=== PATIENT | female | born 1960 | race Caucasian/White ===

== ENCOUNTER → 2016-10-19 | Outpatient (CLI) | payer OTHER ==
[~2016-10-19] MED LIST: AMIT25TA9 PO; ATOR10TA88 PO; AZITTAB PO; CYCL5TAB PO; DEXL30CA5 PO; FLUT0.15 NAE; GLC/500 PO; HYDR5SYP11 PO; LISI-725 PO; MELA1TAB5 PO; MELA3TAB PO; METF-384 PO; METH4PAK PO; NORT10CA4 PO; OMEP20CA9 PO; OXYC-106 PO; OXYC7.5T65 PO; POTA1080 PO; POTA10TA79 PO; POTATAB2 PO; RANI300T2 PO; ROPI1TAB PO; SUCR1TAB PO; ZOLP5TAB PO
--- NOTE | 2016-10-19 16:05 | DIAGNOSTIC IMAGING REPORT ---
RIGHT KNEE 4 OR MORE VIEWS CLINICAL HISTORY: Right knee pain COMPARISON: None. DISCUSSION: There are mild osteoarthritic changes with mild medial joint compartment narrowing. There is a tiny dorsal patellar spur. No acute fractures are visualized. No destructive lesions are evident. IMPRESSION: Osteoarthritic change. No acute fractures. Electronically signed by: Mg Neal M.D. 10/19/2016 4:04 PM Dictated Date/Time: 10/19/2016 4:03 PM
== END | disposition home or self-care (01) ==
LOC: C.RAD 15:36
PROVIDERS: ATTEND Family Medicine
DX: M25.561 Pain in right knee (principal)

== ENCOUNTER 2016-11-20 22:58 | Emergency (ER) | payer OTHER ==
[~2016-11-20] VITALS: Ht 167.6 cm; Wt 97.9 kg
[~2016-11-20 22:58] MED LIST changes: -AZITTAB PO; -HYDR5SYP11 PO; -MELA3TAB PO; -METF-384 PO; -METH4PAK PO; -NORT10CA4 PO; -OMEP20CA9 PO; -OXYC-106 PO; -POTA10TA79 PO; -POTATAB2 PO; -SUCR1TAB PO
[2016-11-20 22:59] VITALS: TEMP 36.7; Ht 167.6 cm; Wt 97.9 kg
--- NOTE | 2016-11-20 23:09 | EMERGENCY ROOM VISIT NOTE ---
History Report prepared by Ta: Rory Diggs Under the Supervision of: Dr. Duane Hayward M.D. First contact with patient: 23:04 Chief Complaint: GI ASSESSMENT Stated Complaint: BLOOD IN VOMIT Nursing Triage Summary: Abd pain, vomiting with blood last night. last emesis 1100. Both bright red and brown per pt. "I think something was scratching my throat". CT scheduled on Sun for Hernia, scope scheduled for History of Present Illness The patient is a 56 year old female who presents to the Emergency Room with complaints of resolved hematemesis that occurred 12 hours ago. The patient states that she was sick last night and vomited. She reports that she vomited 12 hours ago, and she saw blood in it. The patient notes that she currently has a hernia in her abdomen, and she has a CT scan scheduled on Sunday and an endoscopy on Sunday. She states that her doctor is concerned for a worsening hernia and stomach ulcers. The patient reports that she currently feels well and would not be here if her family did not insist on her being here. She notes that she has a history of stomach ulcers, but she no longer takes medication for it. The patient states she also has a history of gastric bypass surgery and has mild abdominal pain. She notes that she takes doxylamine daily. She reports she had a bowel movement earlier today, and it was normal. The patient notes that she does have a history of smoking. She denies hematochezia, melena, fevers , chest pain, shortness of breath, loss of consciousness, diarrhea, urinary symptoms, and consuming chocolate, coffee, tomatoes, and spices. The patient also denies a history of ibuprofen use, alcohol use, liver problem, easy bleeding, and being around people sick. Source of History: patient Onset: 12 hours ago Position: abdomen Quality: other (hematemesis) Timing: resolved Associated Symptoms: + abdominal pain (mild), No LOC, No fevers, No chest pain, No SOB, No melena, No hematochezia, No diarrhea, No urinary symptoms Review of Systems See HPI for pertinent positives & negatives. A total of 10 systems reviewed and were otherwise negative. Past Medical & Surgical Medical Problems: (1) Anxiety (2) Bronchitis (3) Depression (4) Diabetes (5) Fibromyalgia (6) Gastric ulcer (7) Hypertension (8) Pneumonia (9) unintentional overdose (10) UTI (lower urinary tract infection) Surgical Problems: (1) H/O gastric bypass (2) H/O hernia repair (3) H/O knee surgery (4) H/O: hysterectomy (5) S/P tonsillectomy Family History FHx: cancer FHx: diabetes mellitus FHx: gallbladder disease FHx: heart disease FHx: hypertension FHx: lung disease FHx: seizures Social History Smoking Status: Current Every Day Smoker Alcohol Use: occasionally Drug Use: none Marital Status: single Housing Status: lives with family Occupation Status: unemployed Current/Historical Medications Scheduled Amitriptyline Hcl (Elavil), 25 MG PO HS Atorvastatin (Lipitor), 5 MG PO DAILY Dexlansoprazole (Dexilant), 1 CAP PO DAILY Fluticasone Propionate (Nasal) (Flonase Allergy Relief), 2 SPRAYS LEONA DAILY Lisinopril (Zestril), 20 MG PO DAILY Melatonin (Melatonin), 3 MG PO HS Metformin Hcl (Glucophage), 1,000 MG PO BID Oxycodone/Acetaminophen 10MG/325MG (Percocet 10MG/325MG), 1 TAB PO BID Potassium Citrate (Alkalinizer (Urocit-K 10), 10 MEQ PO DAILY Ropinirole (Requip), 1 MG PO BID Zolpidem Tartrate (Ambien), 5 MG PO HS Allergies Coded Allergies: Morphine (Verified Allergy, Mild, 11/20/16) Reaction described as itching around the site of an intrathecal injection. Adhesives (Unverified Allergy, Unknown, ., 11/20/16) Amoxicillin (Unverified Allergy, Unknown, ., 11/20/16) Clavulanic Acid (Unverified Allergy, Unknown, ., 11/20/16) Physical Exam Vital Signs Date Time Temp Pulse Resp B/P (MAP) Pulse Ox O2 Delivery O2 Flow Rate FiO2 11/20/16 23:43 108 19 135/101 96 Room Air 11/20/16 22:59 36.7 94 18 156/104 97 Room Air Physical Exam GENERAL: Patient is well appearing and in no acute distress. HEENT: No acute trauma, normocephalic atraumatic, mucous membranes moist, no nasal congestion, no scleral icterus. NECK: No stridor, no adenopathy, no meningismus, trachea is midline. LUNGS: No dyspnea. Clear to auscultation and equal bilaterally. No wheeze, no rhonchi. HEART: Regular rate and rhythm. No murmurs, rubs, gallops appreciated. ABDOMEN: Extensive abdominal scaring and large left midline hernia. Bowel sounds positive. No peritonitis. BACK: No midline tenderness, no CVA tenderness EXTREMITIES: Normal motion all extremities, no cyanosis, no edema. NEUROLOGIC: Alert and oriented, no acute motor or sensory deficits, no focal weakness, cranial nerves grossly intact. SKIN: No rash, no jaundice, no diaphoresis. Medical Decision & Procedures Laboratory Results 11/20/16 23:20 Red Blood Count 4.62, Mean Corpuscular Volume 86.8, Mean Corpuscular Hemoglobin 31.0, Mean Corpuscular Hemoglobin Concent 35.7, Mean Platelet Volume 9.4, Neutrophils (%) (Auto) 50.0, Lymphocytes (%) (Auto) 40.8, Monocytes (%) (Auto) 8.2, Eosinophils (%) (Auto) 0.7, Basophils (%) (Auto) 0.1, Neutrophils # (Auto) 4.06, Lymphocytes # (Auto) 3.32, Monocytes # (Auto) 0.67, Eosinophils # (Auto) 0.06, Basophils # (Auto) 0.01 11/20/16 23:20 Test 11/20/16 23:20 White Blood Count 8.14 K/uL (4.8-10.8) Red Blood Count 4.62 M/uL (4.2-5.4) Hemoglobin 14.3 g/dL (12.0-16.0) Hematocrit 40.1 % (37-47) Mean Corpuscular Volume 86.8 fL (80-100) Mean Corpuscular Hemoglobin 31.0 pg (25-34) Mean Corpuscular Hemoglobin Concent 35.7 g/dl (32-36) Platelet Count 214 K/uL (130-400) Mean Platelet Volume 9.4 fL (7.4-10.4) Neutrophils (%) (Auto) 50.0 % Lymphocytes (%) (Auto) 40.8 % Monocytes (%) (Auto) 8.2 % Eosinophils (%) (Auto) 0.7 % Basophils (%) (Auto) 0.1 % Neutrophils # (Auto) 4.06 K/uL (1.4-6.5) Lymphocytes # (Auto) 3.32 K/uL (1.2-3.4) Monocytes # (Auto) 0.67 K/uL (0.11-0.59) Eosinophils # (Auto) 0.06 K/uL (0-0.5) Basophils # (Auto) 0.01 K/uL (0-0.2) RDW Standard Deviation 40.9 fL (36.4-46.3) RDW Coefficient of Variation 12.9 % (11.5-14.5) Immature Granulocyte % (Auto) 0.2 % Immature Granulocyte # (Auto) 0.02 K/uL (0.00-0.02) Prothrombin Time 11.1 SECONDS (9.0-12.0) Prothromb Time International Ratio 1.0 (0.9-1.1) Activated Partial Thromboplast Time 28.6 SECONDS (21.0-31.0) Partial Thromboplastin Ratio 1.1 Anion Gap 6.0 mmol/L (3-11) Est Creatinine Clear Calc Drug Dose 137.2 ml/min Estimated GFR () 122.3 Estimated GFR (Non- 105.5 BUN/Creatinine Ratio 13.3 (10-20) Calcium Level 8.9 mg/dl (8.5-10.1) Total Bilirubin 0.4 mg/dl (0.2-1) Aspartate Amino Transf (AST/SGOT) 16 U/L (15-37) Alanine Aminotransferase (ALT/SGPT) 22 U/L (12-78) Alkaline Phosphatase 77 U/L (45-117) Total Protein 7.1 gm/dl (6.4-8.2) Albumin 3.1 gm/dl (3.4-5.0) Globulin 4.0 gm/dl (2.5-4.0) Albumin/Globulin Ratio 0.8 (0.9-2) Lipase 138 U/L (73-393) Laboratory results as reviewed by me. ED Course 2309: The patient was evaluated in room B12B. A complete history and physical exam was performed. 5652: I reevaluated the patient and discussed exam findings. She is feeling fine , walking around the room, and asking to be discharge. I offered to write a prescription of Prilosec, but the patient states that she will get it OTC. I discussed discharge instructions and the treatment plan. She verbalized complete agreement. The patient was discharged. Medical Decision Differential: Gastroenteritis, Food Borne, Esophageal Perforation, , Electrolyte Abnormality, Dehydration, Intraabdominal Infection, UTI/ Pyelonephritis, Bowel Obstruction, Biliary Pathology, amongst other pathology entertained. Pleasant 56 yr old female with history of Gastric Bypass and previous gastric ulcer issues arrives after vomiting 12+ hours ago with blood in it. Notes vomiting was due to stress but otherwise feels fine now. Denies black/bloody stools. Exam benign. Patient states she doesn't need to be here. Labs unremarkable with stable HgB, normal WBC, and otherwise unremarkable labs. With benign exam, resolution of symptoms for 12 + hours now I do not feel that emergent imaging necessary. She has outpatient CT already planned for a few days from now. She has outpatient endoscopy in a few days as well. Will started BID Prilosec for 1 week. Presume this was georgie tomas tear, though ulcer/gastritis possible. Of note, mild tachy on vitals after she was up walking around room, but on exam she has normal HR and she is not severely dehydrated appearing nor does she exhibit evidence of heavy active bleeding. Medication Reconcilliation Current Medication List: was personally reviewed by me Blood Pressure Screening Patient's blood pressure: Normal blood pressure Blood pressure disposition: Did not require urgent referral Impression Primary Impression: Bloody emesis Scribe Attestation The scribe's documentation has been prepared under my direction and personally reviewed by me in its entirety. I confirm that the note above accurately reflects all work, treatment, procedures, and medical decision making performed by me. Departure Information Dispostion Home / Self-Care Referrals Chrissy Little D.O. (PCP) Forms HOME CARE DOCUMENTATION FORM, IMPORTANT VISIT INFORMATION Patient Instructions Georgie Scott, My [facility] Additional Instructions You should begin taking Omeprazole (Prilosec) 20mg Twice daily for the next week. Keep current appointments as planned.
[2016-11-20 23:34] LABS: BASO % 0.1 %; BASO ABS # 0.01 K/uL (0-0.2); COMPLETE YES; EOS % 0.7 %; HEMATOCRIT 40.1 % (37-47); IG% 0.2 %; LYMPH % 40.8 %; LYMPH ABS # 3.32 K/uL (1.2-3.4); MEAN CELL VOLUME 86.8 fL (80-100); MEAN CORPUSCULAR HGB CONC 35.7 g/dl (32-36); MEAN PLATELET VOLUME 9.4 fL (7.4-10.4); MONO % 8.2 %; PLATELET COUNT 214 K/uL (130-400); RED BLOOD COUNT 4.62 M/uL (4.2-5.4); WHITE BLOOD COUNT 8.14 K/uL (4.8-10.8)
[2016-11-20 23:43] VITALS: BP 135/101; PULSE 108; O2SAT 96
[2016-11-20 23:44] LABS: PARTIAL THROMBOPLASTIN RATIO 1.1; PROTHROMBIN TIME (PATIENT) 11.1 SECONDS (9.0-12.0)
[2016-11-20] MEDS ORDERED: POTATAB2 PO (23:48)
[2016-11-20] MEDS ORDERED: MELA3TAB PO (23:50)
[2016-11-20] MEDS ORDERED: METF-384 PO (23:50)
[2016-11-20 23:52] LABS: BUN/CREATININE RATIO 13.3 (10-20); CALCIUM 8.9 mg/dl (8.5-10.1); CREATININE 0.54 mg/dl (0.60-1.20); POTASSIUM 3.6 mmol/L (3.5-5.1)
[2016-11-20] MEDS ORDERED: OXYC-106 PO (23:52)
[2016-11-20 23:54] LABS: ALB/GLOB RATIO 0.8 (0.9-2)
== END 2016-11-21 00:14 | disposition home or self-care (01) ==
LOC: C.EDB 22:59
DX: K92.0 Hematemesis (principal); K46.9 Unspecified abdominal hernia without obstruction or gangrene; K25.9 Gastric ulcer, unspecified as acute or chronic, without hemorrhage or perforation; F41.9 Anxiety disorder, unspecified; F32.9 Major depressive disorder, single episode, unspecified; E11.9 Type 2 diabetes mellitus without complications; M79.7 Fibromyalgia; I10 Essential (primary) hypertension; F17.200 Nicotine dependence, unspecified, uncomplicated; Z98.84 Bariatric surgery status; Z90.710 Acquired absence of both cervix and uterus; Z79.84 Long term (current) use of oral hypoglycemic drugs; Z83.3 Family history of diabetes mellitus; Z82.49 Family history of ischemic heart disease and other diseases of the circulatory system; Z82.0 Family history of epilepsy and other diseases of the nervous system

== ENCOUNTER 2016-12-22 11:53 | Emergency (ER) | payer OTHER ==
[~2016-12-22] VITALS: Ht 167.6 cm; Wt 103.0 kg
[~2016-12-22 11:53] MED LIST changes: -CYCL5TAB PO; -GLC/500 PO; -MELA1TAB5 PO; +MELA3TAB PO; +METF-384 PO; +OXYC-106 PO; -OXYC7.5T65 PO; -POTA1080 PO; +POTATAB2 PO; -RANI300T2 PO
[2016-12-22 11:56] VITALS: TEMP 36.4; Ht 167.6 cm; Wt 103.0 kg
[2016-12-22] MEDS ORDERED: HYDROCODONE/HOMATROPINE SYRUP 5MG/1.5MG 5ML UDP PO STA (12:13)
[2016-12-22] MEDS ORDERED: DEXAMETHASONE SOD INJ 10 MG/ML VIAL IV ONE (12:15)
[2016-12-22] MEDS ORDERED: ALBUT/IPRATROP 3MG/0.5MG NEB 3 ML VIAL INH ONE (12:15)
--- NOTE | 2016-12-22 12:18 | EMERGENCY ROOM VISIT NOTE ---
History Report prepared by Ta: Avril Blunt Under the Supervision of: Dr. Duane Hayward M.D. First contact with patient: 12:08 Chief Complaint: RESPIRATORY PROBLEMS Stated Complaint: CAN'T BREATHE,COUGH History of Present Illness The patient is a 56 year old female who presents to the Emergency Room with complaints of persistent respiratory problems that began two weeks ago. She currently rates her discomfort as a 4/10 in severity. The patient states that she has a history of bronchitis. She states that she has seen her PCP for her symptoms, noting that she was placed on Flonase and a cough suppressant. The patient denies any recent antibiotic or steroid use. She states that she is still smoking, but states that she is not smoking as much. The patient reports chest pain when she coughs. She denies any swelling in her lower extremities. The patient denies any history of a DVT or PE. She denies any recent long trips. Source of History: patient Onset: two weeks ago Position: other (global) Symptom Intensity: 4/10 Quality: other (respiratory problems) Timing: other (persistent) Associated Symptoms: + cough, + chest pain Review of Systems See HPI for pertinent positives & negatives. A total of 10 systems reviewed and were otherwise negative. Past Medical & Surgical Medical Problems: (1) Anxiety (2) Bronchitis (3) Depression (4) Diabetes (5) Fibromyalgia (6) Gastric ulcer (7) Hypertension (8) Pneumonia (9) unintentional overdose (10) UTI (lower urinary tract infection) Surgical Problems: (1) H/O gastric bypass (2) H/O hernia repair (3) H/O knee surgery (4) H/O: hysterectomy (5) S/P tonsillectomy Family History FHx: cancer FHx: diabetes mellitus FHx: gallbladder disease FHx: heart disease FHx: hypertension FHx: lung disease FHx: seizures Social History Smoking Status: Current Every Day Smoker Alcohol Use: occasionally Drug Use: none Marital Status: single Housing Status: lives with family Occupation Status: unemployed Current/Historical Medications Scheduled Amitriptyline Hcl (Elavil), 25 MG PO HS Atorvastatin (Lipitor), 5 MG PO DAILY Azithromycin (Zithromax Z-Mello), 1 PKT PO UD Fluticasone Propionate (Nasal) (Flonase Allergy Relief), 2 SPRAYS LEONA DAILY Lisinopril (Zestril), 20 MG PO DAILY Melatonin (Melatonin), 3 MG PO HS Metformin Hcl (Glucophage), 1,000 MG PO BID Methylprednisolone (Medrol Dosepak), 1 PKT PO UD Nortriptyline HCl (Nortriptyline HCl), 10 MG PO BID Omeprazole (Prilosec), 20 MG PO TID Oxycodone/Acetaminophen 10MG/325MG (Percocet 10MG/325MG), 1 TAB PO TID Potassium Chloride Microencaps (Potassium Chloride Cr), 10 MEQ PO DAILY Ropinirole (Requip), 1 MG PO BID Sucralfate (Sucralfate), 1 GM PO QID Zolpidem Tartrate (Ambien), 5 MG PO HS Scheduled PRN Hydrocodone W/ Homatropine (Hycodan 5/1.5MG 5 Ml), 5 ML PO Q4H PRN for Cough Allergies Coded Allergies: Morphine (Verified Allergy, Mild, 12/22/16) Reaction described as itching around the site of an intrathecal injection. Adhesives (Unverified Allergy, Unknown, ., 12/22/16) Amoxicillin (Unverified Allergy, Unknown, ., 12/22/16) Clavulanic Acid (Unverified Allergy, Unknown, ., 12/22/16) Clonazepam (Unverified Allergy, Unknown, blacks out, 12/22/16) Difficulty remembering what they have done, Physical Exam Vital Signs Date Time Temp Pulse Resp B/P (MAP) Pulse Ox O2 Delivery O2 Flow Rate FiO2 12/22/16 13:55 88 21 134/79 93 12/22/16 13:28 70 20 143/70 94 12/22/16 12:33 72 18 95 Room Air 12/22/16 12:31 70 25 150/92 93 Room Air 12/22/16 12:29 67 12/22/16 12:14 Room Air 12/22/16 11:56 36.4 68 20 144/89 92 Room Air Physical Exam GENERAL: Patient is well appearing and in minimal distress. HEENT: No acute trauma, normocephalic atraumatic, mucous membranes moist, no nasal congestion, no scleral icterus. NECK: No stridor, no adenopathy, no meningismus, trachea is midline. LUNGS: Diffuse wheezing and a junky cough No dyspnea. HEART: Regular rate and rhythm. No murmurs, rubs, gallops appreciated. ABDOMEN: Soft, nontender, bowel sounds positive, no masses appreciated, no peritonitis. BACK: No midline tenderness, no CVA tenderness EXTREMITIES: Normal motion all extremities, no cyanosis, no edema. NEUROLOGIC: Alert and oriented, no acute motor or sensory deficits, no focal weakness, cranial nerves grossly intact. SKIN: No rash, no jaundice, no diaphoresis. Medical Decision & Procedures ER Provider Diagnostic Interpretation: X ray results are stated below per my interpretation and the radiologist's interpretation. CHEST ONE VIEW PORTABLE HISTORY: Difficulty breathing. Cough. Atypical Chest Pain COMPARISON: Chest 05/16/2014. FINDINGS: No pleural fusions. No pneumothorax. The heart remains mildly enlarged. Mild bibasilar interstitial thickening, unchanged. No new focal lung consolidations to suggest pneumonia. No evidence for pulmonary edema. IMPRESSION: No significant change compared to the prior study. No acute process. Stable cardiomegaly and mild bibasilar interstitial thickening. Electronically signed by: Conner Porras M.D. 12/22/2016 12:36 PM Dictated Date/Time: 12/22/2016 12:34 PM Laboratory Results 12/22/16 12:18 Red Blood Count 4.87, Mean Corpuscular Volume 85.0, Mean Corpuscular Hemoglobin 30.0, Mean Corpuscular Hemoglobin Concent 35.3, Mean Platelet Volume 9.3, Neutrophils (%) (Auto) 40.2, Lymphocytes (%) (Auto) 47.8, Monocytes (%) (Auto) 9.7, Eosinophils (%) (Auto) 1.9, Basophils (%) (Auto) 0.2, Neutrophils # (Auto) 3.62, Lymphocytes # (Auto) 4.32, Monocytes # (Auto) 0.88, Eosinophils # (Auto) 0.17, Basophils # (Auto) 0.02 12/22/16 12:18 Test 12/22/16 12:18 White Blood Count 9.03 K/uL (4.8-10.8) Red Blood Count 4.87 M/uL (4.2-5.4) Hemoglobin 14.6 g/dL (12.0-16.0) Hematocrit 41.4 % (37-47) Mean Corpuscular Volume 85.0 fL (80-100) Mean Corpuscular Hemoglobin 30.0 pg (25-34) Mean Corpuscular Hemoglobin Concent 35.3 g/dl (32-36) Platelet Count 248 K/uL (130-400) Mean Platelet Volume 9.3 fL (7.4-10.4) Neutrophils (%) (Auto) 40.2 % Lymphocytes (%) (Auto) 47.8 % Monocytes (%) (Auto) 9.7 % Eosinophils (%) (Auto) 1.9 % Basophils (%) (Auto) 0.2 % Neutrophils # (Auto) 3.62 K/uL (1.4-6.5) Lymphocytes # (Auto) 4.32 K/uL (1.2-3.4) Monocytes # (Auto) 0.88 K/uL (0.11-0.59) Eosinophils # (Auto) 0.17 K/uL (0-0.5) Basophils # (Auto) 0.02 K/uL (0-0.2) RDW Standard Deviation 38.1 fL (36.4-46.3) RDW Coefficient of Variation 12.4 % (11.5-14.5) Immature Granulocyte % (Auto) 0.2 % Immature Granulocyte # (Auto) 0.02 K/uL (0.00-0.02) Anion Gap 7.0 mmol/L (3-11) Est Creatinine Clear Calc Drug Dose 169.2 ml/min Estimated GFR () 129.8 Estimated GFR (Non- 112.0 BUN/Creatinine Ratio 6.7 (10-20) Calcium Level 9.0 mg/dl (8.5-10.1) Troponin I < 0.015 ng/ml (0-0.045) Laboratory results as reviewed by me. Medications Administered Medications (Trade) Dose Ordered Sig/Izzy Route Start Time Stop Time Status Last Admin Dose Admin Albuterol/ Ipratropium (Duoneb) 12 ml ONE ONCE INH 12/22/16 12:15 12/22/16 12:16 DC 12/22/16 12:30 12 ML Dexamethasone Sodium Phosphate (Decadron Inj) 10 mg NOW ONCE IV 12/22/16 12:15 12/22/16 12:16 DC 12/22/16 12:28 10 MG Hydrocodone Bit/ Homatropine Methylb (Hycodan Syrup) 5 ml NOW STAT PO 12/22/16 12:13 12/22/16 12:15 DC 12/22/16 12:27 5 ML Azithromycin (Zithromax Tab) 500 mg NOW STAT PO 12/22/16 13:25 12/22/16 13:27 DC 12/22/16 13:34 500 MG Albuterol (Ventolin Hfa Inhaler) 2 puffs NOW ONCE INH 12/22/16 13:30 12/22/16 13:31 DC 12/22/16 13:33 2 PUFFS ECG Indication: chest pain, SOB/dyspnea Rate (beats per minute): 66 Rhythm: normal sinus Findings: no acute ischemic change, no ectopy ED Course 1210: The patient was evaluated in room C11B. A complete history and physical exam was performed. 1213: Ordered Hycodan Syrup 5 ml PO. 1215: Ordered Decadron Inj 10 mg IV, DuoNeb 12 ml INH. 1325: Ordered Azithromycin 500 mg PO. 1330: Ordered Albuterol 2 puffs INH. 1333: I reevaluated the patient and she is resting comfortably. I discussed the exam findings with her and I discussed the treatment plan. She verbalized complete understanding and agreement. She is ready to go home. Medical Decision Differential: Infectious, Reactive Airway Disease, Pneumonia, Pneumothorax, COPD , CHF, ACS, Pulmonary Embolism, MSK, GI, Dissection, amongst other etiologies entertained. 56 yr old old female arrives with cough. Diffuse wheezing on exam without hypoxia/tachycardia. 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 No infiltrate on CXR. Labs look OK. Symptoms and stroy not consistent with PE, ACS, Dissection. She is vastly improved with neb. With her history consistent with bronchitis in smoker. Will start zpack, pred, inhaler. Stressed PCP follow up. RTED if worsening or other concerns. I reviewed risks/restrictions of narcotic cough medications. Medication Reconcilliation Current Medication List: was personally reviewed by me Blood Pressure Screening Patient's blood pressure: Elevated blood pressure Blood pressure disposition: Referred to PCP Impression Primary Impression: Acute bronchitis Scribe Attestation The scribe's documentation has been prepared under my direction and personally reviewed by me in its entirety. I confirm that the note above accurately reflects all work, treatment, procedures, and medical decision making performed by me. Departure Information Dispostion Home / Self-Care Prescriptions Hydrocodone W/ Homatropine (HYCODAN 5/1.5MG 5 ML) 1 Syp Syp 5 ML PO Q4H Y for Cough, #60 ML Prov: Duane Hayward M.D. 12/22/16 Azithromycin (ZITHROMAX Z-MELLO) 250 Mg Tab 1 PKT PO UD, #1 PKT Prov: Duane Hayward M.D. 12/22/16 Methylprednisolone (MEDROL DOSEPAK) 4 Mg Mello 1 PKT PO UD for 6 Days, #1 PKT Prov: Duane Hayward M.D. 12/22/16 Referrals Chrissy Little D.O. (PCP) Forms HOME CARE DOCUMENTATION FORM, IMPORTANT VISIT INFORMATION Patient Instructions Bronchitis Acute, My [facility] Additional Instructions You were given your dose of steroid and antibiotic today. You should start prescriptions for these tomorrow. The steroid may increase your blood sugars, thus you should watch them closely and avoid carbs. Use inhaler (2 Puffs) every 4 to 6 hours as needed. Please follow up with your primary provider in the next few days for recheck.
[2016-12-22 12:29] LABS: BASO % 0.2 %; BASO ABS # 0.02 K/uL (0-0.2); COMPLETE YES; EOS % 1.9 %; HEMATOCRIT 41.4 % (37-47); IG% 0.2 %; LYMPH % 47.8 %; LYMPH ABS # 4.32 K/uL (1.2-3.4); MEAN CORPUSCULAR HGB CONC 35.3 g/dl (32-36); MEAN PLATELET VOLUME 9.3 fL (7.4-10.4); MONO % 9.7 %; NEUT % 40.2 %; PLATELET COUNT 248 K/uL (130-400); RED BLOOD COUNT 4.87 M/uL (4.2-5.4); WHITE BLOOD COUNT 9.03 K/uL (4.8-10.8)
[2016-12-22] MEDS ORDERED: OMEP20CA9 PO (12:32)
[2016-12-22] MEDS ORDERED: SUCR1TAB PO (12:32)
[2016-12-22] MEDS ORDERED: NORT10CA4 PO (12:32)
[2016-12-22] MEDS ORDERED: POTA10TA79 PO (12:32)
[2016-12-22 12:33] VITALS: PULSE 72; O2SAT 95
--- NOTE | 2016-12-22 12:37 | DIAGNOSTIC IMAGING REPORT ---
CHEST ONE VIEW PORTABLE HISTORY: Difficulty breathing. Cough. Atypical Chest Pain COMPARISON: Chest 05/16/2014. FINDINGS: No pleural fusions. No pneumothorax. The heart remains mildly enlarged. Mild bibasilar interstitial thickening, unchanged. No new focal lung consolidations to suggest pneumonia. No evidence for pulmonary edema. IMPRESSION: No significant change compared to the prior study. No acute process. Stable cardiomegaly and mild bibasilar interstitial thickening. Electronically signed by: Conner Porras M.D. 12/22/2016 12:36 PM Dictated Date/Time: 12/22/2016 12:34 PM
[2016-12-22 12:46] LABS: BLOOD UREA NITROGEN 3 mg/dl (7-18); BUN/CREATININE RATIO 6.7 (10-20); CARBON DIOXIDE 24 mmol/L (21-32); CHLORIDE 107 mmol/L (98-107); CREATININE 0.45 mg/dl (0.60-1.20); GLUCOSE 160 mg/dl (70-99); POTASSIUM 3.7 mmol/L (3.5-5.1); SODIUM 138 mmol/L (136-145)
[2016-12-22] MEDS ORDERED: HYDR5SYP11 PO (13:23)
[2016-12-22] MEDS ORDERED: AZITTAB PO (13:23)
[2016-12-22] MEDS ORDERED: METH4PAK PO (13:23)
[2016-12-22] MEDS ORDERED: AZITHROMYCIN 250 MG TAB PO STA (13:25)
[2016-12-22] MEDS ORDERED: ALBUTEROL HFA 8 GM INHALER INH ONE (13:30)
[2016-12-22 13:55] VITALS: BP 134/79; PULSE 88; O2SAT 93
== END 2016-12-22 13:55 | disposition home or self-care (01) ==
LOC: C.EDB 11:54 → C.EDC 13:55
DX: J20.9 Acute bronchitis, unspecified (principal); F41.9 Anxiety disorder, unspecified; F32.9 Major depressive disorder, single episode, unspecified; M79.7 Fibromyalgia; I10 Essential (primary) hypertension; K25.9 Gastric ulcer, unspecified as acute or chronic, without hemorrhage or perforation; F17.200 Nicotine dependence, unspecified, uncomplicated; Z98.84 Bariatric surgery status; Z90.710 Acquired absence of both cervix and uterus; Z79.84 Long term (current) use of oral hypoglycemic drugs; Z83.3 Family history of diabetes mellitus; Z82.49 Family history of ischemic heart disease and other diseases of the circulatory system; Z82.0 Family history of epilepsy and other diseases of the nervous system

== ENCOUNTER 2016-12-26 15:15 | Emergency (ER) | payer OTHER ==
[~2016-12-26] VITALS: Ht 167.6 cm; Wt 104.0 kg
[~2016-12-26 15:15] MED LIST changes: +AZITTAB PO; -DEXL30CA5 PO; +HYDR5SYP11 PO; +METH4PAK PO; +NORT10CA4 PO; +OMEP20CA9 PO; +POTA10TA79 PO; -POTATAB2 PO; +SUCR1TAB PO
[2016-12-26 15:17] VITALS: TEMP 36.5; Ht 167.6 cm; Wt 104.0 kg
[2016-12-26] MEDS ORDERED: SODIUM CHLORIDE 0.9% 1000ML 1,000 ML IV ONE (15:32)
[2016-12-26] MEDS ORDERED: SODIUM CHLORIDE 0.9% 1000ML 1,000 ML IV STA (15:32)
--- NOTE | 2016-12-26 15:37 | EMERGENCY ROOM VISIT NOTE ---
History Report prepared by Ta: Rory Diggs Under the Supervision of: Dr. Kit Ellington M.D. First contact with patient: 15:21 Chief Complaint: FLU LIKE SX Stated Complaint: FLU OR BRONCHITIS History of Present Illness The patient is a 56 year old female who presents to the Emergency Room with complaints of worsening influenza symptoms beginning a week ago. The patient states she was here four days ago for similar symptoms. She reports she received an hour long breathing treatment, and it really helped her symptoms. The patient notes she was diagnosed with bronchitis and discharged with cough syrup, antibiotics, and steroids. She states she still has two doses left of her antibiotic. The patient reports she was feeling better, but now her symptoms are back to where they were the first time. She notes she is experiencing shortness of breath, a productive cough with yellow phlegm, achiness, a low grade fever, and a post nasal drip. The patient states she has chest pressure and a headache after profuse coughing. She reports he has not received her flu shot yet this year. The patient notes she has a history of bronchitis, but she denies a history of asthma. She states she is a smoker, but she has not been smoking because it makes her cough. The patient denies swelling in her legs, vomiting, and diarrhea. Source of History: patient Onset: week ago Position: other (global) Quality: other (flu like symptoms) Timing: worsening Associated Symptoms: + fevers, + headache (after profuse coughing), + cough (productive), + chest pain (after profuse coughing), + SOB, No vomiting, No diarrhea Note: Associated symptoms: achiness and a post nasal drip Denies: swelling in her legs Review of Systems See HPI for pertinent positives & negatives. A total of 10 systems reviewed and were otherwise negative. Past Medical & Surgical Medical Problems: (1) Anxiety (2) Bronchitis (3) Depression (4) Diabetes (5) Fibromyalgia (6) Gastric ulcer (7) Hypertension (8) Pneumonia (9) unintentional overdose (10) UTI (lower urinary tract infection) Surgical Problems: (1) H/O gastric bypass (2) H/O hernia repair (3) H/O knee surgery (4) H/O: hysterectomy (5) S/P tonsillectomy Old medical records were reviewed. Nurse's notes were reviewed and I agree with. Family History FHx: cancer FHx: diabetes mellitus FHx: gallbladder disease FHx: heart disease FHx: hypertension FHx: lung disease FHx: seizures Social History Smoking Status: Current Every Day Smoker Alcohol Use: occasionally Drug Use: none Marital Status: single Housing Status: lives with family Occupation Status: unemployed Current/Historical Medications Scheduled Amitriptyline Hcl (Elavil), 25 MG PO HS Atorvastatin (Lipitor), 5 MG PO DAILY Azithromycin (Zithromax Z-Mello), 1 PKT PO UD Fluticasone Propionate (Nasal) (Flonase Allergy Relief), 2 SPRAYS LEONA DAILY Lisinopril (Zestril), 20 MG PO DAILY Melatonin (Melatonin), 3 MG PO HS Metformin Hcl (Glucophage), 1,000 MG PO BID Nortriptyline HCl (Nortriptyline HCl), 10 MG PO BID Omeprazole (Prilosec), 20 MG PO TID Oxycodone/Acetaminophen 10MG/325MG (Percocet 10MG/325MG), 1 TAB PO TID Potassium Chloride Microencaps (Potassium Chloride Cr), 10 MEQ PO DAILY Ropinirole (Requip), 1 MG PO BID Sucralfate (Sucralfate), 1 GM PO QID Zolpidem Tartrate (Ambien), 5 MG PO HS Allergies Coded Allergies: Morphine (Verified Allergy, Mild, 12/26/16) Reaction described as itching around the site of an intrathecal injection. Adhesives (Unverified Allergy, Unknown, ., 12/26/16) Amoxicillin (Unverified Allergy, Unknown, ., 12/26/16) Clavulanic Acid (Unverified Allergy, Unknown, ., 12/26/16) Clonazepam (Unverified Allergy, Unknown, blacks out, 12/26/16) Difficulty remembering what they have done, Physical Exam Vital Signs Date Time Temp Pulse Resp B/P (MAP) Pulse Ox O2 Delivery O2 Flow Rate FiO2 12/26/16 18:25 82 22 114/73 94 Room Air 12/26/16 17:30 103 30 150/93 98 Room Air 12/26/16 17:00 79 19 172/122 100 Room Air 12/26/16 16:11 70 12/26/16 16:10 100 18 97 Room Air 12/26/16 15:54 76 28 137/100 99 Room Air 12/26/16 15:17 36.5 81 20 158/86 98 Room Air Physical Exam General: Non-ill appearing middle aged female in no acute distress. HEENT: Normal cephalic atraumatic. Pupils are equal round and reactive to light. Extraocular movements are intact. Oropharynx is pink with moist mucous membranes. No swelling of the mouth lips or tongue. Neck: Supple with a midline trachea. No meningeal signs or stiffness, no JVD or bruits. No Stridor. Chest: Intermittent depacking cough. Some coarse breath sounds. No wheezing No increased work of breathing. Heart: regular rate and rhythm. Abdomen: Soft nontender, nondistended without rebound guarding or rigidity. Extremities: No cyanosis clubbing or edema. No calf tenderness or assymetry Spine/Back. Non tender to palpation. No CVA tenderness Skin: Good turgor without rashes. Neurologic exam: Cranial nerves two through 12 are intact. Motor and sensation are intact and symmetrical throughout. Medical Decision & Procedures ER Provider Diagnostic Interpretation: X-ray results as stated below per interpretation by me and the radiologist: CHEST ONE VIEW PORTABLE HISTORY: Atypical CHEST PAIN COMPARISON: Chest 12/22/2016. FINDINGS: The heart remains mildly enlarged. No focal lung consolidations to suggest pneumonia. No pleural effusions. No pneumothorax. No evidence for pulmonary edema. IMPRESSION: Stable cardiomegaly. Electronically signed by: Conner Porras M.D. 12/26/2016 4:02 PM Dictated Date/Time: 12/26/2016 4:01 PM Laboratory Results 12/26/16 15:50 Red Blood Count 4.47, Mean Corpuscular Volume 88.1, Mean Corpuscular Hemoglobin 29.8, Mean Corpuscular Hemoglobin Concent 33.8, Mean Platelet Volume 9.3, Neutrophils (%) (Auto) 58.1, Lymphocytes (%) (Auto) 31.5, Monocytes (%) (Auto) 8.9, Eosinophils (%) (Auto) 0.8, Basophils (%) (Auto) 0.2, Neutrophils # (Auto) 7.24, Lymphocytes # (Auto) 3.93, Monocytes # (Auto) 1.11, Eosinophils # (Auto) 0.10, Basophils # (Auto) 0.02 12/26/16 15:50 Test 12/26/16 15:50 12/26/16 15:54 White Blood Count 12.46 K/uL (4.8-10.8) Red Blood Count 4.47 M/uL (4.2-5.4) Hemoglobin 13.3 g/dL (12.0-16.0) Hematocrit 39.4 % (37-47) Mean Corpuscular Volume 88.1 fL (80-100) Mean Corpuscular Hemoglobin 29.8 pg (25-34) Mean Corpuscular Hemoglobin Concent 33.8 g/dl (32-36) Platelet Count 280 K/uL (130-400) Mean Platelet Volume 9.3 fL (7.4-10.4) Neutrophils (%) (Auto) 58.1 % Lymphocytes (%) (Auto) 31.5 % Monocytes (%) (Auto) 8.9 % Eosinophils (%) (Auto) 0.8 % Basophils (%) (Auto) 0.2 % Neutrophils # (Auto) 7.24 K/uL (1.4-6.5) Lymphocytes # (Auto) 3.93 K/uL (1.2-3.4) Monocytes # (Auto) 1.11 K/uL (0.11-0.59) Eosinophils # (Auto) 0.10 K/uL (0-0.5) Basophils # (Auto) 0.02 K/uL (0-0.2) RDW Standard Deviation 40.7 fL (36.4-46.3) RDW Coefficient of Variation 12.7 % (11.5-14.5) Immature Granulocyte % (Auto) 0.5 % Immature Granulocyte # (Auto) 0.06 K/uL (0.00-0.02) Prothrombin Time 10.3 SECONDS (9.0-12.0) Prothromb Time International Ratio 1.0 (0.9-1.1) Activated Partial Thromboplast Time 25.4 SECONDS (21.0-31.0) Partial Thromboplastin Ratio 1.0 Anion Gap 6.0 mmol/L (3-11) Est Creatinine Clear Calc Drug Dose 182.2 ml/min Estimated GFR () 132.8 Estimated GFR (Non- 114.6 BUN/Creatinine Ratio 21.0 (10-20) Calcium Level 8.4 mg/dl (8.5-10.1) Total Bilirubin 0.3 mg/dl (0.2-1) Direct Bilirubin < 0.1 mg/dl (0-0.2) Aspartate Amino Transf (AST/SGOT) 23 U/L (15-37) Alanine Aminotransferase (ALT/SGPT) 33 U/L (12-78) Alkaline Phosphatase 74 U/L (45-117) Total Creatine Kinase 22 U/L (26-192) Creatine Kinase MB 0.8 ng/ml (0.5-3.6) Creatine Kinase MB Ratio 3.6 (0-3.0) Total Protein 6.5 gm/dl (6.4-8.2) Albumin 2.9 gm/dl (3.4-5.0) Lipase 123 U/L (73-393) Bedside D-Dimer 383 ng/mlFEU (0-450) Bedside Troponin I < 0.030 ng/ml (0-0.045) Laboratory studies as stated above per my review. Medications Administered Medications (Trade) Dose Ordered Sig/Izzy Route Start Time Stop Time Status Last Admin Dose Admin Sodium Chloride 1,000 ml @ 999 mls/hr Q1H1M STAT IV 12/26/16 15:32 12/26/16 16:32 DC 12/26/16 15:32 999 MLS/HR Sodium Chloride 1,000 ml @ 150 mls/hr Q6H40M ONCE IV 12/26/16 15:32 12/26/16 19:06 DC 12/26/16 16:25 150 MLS/HR Albuterol/ Ipratropium (Duoneb) 12 ml ONE ONCE INH 12/26/16 15:45 12/26/16 15:46 DC 12/26/16 16:01 12 ML Hydrocodone Bit/ Homatropine Methylb (Hycodan Elix Homepack 5/1.5MG/ 5ML) 1 homepack UD ONCE PO 12/26/16 18:15 12/26/16 18:16 DC 12/26/16 18:24 1 HOMEPACK ECG Indication: SOB/dyspnea Rate (beats per minute): 74 Rhythm: normal sinus Findings: no acute ischemic change, no ectopy Comparison ECG Date: 12/22/16 Change: no significant change ED Course 1524: Past medical records reviewed. The patient was evaluated in room B05, and a complete history and physical examination were performed. 1532: Ordered Sodium Chloride 1000 ml @ 150 mls/hr IV Sodium Chloride 1000 ml @ 999 mls/hr IV 1545: Ordered Duoneb 12ml INH 180: I reevaluated the patient. She feels much better after the Duoneb. 181: Ordered Hydrocodone Bit/Homatropine Methylb 1 homepack PO 1827: Upon reevaluation, the patient is feeling better. I discussed the results and treatment plan with her. She verbalized agreement of the treatment plan. The patient was discharged home. Medical Decision Differentials include, but are not limited to; bronchitis, pneumonia, PE, electrolyte or metabolic abnormality. This patient comes in as described above. She was placed in room B5. She is here for treatment and evaluation of continuing cough. She has bronchitis type symptoms. She was seen here the other day and was put on steroids as well as azithromycin Z-Mello.. She says a couple days left on azithromycin. She stopped the steroids because her blood sugar too high and she did not like it. While she was here she said that 1 hour neb helped her feel better The other day. She is also out of her Hycodan. She said that helped as well. I did give her an albuterol/Atrovent neb over 1 hour. Chest x-ray is unremarkable and shows no pneumonia or pneumothorax. D-dimer was within normal limits and in a low pretest probability said this makes PE highly unlikely. Her symptoms are atypical for cardiac disease and also her EKG was unremarkable as is her troponin . she'shad no significant electrolyte or metabolic abnormalities. She has nothing to suggest sepsis. She feels good and will be discharged to home. She has appointment with her doctor on . She should finish her antibiotics and was given a Hycodan home pack. She should return if : worsening of symptoms, fever or chills, any new problems or concerns. She is happy the plan and discharged to home. Medication Reconcilliation Current Medication List: was personally reviewed by me Blood Pressure Screening Patient's blood pressure: Normal blood pressure Blood pressure disposition: Did not require urgent referral At discharge Impression Primary Impression: Bronchitis Additional Impression: SOB (shortness of breath) Scribe Attestation The scribe's documentation has been prepared under my direction and personally reviewed by me in its entirety. I confirm that the note above accurately reflects all work, treatment, procedures, and medical decision making performed by me. Departure Information Dispostion Home / Self-Care Referrals Chrissy Little D.O. (PCP) Forms HOME CARE DOCUMENTATION FORM, IMPORTANT VISIT INFORMATION Patient Instructions My [facility] Additional Instructions Rest. Drink plenty of fluids. Return if: Worsening of symptoms, shortness of breath, chest pain, any new problems or concerns Continue to use Hycodan syrup 5-10 mLs every 6 hours if needed for cough Finish your antibiotics Keep your appointment on with your doctor Problem Qualifiers
[2016-12-26] MEDS ORDERED: ALBUT/IPRATROP 3MG/0.5MG NEB 3 ML VIAL INH ONE (15:45)
--- NOTE | 2016-12-26 16:03 | DIAGNOSTIC IMAGING REPORT ---
CHEST ONE VIEW PORTABLE HISTORY: Atypical CHEST PAIN COMPARISON: Chest 12/22/2016. FINDINGS: The heart remains mildly enlarged. No focal lung consolidations to suggest pneumonia. No pleural effusions. No pneumothorax. No evidence for pulmonary edema. IMPRESSION: Stable cardiomegaly. Electronically signed by: Conner Porras M.D. 12/26/2016 4:02 PM Dictated Date/Time: 12/26/2016 4:01 PM
[2016-12-26 16:08] LABS: BASO % 0.2 %; BASO ABS # 0.02 K/uL (0-0.2); COMPLETE YES; EOS % 0.8 %; HEMATOCRIT 39.4 % (37-47); IG% 0.5 %; LYMPH % 31.5 %; LYMPH ABS # 3.93 K/uL (1.2-3.4); MEAN CELL VOLUME 88.1 fL (80-100); MEAN CORPUSCULAR HEMOGLOBIN 29.8 pg (25-34); MEAN CORPUSCULAR HGB CONC 33.8 g/dl (32-36); MEAN PLATELET VOLUME 9.3 fL (7.4-10.4); MONO % 8.9 %; NEUT % 58.1 %; PLATELET COUNT 280 K/uL (130-400); RED BLOOD COUNT 4.47 M/uL (4.2-5.4); WHITE BLOOD COUNT 12.46 K/uL (4.8-10.8)
[2016-12-26 16:10] VITALS: PULSE 100; O2SAT 97
[2016-12-26 16:13] LABS: POINT OF CARE TROPONIN I < 0.030 ng/ml (0-0.045)
[2016-12-26 16:16] LABS: PROTHROMBIN TIME (PATIENT) 10.3 SECONDS (9.0-12.0)
[2016-12-26 16:32] LABS: ALT/SGPT 33 U/L (12-78); AST/SGOT 23 U/L (15-37); BLOOD UREA NITROGEN 9 mg/dl (7-18); CALCIUM 8.4 mg/dl (8.5-10.1); CARBON DIOXIDE 27 mmol/L (21-32); CHLORIDE 105 mmol/L (98-107); CREATININE 0.42 mg/dl (0.60-1.20); GLUCOSE 174 mg/dl (70-99); POTASSIUM 5.1 mmol/L (3.5-5.1); SODIUM 138 mmol/L (136-145)
[2016-12-26 16:38] LABS: ALKALINE PHOSPHATASE 74 U/L (45-117); CKMB/CK RATIO 3.6 (0-3.0)
[2016-12-26] MEDS ORDERED: HYCODAN 60ML BOTTLE HOMEPACK PO ONE (18:15)
[2016-12-26 18:25] VITALS: BP 114/73; PULSE 82; O2SAT 94
== END 2016-12-26 18:27 | disposition home or self-care (01) ==
LOC: C.EDB 15:16
DX: J40 Bronchitis, not specified as acute or chronic (principal); F17.210 Nicotine dependence, cigarettes, uncomplicated; F41.9 Anxiety disorder, unspecified; E11.9 Type 2 diabetes mellitus without complications; M79.7 Fibromyalgia; I10 Essential (primary) hypertension; Z87.01 Personal history of pneumonia (recurrent); Z87.440 Personal history of urinary (tract) infections; Z90.710 Acquired absence of both cervix and uterus; Z80.9 Family history of malignant neoplasm, unspecified; Z83.3 Family history of diabetes mellitus; Z82.49 Family history of ischemic heart disease and other diseases of the circulatory system; Z82.0 Family history of epilepsy and other diseases of the nervous system; Z79.899 Other long term (current) drug therapy

== ENCOUNTER 2017-02-09 23:50 | Emergency (ER) | payer OTHER ==
[~2017-02-09] VITALS: Ht 167.6 cm; Wt 104.5 kg
[~2017-02-09 23:50] MED LIST changes: +ATOR10TA82 PO; -ATOR10TA88 PO; -AZITTAB PO; -HYDR5SYP11 PO; -METH4PAK PO
[2017-02-09 23:58] VITALS: BP 161/105; TEMP 36.9; Ht 167.6 cm; Wt 104.5 kg
[2017-02-10] MEDS ORDERED: FLUC150T PO (00:28)
[2017-02-10] MEDS ORDERED: SULF800T23 PO (00:28)
[2017-02-10] MEDS ORDERED: SEPTRA DS HOME PACK 1 EA VIAL PO ONE (00:30)
[2017-02-10 00:32] LABS: PREG INTERNAL NEGATIVE QC NEG CLEAR BACKGROUND; PREG INTERNAL POSITIVE QC POS CONTROL LINE
[2017-02-10 00:33] LABS: URINE APPEARANCE CLOUDY (CLEAR); URINE BILIRUBIN NEG (NEG); URINE COLOR YELLOW; URINE EPITHELIAL CELL AUTO >30 /lpf (0-5); URINE NITRITE POS (NEG); URINE SPECIFIC GRAVITY 1.021 (1.000-1.030); UROBILINOGEN NEG (NEG); ZZUR CULT IF INDIC CLEAN CATCH YES
[2017-02-10 00:35] LABS: MANUAL MICROSCOPIC REQUIRED? NO; REVIEW REQ? NO
[2017-02-10 00:57] VITALS: PULSE 81; O2SAT 99
--- NOTE | 2017-02-10 04:34 | EMERGENCY ROOM VISIT NOTE ---
ED Visit Note First contact with patient: 00:02 CHIEF COMPLAINT: Frequent and painful urination HISTORY OF PRESENT ILLNESS: This 56 year old female presents to the emergency department complaining of increased frequency of urination, burning pain with urination, and a feeling of incomplete voiding off and on for the past 4-5 days. She states her symptoms are worse tonight as she is having discomfort in the very low pelvis. The patient passes very small volumes of urine with each episode of voiding. The patient does not have distinct abdominal pain. They deny back pain, fever, or vaginal discharge. The patient has had frequent urinary tract infections in the past, and this feels similar. Patient feels they are at risk for STIs. REVIEW OF SYSTEMS: A 6 system review of systems was completed with positives and pertinent negatives listed in the HPI. ALLERGIES: See EMR MEDICATIONS: See EMR PMH: See EMR SOCIAL HISTORY: Lives locally PHYSICAL EXAM: Vital Signs: Reviewed Nurse's notes, vital signs stable. GENERAL : White female, in no acute distress, they do not appear toxic, well-developed, well-nourished. HEART: Regular rate and rhythm without murmur gallop or rub LUNG : Clear to auscultation bilateral ABDOMEN: Positive bowel sounds x 4. The abdomen is soft, mildly tender in the suprapubic area, but no masses or organs are felt. There is no CVA tenderness. The skin is clear. NEURO: Alert and oriented to person place and time. EMERGENCY DEPARTMENT COURSE: Physical exam and history were performed. Nursing notes and EMR were reviewed. The patient has symptoms that sound like a urinary tract infection. She does not appear toxic on exam. Urine was collected, and is consistent with a UTI with culture pending. The patient will be started on a course of Bactrim. I will also give her a dose of Diflucan. The patient is to follow with her primary care physician for further care and management. She is otherwise invited back to the ER with any new, worsening, or concerning symptoms. Problem List Medical Problems: (1) Anxiety Status: Chronic (2) Bronchitis Status: Chronic (3) Depression Status: Chronic (4) Diabetes Status: Chronic (5) Fibromyalgia Status: Chronic (6) Gastric ulcer Status: Chronic (7) Hypertension Status: Chronic (8) Pneumonia Status: Chronic (9) UTI (lower urinary tract infection) Status: Chronic Surgical Problems: (1) H/O gastric bypass Status: Chronic (2) H/O hernia repair Status: Chronic (3) H/O knee surgery Status: Chronic (4) H/O: hysterectomy Status: Chronic (5) S/P tonsillectomy Status: Chronic Current/Historical Medications Scheduled Amitriptyline Hcl (Elavil), 25 MG PO HS Atorvastatin (Lipitor), 5 MG PO DAILY Fluconazole (Diflucan), 150 MG PO DIRECTED Fluticasone Propionate (Nasal) (Flonase Allergy Relief), 2 SPRAYS LEONA DAILY Lisinopril (Zestril), 20 MG PO DAILY Melatonin (Melatonin), 3 MG PO HS Metformin Hcl (Glucophage), 1,000 MG PO BID Nortriptyline HCl (Nortriptyline HCl), 10 MG PO BID Omeprazole (Prilosec), 20 MG PO TID Oxycodone/Acetaminophen 10MG/325MG (Percocet 10MG/325MG), 1 TAB PO TID Potassium Chloride Microencaps (Potassium Chloride Cr), 10 MEQ PO DAILY Ropinirole (Requip), 1 MG PO BID Sucralfate (Sucralfate), 1 GM PO QID Sulfa/Trimethoprim (Bactrim Ds 800MG/160MG), 1 TAB PO BID Zolpidem Tartrate (Ambien), 5 MG PO HS Allergies Coded Allergies: Morphine (Verified Allergy, Mild, 12/26/16) Reaction described as itching around the site of an intrathecal injection. Adhesives (Unverified Allergy, Unknown, ., 12/26/16) Amoxicillin (Unverified Allergy, Unknown, ., 12/26/16) Clavulanic Acid (Unverified Allergy, Unknown, ., 12/26/16) Clonazepam (Unverified Allergy, Unknown, blacks out, 12/26/16) Difficulty remembering what they have done, Vital Signs Date Time Temp Pulse Resp B/P (MAP) Pulse Ox O2 Delivery O2 Flow Rate FiO2 02/10/17 00:57 81 19 99 02/09/17 23:58 36.9 95 18 161/105 96 Room Air Laboratory Results Test 02/10/17 00:14 Urine Color YELLOW Urine Appearance CLOUDY (CLEAR) Urine pH 5.0 (4.5-7.5) Urine Specific [place] 1.021 (1.000-1.030) Urine Protein NEG (NEG) Urine Glucose (UA) NEG (NEG) Urine Ketones NEG (NEG) Urine Occult Blood 1+ (NEG) Urine Nitrite POS (NEG) Urine Bilirubin NEG (NEG) Urine Urobilinogen NEG (NEG) Urine Leukocyte Esterase MODERATE (NEG) Urine WBC (Auto) >30 /hpf (0-5) Urine RBC (Auto) >30 /hpf (0-4) Urine Hyaline Casts (Auto) 10-30 /lpf (0-5) Urine Epithelial Cells (Auto) >30 /lpf (0-5) Urine Bacteria (Auto) 4+ (NEG) Urine Test NEG (NEG) Medications Administered Medications (Trade) Dose Ordered Sig/Izzy Route Start Time Stop Time Status Last Admin Dose Admin Trimethoprim/ Sulfamethoxazole (Sulfameth/ Trimeth Ds 800/ 160MG Home Pack) 1 homepack UD ONCE PO 02/10/17 00:30 02/10/17 00:31 DC 02/10/17 00:56 1 HOMEPACK Departure Information Impression Primary Impression: Urinary tract infection Dispostion Home / Self-Care Condition GOOD Prescriptions Fluconazole (DIFLUCAN) 150 Mg Tab 150 MG PO DIRECTED, #1 TAB Take one dose at the end of antibiotic use Prov: Conner Gama PA-C 02/10/17 Sulfa/Trimethoprim (Bactrim Ds 800MG/160MG) Tab 1 TAB PO BID for 9 Days, #18 TAB Prov: Conner Gama PA-C 02/10/17 Forms HOME CARE DOCUMENTATION FORM, IMPORTANT VISIT INFORMATION Patient Instructions My [facility] Additional Instructions You were seen and evaluated today on an emergency basis only. This is not a substitute for, or an effort to provide, complete comprehensive medical care. It is not possible to recognize and treat all injuries or illnesses in a single emergency department visit. For this reason it is recommended that you followup with your primary care physician for ongoing care and evaluation. Trimethoprim-Sulfamethoxazole(Bactrim DS): Take one pill twice daily for 10 days for your urine infection. All antibiotics can cause diarrhea. If this occurs and you feel worse or it does not resolve in 1-2 days follow up with your doctor or return to the Emergency Department as this could be signs of serious underlying problems. Any medication can cause an allergic reaction, stop the pills immediately and return to the ER for rash, hives, breathing difficulties, or swelling. Take Diflucan 1 dose at the end of antibiotics. You are welcome to return to the emergency department anytime with new, worsening, or concerning symptoms.
--- NOTE | 2017-02-12 15:58 | Pharmacy Progress Note ---
ED Pharmacist Culture FollowUp Date of Service: Feb 12, 2017. Called patient regarding urine culture with E. coli resistant to Bactrim. Left message for patient to call back ED. Provided ED phone number.
== END 2017-02-10 00:58 | disposition home or self-care (01) ==
LOC: C.EDB 23:51
DX: N39.0 Urinary tract infection, site not specified (principal); E11.9 Type 2 diabetes mellitus without complications; I10 Essential (primary) hypertension; F32.9 Major depressive disorder, single episode, unspecified; F41.9 Anxiety disorder, unspecified; Z87.11 Personal history of peptic ulcer disease; Z98.84 Bariatric surgery status; Z90.710 Acquired absence of both cervix and uterus; Z87.440 Personal history of urinary (tract) infections; Z98.890 Other specified postprocedural states

== ENCOUNTER 2017-03-14 17:49 | Emergency (ER) | payer OTHER ==
[~2017-03-14] VITALS: Ht 167.6 cm; Wt 92.1 kg
[~2017-03-14 17:49] MED LIST changes: -AMIT25TA9 PO; -ATOR10TA82 PO; -FLUT0.15 NAE; -OMEP20CA9 PO; -OXYC-106 PO; +OXYC-594 PO; -SUCR1TAB PO
[2017-03-14 17:55] VITALS: TEMP 36.7; Ht 167.6 cm; Wt 92.1 kg
[2017-03-14] MEDS ORDERED: ONDANSETRON INJ 2 MG/ML 2 ML VIAL IV STA (20:14)
[2017-03-14] MEDS ORDERED: FENTANYL CITRATE INJ 50 MCG/1 ML 2 ML VIAL IV ONE (20:15)
[2017-03-14 21:08] LABS: BASO % 0.2 %; BASO ABS # 0.02 K/uL (0-0.2); EOS % 1.3 %; EOS ABS # 0.13 K/uL (0-0.5); HEMATOCRIT 40.7 % (37-47); HEMOGLOBIN 13.8 g/dL (12.0-16.0); IG# 0.02 K/uL (0.00-0.02); LYMPH ABS # 2.41 K/uL (1.2-3.4); MEAN CELL VOLUME 88.1 fL (80-100); MEAN CORPUSCULAR HEMOGLOBIN 29.9 pg (25-34); MEAN CORPUSCULAR HGB CONC 33.9 g/dl (32-36); MEAN PLATELET VOLUME 9.2 fL (7.4-10.4); MONO % 6.6 %; MONO ABS # 0.64 K/uL (0.11-0.59); NEUT % 66.7 %; NEUT ABS # 6.41 K/uL (1.4-6.5); PLATELET COUNT 252 K/uL (130-400); RED CELL DISTRIBUTION WIDTH CV 13.3 % (11.5-14.5); RED CELL DISTRIBUTION WIDTH SD 42.5 fL (36.4-46.3); WHITE BLOOD COUNT 9.63 K/uL (4.8-10.8)
--- NOTE | 2017-03-14 21:39 | DIAGNOSTIC IMAGING REPORT ---
ABDOMEN 2VIEW W/PA CHEST RTN CLINICAL HISTORY: 56 years-old Female presenting with EVAL ABD PAIN, HX OF GASTRIC BYPASS/ESTEFANY/HYSTER. TECHNIQUE: PA view of the chest and supine and upright views of the abdomen were obtained. COMPARISON: 12/26/2016. FINDINGS: Atherosclerosis of aortic arch. Cardiac silhouette enlarged. Lungs and pleural spaces clear. Cholecystectomy clips noted. Nonobstructive bowel gas pattern. No gross pneumoperitoneum. Anastomotic suture lines noted in the epigastrium. Allowing for bowel gas and stool, no calcifications to suggest nephrolithiasis. Degenerative changes of the left hip joint. IMPRESSION: 1. No acute cardiopulmonary disease. 2. Postsurgical changes in the abdomen of gastric bypass. No bowel obstruction. Electronically signed by: Toni Alcaraz M.D. 03/14/2017 9:38 PM Dictated Date/Time: 03/14/2017 9:35 PM
[2017-03-14] MEDS ORDERED: OPTIRAY 320 IV PRN (22:00)
[2017-03-14 22:33] LABS: ALBUMIN 3.2 gm/dl (3.4-5.0); CALCIUM 9.1 mg/dl (8.5-10.1); CREATININE 0.5 mg/dl (0.60-1.20); POTASSIUM 4.1 mmol/L (3.5-5.1); TOTAL PROTEIN 6.9 gm/dl (6.4-8.2)
[2017-03-14 23:01] VITALS: BP 148/72; PULSE 80; O2SAT 95
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
[2017-05-30] MEDS ORDERED: FLUT0.15 NAE (06:21)
[2017-05-30] MEDS ORDERED: OMEP20CA9 PO (12:32)
[2017-05-30] MEDS ORDERED: SUCR1TAB PO (12:32)
[2017-05-30] MEDS ORDERED: ATOR10TA82 PO (13:29)
[2017-05-30] MEDS ORDERED: OXYC-594 PO (15:32)
[2017-10-02] MEDS ORDERED: OXYC-737 PO (00:09)
== END 2017-03-14 23:02 | disposition left against medical advice (07) ==
LOC: C.EDB 17:50
DX: R10.11 Right upper quadrant pain (principal); Z53.21 Procedure and treatment not carried out due to patient leaving prior to being seen by health care provider; E11.9 Type 2 diabetes mellitus without complications; Z98.84 Bariatric surgery status; F41.9 Anxiety disorder, unspecified; M79.7 Fibromyalgia

== ENCOUNTER 2017-05-30 14:38 | Emergency (ER) | payer OTHER ==
[~2017-05-30] VITALS: Ht 167.6 cm; Wt 96.7 kg
[~2017-05-30 14:38] MED LIST changes: +ATOR10TA82 PO; +FLUT0.15 NAE; -MELA3TAB PO; -METF-384 PO; -NORT10CA4 PO; +OMEP20CA9 PO; -OXYC-594 PO; +SUCR1TAB PO
[2017-05-30 14:40] VITALS: TEMP 36.4; Ht 167.6 cm; Wt 96.7 kg
[2017-05-30] MEDS ORDERED: PROPARACAINE HCL 0.5% OP SOLN 15 ML BTL ONE (15:00)
--- NOTE | 2017-05-30 15:11 | EMERGENCY ROOM VISIT NOTE ---
ED Visit Note First contact with patient: 14:52 The patient was seen and examined with Jose Manuel Pratt PA-C. I agree with the history, physical and findings. Please see the note for disposition and details.
[2017-05-30] MEDS ORDERED: RTL10 PO (15:32)
[2017-05-30] MEDS ORDERED: OXYC-88 PO (15:32)
[2017-05-30] MEDS ORDERED: ZOLP5TAB6 PO (15:32)
[2017-05-30] MEDS ORDERED: ROPI1TAB29 PO (15:32)
[2017-05-30] MEDS ORDERED: LISI-725 PO (15:33)
[2017-05-30] MEDS ORDERED: ADVIN25/60 INH (15:33)
[2017-05-30] MEDS ORDERED: CIPR0.3S OP (15:52)
[2017-05-30] MEDS ORDERED: HYDR-5688 PO (15:52)
[2017-05-30 16:01] VITALS: BP 150/88; PULSE 90; O2SAT 95
[2017-05-30] MEDS ORDERED: AMIT25TA9 PO (21:27)
[2017-05-30] MEDS ORDERED: GLC/500 PO (21:45)
[2017-05-30] MEDS ORDERED: NORT10CA2 PO (21:45)
--- NOTE | 2017-05-31 11:06 | EMERGENCY ROOM VISIT NOTE ---
ED Visit Note First contact with patient: 14:52 Chief Complaint: Right eye pain. History of Present Illness: Ms. Evans is a 56-year-old white female who ambulates into the ED accompanied by family members complaining of right eye pain. Historically patient denies any previous eye diseases or surgeries. She does report she wears magnifiers for we are eating. Patient reports she was helping a friend clean 2-3 days ago and during that process she reports something flew into her right eye. She immediately had a foreign body sensation in the eye. She reports she was not able to find anything but reports over the last 3 days she has been rubbing her eye. She goes on to report yesterday she started developing severe pain in the right eye and today she started having redness of the sclera, light sensitivity and tearing. Currently she is describing of a burning sensation of the right eye. She rates her discomfort 10/10. The pain is nonradiating. The pain is worsens with exposure to light. She has not identified any alleviating factors related to the pain. She reports she has not taken medication for pain prior to arrival at the hospital. Associated with her symptoms she reports that her vision is slightly blurry in the right eye. She denies headache, dizziness, lightheadedness, fevers, chills, sweats, decrease in overall vision, flashing lights, drawing curtains and halos in her visual nix, other facial pain, abnormal neurological symptoms, headaches. Review of Systems: As noted above in history of present illness. 5 body systems were reviewed and found to be negative as noted above. Past Medical History: Diabetes, hypertension, unspecified skin disorder, bronchitis, gastric ulcers. Current Medications: Medications Dose Route/Sig Max Daily Dose Days Date Category Dose Instructions Advair Diskus 250/50 60 Dose (Fluticasone Prop/Salmeterol) 1 Ea Aerp 1 Puff INH BID PRN 05/30/17 Reported Zestril (Lisinopril) 20 Mg Tab 20 Mg PO DAILY 05/30/17 Reported Zolpidem Tartrate 5 Mg Tab 5 Mg PO HS 05/30/17 Reported Ropinirole HCl 1 Mg Tab 1 Mg PO BID 05/30/17 Reported Oxycodone/Acetaminophen 10MG/325MG 1 Tab Tab 1 Tab PO QID 05/30/17 Reported Methylphenidate HCl 10 Mg Tab 10 Mg PO BID 05/30/17 Reported Pamelor (Nortriptyline HCl) 10 Mg Cap 10 Mg PO DAILY 03/14/17 Reported Glucophage (Metformin Hcl) 500 Mg Tab 500 Mg PO BID 03/14/17 Reported Sucralfate 1 Gm Tab 1 Gm PO ACHS 12/22/16 Reported Prilosec (Omeprazole) 20 Mg Cap 20 Mg PO QID 12/22/16 Reported Lipitor (Atorvastatin Calcium) 10 Mg Tab 10 Mg PO DAILY 07/12/15 Reported Flonase Allergy Relief (Fluticasone Propionate (Nasal)) 50 Mcg/Act Spr 2 Sprays LEONA DAILY PRN 01/24/15 Reported Elavil (Amitriptyline Hcl) 25 Mg Tab 25 Mg PO HS 12/03/13 Reported Allergies to Medications: Augmentin, morphine, clonazepam. Social History: Patient not employed; she feels safe in her home environment; she admits to tobacco use but denies alcohol use. Physical Examination: Vital Signs: Date Time Temp Pulse Resp B/P (MAP) Pulse Ox O2 Delivery O2 Flow Rate FiO2 05/30/17 16:01 90 20 150/88 95 05/30/17 14:40 36.4 93 24 146/99 97 Room Air GENERAL: 56-year-old female in mild to moderate distress due to pain, nontoxic- appearing, afebrile and hemodynamically stable. NEUROLOGICAL: Awake, alert and oriented to person, place and time. Answering questions appropriately and following commands. Normal gait. Good hand eye coordination. No focal motor sensory deficits. SKIN: Warm, dry and pink. No soft tissue eruptions or trauma noted. HEENT: Atraumatic and normocephalic. PERRLA. EOMI without nystagmus. Sclera is injected on the right and not injected on the left. Conjunctiva pink with drainage of tear on the right. No foreign bodies noted under the eyelids are embedded in the cornea. The anterior chamber is clear. On slit-lamp examination with staining patient has a large abrasion over most of the R cornea. Over the inferior portion of the eye a portion of the skull area is slightly elevated and pushed superiorly. Visual Acuity: Right: 20/200 without correction, Left 20/40 without correction. ED Course: Patient is assessed as noted above. Patient's medication list was reviewed. Alcaine was used to anesthetize the eyes for examination. Patient's case was reviewed with Dr. Gutierrez; he independently assessed the patient we agreed on diagnostic approach, treatment, disposition and plan. Patient was educated about today's finding and instructed on her treatment plan ; she verbalized understanding and agreement with this plan. Clinical Impression: Right corneal abrasion. Disposition: Patient discharged to home in stable condition accompanied by multiple family members; prior to departure she was reassessed and subjectively reported she was feeling better and rated her discomfort 3/10. Plan: Patient was placed on a sliding pain medication scale of ibuprofen, acetaminophen and [place]; she R name was checked on state database and no red flags are noted and she was given appropriate narcotic precautions. Patient was prescribed Ciloxan ophthalmic drops and encouraged to use 2 drops in the right eye every 4 hours while awake for 5 days. Patient was encouraged to follow-up with Dr. Zavala, authorization manager, for specialty care and treatment. Patient was encouraged return the ED for worsening/uncontrolled pain, or worsening vision changes, fevers, headaches, vomiting or any new/concerning symptoms.
== END 2017-05-30 16:02 | disposition home or self-care (01) ==
LOC: C.EDB 14:39 → C.EDD 16:02
DX: S05.01XA Injury of conjunctiva and corneal abrasion without foreign body, right eye, initial encounter (principal); W22.8XXA Striking against or struck by other objects, initial encounter

== ENCOUNTER 2017-06-02 20:58 | Emergency (ER) | payer OTHER ==
[~2017-06-02] VITALS: Ht 167.6 cm; Wt 97.3 kg
[~2017-06-02 20:58] MED LIST changes: +ADVIN25/60 INH; +AMIT25TA9 PO; +CIPR0.3S OP; +GLC/500 PO; +HYDR-5688 PO; +NORT10CA2 PO; +OXYC-88 PO; -POTA10TA79 PO; -ROPI1TAB PO; +ROPI1TAB29 PO; +RTL10 PO; -ZOLP5TAB PO; +ZOLP5TAB6 PO
[2017-06-02 21:01] VITALS: TEMP 36.8; Ht 167.6 cm; Wt 97.3 kg
[2017-06-02] MEDS ORDERED: SULFAMETHOXAZOLE/TRIMETHOPRIM DS 800/160MG TAB PO STA (21:23)
[2017-06-02] MEDS ORDERED: MUPIROCIN 2% OINT 22 GM TUBE EXT STA (21:23)
[2017-06-02] MEDS ORDERED: KETOROLAC TROMETHAMINE 60 MG/2 ML VIAL IM STA (21:23)
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
[2017-06-02] MEDS ORDERED: SULF800T23 PO (21:30)
[2017-06-02 21:53] VITALS: BP 158/98; PULSE 82; O2SAT 98
== END 2017-06-02 21:55 | disposition home or self-care (01) ==
LOC: C.EDB 20:59 → C.EDC 21:55
DX: J34.0 Abscess, furuncle and carbuncle of nose (principal); F41.9 Anxiety disorder, unspecified; F32.9 Major depressive disorder, single episode, unspecified; E11.9 Type 2 diabetes mellitus without complications; E78.5 Hyperlipidemia, unspecified; I10 Essential (primary) hypertension; Z83.3 Family history of diabetes mellitus; Z82.49 Family history of ischemic heart disease and other diseases of the circulatory system; Z82.0 Family history of epilepsy and other diseases of the nervous system; F17.200 Nicotine dependence, unspecified, uncomplicated; Z88.5 Allergy status to narcotic agent

== ENCOUNTER 2017-11-01 17:24 | Emergency (ER) | payer OTHER ==
[~2017-11-01] VITALS: Ht 167.6 cm; Wt 101.3 kg
[~2017-11-01 17:24] MED LIST changes: -CIPR0.3S OP; -HYDR-5688 PO; -NORT10CA2 PO; +OXYC-737 PO; -OXYC-88 PO
[2017-11-01 17:28] VITALS: TEMP 37.2; Ht 167.6 cm; Wt 101.3 kg
[2017-11-01] MEDS ORDERED: PROMETHAZINE HCL INJ 25 MG/ML 1 ML VIAL IM STA (17:47)
[2017-11-01] MEDS ORDERED: KETOROLAC TROMETHAMINE 60 MG/2 ML VIAL IM STA (17:47)
[2017-11-01 18:54] VITALS: BP 160/87; PULSE 89; O2SAT 98
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
== END 2017-11-01 19:26 | disposition home or self-care (01) ==
LOC: C.EDB 17:26 → C.EDA 19:26
DX: G43.909 Migraine, unspecified, not intractable, without status migrainosus (principal); K81.9 Cholecystitis, unspecified; F41.9 Anxiety disorder, unspecified; F32.9 Major depressive disorder, single episode, unspecified; E11.9 Type 2 diabetes mellitus without complications; E78.5 Hyperlipidemia, unspecified; I10 Essential (primary) hypertension; F17.200 Nicotine dependence, unspecified, uncomplicated

== ENCOUNTER 2018-12-17 17:29 | Inpatient (IN) ==
[2018-12-17] MEDS ORDERED: SODIUM CHLORIDE 0.9% 1000ML 1,000 ML IV ONE (17:43)
[2018-12-17] MEDS ORDERED: ONDANSETRON INJ 2 MG/ML 2 ML VIAL IV STA (17:43)
[2018-12-17] MEDS ORDERED: fentaNYL citrate 100 MCG/2 ML VIAL IV STA (17:45)
[2018-12-17 18:04] LABS: Basophils # (auto) 0.03 K/uL (0-0.2); Basophils % (auto) 0.3 %; Eosinophils # (auto) 0.03 K/uL (0-0.5); Eosinophils % (auto) 0.3 %; Hematocrit (blood only) 42.9 % (37-47); Hemoglobin 14.8 g/dL (12.0-16.0); Immature Granulocytes # (auto) 0.04 K/uL (0.00-0.02); Immature Granulocytes % (auto) 0.4 %; Lymphocytes # (auto) 2.02 K/uL (1.2-3.4); Lymphocytes % (auto) 22.5 %; Mean Corpuscular Hgb Conc 34.5 g/dL (32-36); Mean Platelet Volume 9.2 fL (7.4-10.4); Monocytes # (auto) 0.57 K/uL (0.11-0.59); Monocytes % (auto) 6.3 %; Neutrophils # (auto) 6.29 K/uL (1.4-6.5); Neutrophils % (auto) 70.2 %; Platelet Count 382 K/uL (130-400); RDW Standard Deviation 44.3 fL (36.4-46.3); Red Blood Count 4.93 M/uL (4.2-5.4); White Blood Count 8.98 K/uL (4.8-10.8)
[2018-12-17 18:26] LABS: Appearance Urine Clear (Clear); Bacteria Urine Automated Negative (Negative); Bilirubin Urine Negative (Negative); Blood Urine Negative (Negative); Color Urine Yellow; Glucose Urine UA Trace (Negative); Ketones Urine 1+ (Negative); Leukocyte Esterase Urine Negative (Negative); Nitrite Urine Negative (Negative); Protein Urine 1+ (Negative); Specific Gravity Urine 1.016 (1.000-1.030); Urobilinogen Urine Negative (Negative)
[2018-12-17 18:30] LABS: Albumin Level 3.5 gm/dl (3.4-5.0); BUN Creatinine Ratio 12.1 (10-20); Creatinine Clr Calc Pharmacy 99.8 ml/min; Est GFR (African American) 105.2; Est GFR (Non-African American) 90.8; Potassium 3.3 mmol/L (3.5-5.1)
[2018-12-17] MEDS ORDERED: Heparin IV Standard *NO* Bolus IV ONE (18:31)
[2018-12-17 18:32] LABS: Albumin Globulin Ratio 0.7 (0.9-2); Bilirubin,Total 0.5 mg/dl (0.2-1); Globulin 4.9 gm/dl (2.5-4.0); Total Protein 8.4 gm/dl (6.4-8.2)
[2018-12-17] MEDS ORDERED: HEPARIN SODIUM/DEXTROSE 25,000 UNITS/500 ML BAG IV SCH (18:45)
[2018-12-17] MEDS ORDERED: IOVERSOL 100ml IV PRN (18:58)
--- NOTE | 2018-12-17 19:21 | CT Scan Report ---
CT abd pelvis IV con only CLINICAL HISTORY: 58 years-old Female presenting with mild periumbilical pain, ?non reducible hernia. . TECHNIQUE: Multidetector CT of the abdomen and pelvis was performed after the administration of intra venous contrast. IV contrast: 92 mL of Optiray 320. One or more dose lowering techniques were used co nsistent with the principles of ALARA (as low as reasonably achievable), including automatic exposure control, mA or kV adjustment to individual patient size, and/or use of iterative reconstruction. COMPARISON: 05/16/2014. CT DOSE (mGy.cm): The estimated cumulative dose is 1066.42 mGy.cm. FINDINGS: Executive Marketing Assistant topogram: Cholecystectomy clips. Lung bases: Multichamber enlargement of the heart. Coronary artery calcification. No pericardial or p leural effusion. Minimal dependent changes likely atelectasis. Pulmonary vascular prominence. Liver: Macronodular contour of the liver as on prior exam allowing for this single phase of contrast, no focal lesion. Patent hepatic vasculature. Biliary: Mild biliary ductal prominence likely a reservoir effect in the post cholecystectomy state. Gallbladder surgically absent. Pancreas: Mild parenchymal atrophy. Spleen: Normal. Adrenal glands: Normal. Kidneys and ureters: Normal. No hydronephrosis. Bladder: Normal. Pelvic organs: Uterus surgically absent. Bowel: Dilated small bowel within a ventral hernia. This has a abrupt transition point at the entry i nto the hernia sac at both the upstream and downstream compatible with a closed loop obstruction (ser ies 3 image 331). The dilated segment of small bowel within the hernia sac measures over 6 cm in diam eter. No evidence of bowel wall thickening or convincing evidence of pneumatosis. Perienteric fluid n oted in the hernia sac. There is a separate herniated loop of small bowel, which also appears to be a closed loop obstruction along the left inferolateral aspect though this dilated loop of bowel is not as severely distended measuring only 2.8 cm in diameter. Postsurgical changes of antecolic Junior-en-Y gastric bypass. The pancreaticobiliary limb is nondilated. The distal anastomosis is not clearly benjamín ntified. Peritoneal cavity: Trace ascites is evident in the anterior abdomen associated with the hernia sac. T here is also fluid in the hernia sac. No free intraperitoneal gas. Lymph nodes: No enlarged lymph nodes in the abdomen or pelvis. Vasculature: Atherosclerosis of the normal caliber abdominal aorta. IVC patent. Abdominal wall: Ventral abdominal wall hernia with a neck measuring approximately 5.5 cm in diameter in comparison to the hernia sac with a maximal diameter of 11.7 cm. There is significant surrounding fluid within the abdominal wall, which may be associated with prosthetic mesh. The prosthetic mesh wa s present on the prior exam though the hernia was significantly smaller in size. There is an associat ed hernia along the left inferolateral aspect subjacent to the prosthetic mesh. The dominant hernia s ac is superficial to the mesh either from a defect in the mesh or herniating along the inferior mariah n of the mesh. Musculoskeletal: Degenerative changes of the spine. IMPRESSION: 1. Closed loop obstructions associated with a ventral abdominal wall hernia repair. The dominant her niated loop of small bowel is severely dilated over 6 cm with a smaller adjacent herniated loop of abraham wel in the left inferolateral margin. Urgent surgical consultation is recommended. Associated fluid i n the hernia sac. No additional evidence to suggest bowel ischemia of the herniated loops at this quinton e. 2. Fluid collection within the abdominal wall associated with the hernia sac and prosthetic mesh. Th is is new from prior exam. This may be reactive among other possibilities. The report will be called/faxed according to standard departmental protocol. Electronically signed by: Toni Alcaraz M.D. 12/17/2018 7:19 PM
[2018-12-17] MEDS ORDERED: HYDROmorphone INJ 1 MG/ML SYRINGE IV STA (19:29)
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
[2018-12-17] MEDS ORDERED: CEFAZOLIN 250 MG/ML 1 GM VIAL ONE (20:11)
[2018-12-17] MEDS ORDERED: BUPIVACAINE 0.5 % 5 MG/1 ML MPF 30ML VIAL ONE (20:11)
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
[2018-12-17] MEDS ORDERED: ROCURONIUM BROMIDE 10 MG/ML 5 ML VIAL ONE (20:19)
[2018-12-17] MEDS ORDERED: ONDANSETRON INJ 2 MG/ML 2 ML VIAL ONE (20:19)
[2018-12-17] MEDS ORDERED: MIDAZOLAM HCL 1 MG/ML 2ML VIAL ONE (20:19)
[2018-12-17] MEDS ORDERED: fentaNYL citrate 100 MCG/2 ML VIAL ONE (20:19)
[2018-12-17] MEDS ORDERED: PROPOFOL IV EMULSION 10 MG/ML 20 ML VIAL IV ONE (20:19)
[2018-12-17] MEDS ORDERED: DEXAMETHASONE SOD INJ 4 MG/ML VIAL ONE (20:19)
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
[2018-12-17] MEDS ORDERED: SUGAMMADEX SODIUM 200 MG/2 ML VIAL IV ONE ×2 (21:22→21:33)
--- NOTE | 2018-12-17 21:54 | Post Operative Brief Note ---
Immediate Post Op Note v1 Date of Surgery December 17, 2018 Pre & Post Diagnosis Operation Date: 12/17/18 20:45 Pre-Op Diagnosis: Incarcerated ventral Hernia Post-Op Diagnosis: Incarcerated ventral Hernia Procedure Operation Date: 12/17/18 20:45 Actual Procedures p Incarceratd Ventral Hernia Repair(Not Applicable) - Nitish Buchanan MD Surgeon Nitish Buchanan MD Outside Sales Representative Insurance None Estimated Blood Loss 5 Findings Consistent with Post-Op Diagnosis Anesthesia Type General Complications none
[2018-12-17] MEDS ORDERED: ONDANSETRON INJ 2 MG/ML 2 ML VIAL IV PRN ×2 (21:56→22:42)
[2018-12-17] MEDS ORDERED: ATROPINE SULFATE 0.1 MG/ML 10ML SYR IV PRN (21:56)
[2018-12-17] MEDS ORDERED: ePHEDrine sulfate 50 MG/ML AMP IV PRN (21:56)
[2018-12-17] MEDS ORDERED: fentaNYL citrate 100 MCG/2 ML VIAL IV PRN (21:56)
[2018-12-17] MEDS ORDERED: HYDROmorphone INJ 1 MG/ML SYRINGE IV PRN (21:56)
--- NOTE | 2018-12-17 22:24 | Anesthesiology Progress Note ---
Date of Service December 17, 2018 Anesthesia Post Procedure Vital Signs Vital Signs: Temp Pulse Pulse Pulse Resp BP BP 12/17/18 22:20 36.7 C 83 17 143/87 H 12/17/18 22:10 74 13 145/94 H 12/17/18 22:00 71 12 145/95 H 12/17/18 21:51 36.1 C L 72 20 140/91 12/17/18 19:05 89 18 189/94 H 12/17/18 17:20 36.4 C L 86 28 H 173/162 H Pulse Ox 12/17/18 22:20 100 12/17/18 22:10 100 12/17/18 22:00 100 12/17/18 21:51 100 12/17/18 19:05 98 12/17/18 17:20 100 Transfer of Care Handoff Completed per policy Notes Mental Status: alert / awake / arousable and participated in evaluation Patient Amnestic to Procedure: Yes Nausea / Vomiting: adequately controlled Pain: adequately controlled Airway Patency, RR, SpO2: stable & adequate BP & HR: stable & adequate Hydration State: stable & adequate Anesthetic Complications: no major complications apparent and Pt Satisfied with anesthetic care
[2018-12-17] MEDS ORDERED: HYDROmorphone INJ 0.5 MG/0.5 ML SYR IV PRN (22:42)
[2018-12-17] MEDS: SODIUM CHLORIDE 0.9% 1000ML 1,000 ML IV SCH (22:50)
[2018-12-18] MEDS ORDERED: ALBUT/IPRATROP 3MG/0.5MG NEB 3 ML VIAL NEB PRN (01:04)
[2018-12-18] MEDS ORDERED: INSULIN ASPART 100 UNITS/ML 3 ML PEN SC STA (01:24)
--- NOTE | 2018-12-18 03:36 | Consultation Report ---
DATE OF ADMISSION: 12/18/2018 CHIEF COMPLAINT: Incarcerated ventral hernia status post surgery. HISTORY OF PRESENT ILLNESS: This is a 58-year-old female with past medical history significant for hypertension, chronic bronchitis, hyperlipidemia, diabetes, chronic rhinitis, irritable bowel syndrome, post-gastric surgery syndrome, history of bilateral inguinal hernia, major depression, tobacco abuse disorder, history of ventral hernia, who comes because of abdominal pain. Patient says in the last 2 months she is having on and off abdominal pain and since yesterday the pain got severe, she could not even get up. Had nausea and vomiting, no blood in the vomitus. Had been constipated. Moved only a small amount of bowels and came to the ER. Imaging studies showed closed loop obstruction associated with ventral abdominal wall hernia Urgent surgical consultation is recommended. The patient is taken urgently to the OR status post surgery and tolerated the procedure okay. Resting comfortably. Has some mild soreness at surgical site, hemodynamically stable. The patient admits to taking methamphetamines once in a while. The patient says she does not take them regularly. She says she is honest and the last time she took was 2 months ago and she took yesterday after the weekend.. She denies any withdrawal symptoms from it. As per EPIC, she also has a history of IV drug abuse with cocaine and marijuana in the past. Currently resting comfortably. Denies any headache, no blurred visions, no earache, no runny nose, no sore throat. Has some dry cough, some itchiness in the throat. No fever, no chills, no shortness of breath, no chest pain, no nausea, no swelling in the legs, no rash. ALLERGIES: TAPE, AUGMENTIN, KLONOPIN, LORAZEPAM, MORPHINE. PAST MEDICAL HISTORY: As mentioned above. PAST SURGICAL HISTORY: Colonoscopies, EGDs, excision of excessive skin panniculectomy, gastric revision surgery for obesity,IR drainage of the abscess, knee arthroscopy, removal of the pelvic structures for endometriosis, cholecystectomy, tonsillectomy and adenoidectomy, repair of incisional hernia, total abdominal hysterectomy with removal of tubes, treatment of anal fissure, wedge biopsy of the liver. MEDICATIONS: The patient is on omeprazole 20 mg p.o. b.i.d., Nexium 40 mg p.o. b.i.d., metformin 1000 mg p.o. b.i.d., vitamin D 500 units p.o. daily, DuoNebs p.r.n., methylphenidate 10 mg p.o. t.i.d., atorvastatin 10 mg p.o. daily, lisinopril 20 mg p.o. daily, Advair Diskus 250/50 one puff b.i.d., Ambien 5 mg p.o. at bedtime p.r.n., Colace 100 mg p.o. b.i.d. p.r.n. FAMILY HISTORY: Significant for father had arthritis, diabetes, hypertension, leukemia. Mother has lupus, TB,arthritis. Brother has arthritis. SOCIAL HISTORY: Currently lives with a friend, smokes 1.5 packs a day for 40 years. Alcohol, once in a while. History of IV drugs with cocaine and marijuana in the past and states she is currently takes methamphetamines once in a while. REVIEW OF SYSTEMS: As per HPI. Rest of the review of systems negative. PHYSICAL EXAMINATION: GENERAL: The patient is of moderate build, not in acute distress. VITAL SIGNS: Temperature 36.3, pulse 83, respiratory rate 18, blood pressure 135/87, oxygen 92% on room air. HEENT: No pallor, no icterus. NECK: No JVD, no neck masses, no carotid bruits. CARDIOVASCULAR: S1, S2 heard, regular rate and rhythm, no murmur, no gallop. RESPIRATORY SYSTEM: Normal AP diameter. No accessory muscle use. No wheezing, no crackles. ABDOMEN: Soft, bowel sounds sluggish, status post ventral hernia repair. Surgical dressing clean. No distention seen. CENTRAL NERVOUS SYSTEM: Nonfocal. EXTREMITIES: No edema, no erythema. LABORATORY DATA: WBC 8.9, hemoglobin 14.8, hematocrit 42.9, platelets 382. Sodium 137, potassium 3.3, chloride 101, bicarbonate 27, BUN 9, creatinine 0.7, serum glucose 212. Lactate 1.3, calcium 9, total bilirubin 0.5, AST 16, ALT 18, alkaline phosphatase 110. Lipase 94. Urinalysis negative. IMAGING DATA: CT of abdomen and pelvis shows closed loop obstruction associated with a ventral abdominal wall hernia. Urgent surgical consultation is recommended. ASSESSMENT AND PLAN: 1. Obstructive ventral hernia, status post emergency repair. Tolerated the procedure okay. Further management as per surgery. Diet as per surgery. Getting fluids as per surgery. 2. History of drug abuse, history of taking methamphetamines currently. States she took yesterday and before that she took 2 months ago. She says she is not taking them on a regular basis but is taking them once in a while. She does not think she will go through withdrawal, but we will monitor. If she is goes to withdrawal, we will transfer to ICU. 3. History of diabetes. Hold metformin, placed on insulin sliding scale. Follow hemoglobin A1c levels. 4. History of chronic obstructive pulmonary disease, tobacco abuse, needs counseling. Continue home inhalers ,nebs p.r.n. 5. Hypertension. Continue with lisinopril. 6. Hyperlipidemia. Continue with statin. 7. Deep vein thrombosis prophylaxis, sequential compression devices for now. 8. Disposition, as per surgery. MTDD
--- NOTE | 2018-12-18 05:21 | Operative Report ---
DATE OF OPERATION: 12/17/2018 PREOPERATIVE DIAGNOSIS: Incarcerated recurrent ventral hernia. POSTOPERATIVE DIAGNOSIS: Incarcerated recurrent ventral hernia. PROCEDURE: Reduction and closure of recurrent ventral hernia. SURGEON: Nitish Buchanan MD FINDINGS: The patient had previous repair of a ventral hernia of the mid and upper abdomen. She also had what appeared to be a repair of a lower midline ventral hernia and this defect occurred between those 2 hernia repairs. There was a large piece of mesh encountered. It appeared to be an onlay mesh. The hernia sac was large and extended out just below the inferior portion of the large upper mesh and then it extended anterior to the mesh and up along the anterior surface of the mesh. There was a dilated segment of small bowel. 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 There was some hemorrhagic fluid around the bowel; however, after opening the mesh and extending the dissection of the fascial opening inferiorly, the bowel itself appeared to be well vascularized. There was no evidence of ischemic bowel. This was all able to be freed up and placed back into its anatomic position without performing a resection. TECHNIQUE: The patient was given a general anesthetic and the area was prepped and draped in the usual sterile fashion. Vertical midline incision was made and carried down through subcutaneous tissue. The hernia sac was easily identified lying just below the skin level. I opened the length of the incision along the skin layer as well as the minimal subcutaneous tissue. This had to be extended inferiorly on 2 occasions. I then opened the hernia sac with evacuation of some reactive fluid. There was no evidence of perforation of the bowel, however. There was some hemorrhagic fluid present as well. I then was able to free the bowel that was within the hernia sac which was overlying the mesh extending superiorly from the fascial defect. I then divided the inferior portion of the mesh and the peritoneum in order to better identify the bowel. At that point, I could see the staple line from what was most likely the jejunojejunostomy created during the gastric bypass surgery. There were some adhesions of the small bowel that were quite flimsy to the mesentery into the bowel, this was divided, which allowed me to be eviscerate the proximal limb. The distal bowel was also able to be eviscerated easily. That allowed me to inspect the entire bowel that had been in the hernia sac and was able to confirm that it was well vascularized. I did open the fascial defect inferiorly to again better mobilize the bowel for easier inspection. There was no adhesion to the anterior abdominal wall, other than right at the fascial level, and these adhesions were all divided. They were flimsy. I did not feel that resection was necessary at that time and I placed all of the bowel back into the abdomen. There was no evidence of domain issue. I then reapproximated the portion of the mesh that I had opened using #1 Prolene [id number] sutures. For the defect, the fascial edges were able to be approximated in the midline using interrupted #1 PDS. I did not choose to place additional mesh in that area. The area was irrigated and irrigation removed. The deep tissues were approximated with running 2-0 Vicryl. The subcutaneous tissue was closed with running 2-0 Vicryl. The skin was closed with andressa. Estimated blood loss was 5 mL. Sponge, needle and instrument counts were correct prior to closure. The skin was cleansed, dried, and a dressing placed. The patient tolerated the procedure and was transferred to recovery. I attest to the content of the Intraoperative Record and any orders documented therein. Any exception s are noted below.
[2018-12-18 06:00] LABS: Albumin Globulin Ratio 0.6 (0.9-2); Albumin Level 2.5 gm/dl (3.4-5.0); BUN Creatinine Ratio 19.5 (10-20); Bilirubin,Total 0.5 mg/dl (0.2-1); Calcium 8.2 mg/dl (8.5-10.1); Creatinine Clr Calc Pharmacy 130.6 ml/min; Est GFR (African American) 119.8; Est GFR (Non-African American) 103.4; Globulin 4.1 gm/dl (2.5-4.0); Potassium 3.8 mmol/L (3.5-5.1); Total Protein 6.6 gm/dl (6.4-8.2)
[2018-12-18] MEDS ORDERED: INFLUENZA VIRUS QUAD VACCINE 0.5 ML SYR IM ONE (06:00)
[2018-12-18] MEDS ORDERED: INFLUENZA ADMINISTRATION CHARGE ONE (06:00)
[2018-12-18] MEDS ORDERED: INSULIN ASPART 100 UNITS/ML 3 ML PEN SC SCH (06:00)
[2018-12-18] MEDS: SODIUM CHLORIDE 0.9% 1000ML 1,000 ML IV SCH (06:54)
[2018-12-18 07:19] LABS: Hematocrit (blood only) 39.7 % (37-47); Hemoglobin 13.4 g/dL (12.0-16.0); Mean Corpuscular Hemoglobin 29.7 pg (25-34); Mean Corpuscular Hgb Conc 33.8 g/dL (32-36); Platelet Count 304 K/uL (130-400); RDW Coefficient of Variation 13.9 % (11.5-14.5); RDW Standard Deviation 44.6 fL (36.4-46.3); Red Blood Count 4.51 M/uL (4.2-5.4); White Blood Count 14.64 K/uL (4.8-10.8)
[2018-12-18 07:40] LABS: Basophils # (auto) 0.01 K/uL (0-0.2); Basophils % (auto) 0.1 %; Immature Granulocytes # (auto) 0.03 K/uL (0.00-0.02); Immature Granulocytes % (auto) 0.2 %; Lymphocytes # (auto) 1.19 K/uL (1.2-3.4); Lymphocytes % (auto) 8.1 %; Monocytes # (auto) 0.66 K/uL (0.11-0.59); Monocytes % (auto) 4.5 %; Neutrophils # (auto) 12.75 K/uL (1.4-6.5); Neutrophils % (auto) 87.1 %
[2018-12-18] MEDS: FLUTICASONE/SALMETEROL 250/50 (ADVAIR) 14 PUFF/1 INHALER INH SCH ×2 (08:18→20:50)
--- NOTE | 2018-12-18 09:15 | Hospitalist Progress Note ---
Date of Service December 18, 2018 Assessment & Plan (1) Incarcerated hernia: S/P Reduction and closure of recurrent ventral hernia by Dr. Buchanan, POD #1 EBL 5ml pt tolerated procedure well pain/wound management per surgery activity and diet as directed by surgery bowel regimen per surgery encourage incentive spirometry post op H/H stable at 13.4/39.7 (2) Leukocytosis: WBC 14.64k pre op dexamethasone administration likely reactive/post operative no s/sx of infection monitor (3) Diabetes: A1C pending last A1C 10.8 02/11/18 on metformin as outpt - If A1C still significantly elevated will need additional oral agent/close follow up with PCP for stricter DM control Goal A1C < 7.0 given age Adjust novolog sliding scale Add Lantus Q12 hr (4) HTN (hypertension): blood pressure stable 128/83 continue lisinopril monitor (5) Methamphetamine use: intermittent meth use reported Last done day prior to admission no s/sx of withdrawl at this time monitor (6) HLD (hyperlipidemia): continue statin (7) Fibromyalgia: no c/o pain monitor (8) DVT prophylaxis: SCD/TEDS encourage ambulation Disposition: per primary Follow up: PCP Dr. Little upon discharge Patient was seen and examined in collaboration with Dr. Hall, please see addendum Thank you for this consultation. We will follow the patient with you during their hospital stay. You can reach a [facility] via pager @ [phone]. Supervising Physician Co-Signing Physician Notes I have seen and examined the patient and have discussed the case with the provider above. I agree with the assessment and plan as stated with the following exceptions. 58-year-old postoperative patient who has controlled pain in decision site today. Denies chest pain shortness of breath or other issues. We will continue with plan above, however, blood sugar is slightly uncontrolled so we will increase insulin and perform a check overnight with coverage as needed. DO Rafael Subjective Patient was seen and examined in room 354-2. F/U incarcerated ventral hernia s/p repair POD #1. "I just want to go home, but they say I can't go home until I pass gas." Pt offers no complaints or concerns. Denies incisional pain, f/c/s, chest pain, sob, n/v. Has not passed flatus yet. Has not been up and moving or walking. Tolerating water this morning. She has not yet had breakfast. Review of Systems Review of Systems: All systems reviewed & are unremarkable except as noted in HPI & below Physical Exam Physical Exam: Gen: WD/WN, female, NAD, A&O x3, flat/reserved affect HEENT: Normocephalic, atraumatic, conjunctivae moist, sclerae anicteric, mucous membranes moist. Lung: Clear to Auscultation bilaterally, no wheezes/rales/rhonchi Heart: Regular rate, regular rhythm, no murmurs, rubs, or gallops Abdomen: Soft, NT, ND +BS x 4, dressing intact, serosanguineous drainage noted Extremities: No edema, scd/teds in place Skin: Warm, no rash, negative turgor. Results & Data Vital Signs (Past 12 Hours) Vital Signs Temp Pulse Pulse Resp BP Pulse Ox 12/18/18 07:02 36.9 C 83 16 128/83 92 12/18/18 02:40 36.6 C 76 18 126/92 95 12/18/18 01:40 36.6 C 82 16 129/87 93 12/18/18 00:40 36.3 C L 83 18 135/87 92 12/17/18 23:40 36.4 C L 73 18 135/88 99 12/17/18 23:10 36.5 C 74 18 145/87 H 100 12/17/18 22:30 67 13 138/95 100 12/17/18 22:20 36.7 C 83 17 143/87 H 100 12/17/18 22:10 74 13 145/94 H 100 12/17/18 22:00 71 12 145/95 H 100 12/17/18 21:51 36.1 C L 72 20 140/91 100 Laboratory Results Short CBC 12/17/18 12/18/18 Range/Units 17:08 07:07 WBC 8.98 14.64 H (4.8-10.8) K/uL Hgb 14.8 13.4 (12.0-16.0) g/dL Hct 42.9 39.7 (37-47) % Plt Count 382 304 (130-400) K/uL BMP 12/17/18 12/18/18 17:08 05:14 Sodium 137 136 Potassium 3.3 L 3.8 D Chloride 101 104 Carbon Dioxide 27 25 BUN 9 11 Creatinine 0.73 0.55 L Glucose 212 H 240 H Calcium 9.0 8.2 L Liver Function 12/17/18 12/18/18 Range/Units 17:08 05:14 Total Bilirubin 0.5 0.5 (0.2-1) mg/dl AST 16 11 L (15-37) U/L ALT 18 15 (12-78) U/L Alkaline Phosphatase 110 90 (45-117) U/L Albumin 3.5 2.5 L (3.4-5.0) gm/dl Urine 12/17/18 Range/Units 17:57 Urine Color Yellow Urine Appearance Clear (Clear) Urine pH 7.0 (4.5-7.5) Ur Specific [place] 1.016 (1.000-1.030) Urine Protein 1+ H (Negative) Urine Glucose (UA) Trace H (Negative) Medications Administered Sodium Chloride (Nss 1000ml) 1,000 mls @ 125 mls/hr IV .Q8H [facility] Stop: 01/16/19 22:41 Last Admin: 12/18/18 06:54 Dose: 125 mls/hr Documented by: [id number] Infusion: 12/18/18 06:50 Dose: 125 mls/hr Documented by: [id number] Admin: 12/17/18 22:50 Dose: 125 mls/hr Documented by: [id number] Insulin Aspart (Novolog Flexpen) 0 units SC Q6 LUC Stop: 01/17/19 05:59 Last Admin: 12/18/18 06:57 Dose: 3 units Documented by: [id number] Cosigned by: [id number] Fluticasone/Salmeterol (Advair Diskus 250/50) 1 puffs INH BID [facility] Stop: 01/17/19 08:59 Last Admin: 12/18/18 08:18 Dose: 1 puffs Documented by: [id number] Discontinued Medications Bupivacaine HCl (Marcaine 0.5% Mpf) Confirm Administered Dose 30 ml .ROUTE .STK- MED ONE Stop: 12/17/18 20:12 Last Admin: 12/17/18 21:52 Dose: Not Given Documented by: [id number] Cefazolin Sodium (Ancef) Confirm Administered Dose 1,000 mg .ROUTE .STK-MED ONE Stop: 12/17/18 20:12 Last Admin: 12/17/18 21:29 Dose: Not Given Documented by: [id number] Fentanyl Citrate (Fentanyl Citrate) 100 mcg IV NOW STA Stop: 12/17/18 17:46 Last Admin: 12/17/18 17:53 Dose: 100 mcg Documented by: [id number] Heparin Sodium/Dextrose () 1 ea IV ONE ONE; Protocol Stop: 12/17/18 18:32 Last Admin: 12/17/18 19:40 Dose: Not Given Documented by: [id number] Hydromorphone HCl (Dilaudid) 1 mg IV NOW STA Stop: 12/17/18 19:30 Last Admin: 12/17/18 23:20 Dose: Not Given Documented by: [id number] Sodium Chloride (Nss 1000ml) 1,000 mls @ 999 mls/hr IV .Q1H1M ONE Stop: 12/17/18 18:43 Last Infusion: 12/17/18 19:39 Dose: 0 mls/hr Documented by: [id number] Admin: 12/17/18 17:53 Dose: 999 mls/hr Documented by: [id number] Heparin Sodium/Dextrose (Heparin Sodium/Dextrose) 25,000 units in 500 mls @ 0.02 mls/hr IV .Q24H LUC; Protocol Stop: 01/16/19 18:44 Last Admin: 12/17/18 19:46 Dose: Not Given Documented by: [id number] Insulin Aspart (Novolog Flexpen) 5 units SC NOW STA Stop: 12/18/18 01:25 Last Admin: 12/18/18 01:34 Dose: 5 units Documented by: [id number] Cosigned by: [id number] Ioversol (Optiray 320 100ml) 92 ml IV ONCE PRN PRN Reason: Interaction Checking Stop: 12/21/18 18:57 Last Admin: 12/17/18 18:59 Dose: 92 ml Documented by: [id number] Ondansetron HCl (Zofran) 4 mg IV NOW STA Stop: 12/17/18 17:44 Last Admin: 12/17/18 17:53 Dose: 4 mg Documented by: [id number]
[2018-12-18] MEDS ORDERED: GLUCAGON FOR INJ 1 MG VIAL SQ PRN (09:17)
[2018-12-18] MEDS ORDERED: DEXTROSE 50% 50 ML SYRINGE IV PRN (09:17)
[2018-12-18] MEDS ORDERED: GLUCOSE 40% GEL 15 GM TUBE PO PRN (09:17)
[2018-12-18] MEDS ORDERED: GLUCOSE 10 TABS/TUBE PO PRN (09:17)
[2018-12-18] MEDS ORDERED: INSULIN GLARGINE SOLOSTAR 100 UNITS/ML 3 ML PEN SC SCH (09:30)
[2018-12-18 09:53] LABS: Estimated Average Glucose 223 mg/dl; Hemoglobin A1C 9.4 % (4.5-5.6)
[2018-12-18] MEDS ORDERED: ACETAMINOPHEN 325 MG TAB PO PRN (10:06)
[2018-12-18] MEDS ORDERED: Nursing to Pharmacy Communication ONE (10:11)
--- NOTE | 2018-12-18 10:25 | Surgery Progress Note ---
Date of Service December 18, 2018 Assessment & Plan (1) Incarcerated hernia: POD # 1 s/p repair of incarcerated ventral hernia without mesh -Vitals stable, afebrile - leukocytosis 14K (like postop) - no n/v - no return of bowel function yet - minimal pain Plan: PO Tylenol and Percocet prn pain, avoid IV narcotics continue iv fluids start clear liquids continue scds for dvt prophylaxis encourage ambulation incentive spirometry abdominal binder continue medical management, appreciate recs Dr. Buchanan has seen and examined pt, agrees with above Subjective feeling much better this morning preop pain resolved minimal post op pain, left of incision no n/v no flatus or bowel movement Physical Exam Constitutional: WD/WN, vitals as above no acute distress Gastrointestinal (Abdomen): Inspection/Auscultation: abdomen normal to inspection; abdomen not distended Percussion/Palpation: + abdomen tender (left of midline incision and at incision) and abdomen soft; no guarding and abdomen not rigid Skin: no rashes, warm and dry + incision (covered with dry dressing incision not inspected) Psychiatric: A+Ox3, euthymic affect Results & Data Vital Signs (Past 12 Hours) Vital Signs Temp Pulse Pulse Resp BP Pulse Ox 12/18/18 07:02 36.9 C 83 16 128/83 92 12/18/18 02:40 36.6 C 76 18 126/92 95 12/18/18 01:40 36.6 C 82 16 129/87 93 12/18/18 00:40 36.3 C L 83 18 135/87 92 12/17/18 23:40 36.4 C L 73 18 135/88 99 12/17/18 23:10 36.5 C 74 18 145/87 H 100 12/17/18 22:30 67 13 138/95 100 Laboratory Results 12/18/18 12/18/18 12/18/18 Range/Units 07:07 07:07 06:20 WBC 14.64 H (4.8-10.8) K/uL RBC 4.51 (4.2-5.4) M/uL Hgb 13.4 (12.0-16.0) g/dL Hct 39.7 (37-47) % MCV 88.0 (80-100) fL MCH 29.7 (25-34) pg MCHC 33.8 (32-36) g/dL RDW Std Deviation 44.6 (36.4-46.3) fL RDW Coeff of Rubi 13.9 (11.5-14.5) % Plt Count 304 (130-400) K/uL MPV 9.0 (7.4-10.4) fL Immature Gran % (Auto) 0.2 % Neut % (Auto) 87.1 % Lymph % (Auto) 8.1 % [place] % (Auto) 4.5 % Eos % (Auto) 0.0 % Baso % (Auto) 0.1 % Immature Gran # (Auto) 0.03 H (0.00-0.02) K/uL Neut # (Auto) 12.75 H (1.4-6.5) K/uL Lymph # (Auto) 1.19 L (1.2-3.4) K/uL [facility] # (Auto) 0.66 H (0.11-0.59) K/uL Eos # (Auto) 0.00 (0-0.5) K/uL Baso # (Auto) 0.01 (0-0.2) K/uL Sodium (136-145) mmol/L Potassium (3.5-5.1) mmol/L Chloride (98-107) mmol/L Carbon Dioxide (21-32) mmol/L Anion Gap (3-11) BUN (7-18) mg/dl Creatinine (0.6-1.2) mg/dl Est Cr Clr Drug Dosing ml/min Est GFR ( Amer) Est GFR (Non-Af Amer) BUN/Creatinine Ratio (10-20) Glucose (70-99) mg/dl POC Glucose 221 H (70-99) Estimat Average Glucose 223 mg/dl Hemoglobin A1c 9.4 H (4.5-5.6) % Lactate (0.4-2.0) mmol/L Calcium (8.5-10.1) mg/dl Total Bilirubin (0.2-1) mg/dl AST (15-37) U/L ALT (12-78) U/L Alkaline Phosphatase (45-117) U/L Total Protein (6.4-8.2) gm/dl Albumin (3.4-5.0) gm/dl Globulin (2.5-4.0) gm/dl Albumin/Globulin Ratio (0.9-2) Lipase (73-393) U/L Urine Color Urine Appearance (Clear) Urine pH (4.5-7.5) Ur Specific [place] (1.000-1.030) Urine Protein (Negative) Urine Glucose (UA) (Negative) Urine Ketones (Negative) Urine Blood (Negative) Urine Nitrite (Negative) Urine Bilirubin (Negative) Urine Urobilinogen (Negative) Ur Leukocyte Esterase (Negative) Urine WBC (Auto) (0-5) /hpf Urine RBC (Auto) (0-4) /hpf U Hyaline Cast (Auto) (0-5) /lpf U Epithel Cells (Auto) (0-5) /lpf Urine Bacteria (Auto) (Negative) Hepatitis C Ab Screen (Neg) 12/18/18 12/18/18 12/18/18 Range/Units 05:14 05:14 01:14 WBC (4.8-10.8) K/uL RBC (4.2-5.4) M/uL Hgb (12.0-16.0) g/dL Hct (37-47) % MCV (80-100) fL MCH (25-34) pg MCHC (32-36) g/dL RDW Std Deviation (36.4-46.3) fL RDW Coeff of Rubi (11.5-14.5) % Plt Count (130-400) K/uL MPV (7.4-10.4) fL Immature Gran % (Auto) % Neut % (Auto) % Lymph % (Auto) % [place] % (Auto) % Eos % (Auto) % Baso % (Auto) % Immature Gran # (Auto) (0.00-0.02) K/uL Neut # (Auto) (1.4-6.5) K/uL Lymph # (Auto) (1.2-3.4) K/uL [facility] # (Auto) (0.11-0.59) K/uL Eos # (Auto) (0-0.5) K/uL Baso # (Auto) (0-0.2) K/uL Sodium 136 (136-145) mmol/L Potassium 3.8 D (3.5-5.1) mmol/L Chloride 104 (98-107) mmol/L Carbon Dioxide 25 (21-32) mmol/L Anion Gap 7.0 (3-11) BUN 11 (7-18) mg/dl Creatinine 0.55 L (0.6-1.2) mg/dl Est Cr Clr Drug Dosing 130.6 ml/min Est GFR ( Amer) 119.8 Est GFR (Non-Af Amer) 103.4 BUN/Creatinine Ratio 19.5 (10-20) Glucose 240 H (70-99) mg/dl POC Glucose 249 H (70-99) Estimat Average Glucose mg/dl Hemoglobin A1c (4.5-5.6) % Lactate (0.4-2.0) mmol/L Calcium 8.2 L (8.5-10.1) mg/dl Total Bilirubin 0.5 (0.2-1) mg/dl AST 11 L (15-37) U/L ALT 15 (12-78) U/L Alkaline Phosphatase 90 (45-117) U/L Total Protein 6.6 D (6.4-8.2) gm/dl Albumin 2.5 L (3.4-5.0) gm/dl Globulin 4.1 H (2.5-4.0) gm/dl Albumin/Globulin Ratio 0.6 L (0.9-2) Lipase (73-393) U/L Urine Color Urine Appearance (Clear) Urine pH (4.5-7.5) Ur Specific [place] (1.000-1.030) Urine Protein (Negative) Urine Glucose (UA) (Negative) Urine Ketones (Negative) Urine Blood (Negative) Urine Nitrite (Negative) Urine Bilirubin (Negative) Urine Urobilinogen (Negative) Ur Leukocyte Esterase (Negative) Urine WBC (Auto) (0-5) /hpf Urine RBC (Auto) (0-4) /hpf U Hyaline Cast (Auto) (0-5) /lpf U Epithel Cells (Auto) (0-5) /lpf Urine Bacteria (Auto) (Negative) Hepatitis C Ab Screen Neg (Neg) 12/17/18 12/17/18 12/17/18 Range/Units 22:02 17:57 17:57 WBC (4.8-10.8) K/uL RBC (4.2-5.4) M/uL Hgb (12.0-16.0) g/dL Hct (37-47) % MCV (80-100) fL MCH (25-34) pg MCHC (32-36) g/dL RDW Std Deviation (36.4-46.3) fL RDW Coeff of Rubi (11.5-14.5) % Plt Count (130-400) K/uL MPV (7.4-10.4) fL Immature Gran % (Auto) % Neut % (Auto) % Lymph % (Auto) % [place] % (Auto) % Eos % (Auto) % Baso % (Auto) % Immature Gran # (Auto) (0.00-0.02) K/uL Neut # (Auto) (1.4-6.5) K/uL Lymph # (Auto) (1.2-3.4) K/uL [facility] # (Auto) (0.11-0.59) K/uL Eos # (Auto) (0-0.5) K/uL Baso # (Auto) (0-0.2) K/uL Sodium (136-145) mmol/L Potassium (3.5-5.1) mmol/L Chloride (98-107) mmol/L Carbon Dioxide (21-32) mmol/L Anion Gap (3-11) BUN (7-18) mg/dl Creatinine (0.6-1.2) mg/dl Est Cr Clr Drug Dosing ml/min Est GFR ( Amer) Est GFR (Non-Af Amer) BUN/Creatinine Ratio (10-20) Glucose (70-99) mg/dl POC Glucose 244 H (70-99) Estimat Average Glucose mg/dl Hemoglobin A1c (4.5-5.6) % Lactate 1.3 (0.4-2.0) mmol/L Calcium (8.5-10.1) mg/dl Total Bilirubin (0.2-1) mg/dl AST (15-37) U/L ALT (12-78) U/L Alkaline Phosphatase (45-117) U/L Total Protein (6.4-8.2) gm/dl Albumin (3.4-5.0) gm/dl Globulin (2.5-4.0) gm/dl Albumin/Globulin Ratio (0.9-2) Lipase (73-393) U/L Urine Color Yellow Urine Appearance Clear (Clear) Urine pH 7.0 (4.5-7.5) Ur Specific [place] 1.016 (1.000-1.030) Urine Protein 1+ H (Negative) Urine Glucose (UA) Trace H (Negative) Urine Ketones 1+ H (Negative) Urine Blood Negative (Negative) Urine Nitrite Negative (Negative) Urine Bilirubin Negative (Negative) Urine Urobilinogen Negative (Negative) Ur Leukocyte Esterase Negative (Negative) Urine WBC (Auto) 1-5 (0-5) /hpf Urine RBC (Auto) 5-10 H (0-4) /hpf U Hyaline Cast (Auto) 1-5 (0-5) /lpf U Epithel Cells (Auto) 10-20 H (0-5) /lpf Urine Bacteria (Auto) Negative (Negative) Hepatitis C Ab Screen (Neg) 12/17/18 12/17/18 Range/Units 17:08 17:08 WBC 8.98 (4.8-10.8) K/uL RBC 4.93 (4.2-5.4) M/uL Hgb 14.8 (12.0-16.0) g/dL Hct 42.9 (37-47) % MCV 87.0 (80-100) fL MCH 30.0 (25-34) pg MCHC 34.5 (32-36) g/dL RDW Std Deviation 44.3 (36.4-46.3) fL RDW Coeff of Rubi 14.0 (11.5-14.5) % Plt Count 382 (130-400) K/uL MPV 9.2 (7.4-10.4) fL Immature Gran % (Auto) 0.4 % Neut % (Auto) 70.2 % Lymph % (Auto) 22.5 % [facility] % (Auto) 6.3 % Eos % (Auto) 0.3 % Baso % (Auto) 0.3 % Immature Gran # (Auto) 0.04 H (0.00-0.02) K/uL Neut # (Auto) 6.29 (1.4-6.5) K/uL Lymph # (Auto) 2.02 (1.2-3.4) K/uL [facility] # (Auto) 0.57 (0.11-0.59) K/uL Eos # (Auto) 0.03 (0-0.5) K/uL Baso # (Auto) 0.03 (0-0.2) K/uL Sodium 137 (136-145) mmol/L Potassium 3.3 L (3.5-5.1) mmol/L Chloride 101 (98-107) mmol/L Carbon Dioxide 27 (21-32) mmol/L Anion Gap 9.0 (3-11) BUN 9 (7-18) mg/dl Creatinine 0.73 (0.6-1.2) mg/dl Est Cr Clr Drug Dosing 99.8 ml/min Est GFR ( Amer) 105.2 Est GFR (Non-Af Amer) 90.8 BUN/Creatinine Ratio 12.1 (10-20) Glucose 212 H (70-99) mg/dl POC Glucose (70-99) Estimat Average Glucose mg/dl Hemoglobin A1c (4.5-5.6) % Lactate (0.4-2.0) mmol/L Calcium 9.0 (8.5-10.1) mg/dl Total Bilirubin 0.5 (0.2-1) mg/dl AST 16 (15-37) U/L ALT 18 (12-78) U/L Alkaline Phosphatase 110 (45-117) U/L Total Protein 8.4 H (6.4-8.2) gm/dl Albumin 3.5 (3.4-5.0) gm/dl Globulin 4.9 H (2.5-4.0) gm/dl Albumin/Globulin Ratio 0.7 L (0.9-2) Lipase 94 (73-393) U/L Urine Color Urine Appearance (Clear) Urine pH (4.5-7.5) Ur Specific [place] (1.000-1.030) Urine Protein (Negative) Urine Glucose (UA) (Negative) Urine Ketones (Negative) Urine Blood (Negative) Urine Nitrite (Negative) Urine Bilirubin (Negative) Urine Urobilinogen (Negative) Ur Leukocyte Esterase (Negative) Urine WBC (Auto) (0-5) /hpf Urine RBC (Auto) (0-4) /hpf U Hyaline Cast (Auto) (0-5) /lpf U Epithel Cells (Auto) (0-5) /lpf Urine Bacteria (Auto) (Negative) Hepatitis C Ab Screen (Neg)
[2018-12-18] MEDS: lisinopriL 20 MG TAB PO SCH (10:29)
[2018-12-18] MEDS: ATORVASTATIN 10 MG TAB PO SCH (10:29)
[2018-12-18] MEDS ORDERED: OXYCODONE/ACETAMINOPHEN 5mg/325mg TAB PO STA (11:31)
[2018-12-18] MEDS: INSULIN ASPART 100 UNITS/ML 3 ML PEN SC SCH ×3 (12:50→20:50)
[2018-12-18] MEDS: OXYCODONE/ACETAMINOPHEN 5mg/325mg TAB PO PRN ×2 (15:52→20:50)
[2018-12-18] MEDS: ROPINIROLE HCL 1 MG TABLET PO SCH (20:51)
[2018-12-18] MEDS: INSULIN GLARGINE SOLOSTAR 100 UNITS/ML 3 ML PEN SC SCH (20:51)
[2018-12-19] MEDS ORDERED: INSULIN ASPART 100 UNITS/ML 3 ML PEN SC ONE (01:00)
[2018-12-19] MEDS: OXYCODONE/ACETAMINOPHEN 5mg/325mg TAB PO PRN ×2 (01:10→12:43)
[2018-12-19 05:40] LABS: Basophils # (auto) 0.01 K/uL (0-0.2); Basophils % (auto) 0.1 %; Eosinophils # (auto) 0.06 K/uL (0-0.5); Eosinophils % (auto) 0.5 %; Hematocrit (blood only) 37.5 % (37-47); Hemoglobin 12.3 g/dL (12.0-16.0); Immature Granulocytes # (auto) 0.04 K/uL (0.00-0.02); Immature Granulocytes % (auto) 0.3 %; Lymphocytes # (auto) 2.79 K/uL (1.2-3.4); Lymphocytes % (auto) 23.9 %; Mean Corpuscular Hemoglobin 29.7 pg (25-34); Mean Corpuscular Hgb Conc 32.8 g/dL (32-36); Mean Corpuscular Volume 90.6 fL (80-100); Monocytes # (auto) 1.26 K/uL (0.11-0.59); Monocytes % (auto) 10.8 %; Neutrophils # (auto) 7.53 K/uL (1.4-6.5); Neutrophils % (auto) 64.4 %; Platelet Count 299 K/uL (130-400); RDW Coefficient of Variation 14.5 % (11.5-14.5); RDW Standard Deviation 47.4 fL (36.4-46.3); Red Blood Count 4.14 M/uL (4.2-5.4); White Blood Count 11.69 K/uL (4.8-10.8)
[2018-12-19] MEDS: FLUTICASONE/SALMETEROL 250/50 (ADVAIR) 14 PUFF/1 INHALER INH SCH (08:45)
[2018-12-19] MEDS: ROPINIROLE HCL 1 MG TABLET PO SCH (08:46)
[2018-12-19] MEDS: ATORVASTATIN 10 MG TAB PO SCH (08:46)
[2018-12-19] MEDS: lisinopriL 20 MG TAB PO SCH (08:47)
[2018-12-19] MEDS: INSULIN ASPART 100 UNITS/ML 3 ML PEN SC SCH ×2 (08:49→12:45)
[2018-12-19] MEDS: INSULIN GLARGINE SOLOSTAR 100 UNITS/ML 3 ML PEN SC SCH (08:49)
--- NOTE | 2018-12-19 09:18 | Hospitalist Progress Note ---
Date of Service December 19, 2018 Assessment & Plan (1) Incarcerated hernia: S/P Reduction and closure of recurrent ventral hernia by Dr. Buchanan, POD #2 EBL 5ml Pt reports doing well post op Pain/wound management per surgery Activity and diet as directed by surgery, currently on liquid diet Bowel regimen per surgery Continue incentive spirometry Hgb: 12.3. Was 14.8 pre-op (2) Leukocytosis: WBC 11.6 from 14.6 yesterday Had pre op dexamethasone, Probable reactive/post operative. No fevers/chills, no other signs or symptoms of infection at this time Monitor CBC (3) Diabetes: A1C: 9.4. Last A1C: 10.8 on 02/11/18 Metformin held while in patient Basal bolus insulin per protocol Pt will need close PCP follow up for DM control (4) HTN (hypertension): BP's been stable. This am 99/65. Pt asymptomatic Continue lisinopril with holding parameters Monitor BP (5) Methamphetamine use: Intermittent meth use reported. Last done day prior to admission No s/sx of withdrawal at this time (6) HLD (hyperlipidemia): Continue statin (7) Fibromyalgia: No c/o pain currently (8) DVT prophylaxis: SCD/TEDS, encourage ambulation Disposition: per primary service Follow up: PCP Dr. Little upon discharge Patient was seen and examined in collaboration with Dr. Hall, please see addendum Supervising Physician Co-Signing Physician Notes I did not see the patient today prior to discharge. No bill was charged for this visit as a result. Rafael, DO Subjective Medical management follow up. POD #2 s/p repair of incarcerated ventral hernia without mesh. Pt seen and examined, sitting up in bed. Reports feeling good. Denies nausea or vomiting. Reports some abdominal pain but feels it has been controlled. Reports flatus this morning. Tolerating clear fluids. Denies fever/chills, VILLARREAL, dizziness, CP, SOB, cough, sore throat, choking, extremity e liya, rashes, urinary symptoms. Review of Systems Review of Systems: All systems reviewed & are unremarkable except as noted in HPI & below Physical Exam Physical Exam: General: no acute distress, appears older than stated age, WDWN Head: normocephalic, atraumatic Eyes: conjunctiva non-injected, anicteric ENT: normal inspection external ears, nose, mucous membranes moist Neck: supple, trachea midline Lungs: clear, no respiratory distress, no wheezing/rhonchi/rales CV: RRR, no murmur, no JVD, no pretibial edema Abd: +incision with andressa in place without surrounding erythema. +ecchymosis lateral to incision site. normal BS, soft, mild tenderness to light palpation Ext: no cyanosis, no calf tenderness Neuro: A&O x 3, no focal deficits noted, normal affect Skin: warm, dry Results & Data Vital Signs (Past 12 Hours) Vital Signs Temp Pulse Pulse Resp BP Pulse Ox 12/19/18 07:27 36.6 C 68 16 99/65 L 97 12/18/18 23:44 36.7 C 72 18 100/66 98 Laboratory Results Short CBC 12/19/18 Range/Units 05:10 WBC 11.69 H (4.8-10.8) K/uL Hgb 12.3 (12.0-16.0) g/dL Hct 37.5 (37-47) % Plt Count 299 (130-400) K/uL
--- NOTE | 2018-12-19 11:08 | Surgery Progress Note ---
Date of Service December 19, 2018 Assessment & Plan (1) Incarcerated hernia: POD # 2 s/p repair of incarcerated ventral hernia without mesh -Vitals stable, afebrile - leukocytosis improved to 11K - no n/v - + bowel function - pain controlled Plan: PO Tylenol and Percocet prn pain, avoid IV narcotics advance to regular dm diet for lunch can decrease IV fluids start clear liquids continue scds for dvt prophylaxis encourage ambulation incentive spirometry abdominal binder if tolerates diet, can discharge home later today Dr. Buchanan has seen and examined pt, agrees with above Subjective pain at incision site, burning pain lower abdomen, better than yesterday bowel movement yesterday and passing gas tolerating clear liquids walking hallway urinating without difficulty ready to go home Physical Exam 2 Constitutional: WD/WN, vitals as above no acute distress and not ill appearing Gastrointestinal (Abdomen): Inspection/Auscultation: abdomen normal to inspection and + abdominal surgical incision (midline incision with staple present, ecchymosis); abdomen not distended Percussion/Palpation: + abdomen tender (at incision site) and abdomen soft; no guarding and abdomen not rigid Skin: no rashes, warm and dry Psychiatric: Orientation: alert and oriented x 3 Results & Data Vital Signs (Past 12 Hours) Vital Signs Temp Pulse Pulse Resp BP Pulse Ox 12/19/18 07:27 36.6 C 68 16 99/65 L 97 12/18/18 23:44 36.7 C 72 18 100/66 98 Laboratory Results 12/19/18 12/19/18 12/19/18 Range/Units 08:07 05:10 01:05 WBC 11.69 H (4.8-10.8) K/uL RBC 4.14 L (4.2-5.4) M/uL Hgb 12.3 (12.0-16.0) g/dL Hct 37.5 (37-47) % MCV 90.6 (80-100) fL MCH 29.7 (25-34) pg MCHC 32.8 (32-36) g/dL RDW Std Deviation 47.4 H (36.4-46.3) fL RDW Coeff of Rubi 14.5 (11.5-14.5) % Plt Count 299 (130-400) K/uL MPV 9.0 (7.4-10.4) fL Immature Gran % (Auto) 0.3 % Neut % (Auto) 64.4 % Lymph % (Auto) 23.9 % Lee % (Auto) 10.8 % Eos % (Auto) 0.5 % Baso % (Auto) 0.1 % Immature Gran # (Auto) 0.04 H (0.00-0.02) K/uL Neut # (Auto) 7.53 H (1.4-6.5) K/uL Lymph # (Auto) 2.79 (1.2-3.4) K/uL Lee # (Auto) 1.26 H (0.11-0.59) K/uL Eos # (Auto) 0.06 (0-0.5) K/uL Baso # (Auto) 0.01 (0-0.2) K/uL POC Glucose 134 H 187 H (70-99) 12/18/18 12/18/18 12/18/18 Range/Units 20:37 17:30 12:01 WBC (4.8-10.8) K/uL RBC (4.2-5.4) M/uL Hgb (12.0-16.0) g/dL Hct (37-47) % MCV (80-100) fL MCH (25-34) pg MCHC (32-36) g/dL RDW Std Deviation (36.4-46.3) fL RDW Coeff of Rubi (11.5-14.5) % Plt Count (130-400) K/uL MPV (7.4-10.4) fL Immature Gran % (Auto) % Neut % (Auto) % Lymph % (Auto) % Lee % (Auto) % Eos % (Auto) % Baso % (Auto) % Immature Gran # (Auto) (0.00-0.02) K/uL Neut # (Auto) (1.4-6.5) K/uL Lymph # (Auto) (1.2-3.4) K/uL Lee # (Auto) (0.11-0.59) K/uL Eos # (Auto) (0-0.5) K/uL Baso # (Auto) (0-0.2) K/uL POC Glucose 135 H 195 H 231 H (70-99)
--- NOTE | 2018-12-30 09:12 | Discharge Summary ---
Date of Service December 30, 2018 Admission HPI Per Admitting Provider This is a 58-year-old female who presented to the emergency room with a complaint of pain in essentially the center of her abdomen. She has a recurrent ventral hernia. She has been having intermittent pain for the last few months that has been escalating in both severity and frequency. This episode began earlier today. The pain she describes is quite severe. She has difficulty finding a comfortable position to lay in. She had nausea and has had episodes of vomiting with this. There is been no hematemesis. She has been able to move her bowels. She has no dysuria or hematuria. CT scan shows a closed loop obstruction associated with a small bowel loop contained within her ventral hernia. 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 Principal Diagnosis Incarcerated ventral hernia containing small bowel Discharge Data Allergies Allergy/AdvReac Type Severity Reaction Status Date / Time amoxicillin Allergy Intermediate DIARRHEA Verified 12/17/18 19:25 clavulanic acid Allergy Intermediate DIARRHEA Verified 12/17/18 19:25 morphine Allergy Mild Unknown Verified 12/17/18 19:25 adhesive Allergy Unknown . Verified 12/17/18 19:25 clonazepam Allergy Unknown blacks out Verified 12/17/18 19:25 Consultations 12/17/18 20:15 ED Decision to Admit Stat 12/17/18 22:42 Consult Hospitalist Routine Procedures Performed Operation Date: 12/17/18 20:45 Actual Procedures p Incarceratd Ventral Hernia Repair(Not Applicable) - Nitish Buchanan MD Ordered Studies 12/17/18 17:43 CT abd pelvis IV con only Stat Hospital Course (1) Incarcerated hernia: Patient was taken to operating room from emergency department for repair of incarcerated ventral hernia by Dr. Buchanan. Patient found to have midline ventral hernia in between her prior superior and inferior venral hernia repairs. There was loops of small bowel incarcreated however no evidence of ischemia and bowel resection was not required. Patient tolerated procedure well and was transferred to recovery room and then to medical/surgical floor for post operative care. POD # 1, vitals stable afebrile, post op pain moderate, no return of bowel function yet. Diet was advance to clear liquids, abdominal binder ordered, encouraged to ambulate hallway and use incentive spirometer. POD # 2 Vitals stable, afebrile, positive return of bowel function and good appetite. Diet was advanced to regular DM diet. Patient tolerated advanced diet and pain controlled. Patient was discharged home on POD # 2 in stable condition. Total Time Total Time Spent Total Time Spent (In Minutes): 20 Total Time Includes: Examination of the Patient, Discharge Planning and Medication Reconciliation Discharge Plan Discharge Items Patient Disposition: Home - Self-Care Reason For Visit: INCARCERATED VENTRAL HERNIA Discharge Diagnosis: same Activity: Per Instructions section Non-emergency contact: Primary Care Provider and Surgeon Call non-emergency contact if: your pain is not controlled, your pain is worsening, your pain is concerning for you, you have a fever, your temperature is above 101, your wound has increased redness, your wound has increased drainage and your wound pain has increased Follow-up/Referrals: Chrissy Little DO [Primary Care Provider] - 12/24/18 10:45 am (Elevated A1C) Diet: Regular Addtl Attending Provider Instructions: ACTIVITY RECOMMENDATIONS: * Walk as much as possible. * No heavy lifting (>10 lbs.) for 6 weeks. SPECIAL CARE INSTRUCTIONS: * May shower. Let water run over area and pat dry. * Wear abdominal binder daily for support * Surgical andressa will be removed in office in 10-14 days * Call the surgeon's office with any questions or concerns - (ex. temperature higher than 101 degrees F, excessive bleeding or pain). MEDICATIONS: Resume previous medications unless instructed otherwise by your surgeon. * Percocet 1 every 4 hours, as needed for pain * May take extra strength Tylenol for mild pain. Try to avoid taking Tylenol with Percocet as Percocet has Tylenol in it. FOLLOW UP VISIT: Please call the office to schedule a one-two week follow-up appointment with the nurses to remove your andressa. You will then need another follow-up with Dr. Buchanan/Sydney Manuel PA-C one week later. Office number Pending Studies at Discharge: No Stand-Alone Forms: Call Back Authorization, [facility], Opioid Pain Management Medications and DC Order Prescriptions: New oxycodone-acetaminophen [Percocet] 5-325 mg Tablet 1 tab PO Q4H PRN (Reason: pain) Qty: 18 RF: 0 Continued ropinirole 1 mg Tablet 1 mg PO BID RF: 0 methylphenidate HCl [Ritalin] 10 mg Tablet 10 mg PO TID RF: 0 omeprazole 20 mg capsule,delayed release(DR/EC) 40 mg PO BID RF: 0 zolpidem [Ambien] 5 mg Tablet 5 mg PO HS PRN (Reason: Sleep) RF: 0 lisinopril 20 mg Tablet 20 mg PO DAILY RF: 0 fluticasone propion-salmeterol [Advair Diskus] 250-50 mcg/dose Blister With Device 1 inh INHALATION BID RF: 0 atorvastatin 10 mg Tablet 10 mg PO DAILY RF: 0 metformin 1,000 mg Tablet 1,000 mg PO BID RF: 0 Discharge Orders: Discharge Order (Routine); Ordered 12/19/18 Ordered By: Cher Cazares/Other Patient Handouts: Diabetes Food Service Coordinator Complications, Diabetes Type 2 Coping, Diabetes Healthy Meals, Diabetes Carbs, Diabetes Exercise Benefits, Diabetes Exercise Get Started, Diabetes Activity Tips, Diabetes Living Life, Diabetes Manage A1C Test Admission Data Admit Date/Time: 12/17/18 22:13 Attending Provider: Nitish Buchanan Admit Provider: Nitish Buchanan Primary Care Provider: Chrissy Little Other Providers: Nitish Buchanan ; Julia Hall Other Interventions: Discharge Summary Assessment (RN) Last Done: 12/19/18 15:55 DC Date/Time DO NOT enter until pt leaves facility: 12/19/18 16:33
== END 2018-12-19 16:33 | disposition home or self-care (01) | DRG 354 ==
LOC: ED 17:29 → OR 20:18 → 3W 22:13
DX: K43.6 Other and unspecified ventral hernia with obstruction, without gangrene; E78.5 Hyperlipidemia, unspecified; I10 Essential (primary) hypertension; Z88.1 Allergy status to other antibiotic agents; M79.7 Fibromyalgia; F15.20 Other stimulant dependence, uncomplicated; Z88.5 Allergy status to narcotic agent; D72.829 Elevated white blood cell count, unspecified; E11.9 Type 2 diabetes mellitus without complications

== ENCOUNTER 2020-01-21 18:44 | Observation (INO) ==
[2020-01-21 19:35] LABS: Basophils # (auto) 0.04 K/uL (0-0.2); Basophils % (auto) 0.2 %; Eosinophils # (auto) 0.11 K/uL (0-0.5); Eosinophils % (auto) 0.7 %; Hematocrit (blood only) 44.3 % (37-47); Hemoglobin 15.1 g/dL (12.0-16.0); Immature Granulocytes # (auto) 0.07 K/uL (0.00-0.02); Immature Granulocytes % (auto) 0.4 %; Lymphocytes # (auto) 2.44 K/uL (1.2-3.4); Lymphocytes % (auto) 14.9 %; Mean Corpuscular Hemoglobin 29.3 pg (25-34); Mean Corpuscular Hgb Conc 34.1 g/dL (32-36); Mean Corpuscular Volume 85.9 fL (80-100); Monocytes # (auto) 1.36 K/uL (0.11-0.59); Monocytes % (auto) 8.3 %; Neutrophils # (auto) 12.41 K/uL (1.4-6.5); Neutrophils % (auto) 75.5 %; Platelet Count 395 K/uL (130-400); RDW Coefficient of Variation 12.8 % (11.5-14.5); RDW Standard Deviation 40.3 fL (36.4-46.3); Red Blood Count 5.16 M/uL (4.2-5.4); White Blood Count 16.43 K/uL (4.8-10.8)
[2020-01-21 19:45] LABS: Appearance Urine Clear (Clear); Bacteria Urine Automated Negative (Negative); Bilirubin Urine Negative (Negative); Blood Urine Negative (Negative); Color Urine Yellow; Epithelial Cell Urine Auto >30 /lpf (0-5); Glucose Urine UA Negative (Negative); Ketones Urine Negative (Negative); Leukocyte Esterase Urine Negative (Negative); Nitrite Urine Negative (Negative); Protein Urine 1+ (Negative); Specific Gravity Urine 1.015 (1.000-1.030); Urobilinogen Urine Negative (Negative); pH Urine 5.5 (4.5-7.5)
[2020-01-21 19:53] LABS: Albumin Level 2.9 gm/dl (3.4-5.0); BUN Creatinine Ratio 14.2 (10-20); Calcium 8.9 mg/dl (8.5-10.1); Creatinine Clr Calc Pharmacy 119.7 ml/min; Est GFR (African American) 117.6; Est GFR (Non-African American) 101.5; Potassium 3.3 mmol/L (3.5-5.1)
[2020-01-21 19:56] LABS: Albumin Globulin Ratio 0.6 (0.9-2); Bilirubin,Total 0.5 mg/dl (0.2-1); Globulin 5.1 gm/dl (2.5-4.0)
[2020-01-21 20:14] LABS: RBC Urine Automated 0-4 /hpf (0-4)
[2020-01-21 20:15] LABS: Mucus Urine Present (None Prsent)
[2020-01-21] MEDS ORDERED: ONDANSETRON INJ 2 MG/ML 2 ML VIAL IV STA (21:11)
[2020-01-21] MEDS ORDERED: SODIUM CHLORIDE 0.9% 1000ML 1,000 ML IV ONE (21:11)
--- NOTE | 2020-01-21 21:18 | Emergency Department Note ---
Impression & Plan Hernia, ventral, SBO (small bowel obstruction) ED Provider Note NAME: DOUGLAS DURAN AGE: 59 SEX: F : 1960 ARRIVES VIA: Walk-In INFORMANT: Patient, ED PROVIDER(S): Severino Monzon DO CHIEF COMPLAINT: Abdominal pain HPI: The patient is a 59-year-old female who presented to the emergency department for an evaluation of epigastric and left lower quadrant abdominal pain. The patient states her pain began approximately 2 weeks ago. The pain is been intermittent initially but now seems to be more constant. She describes the pain as a burning sensation and sharp sensation. She states the pain is worsened with ambulation as well as palpation over the abdomen. She also notices increasing pain with deep breathing. She denies having any vomiting but does complain of fever as well as nausea. She has had no dysuria or frequency. She denies having any chest pain. The patient states that she has not seen her family doctor for the symptoms. She tried her usual outpatient medications for this pain without relief. ROS: See above HPI for pertinent positives & negatives. A total of 10 systems reviewed and were otherwise negative. PAST MEDICAL HISTORY: See Below PAST SURGICAL HISTORY: See Below FAMILY HISTORY: See Below SOCIAL HISTORY: See Below HOME MEDICATIONS: See Below ALLERGIES: See Below VITALS: See Below PHYSICAL EXAMINATION: GENERAL: The patient is awake and alert. She is very anxious appearing appears to be uncomfortable. EYES: The conjunctivae are clear. The pupils are round and reactive. EARS, NOSE, MOUTH AND THROAT: The nose is without any evidence of any deformity. Mucous membranes are moist. Tongue is midline. NECK: The neck is nontender and supple. RESPIRATORY: Normal respiratory effort is noted there is no evidence of wheezing rhonchi or rales CARDIOVASCULAR: Regular rate and rhythm noted there no murmurs rubs or gallops normal S1 normal S2. GASTROINTESTINAL: Abdomen is soft and mildly distended. There is left lower quadrant tenderness to palpation which is moderate. BACK: No midline tenderness or or step-off noted range of motion in flexion extension as well as rotation no signs of muscle spasm noted MUSCULOSKELETAL/EXTREMITIES: There is no evidence of gross deformity full range of motion is noted in the hips and shoulders. SKIN: There is no obvious evidence of any rash. There are no petechiae, pallor or cyanosis noted. NEUROLOGIC: Patient is awake alert and oriented x3 strength is symmetric patellar reflexes are 2+ bilaterally MEDICAL DECISION MAKING: The patient is a 59-year-old female who presented to the emergency department for an evaluation of abdominal pain. The patient had one episode of emesis previous but she has no vomiting at this time. Her abdominal exam was consist ent with significant pain her white blood cell count was elevated. For this reason CT the abdomen and pelvis was obtained. This appears to be consistent with a recurrence of her ventral wall hernia with a resultant partial small bowel obstruction. I discussed her findings with surgery as well as the on-call [facility] hospitalist group. The patient was treated with IV fluids and IV pain medication. She was also treated with IV antiemetics. On subsequent reevaluation she was feeling much better. She was agreeable to evaluation in the emergency department by the hospitalist group. Triage Nursing notes reviewed. Prior medical records reviewed Vital Signs: reviewed and remarkable for no significant abnormalities Differential diagnosis: Etiologies such as appendicitis, diverticulitis, obstruction, inflammatory bowel disease, renal colic, PUD, biliary pathology, pancreatitis, mesenteric ischemia, aortic pathology, infections, genitourinary, UTI, perforated viscus, as well as others were entertained. ER treatment provided: See below Diagnostics interpreted by me: ECG: none Cardiac Monitoring: An order was placed for continuous cardiac monitoring. The monitor shows a rate of 88 beats per minute with sinus rhythm. Laboratory studies: As stated above and show below. Imaging studies: See below Consultation(s): 2240: I discussed this case with Kamran Escoto who was covering with Dr. Jasso for general surgery. They recommend an NG tube if the patient continues to vomit. 2325: I discussed this case with Dr. Miner who is on-call for the [facility] hospitalist group. ED COURSE: Procedures: none PDMP:reviewed and no issues Critical Care: None Past Med/Surg History Medical History Acute cholecystitis Anxiety and depression Bloody emesis Bronchitis Corneal abrasion Diabetes Fibromyalgia Gastric ulcer HLD (hyperlipidemia) HTN (hypertension) Insomnia L1 vertebral fracture Left corneal abrasion Migraine Pneumonia Restless leg syndrome UTI (lower urinary tract infection) Surgical History H/O gastric bypass H/O knee surgery H/O: hysterectomy History of ankle surgery S/P anal fissurectomy S/P cholecystectomy S/P recurrent ventral herniorrhaphy S/P tonsillectomy S/P ventral herniorrhaphy Family History Father Myocardial infarction Leukemia Sister Ovarian cancer Myocardial infarction Other Family history of diabetes mellitus Hypertension Social History Smoking Status: Current every day smoker Tobacco Type: Cigarettes Cigarettes Per Day: 30; Hx Alcohol Use: No Hx Substance Use: Yes Last Used Substance: Days (ago) Last Used Substance Other:: 1 day ago used meth. reports recreational use Preferred Language: Romanian Communication Ability: Effective Makeup Sales Advisor Required: No Beliefs That Will Affect Care: None marital status: Current Living Situation: Alone current occupational status: unemployed and disabled Feels Safe at Home: Yes Assistive Devices: None Allergies Allergies Allergy/AdvReac Type Severity Reaction Status Date / Time amoxicillin Allergy Intermediate DIARRHEA Verified 01/21/20 23:07 clavulanic acid Allergy Intermediate DIARRHEA Verified 01/21/20 23:07 morphine Allergy Mild Unknown Verified 01/21/20 23:07 adhesive Allergy Unknown Unknown Verified 01/21/20 23:07 clonazepam Allergy Unknown blacks out Verified 01/21/20 23:07 Home Meds Home Medications Medication Instructions Recorded Confirmed methylphenidate HCl [Ritalin] 10 mg PO TID 12/16/17 01/21/20 ropinirole 1 mg PO BID 12/16/17 01/21/20 omeprazole 40 mg PO BID 12/17/18 01/21/20 zolpidem [Ambien] 5 mg PO HS PRN 12/17/18 01/21/20 atorvastatin 10 mg PO DAILY 12/18/18 01/21/20 lisinopril 20 mg PO DAILY 12/18/18 01/21/20 metformin 1,000 mg PO DAILY 12/18/18 01/21/20 Results & Data (ED) Vital Signs Vital Signs - 24 hr 01/21/20 19:11 01/21/20 22:25 01/21/20 22:27 Temperature 37.4 C Temperature Source Oral Pulse Rate 92 H 77 79 Pulse Rate from SpO2 Sensor 74 78 Respiratory Rate 20 17 15 Respiratory Effort / Characteristics Non-Labored Spontaneous Respiratory Depth Normal Respiratory Pattern Regular Blood Pressure 147/94 H 177/104 H Blood Pressure Mean 111 120 Blood Pressure Position Sitting Pulse Oximetry 96 99 99 Oxygen Delivery Method Room Air Sepsis Recent Fever Within 48 Hours Yes Sepsis New/Unexplained Change in Mental Status No Sepsis Action Taken by Nursing No Action Required 01/21/20 22:30 01/21/20 23:30 01/22/20 00:00 Temperature Temperature Source Pulse Rate 80 81 78 Pulse Rate from SpO2 Sensor 78 84 77 Respiratory Rate 23 22 18 Respiratory Effort / Characteristics Respiratory Depth Respiratory Pattern Blood Pressure 171/106 H 134/91 129/74 Blood Pressure Mean 115 110 90 Blood Pressure Position Pulse Oximetry 98 97 96 Oxygen Delivery Method Room Air Room Air Sepsis Recent Fever Within 48 Hours Sepsis New/Unexplained Change in Mental Status Sepsis Action Taken by Nursing 01/22/20 00:17 01/22/20 00:30 Temperature Temperature Source Pulse Rate 90 78 Pulse Rate from SpO2 Sensor 78 Respiratory Rate 21 21 Respiratory Effort / Characteristics Respiratory Depth Respiratory Pattern Blood Pressure 133/79 Blood Pressure Mean 102 Blood Pressure Position Pulse Oximetry 98 98 Oxygen Delivery Method Room Air Room Air Sepsis Recent Fever Within 48 Hours Sepsis New/Unexplained Change in Mental Status Sepsis Action Taken by [facility] Medications Current Medication List: was personally reviewed by me Laboratory Data Attestation: I reviewed the patient's lab results. Result diagrams: 01/21/20 19:25 01/21/20 19:25 Lab Results 01/21/20 01/21/20 01/21/20 Range/Units 19:15 19:25 19:25 WBC 16.43 H (4.8-10.8) K/uL RBC 5.16 (4.2-5.4) M/uL Hgb 15.1 (12.0-16.0) g/dL Hct 44.3 (37-47) % MCV 85.9 (80-100) fL MCH 29.3 (25-34) pg MCHC 34.1 (32-36) g/dL RDW Std Deviation 40.3 (36.4-46.3) fL RDW Coeff of Rubi 12.8 (11.5-14.5) % Plt Count 395 (130-400) K/uL MPV 9.0 (7.4-10.4) fL Immature Gran % (Auto) 0.4 % Neut % (Auto) 75.5 % Lymph % (Auto) 14.9 % [place] % (Auto) 8.3 % Eos % (Auto) 0.7 % Baso % (Auto) 0.2 % Neut # (Auto) 12.41 H (1.4-6.5) K/uL Lymph # (Auto) 2.44 (1.2-3.4) K/uL [place] # (Auto) 1.36 H (0.11-0.59) K/uL Eos # (Auto) 0.11 (0-0.5) K/uL Baso # (Auto) 0.04 (0-0.2) K/uL Immature Gran # (Auto) 0.07 H (0.00-0.02) K/uL Sodium 136 (136-145) mmol/L Potassium 3.3 L (3.5-5.1) mmol/L Chloride 102 (98-107) mmol/L Carbon Dioxide 27 (21-32) mmol/L Anion Gap 7.0 (3-11) BUN 8 (7-18) mg/dl Creatinine 0.57 L (0.6-1.2) mg/dl Est Cr Clr Drug Dosing 119.7 ml/min Est GFR ( Amer) 117.6 Est GFR (Non-Af Amer) 101.5 BUN/Creatinine Ratio 14.2 (10-20) Glucose 236 H (70-99) mg/dl Calcium 8.9 (8.5-10.1) mg/dl Total Bilirubin 0.5 (0.2-1) mg/dl AST 9 L (15-37) U/L ALT 12 (12-78) U/L Alkaline Phosphatase 117 (45-117) U/L Total Protein 8.0 (6.4-8.2) gm/dl Albumin 2.9 L (3.4-5.0) gm/dl Globulin 5.1 H (2.5-4.0) gm/dl Albumin/Globulin Ratio 0.6 L (0.9-2) Lipase 130 (73-393) U/L Urine Color Yellow Urine Appearance Clear (Clear) Urine pH 5.5 (4.5-7.5) Ur Specific [place] 1.015 (1.000-1.030) Urine Protein 1+ H (Negative) Urine Glucose (UA) Negative (Negative) Urine Ketones Negative (Negative) Urine Blood Negative (Negative) Urine Nitrite Negative (Negative) Urine Bilirubin Negative (Negative) Urine Urobilinogen Negative (Negative) Ur Leukocyte Esterase Negative (Negative) Urine WBC (Auto) 1-5 (0-5) /hpf Urine RBC (Auto) 0-4 (0-4) /hpf U Hyaline Cast (Auto) 1-5 (0-5) /lpf U Epithel Cells (Auto) >30 H (0-5) /lpf Urine Bacteria (Auto) Negative (Negative) Urine Mucus Present A (None Prsent) Administered Medications Fentanyl Citrate (Fentanyl Citrate 100 Mcg/2 Ml Vial) 50 mcg IV Q15M PRN PRN Reason: Pain Stop: 02/04/20 21:10 Last Admin: 01/22/20 00:42 Dose: 50 mcg Documented by: [id number] Admin: 01/21/20 21:31 Dose: 50 mcg Documented by: [id number] Discontinued Medications Sodium Chloride (Nss 1000ml) 1,000 mls @ 999 mls/hr IV .Q1H1M ONE Stop: 01/21/20 22:11 Last Infusion: 01/21/20 22:41 Dose: 0 mls/hr Documented by: [id number] Admin: 01/21/20 21:32 Dose: 999 mls/hr Documented by: [id number] Ioversol (Ioversol 100ml) 92 ml IV ONCE ONE Stop: 01/21/20 21:53 Last Admin: 01/21/20 21:52 Dose: 92 ml Documented by: [id number] Ondansetron HCl (Ondansetron Inj 2 Mg/Ml 2 Ml Vial) 4 mg IV NOW STA Stop: 01/21/20 21:12 Last Admin: 01/21/20 21:32 Dose: 4 mg Documented by: [id number] Imaging Data Radiologist's Impression: Patient: DOUGLAS DURAN (Female) : 60 Status: ER Date: 01/21/20 21:51 Room #: History: LLQ PAIN Slices: [id number] Priors: Tech: Pan Viveros @ [id number] Exams: CT ABDOMEN & PELVIS With Contrast Contrast: IV Amt: 92 Accession Numbers: [id number] Preliminary Findings Only See Final Report For Complete Findings CT ABDOMEN & PELVIS With Contrast: Comparison 12/17/2018. As before, there is evidence of ventral abdominal wall hernia repair with residual ventral hernia in the pelvis measuring 10 cm with loops of small bowel containing air-fluid levels. Mildly dilated and fluid-filled small bowel loops in the left pelvis proximal to the hernia which may indicate partial ob struction. Residual 12 x 1.5 cm fluid collection within the ventral abdominal wall superior to the hernia, associated with the prosthetic mesh. The appendix is not identified. No CT evidence for acute appendicitis. Postsurgical changes of the stomach, as before. Cholecystectomy. Hysterectomy. Radiologist: Conrad Bryant M.D. Study ready at 22:07 and initial results transmitted at 22:21 Blood Pressure Blood Pressure Findings: Normal blood pressure Discharge Plan Visit Data Chief Complaint: Abdominal Pain Stated Complaint: abd pain, vomiting ED Provider: Severino Monzon Discharge Problem: Hernia, ventral, SBO (small bowel obstruction) Forms Stand Alone Forms: [facility] Prescriptions Prescriptions: No Action ropinirole 1 mg Tablet 1 mg PO BID RF: 0 methylphenidate HCl [Ritalin] 10 mg Tablet 10 mg PO TID RF: 0 omeprazole 20 mg capsule,delayed release(DR/EC) 40 mg PO BID RF: 0 zolpidem [Ambien] 5 mg Tablet 5 mg PO HS PRN (Reason: Sleep) RF: 0 lisinopril 20 mg Tablet 20 mg PO DAILY RF: 0 atorvastatin 10 mg Tablet 10 mg PO DAILY RF: 0 metformin 1,000 mg Tablet 1,000 mg PO DAILY RF: 0 Referrals Referrals: Chrissy Little DO [Primary Care Provider] -
[2020-01-21] MEDS: fentaNYL citrate 100 MCG/2 ML VIAL IV PRN (21:31)
[2020-01-21] MEDS ORDERED: IOVERSOL 100ml IV ONE (21:52)
--- NOTE | 2020-01-21 23:34 | Surgery Consultation ---
Date of Consultation January 21, 2020 Assessment & Plan (1) Abdominal pain: Patient with abdominal pain but no peritoneal signs Evidence of mildly dilated small bowel possible partial small bowel obstruction related to An incisional hernia in the lower abdomen which is reducible Most of her pain is in the epigastrium She does not appear to require surgical intervention at this time We will continue with bowel rest, IV fluids, and supportive care We will notify Dr. Buchanan tomorrow of her admission History of Present Illness History of Present Illness presenting to the emergency room with epigastric [id number] female which is been going on for 1 to 2 weeks He has a history of gastric bypass and also ventral hernia with repair with mesh December 2018 she underwent laparotomy for small bowel obstruction and primary hernia repair below the mesh By Dr. Buchanan-her hernia subsequently recurred She has evidence on a CT scan of possible partial small bowel obstruction from what appears to be the hernia. Her small bowel is only mildly dilated Allergies Allergy/AdvReac Type Severity Reaction Status Date / Time amoxicillin Allergy Intermediate DIARRHEA Verified 01/21/20 23:07 clavulanic acid Allergy Intermediate DIARRHEA Verified 01/21/20 23:07 morphine Allergy Mild Unknown Verified 01/21/20 23:07 adhesive Allergy Unknown Unknown Verified 01/21/20 23:07 clonazepam Allergy Unknown blacks out Verified 01/21/20 23:07 Home Medications Home Medications Medication Instructions Recorded Confirmed Type methylphenidate HCl [Ritalin] 10 mg PO TID 12/16/17 01/21/20 History ropinirole 1 mg PO BID 12/16/17 01/21/20 History omeprazole 40 mg PO BID 12/17/18 01/21/20 History zolpidem [Ambien] 5 mg PO HS PRN 12/17/18 01/21/20 History atorvastatin 10 mg PO DAILY 12/18/18 01/21/20 History lisinopril 20 mg PO DAILY 12/18/18 01/21/20 History metformin 1,000 mg PO DAILY 12/18/18 01/21/20 History Patient History Medical History Acute cholecystitis Anxiety and depression Bloody emesis Bronchitis Corneal abrasion Diabetes Fibromyalgia Gastric ulcer HLD (hyperlipidemia) HTN (hypertension) Insomnia L1 vertebral fracture Left corneal abrasion Migraine Pneumonia Restless leg syndrome UTI (lower urinary tract infection) Surgical History H/O gastric bypass H/O knee surgery H/O: hysterectomy History of ankle surgery S/P anal fissurectomy S/P cholecystectomy S/P recurrent ventral herniorrhaphy S/P tonsillectomy S/P ventral herniorrhaphy Family History Father Myocardial infarction Leukemia Sister Ovarian cancer Myocardial infarction Other Family history of diabetes mellitus Hypertension Social History Smoking Status: Current every day smoker Tobacco Type: Cigarettes Cigarettes Per Day: 30; Hx Alcohol Use: No Hx Substance Use: Yes Last Used Substance: Days (ago) Last Used Substance Other:: 1 day ago used meth. reports recreational use Preferred Language: Mozambican Communication Ability: Effective Winding Operator Required: No Beliefs That Will Affect Care: None marital status: Current Living Situation: Alone current occupational status: unemployed and disabled Feels Safe at Home: Yes Assistive Devices: None Review of Systems Review of Systems: All systems reviewed & are unremarkable except as noted in HPI & below Physical Exam Physical Exam: Her abdomen is relatively soft and she has no tenderness over her hernia she has relatively easily reducible By palpation Most of her pain is apparently in the upper abdomen but no peritoneal signs Constitutional: well developed; no acute distress Eyes: + anicteric sclerae Respiratory: normal respiratory effort; no respiratory distress Cardiovascular: Rate/Rhythm: regular rate Skin: no rashes, warm and dry Neurologic: awake Psychiatric: Orientation: alert Results & Data ([facility]) Vital Signs (Past 12 Hours) Vital Signs Temp Pulse Resp BP Pulse Ox 01/21/20 22:30 80 23 171/106 H 98 01/21/20 22:27 79 15 99 01/21/20 22:25 77 17 177/104 H 99 01/21/20 19:11 37.4 C 92 H 20 147/94 H 96 I did review her CAT scan PG Care Time/CCT Total # of Minutes Spent Total Time Spent with Patient: Total time spent is greater than 50% in coordination of care (as documented) at patient's floor/unit and/or counseling patient: Coding Level of Care Code 63548 Office/OBS Consult Lvl 4 Diagnoses Abdominal pain R10.9 Abdominal location: unspecified location (1) Abdominal pain Abdominal location: unspecified location Qualified Code(s): R10.9 - Unspecified abdominal pain
[2020-01-22] MEDS: fentaNYL citrate 100 MCG/2 ML VIAL IV PRN (00:42)
--- NOTE | 2020-01-22 02:12 | History and Physical Report ---
DATE OF ADMISSION: 01/22/2020 CHIEF COMPLAINT: Abdominal pain. HISTORY OF PRESENT ILLNESS: This is a 59-year-old female with past medical history significant for type 2 diabetes, hyperlipidemia, chronic rhinitis, history of chronic mucopurulent bronchitis, hypertension, irritable bowel syndrome, status post gastric surgery, history of bilateral inguinal hernia, depression, WHITLOCK, tobacco use disorder, history of recurrent ventral hernia, history of incarcerated ventral hernia, status post repair in December 2018, who presently comes with abdominal pain going on for 1-2 weeks associated with nausea, somewhat constipated. She took stool softener and last bowel movement was yesterday. Initial bowel movement was black, then it was brown. When she came, abdominal pain was about 7/10 in severity. Currently resting comfortably and hemodynamically stable, feeling hungry and wants to eat. Denies any chest pain, no shortness of breath, no cough. Currently no headache, no blurred vision, no earache, no runny nose, no sore throat. No exposure to COVID patients. She lives alone, ambulatory status is fine. ALLERGIES: TAPE, AUGMENTIN, KLONOPIN, LORAZEPAM, MORPHINE. PAST MEDICAL HISTORY: As mentioned above. PAST SURGICAL HISTORY: Colonoscopy, EGDs, excision of the excess skin in abdomen, panniculectomy, gastric revision for obesity, bilateral ankle surgery, IR drainage of the abscess, knee arthroscopy, removal of the pelvic structures for endometriosis, cholecystectomy, tonsillectomy, adenoidectomy, repair of ventral hernia in 2007, repair of ventral hernia in 2008, repair of ventral hernia in 2011, total abdominal hysterectomy with removal of tubes, treatment of anal fissure, wedge biopsy of liver. MEDICATIONS: The patient is on atorvastatin 10 mg p.o. daily, lisinopril 20 mg p.o. daily, metformin 1000 mg p.o. daily, methylphenidate 10 mg p.o. t.i.d., omeprazole 40 mg p.o. b.i.d., ropinirole 1 mg p.o. b.i.d., Ambien 5 mg p.o. at bedtime p.r.n. FAMILY HISTORY: Significant for father has arthritis, diabetes, hypertension, leukemia; mother has lupus, TB, arthritis; sister has arthritis; brother has arthritis. SOCIAL HISTORY: , smokes 1.5 packs a day for 40 years. Alcohol, a glass of champagne at . History of IV drug abuse of cocaine and marijuana. REVIEW OF SYSTEMS: As per HPI. Rest of the review of systems negative. PHYSICAL EXAMINATION: GENERAL: The patient is obese, not in acute distress. VITAL SIGNS: Temperature 37.4, pulse 90, respiratory rate 21, blood pressure 129/74, oxygen 98% on room air. HEENT: Pupils equal, round, and reactive to light. Oral mucosa moist. NECK: No JVD, no neck masses. CARDIOVASCULAR: S1, S2 heard. Regular rate and rhythm, no murmur, no gallop. RESPIRATORY SYSTEM: Normal AP diameter. No accessory muscle use. No wheezing, no crackles. ABDOMEN: Soft, bowel sounds absent. Mild diffuse tenderness. No guarding, no rigidity, no distention. CENTRAL NERVOUS SYSTEM: Cranial nerves II-XII grossly intact, nonfocal. EXTREMITIES: No edema, no erythema. LABORATORY DATA: WBC 16.4, hemoglobin 15.1, hematocrit 44.3, platelets 395. Sodium 136, potassium 3.3, chloride 102, bicarbonate 27, BUN 8, creatinine 0.5, serum glucose 236, calcium 8.9, total bilirubin 0.5, AST 99, ALT 112, alkaline phosphatase 117. Lipase 130. Urinalysis negative. IMAGING DATA: CT of abdomen and pelvis preliminary report shows evidence of ventral abdominal wall hernia repair with residual ventral hernia in the pelvis measuring 10 cm with loops of small bowel containing air fluid levels, mildly dilated and fluid filled small bowel loops in the left pelvis proximal to the hernia, which may indicate partial obstruction. Residual 12 x 1.5 cm fluid collection within the ventral abdominal wall superior to the hernia associated with prosthetic mesh. The appendix was not identified. No CT evidence of acute appendicitis. Postsurgical changes of the stomach, cholecystectomy, hysterectomy. ASSESSMENT AND PLAN: This a 59-year-old female who presents with abdominal pain and found to have partial small-bowel obstruction. 1. Partial small bowel obstruction and history of recurrent ventral hernia and incarcerated ventral hernia, status post repair in 2019. Currently comes with recurrent ventral hernia and small-bowel obstruction, seen by surgery in the ER. Conservative management recommended. Will keep her n.p.o., IV fluids, IV antiemetics, IV pain meds p.r.n. and monitor in the medical floor. Further recommendation as per surgery. 2. History of hypertension: Continue her home lisinopril. Monitor the blood pressure. 3. Hyperlipidemia: Continue statin. 4. History of diabetes: Hold metformin, placed on insulin sliding scale. Follow the blood sugars. 5. History of depression: Continue her Ritalin. 6. Deep venous thrombosis prophylaxis: Sequential compression devices for now. DISPOSITION: Closely monitor in the medical floor. Expect to discharge home and follow with family doctor. Level 1 full code. MTDD
[2020-01-22] MEDS ORDERED: ACETAMINOPHEN 325 MG TAB PO PRN (03:31)
[2020-01-22] MEDS ORDERED: ONDANSETRON INJ 2 MG/ML 2 ML VIAL IV PRN (03:31)
[2020-01-22] MEDS ORDERED: ZOLPIDEM TARTRATE 5 MG TAB PO PRN (03:31)
[2020-01-22] MEDS ORDERED: POTASSIUM CHLORIDE 20 MEQ/15 ML UDC PO STA (03:31)
[2020-01-22] MEDS: SODIUM CHLORIDE 0.9% 1000ML 1,000 ML IV SCH ×3 (04:06→19:24)
[2020-01-22] MEDS ORDERED: POTASSIUM CHLORIDE CRTAB 20 MEQ TABCR PO STA (04:37)
[2020-01-22 05:36] LABS: Basophils # (auto) 0.02 K/uL (0-0.2); Basophils % (auto) 0.2 %; Eosinophils # (auto) 0.19 K/uL (0-0.5); Eosinophils % (auto) 1.7 %; Hematocrit (blood only) 39.5 % (37-47); Hemoglobin 13.1 g/dL (12.0-16.0); Immature Granulocytes # (auto) 0.06 K/uL (0.00-0.02); Immature Granulocytes % (auto) 0.5 %; Lymphocytes % (auto) 25.1 %; Mean Corpuscular Hemoglobin 28.9 pg (25-34); Mean Corpuscular Hgb Conc 33.2 g/dL (32-36); Mean Platelet Volume 8.9 fL (7.4-10.4); Monocytes % (auto) 8.1 %; Neutrophils # (auto) 7.18 K/uL (1.4-6.5); Neutrophils % (auto) 64.4 %; Platelet Count 332 K/uL (130-400); RDW Coefficient of Variation 12.9 % (11.5-14.5); RDW Standard Deviation 41.2 fL (36.4-46.3); Red Blood Count 4.54 M/uL (4.2-5.4); White Blood Count 11.15 K/uL (4.8-10.8)
[2020-01-22] MEDS ORDERED: GLUCOSE 40% GEL 15 GM TUBE PO PRN (05:45)
[2020-01-22] MEDS ORDERED: GLUCAGON FOR INJ 1 MG VIAL SQ PRN (05:45)
[2020-01-22] MEDS ORDERED: Nursing to Pharmacy Communication SCH (05:45)
[2020-01-22] MEDS ORDERED: DEXTROSE 50% 50 ML SYRINGE IV PRN (05:45)
[2020-01-22] MEDS ORDERED: GLUCOSE 10 TABS/TUBE PO PRN (05:45)
[2020-01-22] MEDS ORDERED: CARBOHYDRATES FOR HYPOGLYCEMIA PO PRN (05:45)
[2020-01-22 06:06] LABS: BUN Creatinine Ratio 10.3 (10-20); Calcium 8.2 mg/dl (8.5-10.1); Creatinine Clr Calc Pharmacy 108.2 ml/min; Est GFR (African American) 113.8; Est GFR (Non-African American) 98.2; Magnesium 1.7 mg/dl (1.8-2.4); Potassium 3.8 mmol/L (3.5-5.1)
[2020-01-22] MEDS: INSULIN ASPART 100 UNITS/ML 3 ML PEN SC SCH ×4 (06:07→21:17)
[2020-01-22 06:19] LABS: Estimated Average Glucose 200 mg/dl; Hemoglobin A1C 8.6 % (4.5-5.6)
[2020-01-22] MEDS ORDERED: INSULIN ASPART 100 UNITS/ML 3 ML PEN SC SCH (07:30)
--- NOTE | 2020-01-22 07:59 | Surgery Progress Note ---
Date of Service January 22, 2020 Assessment & Plan (1) Hernia, ventral: Hernia is reducible. The patient has no nausea and has been passing her bowels so I very much doubt a small bowel obstruction. Her pain has decreased. She did have a fall about 2 weeks ago it may be related to that. Consider beginning clear liquids today. Admission and Anticipated Discharge Date Admission Date: January 22, 2020 Subjective Still has pain to the left side of midline but it has decreased. There is no nausea or vomiting. She had a bowel movement yesterday. Physical Exam Gastrointestinal (Abdomen): Inspection/Auscultation: normal bowel sounds; abdomen not distended Percussion/Palpation: + abdomen tender (Tender to left of midline. ) and + hernia (Ventral hernia that is nontender and easily reduced) Results & Data ([facility]) Vital Signs (Past 12 Hours) Vital Signs Temp Pulse Pulse Resp BP BP Pulse Ox 01/22/20 07:32 37.1 C 86 18 145/94 H 94 01/22/20 03:33 36.9 C 83 16 153/65 H 98 01/22/20 02:30 79 17 151/82 H 97 01/22/20 02:00 81 18 126/84 97 01/22/20 01:30 80 18 135/84 95 01/22/20 01:00 89 17 124/94 96 01/22/20 00:30 78 21 133/79 98 01/22/20 00:17 90 21 98 01/22/20 00:00 78 18 129/74 96 01/21/20 23:30 81 22 134/91 97 01/21/20 22:30 80 23 171/106 H 98 01/21/20 22:27 79 15 99 01/21/20 22:25 77 17 177/104 H 99 Laboratory Results 01/22/20 01/22/20 01/22/20 Range/Units 06:01 05:16 05:16 WBC (4.8-10.8) K/uL RBC (4.2-5.4) M/uL Hgb (12.0-16.0) g/dL Hct (37-47) % MCV (80-100) fL MCH (25-34) pg MCHC (32-36) g/dL RDW Std Deviation (36.4-46.3) fL RDW Coeff of Rubi (11.5-14.5) % Plt Count (130-400) K/uL MPV (7.4-10.4) fL Immature Gran % (Auto) % Neut % (Auto) % Lymph % (Auto) % Kaufman % (Auto) % Eos % (Auto) % Baso % (Auto) % Neut # (Auto) (1.4-6.5) K/uL Lymph # (Auto) (1.2-3.4) K/uL Kaufman # (Auto) (0.11-0.59) K/uL Eos # (Auto) (0-0.5) K/uL Baso # (Auto) (0-0.2) K/uL Immature Gran # (Auto) (0.00-0.02) K/uL Sodium 136 (136-145) mmol/L Potassium 3.8 D (3.5-5.1) mmol/L Chloride 102 (98-107) mmol/L Carbon Dioxide 30 (21-32) mmol/L Anion Gap 4.0 (3-11) BUN 6 L (7-18) mg/dl Creatinine 0.63 (0.6-1.2) mg/dl Est Cr Clr Drug Dosing 108.2 ml/min Est GFR ( Amer) 113.8 Est GFR (Non-Af Amer) 98.2 BUN/Creatinine Ratio 10.3 (10-20) Glucose 244 H (70-99) mg/dl POC Glucose 203 H (70-99) mg/dl Estimat Average Glucose 200 mg/dl Hemoglobin A1c 8.6 H (4.5-5.6) % Calcium 8.2 L (8.5-10.1) mg/dl Magnesium 1.7 L (1.8-2.4) mg/dl Total Bilirubin (0.2-1) mg/dl AST (15-37) U/L ALT (12-78) U/L Alkaline Phosphatase (45-117) U/L Total Protein (6.4-8.2) gm/dl Albumin (3.4-5.0) gm/dl Globulin (2.5-4.0) gm/dl Albumin/Globulin Ratio (0.9-2) Lipase (73-393) U/L Urine Color Urine Appearance (Clear) Urine pH (4.5-7.5) Ur Specific [place] (1.000-1.030) Urine Protein (Negative) Urine Glucose (UA) (Negative) Urine Ketones (Negative) Urine Blood (Negative) Urine Nitrite (Negative) Urine Bilirubin (Negative) Urine Urobilinogen (Negative) Ur Leukocyte Esterase (Negative) Urine WBC (Auto) (0-5) /hpf Urine RBC (Auto) (0-4) /hpf U Hyaline Cast (Auto) (0-5) /lpf U Epithel Cells (Auto) (0-5) /lpf Urine Bacteria (Auto) (Negative) Urine Mucus (None Prsent) 01/22/20 01/21/20 01/21/20 Range/Units 05:16 19:25 19:25 WBC 11.15 H 16.43 H (4.8-10.8) K/uL RBC 4.54 5.16 (4.2-5.4) M/uL Hgb 13.1 15.1 (12.0-16.0) g/dL Hct 39.5 44.3 (37-47) % MCV 87.0 85.9 (80-100) fL MCH 28.9 29.3 (25-34) pg MCHC 33.2 34.1 (32-36) g/dL RDW Std Deviation 41.2 40.3 (36.4-46.3) fL RDW Coeff of Rubi 12.9 12.8 (11.5-14.5) % Plt Count 332 395 (130-400) K/uL MPV 8.9 9.0 (7.4-10.4) fL Immature Gran % (Auto) 0.5 0.4 % Neut % (Auto) 64.4 75.5 % Lymph % (Auto) 25.1 14.9 % Kaufman % (Auto) 8.1 8.3 % Eos % (Auto) 1.7 0.7 % Baso % (Auto) 0.2 0.2 % Neut # (Auto) 7.18 H 12.41 H (1.4-6.5) K/uL Lymph # (Auto) 2.80 2.44 (1.2-3.4) K/uL Kaufman # (Auto) 0.90 H 1.36 H (0.11-0.59) K/uL Eos # (Auto) 0.19 0.11 (0-0.5) K/uL Baso # (Auto) 0.02 0.04 (0-0.2) K/uL Immature Gran # (Auto) 0.06 H 0.07 H (0.00-0.02) K/uL Sodium 136 (136-145) mmol/L Potassium 3.3 L (3.5-5.1) mmol/L Chloride 102 (98-107) mmol/L Carbon Dioxide 27 (21-32) mmol/L Anion Gap 7.0 (3-11) BUN 8 (7-18) mg/dl Creatinine 0.57 L (0.6-1.2) mg/dl Est Cr Clr Drug Dosing 119.7 ml/min Est GFR ( Amer) 117.6 Est GFR (Non-Af Amer) 101.5 BUN/Creatinine Ratio 14.2 (10-20) Glucose 236 H (70-99) mg/dl POC Glucose (70-99) mg/dl Estimat Average Glucose mg/dl Hemoglobin A1c (4.5-5.6) % Calcium 8.9 (8.5-10.1) mg/dl Magnesium (1.8-2.4) mg/dl Total Bilirubin 0.5 (0.2-1) mg/dl AST 9 L (15-37) U/L ALT 12 (12-78) U/L Alkaline Phosphatase 117 (45-117) U/L Total Protein 8.0 (6.4-8.2) gm/dl Albumin 2.9 L (3.4-5.0) gm/dl Globulin 5.1 H (2.5-4.0) gm/dl Albumin/Globulin Ratio 0.6 L (0.9-2) Lipase 130 (73-393) U/L Urine Color Urine Appearance (Clear) Urine pH (4.5-7.5) Ur Specific [place] (1.000-1.030) Urine Protein (Negative) Urine Glucose (UA) (Negative) Urine Ketones (Negative) Urine Blood (Negative) Urine Nitrite (Negative) Urine Bilirubin (Negative) Urine Urobilinogen (Negative) Ur Leukocyte Esterase (Negative) Urine WBC (Auto) (0-5) /hpf Urine RBC (Auto) (0-4) /hpf U Hyaline Cast (Auto) (0-5) /lpf U Epithel Cells (Auto) (0-5) /lpf Urine Bacteria (Auto) (Negative) Urine Mucus (None Prsent) 01/21/20 Range/Units 19:15 WBC (4.8-10.8) K/uL RBC (4.2-5.4) M/uL Hgb (12.0-16.0) g/dL Hct (37-47) % MCV (80-100) fL MCH (25-34) pg MCHC (32-36) g/dL RDW Std Deviation (36.4-46.3) fL RDW Coeff of Rubi (11.5-14.5) % Plt Count (130-400) K/uL MPV (7.4-10.4) fL Immature Gran % (Auto) % Neut % (Auto) % Lymph % (Auto) % Kaufman % (Auto) % Eos % (Auto) % Baso % (Auto) % Neut # (Auto) (1.4-6.5) K/uL Lymph # (Auto) (1.2-3.4) K/uL [place]man # (Auto) (0.11-0.59) K/uL Eos # (Auto) (0-0.5) K/uL Baso # (Auto) (0-0.2) K/uL Immature Gran # (Auto) (0.00-0.02) K/uL Sodium (136-145) mmol/L Potassium (3.5-5.1) mmol/L Chloride (98-107) mmol/L Carbon Dioxide (21-32) mmol/L Anion Gap (3-11) BUN (7-18) mg/dl Creatinine (0.6-1.2) mg/dl Est Cr Clr Drug Dosing ml/min Est GFR ( Amer) Est GFR (Non-Af Amer) BUN/Creatinine Ratio (10-20) Glucose (70-99) mg/dl POC Glucose (70-99) mg/dl Estimat Average Glucose mg/dl Hemoglobin A1c (4.5-5.6) % Calcium (8.5-10.1) mg/dl Magnesium (1.8-2.4) mg/dl Total Bilirubin (0.2-1) mg/dl AST (15-37) U/L ALT (12-78) U/L Alkaline Phosphatase (45-117) U/L Total Protein (6.4-8.2) gm/dl Albumin (3.4-5.0) gm/dl Globulin (2.5-4.0) gm/dl Albumin/Globulin Ratio (0.9-2) Lipase (73-393) U/L Urine Color Yellow Urine Appearance Clear (Clear) Urine pH 5.5 (4.5-7.5) Ur Specific [place] 1.015 (1.000-1.030) Urine Protein 1+ H (Negative) Urine Glucose (UA) Negative (Negative) Urine Ketones Negative (Negative) Urine Blood Negative (Negative) Urine Nitrite Negative (Negative) Urine Bilirubin Negative (Negative) Urine Urobilinogen Negative (Negative) Ur Leukocyte Esterase Negative (Negative) Urine WBC (Auto) 1-5 (0-5) /hpf Urine RBC (Auto) 0-4 (0-4) /hpf U Hyaline Cast (Auto) 1-5 (0-5) /lpf U Epithel Cells (Auto) >30 H (0-5) /lpf Urine Bacteria (Auto) Negative (Negative) Urine Mucus Present A (None Prsent) (1) Hernia, ventral Obstruction and gangrene presence: with obstruction but without gangrene Qualified Code(s): K43.6 - Other and unspecified ventral hernia with obstruction, without gangrene
[2020-01-22] MEDS: ATORVASTATIN 10 MG TAB PO SCH (08:28)
[2020-01-22] MEDS: HYDROmorphone INJ 0.5 MG/0.5 ML SYR IV PRN ×2 (08:28→12:03)
[2020-01-22] MEDS: rOPINIRole HCL 1 MG TABLET PO SCH ×2 (08:28→21:19)
[2020-01-22] MEDS: lisinopril 20 MG TAB PO SCH (08:28)
[2020-01-22] MEDS: METHYLPHENIDATE HCL 10 MG TABLET PO SCH ×3 (08:28→21:19)
--- NOTE | 2020-01-22 08:48 | CT Scan Report ---
CT SCAN OF THE ABDOMEN AND PELVIS WITH IV CONTRAST CLINICAL HISTORY: Left lower quadrant abdominal pain. COMPARISON STUDY: Abdominal CT dated 12/17/2018. TECHNIQUE: Following the IV administration of 92 cc of Optiray 320, CT scan of the abdomen and pelvi s is performed from the lung bases to the proximal femora. Images are reviewed in the axial, sagittal , and coronal planes. IV contrast was administered without complication. A dose lowering technique wa s utilized adhering to the principles of ALARA. CT DOSE: 690.62 mGy.cm FINDINGS: Lung bases: The heart is normal in size and without pericardial effusion. The coronary arteries are d ensely calcified. The lung bases are clear. A tiny hiatal hernia is noted. Liver: The contrast-enhanced liver is normal in size, contour, and attenuation. There is no intrahepa tic biliary ductal dilatation. The hepatic veins and portal veins are patent. Gallbladder: Surgically absent noting clips in the gallbladder fossa. Spleen: Normal in size and attenuation. Pancreas: Moderately atrophic and grossly unremarkable. Adrenal glands: Unremarkable. Kidneys: The contrast enhanced kidneys are normal in size and without hydronephrosis. The kidneys enh ance symmetrically. Abdominal vasculature: The abdominal aorta is normal in course and caliber noting moderate atheroscle rotic calcification. Stomach and bowel: Postoperative changes consistent with a history of Junior-en-Y gastric bypass surger y. Wall thickening and inflammatory change is seen involving the proximal jejunum at the gastrojejuno stomy on image #99. A ventral hernia in the pelvis contains small bowel loops. The small bowel loops upstream to the hernia are mildly distended and fluid-filled measuring up to 3.3 cm in diameter. The distal small bowel loops are decompressed. Mild obstruction is not excluded. The appendix is not benjamín ntified. Peritoneum: There is no intraperitoneal free air or abdominal ascites. There is evidence of previous ventral hernia repair. A fluid collection within the ventral abdominal wall at the hernia repair site has decreased from previous. This measures approximately 12 x 2 cm today's study. Lymphadenopathy: Mildly enlarged mesenteric lymph nodes measure up to 1.5 cm in length. A node on karlos ge #[id number] measures 2.4 x 1.5 cm. Pelvic viscera: The bladder is decompressed and cannot be evaluated. The uterus is surgically absent. No adnexal lesion is seen. Skeletal structures: The skeletal structures are osteopenic. There is moderate lumbosacral spondylosi s. Arthritic change is seen in the sacroiliac joints and hips. No lytic or blastic lesions are seen. IMPRESSION: 1. Postoperative change is consistent with a history of Junior-en-Y gastric bypass surgery. 2. Wall thickening and edema is seen involving the proximal jejunum at/below the gastrojejunostomy. T here is focal outpouching in this region with significant surrounding inflammation. This represents a significant change from previous and could represent an ulceration or possibly anastomotic breakdown . Follow-up of the patient's bariatric surgeon is recommended. 3. Small bowel loops are contained within a ventral hernia in the pelvis. The upstream small bowel lo ops are mildly dilated and the suggests partial/low grade obstruction. 4. There are enlarged mesenteric lymph nodes in the left upper abdomen. These may be on a reactive ba sis, but are new from 12/17/2018. Follow-up is advised. 5. A chronic fluid collection within the ventral abdominal wall at the site of hernia repair has decr eased from previous. 6. Additional findings as above. ACT 112: Negative or not required by law. Electronically signed by: Kirby Jackson M.D. 01/22/2020 8:47 AM
[2020-01-22] MEDS ORDERED: PANTOprazole 40 MG TAB PO SCH (09:00)
[2020-01-22] MEDS: oxyCODONE/ACETAMINOPHEN 5mg/325mg TAB PO PRN ×3 (13:33→23:29)
[2020-01-22] MEDS: PANTOprazole 40 MG in SYRINGE 0 ML IV SCH ×2 (13:37→21:19)
--- NOTE | 2020-01-22 19:06 | Hospitalist Progress Note ---
Date of Service January 22, 2020 Assessment & Plan (1) SBO (small bowel obstruction): Presented with acute abdominal pain and distention History of gastric bypass surgery and also repair of ventral surgery CT scan did show possible partial small bowel obstruction Has been passing gas and denies any significant abdominal distention Appreciate surgery input and recommendation He has been started (2) Hernia, ventral: (3) Anastomotic ulcer S/P gastric bypass: History of gastric bypass surgery about [address] scan of the abdomen and pelvis did show anastomotic ulcer as was reviewed by her surgeon in [place] and general surgery in [facility] Started with intravenous Protonix in the hospital Discharged home on oral omeprazole 40 mg twice daily Will have outpatient appointment with her surgeon in [place] on discharge (4) Abdominal pain: (5) Diabetes: (6) HTN (hypertension): Is lower side of normal DVT prophylaxis SCDs CODE STATUS Full Admission and Anticipated Discharge Date Admission Date: January 22, 2020 Subjective Patient was seen and examined in telemetry unit She has a history of gastric bypass and ventral hernia repair and was admitted with abdominal pain and distention Has been complaining of abdominal discomfort but no significant distention Denies any nausea and or vomiting Review of Systems Review of Systems: All systems reviewed and are unremarkable except as noted below Gastrointestinal: + abdominal pain and + bloating; no nausea and no vomiting Physical Exam Physical Exam: Lying in bed comfortably with anxiety and depression Constitutional: well developed, well nourished, + acute distress (Due to abdominal discomfort) and + obese Eyes: PERRL, conjunctivae normal, anicteric sclerae ENMT: external ear and nose normal, oropharynx normal Neck: trachea midline, no thyromegaly Respiratory: no respiratory distress Auscultation: lungs clear to auscultation bilaterally Cardiovascular: Rate/Rhythm: regular rate and regular rhythm Heart Sounds: no murmur Extremities: + edema Gastrointestinal (Abdomen): Inspection/Auscultation: abdomen not distended Percussion/Palpation: + abdomen tender (Left upper quadrant with rebound tenderness) and abdomen soft Musculoskeletal: No acute arthritis in any joint Neurologic: Alert, awake and oriented x3. No focal sensory and/or motor deficit appreciated Psychiatric: A+Ox3, euthymic affect Results & Data Results & Data ([facility]) Vital Signs (Past 12 Hours) Vital Signs Temp Pulse Resp BP Pulse Ox 01/22/20 15:20 36.8 C 76 18 92/60 L 95 01/22/20 11:45 37.0 C 69 18 110/67 97 01/22/20 07:32 37.1 C 86 18 145/94 H 94 Laboratory Results Short CBC 01/21/20 01/22/20 Range/Units 19:25 05:16 WBC 16.43 H 11.15 H (4.8-10.8) K/uL Hgb 15.1 13.1 (12.0-16.0) g/dL Hct 44.3 39.5 (37-47) % Plt Count 395 332 (130-400) K/uL BMP 01/21/20 01/22/20 19:25 05:16 Sodium 136 136 Potassium 3.3 L 3.8 D Chloride 102 102 Carbon Dioxide 27 30 BUN 8 6 L Creatinine 0.57 L 0.63 Glucose 236 H 244 H Calcium 8.9 8.2 L Liver Function 01/21/20 Range/Units 19:25 Total Bilirubin 0.5 (0.2-1) mg/dl AST 9 L (15-37) U/L ALT 12 (12-78) U/L Alkaline Phosphatase 117 (45-117) U/L Albumin 2.9 L (3.4-5.0) gm/dl Urine 01/21/20 Range/Units 19:15 Urine Color Yellow Urine Appearance Clear (Clear) Urine pH 5.5 (4.5-7.5) Ur Specific [place] 1.015 (1.000-1.030) Urine Protein 1+ H (Negative) Urine Glucose (UA) Negative (Negative) Medications Administered Current Inpatient Medications Acetaminophen (Acetaminophen 325 Mg Tab) 650 mg PO Q4H PRN PRN Reason: pain/fever Stop: 02/21/20 03:30 Atorvastatin Calcium (Atorvastatin 10 Mg Tab) 10 mg PO DAILY LUC Stop: 02/21/20 08:59 Last Admin: 01/22/20 08:28 Dose: 10 mg Documented by: Dextrose (Dextrose 50% 50 Ml Syringe) 25 - 50 ml IV UD PRN; Protocol PRN Reason: Hypoglycemia Protocol Stop: 02/21/20 05:44 Glucagon (Glucagon For Inj 1 Mg Vial) 1 mg SQ UD PRN; Protocol PRN Reason: Hypoglycemia Protocol Stop: 02/21/20 05:44 Glucose (Glucose 40% Gel 15 Gm Tube) 15 - 30 gm PO UD PRN; Protocol PRN Reason: Hypoglycemia Protocol Stop: 02/21/20 05:44 Glucose (Glucose 10 Tabs/Tube) 4 - 8 tabs PO UD PRN; Protocol PRN Reason: Hypoglycemia Protocol Stop: 02/21/20 05:44 Sodium Chloride (Nss 1000ml) 1,000 mls @ 125 mls/hr IV .Q8H LUC Stop: 02/21/20 03:30 Last Admin: 01/22/20 12:03 Dose: 125 mls/hr Documented by: Pantoprazole Sodium 40 mg/ (Syringe) 10 mls @ 5 mls/min IV BID LUC Stop: 02/21/20 13:29 Last Admin: 01/22/20 13:37 Dose: 5 mls/min Documented by: Insulin Aspart (Insulin Aspart 100 Units/Ml 3 Ml Pen) 0 units SC ACHS LUC Stop: 02/21/20 17:29 Last Admin: 01/22/20 17:35 Dose: 6 units Documented by: Lisinopril (Lisinopril 20 Mg Tab) 20 mg PO DAILY LUC Stop: 02/21/20 08:59 Last Admin: 01/22/20 08:28 Dose: 20 mg Documented by: Methylphenidate HCl (Methylphenidate Hcl 10 Mg Tablet) 10 mg PO TID LUC Stop: 02/05/20 08:59 Last Admin: 01/22/20 15:27 Dose: 10 mg Documented by: Miscellaneous (Carbohydrates For Hypoglycemia ) 15 - 30 gm PO UD PRN PRN Reason: Hypoglycemia Treatment Stop: 02/21/20 05:44 Ondansetron HCl (Ondansetron Inj 2 Mg/Ml 2 Ml Vial) 4 mg IV Q6H PRN PRN Reason: Nausea Stop: 02/21/20 03:30 Oxycodone/Acetaminophen (Oxycodone/Acetaminophen 5mg/325mg Tab) 1 tab PO Q4H PRN PRN Reason: Pain Stop: 02/05/20 13:16 Last Admin: 01/22/20 13:33 Dose: 1 tab Documented by: Ropinirole HCl (Ropinirole Hcl 1 Mg Tablet) 1 mg PO BID LUC Stop: 02/21/20 08:59 Last Admin: 01/22/20 08:28 Dose: 1 mg Documented by: Zolpidem Tartrate (Zolpidem Tartrate 5 Mg Tab) 5 mg PO HS PRN PRN Reason: Sleep Stop: 02/21/20 03:30 (1) Hernia, ventral Obstruction and gangrene presence: with obstruction but without gangrene Qualified Code(s): K43.6 - Other and unspecified ventral hernia with obstruction, without gangrene (2) Abdominal pain Abdominal location: unspecified location Qualified Code(s): R10.9 - Unspecified abdominal pain
[2020-01-22] MEDS ORDERED: SODIUM CHLORIDE 0.9% 500 ML IV SCH (21:15)
[2020-01-23] MEDS: oxyCODONE/ACETAMINOPHEN 5mg/325mg TAB PO PRN (03:25)
[2020-01-23] MEDS: SODIUM CHLORIDE 0.9% 1000ML 1,000 ML IV SCH (03:33)
[2020-01-23 06:31] LABS: Basophils # (auto) 0.02 K/uL (0-0.2); Basophils % (auto) 0.3 %; Eosinophils # (auto) 0.28 K/uL (0-0.5); Eosinophils % (auto) 3.5 %; Hematocrit (blood only) 38.3 % (37-47); Immature Granulocytes # (auto) 0.05 K/uL (0.00-0.02); Immature Granulocytes % (auto) 0.6 %; Lymphocytes # (auto) 2.54 K/uL (1.2-3.4); Lymphocytes % (auto) 32.2 %; Mean Corpuscular Hemoglobin 27.8 pg (25-34); Mean Corpuscular Hgb Conc 31.3 g/dL (32-36); Mean Corpuscular Volume 88.9 fL (80-100); Monocytes # (auto) 0.81 K/uL (0.11-0.59); Monocytes % (auto) 10.3 %; Neutrophils % (auto) 53.1 %; Platelet Count 352 K/uL (130-400); RDW Standard Deviation 42.2 fL (36.4-46.3); Red Blood Count 4.31 M/uL (4.2-5.4)
[2020-01-23 07:08] LABS: BUN Creatinine Ratio 13.4 (10-20); Creatinine Clr Calc Pharmacy 166.3 ml/min; Est GFR (African American) 131.1; Est GFR (Non-African American) 113.1; Potassium 3.9 mmol/L (3.5-5.1)
[2020-01-23] MEDS: INSULIN ASPART 100 UNITS/ML 3 ML PEN SC SCH (08:26)
[2020-01-23] MEDS: ATORVASTATIN 10 MG TAB PO SCH (08:28)
[2020-01-23] MEDS: lisinopril 20 MG TAB PO SCH (08:29)
[2020-01-23] MEDS: rOPINIRole HCL 1 MG TABLET PO SCH (08:29)
[2020-01-23] MEDS: PANTOprazole 40 MG in SYRINGE 0 ML IV SCH (08:30)
[2020-01-23] MEDS: METHYLPHENIDATE HCL 10 MG TABLET PO SCH (08:30)
--- NOTE | 2020-01-23 10:24 | Hospitalist Progress Note ---
Date of Service January 23, 2020 Assessment & Plan (1) SBO (small bowel obstruction): Presented with acute abdominal pain and distention History of gastric bypass surgery and also repair of ventral surgery CT scan did show possible partial small bowel obstruction Has been passing gas and denies any significant abdominal distention Appreciate surgery input and recommendation No more intestinal obstruction-has been tolerating diet and was advised to take it easy for the next day or 2 Will be discharged home this afternoon (2) Hernia, ventral: (3) Anastomotic ulcer S/P gastric bypass: History of gastric bypass surgery about [address] scan of the abdomen and pelvis did show anastomotic ulcer as was reviewed by her surgeon in [place] and general surgery in [facility] Started with intravenous Protonix in the hospital Discharged home on oral omeprazole 40 mg twice daily Will have outpatient appointment with her surgeon in [place] on discharge Has been feeling much better and definitely wants to leave the hospital even AMA Advised to follow the recommendations regarding diet and medications to take accordingly (4) Abdominal pain: (5) Diabetes: (6) HTN (hypertension): Is lower side of normal DVT prophylaxis SCDs CODE STATUS Full Admission and Anticipated Discharge Date Admission Date: January 22, 2020 Subjective Patient was seen and examined in telemetry unit She has a history of gastric bypass and ventral hernia repair and was admitted with abdominal pain and distention Has been complaining of abdominal discomfort but no significant distention Denies any nausea and or vomiting 01/23/2020 The patient was seen and examined in medical floor She has been feeling a lot better today and has been tolerating diet She is ready to go home no matter whether she is discharged on not Wanted to sign out AMA but she will be discharged and to continue current recommendation Review of Systems Review of Systems: All systems reviewed and are unremarkable except as noted below Gastrointestinal: + abdominal pain and + bloating; no nausea and no vomiting Physical Exam Physical Exam: Lying in bed comfortably with anxiety and depression Constitutional: well developed, well nourished, + acute distress (Due to abdominal discomfort) and + obese Eyes: PERRL, conjunctivae normal, anicteric sclerae ENMT: external ear and nose normal, oropharynx normal Neck: trachea midline, no thyromegaly Respiratory: no respiratory distress Auscultation: lungs clear to auscultation bilaterally Cardiovascular: Rate/Rhythm: regular rate and regular rhythm Heart Sounds: no murmur Extremities: + edema Gastrointestinal (Abdomen): Inspection/Auscultation: normal bowel sounds; abdomen not distended Percussion/Palpation: + abdomen tender (Left upper quadrant with rebound tenderness-almost gone) and abdomen soft Musculoskeletal: No acute arthritis in any joint Neurologic: Alert, awake and oriented x3. No focal sensory and motor deficit appreciated Psychiatric: A+Ox3, euthymic affect Results & Data Results & Data ([facility]) Vital Signs (Past 12 Hours) Vital Signs Temp Pulse Pulse Resp BP Pulse Ox 01/23/20 07:25 36.6 C 49 L 16 108/69 99 01/23/20 03:25 36.5 C 65 17 114/57 L 100 01/22/20 23:10 36.8 C 61 17 89/54 L 99 Laboratory Results Short CBC 01/23/20 Range/Units 06:17 WBC 7.90 (4.8-10.8) K/uL Hgb 12.0 (12.0-16.0) g/dL Hct 38.3 (37-47) % Plt Count 352 (130-400) K/uL [facility] 01/23/20 06:17 Sodium 139 Potassium 3.9 Chloride 110 H Carbon Dioxide 27 BUN 5 L Creatinine 0.41 L Glucose 136 H Calcium 8.0 L Medications Administered Current Inpatient Medications Acetaminophen (Acetaminophen 325 Mg Tab) 650 mg PO Q4H PRN PRN Reason: pain/fever Stop: 02/21/20 03:30 Last Admin: 01/23/20 07:42 Dose: 650 mg Documented by: Atorvastatin Calcium (Atorvastatin 10 Mg Tab) 10 mg PO DAILY [facility] Stop: 02/21/20 08:59 Last Admin: 01/23/20 08:28 Dose: 10 mg Documented by: Dextrose (Dextrose 50% 50 Ml Syringe) 25 - 50 ml IV UD PRN; Protocol PRN Reason: Hypoglycemia Protocol Stop: 02/21/20 05:44 Glucagon (Glucagon For Inj 1 Mg Vial) 1 mg SQ UD PRN; Protocol PRN Reason: Hypoglycemia Protocol Stop: 02/21/20 05:44 Glucose (Glucose 40% Gel 15 Gm Tube) 15 - 30 gm PO UD PRN; Protocol PRN Reason: Hypoglycemia Protocol Stop: 02/21/20 05:44 Glucose (Glucose 10 Tabs/Tube) 4 - 8 tabs PO UD PRN; Protocol PRN Reason: Hypoglycemia Protocol Stop: 02/21/20 05:44 Sodium Chloride (Nss 1000ml) 1,000 mls @ 125 mls/hr IV .Q8H LUC Stop: 02/21/20 03:30 Last Infusion: 01/23/20 08:59 Dose: Infused Documented by: Pantoprazole Sodium 40 mg/ (Syringe) 10 mls @ 5 mls/min IV BID LUC Stop: 02/21/20 13:29 Last Admin: 01/23/20 08:30 Dose: 5 mls/min Documented by: Insulin Aspart (Insulin Aspart 100 Units/Ml 3 Ml Pen) 0 units SC ACHS LUC Stop: 02/21/20 17:29 Last Admin: 01/23/20 08:26 Dose: 7 units Documented by: Lisinopril (Lisinopril 20 Mg Tab) 20 mg PO DAILY ULC Stop: 02/21/20 08:59 Last Admin: 01/23/20 08:29 Dose: 20 mg Documented by: Methylphenidate HCl (Methylphenidate Hcl 10 Mg Tablet) 10 mg PO TID LUC Stop: 02/05/20 08:59 Last Admin: 01/23/20 08:30 Dose: 10 mg Documented by: Miscellaneous (Carbohydrates For Hypoglycemia ) 15 - 30 gm PO UD PRN PRN Reason: Hypoglycemia Treatment Stop: 02/21/20 05:44 Ondansetron HCl (Ondansetron Inj 2 Mg/Ml 2 Ml Vial) 4 mg IV Q6H PRN PRN Reason: Nausea Stop: 02/21/20 03:30 Oxycodone/Acetaminophen (Oxycodone/Acetaminophen 5mg/325mg Tab) 1 tab PO Q4H PRN PRN Reason: Pain Stop: 02/05/20 13:16 Last Admin: 01/23/20 03:25 Dose: 1 tab Documented by: Ropinirole HCl (Ropinirole Hcl 1 Mg Tablet) 1 mg PO BID LUC Stop: 02/21/20 08:59 Last Admin: 01/23/20 08:29 Dose: 1 mg Documented by: Zolpidem Tartrate (Zolpidem Tartrate 5 Mg Tab) 5 mg PO HS PRN PRN Reason: Sleep Stop: 02/21/20 03:30 (1) Hernia, ventral Obstruction and gangrene presence: with obstruction but without gangrene Qualified Code(s): K43.6 - Other and unspecified ventral hernia with obstruction, without gangrene (2) Abdominal pain Abdominal location: unspecified location Qualified Code(s): R10.9 - Unspecified abdominal pain
--- NOTE | 2020-01-30 10:13 | Discharge Summary ---
Date of Service January 30, 2020 Admission HPI Per Admitting Provider DICTATED BY: Herb Miner MD DATE OF ADMISSION: 01/22/2020 CHIEF COMPLAINT: Abdominal pain. HISTORY OF PRESENT ILLNESS: This is a 59-year-old female with past medical history significant for type 2 diabetes, hyperlipidemia, chronic rhinitis, history of chronic mucopurulent bronchitis, hypertension, irritable bowel syndrome, status post gastric surgery, history of bilateral inguinal hernia, depression, WHITLOCK, tobacco use disorder, history of recurrent ventral hernia, history of incarcerated ventral hernia, status post repair in December 2018, who presently comes with abdominal pain going on for 1-2 weeks associated with nausea, somewhat constipated. She took stool softener and last bowel movement was yesterday. Initial bowel movement was black, then it was brown. When she came, abdominal pain was about 7/10 in severity. Currently resting comfortably and hemodynamically stable, feeling hungry and wants to eat. Denies any chest pain, no shortness of breath, no cough. Currently no headache, no blurred vision, no earache, no runny nose, no sore throat. No exposure to COVID patients. She lives alone, ambulatory status is fine. Admission Exam Per Admitting Provider GENERAL: The patient is obese, not in acute distress. VITAL SIGNS: Temperature 37.4, pulse 90, respiratory rate 21, blood pressure 129/74, oxygen 98% on room air. HEENT: Pupils equal, round, and reactive to light. Oral mucosa moist. NECK: No JVD, no neck masses. CARDIOVASCULAR: S1, S2 heard. Regular rate and rhythm, no murmur, no gallop. RESPIRATORY SYSTEM: Normal AP diameter. No accessory muscle use. No wheezing, no crackles. ABDOMEN: Soft, bowel sounds absent. Mild diffuse tenderness. No guarding, no rigidity, no distention. CENTRAL NERVOUS SYSTEM: Cranial nerves II-XII grossly intact, nonfocal. EXTREMITIES: No edema, no erythema. Principal Diagnosis Anastomotic ulcers status post gastric bypass surgery years ago Discharge Exam Constitutional well developed, well nourished, + acute distress (Due to abdominal discomfort) and + obese Eyes PERRL, conjunctivae normal, anicteric sclerae ENMT external ear and nose normal, oropharynx normal Neck trachea midline, no thyromegaly Respiratory no respiratory distress Auscultation: lungs clear to auscultation bilaterally Cardiovascular Rate/Rhythm: regular rate and regular rhythm Heart Sounds: no murmur Extremities: + edema Gastrointestinal (Abdomen) Inspection/Auscultation: normal bowel sounds; abdomen not distended Percussion/Palpation: + abdomen tender (Left upper quadrant with rebound tenderness-almost gone) and abdomen soft Psychiatric A+Ox3, euthymic affect Discharge Data Allergies Allergy/AdvReac Type Severity Reaction Status Date / Time amoxicillin Allergy Intermediate DIARRHEA Verified 01/21/20 23:07 clavulanic acid Allergy Intermediate DIARRHEA Verified 01/21/20 23:07 morphine Allergy Mild Unknown Verified 01/21/20 23:07 adhesive Allergy Unknown Unknown Verified 01/21/20 23:07 clonazepam Allergy Unknown blacks out Verified 01/21/20 23:07 Consultations 01/21/20 22:38 Consult General Surgery Stat 01/21/20 23:15 ED Decision to Admit Stat 01/22/20 03:31 Consult Case Management - Discharge Planning Routine Ordered Studies 01/21/20 21:11 CT abd pelvis IV con only Urgent Hospital Course (1) SBO (small bowel obstruction): Presented with acute abdominal pain and distention History of gastric bypass surgery and also repair of ventral surgery CT scan did show possible partial small bowel obstruction Has been passing gas and denies any significant abdominal distention Appreciate surgery input and recommendation No more intestinal obstruction-has been tolerating diet and was advised to take it easy for the next day or 2 Will be discharged home this afternoon (2) Hernia, ventral: (3) Anastomotic ulcer S/P gastric bypass: History of gastric bypass surgery about [address] scan of the abdomen and pelvis did show anastomotic ulcer as was reviewed by her surgeon in [place] and general surgery in [facility] Started with intravenous Protonix in the hospital Discharged home on oral omeprazole 40 mg twice daily Will have outpatient appointment with her surgeon in [place] on discharge Has been feeling much better and definitely wants to leave the hospital even AMA Advised to follow the recommendations regarding diet and medications to take accordingly (4) Abdominal pain: (5) Diabetes: (6) HTN (hypertension): Is lower side of normal DVT prophylaxis SCDs CODE STATUS Full Total Time Total Time Spent Total Time Spent (In Minutes): 35 minutes Total Time Includes: Examination of the Patient, Discharge Planning, Medication Reconciliation and Communication With Other Providers Discharge Plan Discharge Items Patient Disposition: Home - Self-Care Reason For Visit: ABDOMINAL PAIN Discharge Diagnosis: Anastomotic ulcers status post gastric bypass surgery years ago Condition on Discharge: Fair Activity: Resume your previous activity Non-emergency contact: Primary Care Provider Call non-emergency contact if: you have any medication questions and your symptoms worsen Follow-up/Referrals: Chrissy Little DO [Primary Care Provider] - (Date & Time 01/27/2020 11:00 AM Provider Chrissy Little DO Department [facility] ) Diet: Carb Consistent or DM2 Addtl Attending Provider Instructions: Please take it easy for the next few days Keep your follow-up appointment with your primary care doc [facility] surgery department did call you with an appointment Take the medications as advised Pending Studies at Discharge: No Stand-Alone Forms: My [employer], Smoking Cessation Medications and DC Order Prescriptions: New omeprazole 40 mg capsule,delayed release(DR/EC) 40 mg PO BID Qty: 60 RF: 0 Continued ropinirole 1 mg Tablet 1 mg PO BID RF: 0 methylphenidate HCl [Ritalin] 10 mg Tablet 10 mg PO TID RF: 0 omeprazole 20 mg capsule,delayed release(DR/EC) 40 mg PO BID RF: 0 zolpidem [Ambien] 5 mg Tablet 5 mg PO HS PRN (Reason: Sleep) RF: 0 lisinopril 20 mg Tablet 20 mg PO DAILY RF: 0 atorvastatin 10 mg Tablet 10 mg PO DAILY RF: 0 metformin 1,000 mg Tablet 1,000 mg PO DAILY RF: 0 Discharge Orders: Discharge Order (Routine); Ordered 01/23/20 Ordered By: Susi Cazares/Other Patient Handouts: Managing Type 2 Diabetes Admission Data Admit Date/Time: 01/22/20 00:20 Attending Provider: Susi Barba Admit Provider: Herb Miner Primary Care Provider: Chrissy Little Other Providers: Daniel Jasso ; Herb Miner Other Interventions: Discharge Summary Assessment (RN) Last Done: 01/23/20 10:39
== END 2020-01-23 10:45 | disposition home or self-care (01) ==
LOC: ED 18:44 → INTOOBSV 01-22 00:20 → 2S 01-22 00:20 → 4N 01-22 10:45

== ENCOUNTER 2021-12-15 13:34 | Inpatient (IN) ==
[2021-12-15 14:53] LABS: Basophils # (auto) 0.07 K/uL (0-0.2); Basophils % (auto) 0.5 %; Eosinophils # (auto) 0.17 K/uL (0-0.50); Eosinophils % (auto) 1.3 %; Hemoglobin 11.6 g/dl (12.0-16.0); Immature Granulocytes # (auto) 0.13 K/uL (0.00-0.02); Lymphocytes # (auto) 2.94 K/uL (1.2-3.4); Lymphocytes % (auto) 22.1 %; Mean Corpuscular Hemoglobin 28.4 pg (25.0-34.0); Mean Corpuscular Hgb Conc 33.1 g/dL (32.0-36.0); Mean Corpuscular Volume 85.6 fL (80.0-100.0); Mean Platelet Volume 9.5 fL (9.4-12.3); Monocytes # (auto) 1.39 K/uL (0.24-0.82); Monocytes % (auto) 10.5 %; Neutrophils # (auto) 8.58 K/uL (1.4-6.5); Neutrophils % (auto) 64.6 %; Platelet Count 435 K/uL (130-400); RDW Coefficient of Variation 13.3 % (11.5-14.5); RDW Standard Deviation 41.5 fL (36.4-46.3); Red Blood Count 4.09 M/uL (3.93-5.22); White Blood Count 13.28 K/ul (4.8-10.8)
[2021-12-15 16:00] LABS: Potassium 3.7 mmol/L (3.5-5.1)
[2021-12-15 16:03] LABS: Albumin Globulin Ratio 0.9 (0.9-2); BUN Creatinine Ratio 24.5 (10-20); Bilirubin,Total 0.6 mg/dl (0.2-1.0); Calcium 8.4 mg/dl (8.5-10.1); Est GFR (African American) 121.9 ml/min; Est GFR (Non-African American) 105.2 ml/min; Globulin 3.3 gm/dl (2.5-4.0); Total Protein 6.3 gm/dl (6.0-8.3)
[2021-12-15] MEDS ORDERED: HYDROmorphone INJ 0.5 MG/0.5 ML SYR IV PRN (16:15)
[2021-12-15] MEDS ORDERED: ONDANSETRON INJ 2 MG/ML 2 ML VIAL IV STA (16:15)
[2021-12-15] MEDS ORDERED: SODIUM CHLORIDE 0.9% 1000ML 500 ML IV ONE (16:15)
[2021-12-15] MEDS ORDERED: HYDROmorphone INJ 0.5 MG/0.5 ML SYR IV STA (16:15)
--- NOTE | 2021-12-15 16:27 | Emergency Department Note ---
Impression & Plan Abdominal wall abscess, Hypomagnesemia, Leukocytosis, History of hernia surgery ED Provider Note NAME: DOUGLAS DURAN AGE: 61 SEX: F : 1960 ARRIVES VIA: Walk-In INFORMANT: [Patient] ED PROVIDER(S): [Kirby Ricardo MD] CHIEF COMPLAINT: Infection HISTORY OF PRESENT ILLNESS: The patient is a 61-year-old female who presents to the ER with what is thought to be an infection to her surgical wound. The patient states that she had hernia surgery at [facility] in [place] on November 23. In the last week, her drainage has turned from serosanguineous to white/yellow. She has noticed some increasing pain across the abdomen, she has had some fever and chills and some darker urine. The patient went to her doctor's office today at [facility], she was referred here for evaluation for potential infection. There has been no cough or cold, no congestion. She is not short of breath. She rates her abdominal pain as a 9/10. The pain is constant but worse with palpation. REVIEW OF SYSTEMS: See HPI for pertinent positives and negatives. A total of ten systems were reviewed and were otherwise negative. PMHx/PSHx: See Below SOCIAL HISTORY: See Below. PHYSICAL EXAM: GENERAL: Patient is in no acute distress. HEENT: No acute trauma, normocephalic atraumatic, mucous membranes moist, no nasal congestion, no scleral icterus. NECK: No stridor, no adenopathy, no meningismus, trachea is midline. LUNGS: Clear to auscultation bilaterally, no wheeze, no rhonchi, breath sounds equal. HEART: Without murmurs gallops or rubs, regular rate and rhythm. ABDOMEN: Soft. Patient does have a KILLIAN drain in the left side of the abdomen, th ere is a white/yellow discharge in the bulb. She is diffusely tender about the abdomen. No peritonitis. The midline surgical wound appears to be healing well without erythema. EXTREMITIES: No cyanosis, moderate bilateral pedal edema, full range of motion of all the joints without pain or difficulty, no signs for acute trauma. NEUROLOGIC: Oriented x 3, no acute motor or sensory deficits, no focal weakness. SKIN: No rash, no jaundice, no diaphoresis. DIFFERENTIAL DIAGNOSIS: Surgical wound infection, abscess, electrolyte imbalance, anemia, UTI, renal or liver failure, generalized viral illness, COVID-19, among others. EMERGENCY DEPARTMENT COURSE/PROCEDURES: MEDICAL DECISION MAKING: There is a mild leukocytosis, this would be consistent with infection. A mild anemia was seen. Platelet count slightly elevated. Sodium slightly low, no renal failure. Lactic acid level was not not elevated making severe sepsis less likely. Magnesium was low at 1.4. No concerning liver enzyme elevation. Urinalysis did not show infection. COVID test returned negative. Abdominal and pelvis CT shows evidence for a large fluid collection along the abdominal wall, likely an abscess. On exam, the patient did have abdominal pain with palpation, she was not febrile or toxic. Patient was given IV saline, IV Zosyn, IV Zofran and IV magnesium. She received IV Dilaudid for pain control. I did speak with a Dr. Martines from general surgery at [facility] in [place]. He did accept the patient to his facility however, there was no bed going to be available until sometime tomorrow. I did speak with case management, I did speak with our general surgeon, Dr. Jasso. I spoke with the on-call hospitalist. Patient be brought into our facility on IV antibiotic therapy until a bed becomes available at [facility]. She will then be transferred to their facility for further care. Past Med/Surg History Medical History Acute cholecystitis Acute ST elevation myocardial infarction (STEMI) of inferior wall Anxiety and depression Bloody emesis Bronchitis Chronic pain syndrome Corneal abrasion Diabetes Fibromyalgia Gastric ulcer HTN (hypertension) Insomnia L1 vertebral fracture Left corneal abrasion Migraine Pneumonia Restless leg syndrome UTI (lower urinary tract infection) Surgical History H/O gastric bypass H/O knee surgery H/O: hysterectomy History of ankle surgery S/P anal fissurectomy S/P cholecystectomy S/P recurrent ventral herniorrhaphy S/P tonsillectomy S/P ventral herniorrhaphy Family History Father Myocardial infarction Leukemia Sister Ovarian cancer Myocardial infarction Other Family history of diabetes mellitus Hypertension Denies family history of Prostate cancer Breast cancer Colorectal cancer Social History Smoking Status: Current every day smoker Tobacco Type: Cigarettes packs per day: 1.5; Cigarettes Per Day: 20; Second Hand Exposure: No; Hx Alcohol Use: Yes Alcohol type: beer Hx Substance Use: Yes Prescribed Medications: Marijuana and Other Non- Prescribed Medications: Crack / Cocaine and Methamphetamines Last Used Substance: Just Prior to Arrival Last Used Substance Other:: [id number] Preferred Language: Irish Communication Ability: Effective Dials Supervisor Required: No Beliefs That Will Affect Care: None marital status: Current Living Situation: Alone current occupational status: unemployed and disabled Feels Safe at Home: Yes Childhood Exposure to Second-Hand Smoke: Yes Dental Care, Regularly: No Physical Activity Frequency: Does not Exercise Seatbelt Use: always Sunscreen Use: Yes Assistive Devices: None Allergies Allergies Allergy/AdvReac Type Severity Reaction Status Date / Time amoxicillin Allergy Intermediate DIARRHEA Verified 12/15/21 19:35 clavulanic acid Allergy Intermediate DIARRHEA Verified 12/15/21 19:35 morphine Allergy Mild Unknown Verified 12/15/21 19:35 adhesive Allergy Unknown Unknown Verified 12/15/21 19:35 clonazepam Allergy Unknown blacks out Verified 12/15/21 19:35 Home Meds Home Medications Medication Instructions Recorded Confirmed ropinirole 1 mg tablet 1 mg PO TID 03/30/20 12/15/21 acetaminophen 325 mg capsule 325 mg PO QID PRN Pain 12/01/21 12/15/21 famotidine 20 mg tablet 20 mg PO DAILY 12/01/21 12/15/21 linagliptin 5 mg tablet (Tradjenta) 5 mg PO DAILY 12/01/21 12/15/21 ondansetron 4 mg oral soluble film 4 mg PO Q6H PRN nausea and vomiting 12/01/21 12/15/21 sennosides 8.6 mg capsule (senna) 8.6 mg PO BID 12/01/21 12/15/21 clopidogrel 75 mg tablet 75 mg PO QAM 12/06/21 12/15/21 oxycodone 5 mg tablet 5 mg PO Q8H PRN Pain 12/15/21 12/15/21 Previous Rx's Medication Instructions Recorded albuterol sulfate 90 mcg/actuation 1 inh inhalation Q6H PRN shortness 09/13/21 aerosol inhaler of breath or wheezing #8.5 grams blood sugar diagnostic (OneTouch #100 ea 09/13/21 Verio test strips) docusate sodium 100 mg capsule 100 mg PO BID #60 caps 09/13/21 loratadine 10 mg tablet (Claritin) 10 mg PO DAILY #30 tabs 09/13/21 nitroglycerin 0.4 mg sublingual 0.4 mg sublingual PRN PRN chest 09/13/21 tablet (Nitrostat) pain #25 tabs aspirin 81 mg tablet,delayed 81 mg PO QAM #100 tabs 10/07/21 release atorvastatin 80 mg tablet 80 mg PO QAM #90 tabs 10/07/21 fluticasone propionate 50 2 spray intranasal DAILY #16 grams 10/07/21 mcg/actuation nasal spray,suspension lisinopril 20 mg tablet 20 mg PO DAILY #90 tabs 10/07/21 metformin 1,000 mg tablet 1,000 mg PO BID #180 tabs 10/07/21 pantoprazole 40 mg tablet,delayed 40 mg PO BID #60 tabs 10/07/21 release furosemide 20 mg tablet 20 mg PO DAILY #30 tabs 12/06/21 Results & Data (ED) Vital Signs Vital Signs - 24 hr 12/15/21 13:46 12/15/21 17:29 Temperature 36.9 C Temperature Source Oral Pulse Rate 95 H Pulse Rate [Finger] 88 Respiratory Rate 18 20 Blood Pressure 132/82 Blood Pressure [Right Arm] 118/71 Blood Pressure Mean 98 Blood Pressure Mean [Right Arm] 86 Pulse Oximetry 94 96 Oxygen Delivery Method Room Air Room Air Sepsis Recent Fever Within 48 Hours No Sepsis New/Unexplained Change in Mental Status No Sepsis Action Taken by Nursing No Action Required Home Medications Current Medication List: was personally reviewed by me Laboratory Data Attestation: I reviewed the patient's lab results. Result diagrams: 12/15/21 14:15 12/15/21 14:15 Lab Results 12/15/21 12/15/21 12/15/21 Range/Units 14:15 14:15 14:15 WBC 13.28 H (4.8-10.8) K/ul RBC 4.09 (3.93-5.22) M/uL Hgb 11.6 L (12.0-16.0) g/dl Hct 35.0 (34.1-44.9) % MCV 85.6 (80.0-100.0) fL MCH 28.4 (25.0-34.0) pg MCHC 33.1 (32.0-36.0) g/dL RDW Std Deviation 41.5 (36.4-46.3) fL RDW Coeff of Rubi 13.3 (11.5-14.5) % Plt Count 435 H (130-400) K/uL MPV 9.5 (9.4-12.3) fL Immature Gran % (Auto) 1.0 % Neut % (Auto) 64.6 % Lymph % (Auto) 22.1 % Baxter % (Auto) 10.5 % Eos % (Auto) 1.3 % Baso % (Auto) 0.5 % Neut # (Auto) 8.58 H (1.4-6.5) K/uL Lymph # (Auto) 2.94 (1.2-3.4) K/uL Baxter # (Auto) 1.39 H (0.24-0.82) K/uL Eos # (Auto) 0.17 (0-0.50) K/uL Baso # (Auto) 0.07 (0-0.2) K/uL Immature Gran # (Auto) 0.13 H (0.00-0.02) K/uL Sodium 133 L (136-145) mmol/L Potassium 3.7 (3.5-5.1) mmol/L Chloride 97 L (98-107) mmol/L Carbon Dioxide 26 (21-32) mmol/L Anion Gap 10 (3-11) BUN 12 (6-23) mg/dl Creatinine 0.49 L (0.6-1.2) mg/dl Est Cr Clr Drug Dosing 142.0 ml/min Est GFR ( Amer) 121.9 ml/min Est GFR (Non-Af Amer) 105.2 ml/min BUN/Creatinine Ratio 24.5 H (10-20) Glucose 206 H (70-99(Fasting)) mg/dl Calcium 8.4 L (8.5-10.1) mg/dl Magnesium 1.4 L (1.7-2.4) mg/dl Total Bilirubin 0.6 (0.2-1.0) mg/dl AST 15 (13-39) U/L ALT 9 (7-52) U/L Alkaline Phosphatase 104 (34-104) U/L Total Protein 6.3 (6.0-8.3) gm/dl Albumin 3.0 L (3.4-5.0) gm/dl Globulin 3.3 (2.5-4.0) gm/dl Albumin/Globulin Ratio 0.9 (0.9-2) Urine Color Urine Appearance (Clear) Urine pH (4.5-7.5) Ur Specific [place] (1.000-1.030) Urine Protein (Negative) Urine Glucose (UA) (Negative) Urine Ketones (Negative) Urine Blood (Negative) Urine Nitrite (Negative) Urine Bilirubin (Negative) Urine Urobilinogen (Negative) Ur Leukocyte Esterase (Negative) SARS-CoV-2, RNA, NAAT (NEGATIVE) 12/15/21 12/15/21 Range/Units 17:28 18:27 WBC (4.8-10.8) K/ul RBC (3.93-5.22) M/uL Hgb (12.0-16.0) g/dl Hct (34.1-44.9) % MCV (80.0-100.0) fL MCH (25.0-34.0) pg MCHC (32.0-36.0) g/dL RDW Std Deviation (36.4-46.3) fL RDW Coeff of Rubi (11.5-14.5) % Plt Count (130-400) K/uL MPV (9.4-12.3) fL Immature Gran % (Auto) % Neut % (Auto) % Lymph % (Auto) % Baxter % (Auto) % Eos % (Auto) % Baso % (Auto) % Neut # (Auto) (1.4-6.5) K/uL Lymph # (Auto) (1.2-3.4) K/uL Baxter # (Auto) (0.24-0.82) K/uL Eos # (Auto) (0-0.50) K/uL Baso # (Auto) (0-0.2) K/uL Immature Gran # (Auto) (0.00-0.02) K/uL Sodium (136-145) mmol/L Potassium (3.5-5.1) mmol/L Chloride (98-107) mmol/L Carbon Dioxide (21-32) mmol/L Anion Gap (3-11) BUN (6-23) mg/dl Creatinine (0.6-1.2) mg/dl Est Cr Clr Drug Dosing ml/min Est GFR ( Amer) ml/min Est GFR (Non-Af Amer) ml/min BUN/Creatinine Ratio (10-20) Glucose (70-99(Fasting)) mg/dl Calcium (8.5-10.1) mg/dl Magnesium (1.7-2.4) mg/dl Total Bilirubin (0.2-1.0) mg/dl AST (13-39) U/L ALT (7-52) U/L Alkaline Phosphatase (34-104) U/L Total Protein (6.0-8.3) gm/dl Albumin (3.4-5.0) gm/dl Globulin (2.5-4.0) gm/dl Albumin/Globulin Ratio (0.9-2) Urine Color Yellow Urine Appearance Clear (Clear) Urine pH 6.0 (4.5-7.5) Ur Specific [place] 1.039 H (1.000-1.030) Urine Protein Negative (Negative) Urine Glucose (UA) Negative (Negative) Urine Ketones Negative (Negative) Urine Blood Negative (Negative) Urine Nitrite Negative (Negative) Urine Bilirubin Negative (Negative) Urine Urobilinogen Negative (Negative) Ur Leukocyte Esterase Negative (Negative) SARS-CoV-2, RNA, NAAT NEGATIVE (NEGATIVE) Administered Medications Aspirin (Aspirin 81 Mg Ectab) 81 mg PO [facility] Stop: 01/14/22 21:44 Last Admin: 12/16/21 00:08 Dose: 81 mg Documented By: ALESSANDRO Clopidogrel Bisulfate (Clopidogrel Bisulfate 75 Mg Tab) [facility] Stop: 01/14/22 21:44 Last Admin: 12/16/21 00:10 Dose: 75 mg Documented By: ALESSANDRO Famotidine (Famotidine 20 Mg Tab) 20 mg PO DAILY [facility] Stop: 01/14/22 21:44 Last Admin: 12/16/21 00:11 Dose: 20 mg Documented By: ALESSANDRO Piperacillin Sod/Tazobactam (Sod 4.5 gm/ Dextrose) 120 mls @ 30 mls/hr IV Q8H [facility]; Protocol Stop: 12/23/21 00:00 Last Admin: 12/16/21 00:11 Dose: 30 mls/hr Documented By: ALESSANDRO Insulin Aspart (Insulin Aspart Per Unit) 0 units SC ACHS [facility] Stop: 01/14/22 21:44 Last Admin: 12/16/21 00:09 Dose: 1 units Documented By: ALESSANDRO Co-signed By: [id number] Insulin Glargine (Lantus Per Unit Charge) 5 units SQ BID [facility] Stop: 01/14/22 21:44 Last Admin: 12/16/21 00:10 Dose: 5 units Documented By: ALESSANDRO Co-signed By: [id number] Pantoprazole Sodium (Pantoprazole 40 Mg Tab) 40 mg PO BID [facility] Stop: 01/14/22 21:44 Last Admin: 12/16/21 00:08 Dose: 40 mg Documented By: ALESSANDRO Ropinirole HCl (Ropinirole Hcl 1 Mg Tablet) 1 mg PO TID [facility] Stop: 01/14/22 21:44 Last Admin: 12/16/21 00:09 Dose: 1 mg Documented By: ALESSANDRO Discontinued Medications Hydromorphone HCl (Hydromorphone Inj 0.5 Mg/0.5 Ml Syr) 0.5 mg IV NOW STA Stop: 12/15/21 16:16 Last Admin: 12/15/21 16:37 Dose: 0.5 mg Documented By: QGV Hydromorphone HCl (Hydromorphone Inj 0.5 Mg/0.5 Ml Syr) 0.5 mg IV Q15M PRN PRN Reason: Pain Stop: 12/29/21 16:14 Last Admin: 12/15/21 20:38 Dose: 0.5 mg Documented By: ONIEL Sodium Chloride (Nss 1000ml) 500 mls @ 999 mls/hr IV .Q31M ONE Stop: 12/15/21 16:45 Last Infusion: 12/15/21 17:27 Dose: 0 mls/hr Documented By: Admin: 12/15/21 16:38 Dose: 999 mls/hr Documented By: QGV Magnesium Sulfate/Dextrose (Magnesium Sulfate / D5w) 1 gm in 100 mls @ 100 mls/hr IV Q1H [facility] Stop: 12/15/21 19:02 Last Admin: 12/15/21 18:37 Dose: 100 mls/hr Documented By: Infusion: 12/15/21 18:25 Dose: 100 mls/hr Documented By: Admin: 12/15/21 17:25 Dose: 100 mls/hr Documented By: QGV Piperacillin Sod/Tazobactam Sod (Zosyn) 4.5 gm in 120 mls @ 240 mls/hr IV NOW ONE Stop: 12/15/21 18:29 Last Admin: 12/15/21 20:01 Dose: 240 mls/hr Documented By: ONIEL Ioversol (Ioversol 350 Mg 100ml Prefilled Syringe) 94 ml IV ONCE ONE Stop: 12/15/21 16:47 Last Admin: 12/15/21 16:47 Dose: 94 ml Documented By: HORTENCIA Ondansetron HCl (Ondansetron Inj 2 Mg/Ml 2 Ml Vial) 4 mg IV NOW STA Stop: 12/15/21 16:16 Last Admin: 12/15/21 16:37 Dose: 4 mg Documented By: QGV Imaging Data Radiologist's Impression: Abdomen/Pelvis CT 12/15/21 16:[address] WITH IV CONTRAST CT DOSE: 1122.73 mGy.cm HISTORY: Hernia surgery. Possible abscess. TECHNIQUE: Multiaxial CT images of the abdomen and pelvis were performed following the use of intravenous contrast. A dose lowering technique was utilized adhering to the principles of ALARA. COMPARISON STUDY: Abdomen and pelvis CT 01/21/2020. FINDINGS: The lung bases are clear. No pneumoperitoneum. No pneumatosis. Moderate right and severe left hip osteoarthritis. The heart is mildly enlarged. Mildly enlarged bilateral external iliac and inguinal lymph nodes. This may be reactive. The bladder is not well-distended but appears unremarkable. The uterus is surgically absent. No pelvic free fluid. Moderate well-formed stool seen within the colon. Postoperative changes consistent with prior Junior-en-Y gastric bypass. No bowel wall thickening or obstruction. Prior cholecystectomy. No hepatic or splenic masses. The adrenal glands, pancreas, and kidneys are within normal limits. No hydronephrosis. The main portal vein is patent. A few promi nent periportal lymph nodes remain stable. Otherwise, no retroperitoneal lymphadenopathy. Moderate calcified plaque within the normal caliber abdominal aorta. Mild to moderate body wall edema most pronounced within the pelvis. Patient is status post recent ventral hernia repair. Within the midline of the subcutaneous abdominal wall there is an elongated peripheral enhancing fluid collection which contains scattered foci of gas. This measures 25 x 12 x 4 cm. The majority of this fluid collection is located within the subcutaneous compartment. There is a small component of this fluid collection which extends into the right rectus abdominis muscle on image 263. This measures 4.6 cm. The percutaneous surgical drain is located within this large subcutaneous fluid collection. Given the recent postoperative changes, this favors a postoperative seroma. Secondary infection would be a impossible to exclude by imaging. IMPRESSION: 1. A 24 x 12 x 4 cm peripheral enhancing gas and fluid collection within the midline of the anterior abdominal wall . The majority of the fluid collection is located within the subcutaneous compartment with a smaller component seen within the right rectus abdominis muscle. The percutaneous drainage catheter is located within this fluid collection. Given the recent postoperative change, this favors a postoperative seroma. However, secondary infection would be impossible to exclude by imaging. 2. Mild/moderate body wall edema. 3. Additional findings as described above. ACT 112: Negative or not required by law. Electronically signed by: Conner Porras M.D. 12/15/2021 5:11 PM Discharge Plan Visit Data Chief Complaint: Infection Stated Complaint: INFECTION, PAIN IN ABDOMEN ED Provider: Kirby Ricardo Discharge Problem: Abdominal wall abscess, Hypomagnesemia, Leukocytosis, History of hernia surgery Patient Disposition: Admitted As Inpatient Condition: Fair Discharge Instructions Interventions: ED Discharge Assessment Last Done: 12/15/21 20:46
[2021-12-15] MEDS ORDERED: IOVERSOL 350 MG 100mL Prefilled Syringe IV ONE (16:46)
--- NOTE | 2021-12-15 17:13 | CT Scan Report ---
ABDOMEN AND PELVIS CT WITH IV CONTRAST CT DOSE: 1122.73 mGy.cm HISTORY: Hernia surgery. Possible abscess. TECHNIQUE: Multiaxial CT images of the abdomen and pelvis were performed following the use of intrave nous contrast. A dose lowering technique was utilized adhering to the principles of ALARA. COMPARISON STUDY: Abdomen and pelvis CT 01/21/2020. FINDINGS: The lung bases are clear. No pneumoperitoneum. No pneumatosis. Moderate right and severe le ft hip osteoarthritis. The heart is mildly enlarged. Mildly enlarged bilateral external iliac and ing uinal lymph nodes. This may be reactive. The bladder is not well-distended but appears unremarkable. The uterus is surgically absent. No pelvic free fluid. Moderate well-formed stool seen within the col on. Postoperative changes consistent with prior Junior-en-Y gastric bypass. No bowel wall thickening or obstruction. Prior cholecystectomy. No hepatic or splenic masses. The adrenal glands, pancreas, and kidneys are within normal limits. No hydronephrosis. The main portal vein is patent. A few prominent periportal lymph nodes remain stable. Otherwise, no retroperitoneal lymphadenopathy. Moderate calcifi ed plaque within the normal caliber abdominal aorta. Mild to moderate body wall edema most pronounced within the pelvis. Patient is status post recent ventral hernia repair. Within the midline of the elizabeth bcutaneous abdominal wall there is an elongated peripheral enhancing fluid collection which contains scattered foci of gas. This measures 25 x 12 x 4 cm. The majority of this fluid collection is located within the subcutaneous compartment. There is a small component of this fluid collection which exten ds into the right rectus abdominis muscle on image 263. This measures 4.6 cm. The percutaneous surgic al drain is located within this large subcutaneous fluid collection. Given the recent postoperative c hanges, this favors a postoperative seroma. Secondary infection would be a impossible to exclude by gio greer. IMPRESSION: 1. A 24 x 12 x 4 cm peripheral enhancing gas and fluid collection within the midline of the anterior abdominal wall . The majority of the fluid collection is located within the subcutaneous compartment with a smaller component seen within the right rectus abdominis muscle. The percutaneous drainage cat heter is located within this fluid collection. Given the recent postoperative change, this favors a p ostoperative seroma. However, secondary infection would be impossible to exclude by imaging. 2. Mild/moderate body wall edema. 3. Additional findings as described above. ACT 112: Negative or not required by law. Electronically signed by: Conner Porras M.D. 12/15/2021 5:11 PM
[2021-12-15] MEDS: MAGNESIUM SULFATE / D5W 1 GM/100 ML BAG IV SCH ×2 (17:25→18:37)
[2021-12-15] MEDS ORDERED: PIPERACILLIN/TAZOBACTAM 4.5 GM/120 ML BAG IV ONE (18:00)
--- NOTE | 2021-12-15 18:22 | History & Physical Report ---
Date of Service December 15, 2021 Assessment & Plan (1) Wound infection after surgery: Plan: -Admit to med/surge -Patient is currently afebrile, hemodynamically stable, and stable on room air -CT findings concerning for infected seroma/abscess, [facility] surgery has accepted the patient but no open beds yet, will need to be admitted here for IV antibiotics until she receives a bed -Seen by our general surgery team who will follow, they agree with continuing Zosyn for now -Patient does not appear acutely toxic, monitor blood cultures and tailor abx accordingly -Pain control with tylenol for mild pain and oxy 5mg q4h prn for severe pain -AM CBC and BMP (2) Hypomagnesemia: Plan: -Noted to be 1.4 today -Likely from poor nutrition -Given 2gm Mag sulfate in the ED, monitor am level (3) Hypocalcemia: Plan: Noted to be 8.4 today -Given 1gb calcium gluconate in the ED -Monitor for now (4) HTN (hypertension): Plan: -Hemodynamically stable -Hold lisinopril for now to avoid hypotension with her current infection (5) CAD (coronary artery disease): Plan: -Continue aspirin and plavix (6) Diabetes: Plan: -Hold oral antihyperglycemics -Will start with 5 units lantus BID tonight -Correction factor of 45 and carb ratio 15 (7) Chronic pain syndrome: Plan: -Pain control may be an issue with her history -Try and avoid increasing pain regimen as able (8) RLS (restless legs syndrome): Plan: -Continue requip (9) Hyperlipidemia: Plan: -Continue atorvastatin Plan The patient was discussed with Dr. Rojas at the time of the admission History of Present Illness Chief Complaint: Concern for surgical site infection Primary Care Provider: Lo Esposito MD Jia is a 61 year old female with a PMH significant for recurrent abdominal wall incisional hernia S/P open repair and mesh placement at [facility] on 12/07/21, DM II, HTN, hyperlipidemia, chronic pain syndrome, CAD, methamphetamine abuse, fibromyalgia, and restless leg syndrome who presented to the [facility] ED on 12/15/21 due to concerns for surgical site infection. The patient currently has a drain in place, In the last week, her drainage has turned from serosanguineous to white/yellow, she has also developed increased abdominal pain at the surgical site. In the ED the patient was found to be afebrile, hemodynamically stable, and stable on RA. Labs were remarkable for a leukocytosis of 13.28, glucose of 206, calcium of 8.4, magnesium of 1.4. CT of the abdomen and pelvis with IV contrast revealed a 24 x 12 x 4 cm peripheral enhancing gas and fluid collection within the midline of the anterior abdominal wall concerning for abscess. She was evaluated by General Surgery who recommended IV antibiotics and transfer to [facility] to receive further care as the abscess will likely need to be drained by IR. [facility] was contacted and accepted the patient, however, they may not have an available bed for 24+ hours, for this reason we were asked to admit the patient until she receives a bed at [facility]. In the ED the patient was given a dose of Zosyn, dilaudid, zofran, and 2g of magnesium sulfate. At the time of the exam the patient was lying in bed crying because she does not want to be thought of as a pain medication seeker. I explained to her that she has a legitimate reason to have pain at this time. She states that she started developing increased abdominal pain and discolored drainage from her abdominal drain approximately 1 week ago. She saw a [facility] provider gem garcia who was concerned for mesh infection and sent her to the ED. Her pain is currently a 5/10 after receiving dilaudid prior to my exam. She has been having fevers and chills but has been able to eat and drink well. She denies chest pain/SOB, dysuria, hematuria, bloody bowel movements and increased leg swelling. She understands that we will until she gets a bed a [facility]. Allergies Allergy/AdvReac Type Severity Reaction Status Date / Time amoxicillin Allergy Intermediate DIARRHEA Verified 12/15/21 19:35 clavulanic acid Allergy Intermediate DIARRHEA Verified 12/15/21 19:35 morphine Allergy Mild Unknown Verified 12/15/21 19:35 adhesive Allergy Unknown Unknown Verified 12/15/21 19:35 clonazepam Allergy Unknown blacks out Verified 12/15/21 19:35 Home Medications Medication Instructions Recorded Confirmed Type ropinirole 1 mg tablet 1 mg PO TID 03/30/20 12/15/21 History albuterol sulfate 90 mcg/actuation 1 inh inhalation Q6H PRN shortness 09/13/21 12/15/21 Rx aerosol inhaler of breath or wheezing #8.5 grams blood sugar diagnostic (OneTouch #100 ea 09/13/21 12/06/21 Rx Verio test strips) docusate sodium 100 mg capsule 100 mg PO BID #60 caps 09/13/21 12/15/21 Rx loratadine 10 mg tablet (Claritin) 10 mg PO DAILY #30 tabs 09/13/21 12/15/21 Rx nitroglycerin 0.4 mg sublingual 0.4 mg sublingual PRN PRN chest 09/13/21 12/15/21 Rx tablet (Nitrostat) pain #25 tabs aspirin 81 mg tablet,delayed 81 mg PO QAM #100 tabs 10/07/21 12/15/21 Rx release atorvastatin 80 mg tablet 80 mg PO QAM #90 tabs 10/07/21 12/15/21 Rx fluticasone propionate 50 2 spray intranasal DAILY #16 grams 10/07/21 12/15/21 Rx mcg/actuation nasal spray,suspension lisinopril 20 mg tablet 20 mg PO DAILY #90 tabs 10/07/21 12/15/21 Rx metformin 1,000 mg tablet 1,000 mg PO BID #180 tabs 10/07/21 12/15/21 Rx pantoprazole 40 mg tablet,delayed 40 mg PO BID #60 tabs 10/07/21 12/15/21 Rx release acetaminophen 325 mg capsule 325 mg PO QID PRN Pain 12/01/21 12/15/21 History famotidine 20 mg tablet 20 mg PO DAILY 12/01/21 12/15/21 History linagliptin 5 mg tablet (Tradjenta) 5 mg PO DAILY 12/01/21 12/15/21 History ondansetron 4 mg oral soluble film 4 mg PO Q6H PRN nausea and vomiting 12/01/21 12/15/21 History sennosides 8.6 mg capsule (senna) 8.6 mg PO BID 12/01/21 12/15/21 History clopidogrel 75 mg tablet 75 mg PO QAM 12/06/21 12/15/21 History furosemide 20 mg tablet 20 mg PO DAILY #30 tabs 12/06/21 12/15/21 Rx oxycodone 5 mg tablet 5 mg PO Q8H PRN Pain 12/15/21 12/15/21 History Past Med/Surg History Medical History Acute cholecystitis Acute ST elevation myocardial infarction (STEMI) of inferior wall Anxiety and depression Bloody emesis Bronchitis Chronic pain syndrome Corneal abrasion Diabetes Fibromyalgia Gastric ulcer HTN (hypertension) Insomnia L1 vertebral fracture Left corneal abrasion Migraine Pneumonia Restless leg syndrome UTI (lower urinary tract infection) Surgical History H/O gastric bypass H/O knee surgery H/O: hysterectomy History of ankle surgery S/P anal fissurectomy S/P cholecystectomy S/P recurrent ventral herniorrhaphy S/P tonsillectomy S/P ventral herniorrhaphy Family History Father Myocardial infarction Leukemia Sister Ovarian cancer Myocardial infarction Other Family history of diabetes mellitus Hypertension Denies family history of Prostate cancer Breast cancer Colorectal cancer Social History Smoking Status: Current every day smoker Tobacco Type: Cigarettes packs per day: 1.5; Cigarettes Per Day: 20; Second Hand Exposure: No; Do You Dip or Chew Tobacco: No; Tobacco Cessation Education Requested by Patient: No Hx Alcohol Use: Yes Alcohol type: beer Hx Substance Use: Yes Prescribed Medications: Marijuana and Other Non- Prescribed Medications: Crack / Cocaine and Methamphetamines Last Used Substance: Just Prior to Arrival Preferred Language: Kyrgyz Communication Ability: Effective [place] Hand Required: No Beliefs That Will Affect Care: None marital status: Current Living Situation: Alone current occupational status: unemployed and disabled Other Information That Helps Us Care for You: No Feels Safe at Home: Yes Childhood Exposure to Second-Hand Smoke: Yes Dental Care, Regularly: No Physical Activity Frequency: Does not Exercise Seatbelt Use: always Sunscreen Use: Yes Assistive Devices: None Review of Systems Review of Systems: Denies current headache, changes in vision, hearing, taste, and smell, chest pain, SOB, cough, hematemesis, melena, dysuria, hematuria, and recent falls. All systems have been reviewed and are otherwise negative. Physical Exam Physical Exam: Physical Exam: General: In no acute distress, stated age, chronically ill-appearing HEENT: Normocephalic, atraumatic, no scleral icterus, pupils around round, symmetrical, and reactive to light, moist mucus membranes, trachea midline, no thyromegaly Chest/Pulm: No respiratory distress, symmetrical chest expansion, clear breath sounds throughout Cardiac: RRR, no murmurs noted Abdomen: patient with surgical drain in place in the left lower quadrant, currently draining infected appearing fluid, large central abdominal scar appears well-healing and intact, soft, tender to palpation in the bilateral lower abdominal nix Musculoskeletal: Symmetrical and without signs of acute trauma, upper and lower extremities with full ROM, no atrophy, spasticity, or flaccidity Extremities: Radial, dorsalis pedis, and posterior tibial pulses are intact and symmetrical, no edema noted in the BL LE's Skin: Warm, dry, no rashes , lesions, or scars noted Neuro: Alert and oriented to person, place, month, year, and president, no focal defects, CN II-XII tested and intact, finger to nose test negative, no tremors noted Psych: Anxious/tearful, but cooperative during the exam Results & Data Results & Data ([facility]) Vital Signs (Past 12 Hours) Vital Signs Temp Pulse Resp BP Pulse Ox O2 Del Method 12/15/21 13:46 36.9 C 95 H 18 132/82 94 Room Air Laboratory Results Abnormal lab results 12/15/21 12/15/21 12/15/21 Range/Units 14:15 14:15 14:15 WBC 13.28 H (4.8-10.8) K/ul Hgb 11.6 L (12.0-16.0) g/dl Plt Count 435 H (130-400) K/uL Neut # (Auto) 8.58 H (1.4-6.5) K/uL [place] # (Auto) 1.39 H (0.24-0.82) K/uL Immature Gran # (Auto) 0.13 H (0.00-0.02) K/uL Sodium 133 L (136-145) mmol/L Chloride 97 L (98-107) mmol/L Creatinine 0.49 L (0.6-1.2) mg/dl BUN/Creatinine Ratio 24.5 H (10-20) Glucose 206 H (70-99(Fasting)) mg/dl Calcium 8.4 L (8.5-10.1) mg/dl Magnesium 1.4 L (1.7-2.4) mg/dl Albumin 3.0 L (3.4-5.0) gm/dl Ur Specific [place] (1.000-1.030) 12/15/21 Range/Units 18:27 WBC (4.8-10.8) K/ul Hgb (12.0-16.0) g/dl Plt Count (130-400) K/uL Neut # (Auto) (1.4-6.5) K/uL [place] # (Auto) (0.24-0.82) K/uL Immature Gran # (Auto) (0.00-0.02) K/uL Sodium (136-145) mmol/L Chloride (98-107) mmol/L Creatinine (0.6-1.2) mg/dl BUN/Creatinine Ratio (10-20) Glucose (70-99(Fasting)) mg/dl Calcium (8.5-10.1) mg/dl Magnesium (1.7-2.4) mg/dl Albumin (3.4-5.0) gm/dl Ur Specific [place] 1.039 H (1.000-1.030) Diagnostic Findings Abdomen/Pelvis CT 12/15/21 16:[address] WITH IV CONTRAST CT DOSE: 1122.73 mGy.cm HISTORY: Hernia surgery. Possible abscess. TECHNIQUE: Multiaxial CT images of the abdomen and pelvis were performed following the use of intravenous contrast. A dose lowering technique was utilized adhering to the principles of ALARA. COMPARISON STUDY: Abdomen and pelvis CT 01/21/2020. FINDINGS: The lung bases are clear. No pneumoperitoneum. No pneumatosis. Moderate right and severe left hip osteoarthritis. The heart is mildly enlarged. Mildly enlarged bilateral external iliac and inguinal lymph nodes. This may be reactive. The bladder is not well-distended but appears unremarkable. The uterus is surgically absent. No pelvic free fluid. Moderate well-formed stool seen within the colon. Postoperative changes consistent with prior Junior-en-Y gastric bypass. No bowel wall thickening or obstruction. Prior cholecystectomy. No hepatic or splenic masses. The adrenal glands, pancreas, and kidneys are within normal limits. No hydronephrosis. The main portal vein is patent. A few prominent periportal lymph nodes remain stable. Otherwise, no retroperitoneal lymphadenopathy. Moderate calcified plaque within the normal caliber abdominal aorta. Mild to moderate body wall edema most pronounced within the pelvis. Patient is status post recent ventral hernia repair. Within the midline of the subcutaneous abdominal wall there is an elongated peripheral enhancing fluid collection which contains scattered foci of gas. This measures 25 x 12 x 4 cm. The majority of this fluid collection is located within the subcutaneous comp artment. There is a small component of this fluid collection which extends into the right rectus abdominis muscle on image 263. This measures 4.6 cm. The percutaneous surgical drain is located within this large subcutaneous fluid collection. Given the recent postoperative changes, this favors a postoperative seroma. Secondary infection would be a impossible to exclude by imaging. IMPRESSION: 1. A 24 x 12 x 4 cm peripheral enhancing gas and fluid collection within the midline of the anterior abdominal wall . The majority of the fluid collection is located within the subcutaneous compartment with a smaller component seen within the right rectus abdominis muscle. The percutaneous drainage catheter is located within this fluid collection. Given the recent postoperative change, this favors a postoperative seroma. However, secondary infection would be impossible to exclude by imaging. 2. Mild/moderate body wall edema. 3. Additional findings as described above. ACT 112: Negative or not required by law. Electronically signed by: Conner Porras M.D. 12/15/2021 5:11 PM ECG Additional Comments: No ECG at the time of admission Code Status & VTE Plan Code Status DNR/DNI VTE Prophylaxis Plan VTE Prophylaxis will be ordered: Yes Supervising Physician Co-Signing Physician Notes Patient seen and examined at bedside. During face to face encounter obtained a history and physical examination. I reviewed above note and agree with it. Plan of care discussed with patient and APC Peno. Patient admitted for infected seroma/abscess. Patient will be placed on IV antibiotics. Plan to transfer to [facility] for surgical intervention once bed is available. PG Care Time/CCT Total # of Minutes Spent Total Time Spent with Patient: Total time spent is greater than 50% in coordination of care (as documented) at patient's floor/unit and/or counseling patient: Coding [place] [address] Initial Inpt Care Lvl 3 Patient Type Established Medical Decision Making High Complexity Diagnoses Wound infection after surgery T81.49XA Hypomagnesemia E83.42 Hypocalcemia E83.51 HTN (hypertension) I10 CAD (coronary artery disease) I25.10 Diabetes E11.9 Chronic pain syndrome G89.4 RLS (restless legs syndrome) G25.81 Hyperlipidemia E78.5
--- NOTE | 2021-12-15 18:30 | Surgery Consultation ---
Date of Consultation December 15, 2021 Assessment & Plan (1) Wound infection after surgery: Patient with infected seroma She was operated on in [place] and apparently they cannot take her tonight They discussed interventional radiology drainage with the ER physician This would need to be appropriately done at tertiary care center most likely She will be admitted for IV antibiotics and supportive care with the plan to transfer her to [place] As soon as they can take her Adequate drainage here would require opening her wound and most likely a wound VAC History of Present Illness History of Present Illness 61-year-old female presented emergency room with abdominal pain and change in her drainage from her abdominal incision On 11/23/2021 she underwent open incisional hernia repair with mesh placement at [facility] I believe she was discharged on 11/28/2021 Her CAT scan shows a seroma with some gas bubbles which is likely an infected seroma Significant surgical history including gastric bypass with VAC placement, hysterectomy, cholecystectomy, prior hernia repair with mesh Allergies Allergy/AdvReac Type Severity Reaction Status Date / Time amoxicillin Allergy Intermediate DIARRHEA Verified 12/06/21 13:11 clavulanic acid Allergy Intermediate DIARRHEA Verified 12/06/21 13:11 morphine Allergy Mild Unknown Verified 12/06/21 13:11 adhesive Allergy Unknown Unknown Verified 12/06/21 13:11 clonazepam Allergy Unknown blacks out Verified 12/06/21 13:11 Home Medications Medication Instructions Recorded Confirmed Type ropinirole 1 mg tablet 1 mg PO TID 03/30/20 12/06/21 History albuterol sulfate 90 mcg/actuation 1 inh inhalation Q6H PRN shortness 09/13/21 12/06/21 Rx aerosol inhaler of breath or wheezing #8.5 grams blood sugar diagnostic (OneTouch #100 ea 09/13/21 12/06/21 Rx Verio test strips) docusate sodium 100 mg capsule 100 mg PO BID #60 caps 09/13/21 12/06/21 Rx loratadine 10 mg tablet (Claritin) 10 mg PO DAILY #30 tabs 09/13/21 12/06/21 Rx nitroglycerin 0.4 mg sublingual 0.4 mg sublingual PRN PRN chest 09/13/21 2 Rx tablet (Nitrostat) pain #25 tabs aspirin 81 mg tablet,delayed 81 mg PO QAM #100 tabs 10/07/21 12/06/21 Rx release atorvastatin 80 mg tablet 80 mg PO QAM #90 tabs 10/07/21 12/06/21 Rx fluticasone propionate 50 2 spray intranasal DAILY #16 grams 10/07/21 12/06/21 Rx mcg/actuation nasal spray,suspension lisinopril 20 mg tablet 20 mg PO DAILY #90 tabs 10/07/21 12/06/21 Rx metformin 1,000 mg tablet 1,000 mg PO BID #180 tabs 10/07/21 12/06/21 Rx pantoprazole 40 mg tablet,delayed 40 mg PO BID #60 tabs 10/07/21 12/06/21 Rx release acetaminophen 325 mg capsule 325 mg PO QID PRN 12/01/21 12/06/21 History famotidine 20 mg tablet 20 mg PO DAILY 12/01/21 12/06/21 History linagliptin 5 mg tablet (Tradjenta) 5 mg PO DAILY 12/01/21 12/06/21 History ondansetron 4 mg oral soluble film 4 mg PO Q6H PRN nausea and vomiting 12/01/21 12/06/21 History sennosides 8.6 mg capsule (senna) 8.6 mg PO BID 12/01/21 12/06/21 History clopidogrel 75 mg tablet 75 mg PO QAM 12/06/21 History furosemide 20 mg tablet 20 mg PO DAILY #30 tabs 12/06/21 12/06/21 Rx oxycodone 10 mg tablet 10 mg PO Q8H PRN 12/06/21 12/06/21 History Patient History Medical History Acute cholecystitis Acute ST elevation myocardial infarction (STEMI) of inferior wall Anxiety and depression Bloody emesis Bronchitis Chronic pain syndrome Corneal abrasion Diabetes Fibromyalgia Gastric ulcer HTN (hypertension) Insomnia L1 vertebral fracture Left corneal abrasion Migraine Pneumonia Restless leg syndrome UTI (lower urinary tract infection) Surgical History H/O gastric bypass H/O knee surgery H/O: hysterectomy History of ankle surgery S/P anal fissurectomy S/P cholecystectomy S/P recurrent ventral herniorrhaphy S/P tonsillectomy S/P ventral herniorrhaphy Family History Father Myocardial infarction Leukemia Sister Ovarian cancer Myocardial infarction Other Family history of diabetes mellitus Hypertension Denies family history of Prostate cancer Breast cancer Colorectal cancer Social History Smoking Status: Current every day smoker Tobacco Type: Cigarettes packs per day: 1.5; Cigarettes Per Day: 20; Second Hand Exposure: No; Hx Alcohol Use: Yes Alcohol type: beer Hx Substance Use: Yes Prescribed Medications: Marijuana and Other Non-Prescribe d Medications: Crack / Cocaine and Methamphetamines Last Used Substance: Just Prior to Arrival Last Used Substance Other:: 03-13-2099 Preferred Language: Icelandic Communication Ability: Effective Supervisor [employer] Required: No Beliefs That Will Affect Care: None marital status: Current Living Situation: Alone current occupational status: unemployed and disabled Feels Safe at Home: Yes Childhood Exposure to Second-Hand Smoke: Yes Dental Care, Regularly: No Physical Activity Frequency: Does not Exercise Seatbelt Use: always Sunscreen Use: Yes Assistive Devices: None Review of Systems Review of Systems: All systems reviewed & are unremarkable except as noted in HPI & below Physical Exam Physical Exam: Patient is awake and alert in no distress Constitutional: well developed and well nourished; no acute distress Eyes: + anicteric sclerae Respiratory: normal respiratory effort; no respiratory distress Cardiovascular: Rate/Rhythm: regular rate Gastrointestinal (Abdomen): Inspection/Auscultation: + abdomen distended She has a midline incision with a drain on the left side She has some mild erythema and it is somewhat tender to palpation Musculoskeletal: Head/Neck/Chest: head atraumatic Skin: Mild erythema over the abdominal incision Neurologic: awake Psychiatric: Orientation: alert Results & Data ([facility]) Vital Signs (Past 12 Hours) Vital Signs Temp Pulse Resp BP Pulse Ox O2 Del Method 12/15/21 13:46 36.9 C 95 H 18 132/82 94 Room Air Laboratory Results I did review her laboratories Diagnostic Findings I reviewed her CAT scan films PG Care Time/CCT Total # of Minutes Spent Total Time Spent with Patient: Total time spent is greater than 50% in coordination of care (as documented) at patient's floor/unit and/or counseling patient: Coding Level of Care Code 96271 Office/OBS Consult Lvl 3 Diagnoses Wound infection after surgery T81.49XA
[2021-12-15 18:49] LABS: Appearance Urine Clear (Clear); Bilirubin Urine Negative (Negative); Blood Urine Negative (Negative); Color Urine Yellow; Glucose Urine UA Negative (Negative); Ketones Urine Negative (Negative); Leukocyte Esterase Urine Negative (Negative); Nitrite Urine Negative (Negative); Protein Urine Negative (Negative); Specific Gravity Urine 1.039 (1.000-1.030); Urobilinogen Urine Negative (Negative)
[2021-12-15] MEDS ORDERED: CARBOHYDRATES FOR HYPOGLYCEMIA PO PRN (21:45)
[2021-12-15] MEDS ORDERED: GLUCAGON FOR INJ 1 MG VIAL SQ PRN (21:45)
[2021-12-15] MEDS ORDERED: GLUCOSE 10 TAB/TUBE PO PRN (21:45)
[2021-12-15] MEDS ORDERED: ONDANSETRON 4 MG OD TAB PO PRN (21:45)
[2021-12-15] MEDS ORDERED: ALBUTEROL HFA 8 GM INHALER INH PRN (21:45)
[2021-12-15] MEDS ORDERED: DEXTROSE 50% 50 ML SYRINGE IV PRN (21:45)
[2021-12-15] MEDS ORDERED: GLUCOSE 40% GEL 15 GM TUBE PO PRN (21:45)
[2021-12-16] MEDS: ASPIRIN 81 MG ECTAB PO SCH ×2 (00:08→08:15)
[2021-12-16] MEDS: PANTOprazole 40 MG TAB PO SCH ×3 (00:08→21:36)
[2021-12-16] MEDS: rOPINIRole HCL 1 MG TABLET PO SCH ×4 (00:09→21:36)
[2021-12-16] MEDS: INSULIN ASPART PER UNIT SC SCH ×5 (00:09→21:42)
[2021-12-16] MEDS: CLOPIDOGREL BISULFATE 75 MG TAB PO SCH ×2 (00:10→08:16)
[2021-12-16] MEDS: LANTUS PER UNIT CHARGE SQ SCH ×3 (00:10→21:42)
[2021-12-16] MEDS: FAMOTIDINE 20 MG TAB PO SCH ×2 (00:11→08:16)
[2021-12-16] MEDS: PIPERACILLIN/TAZOBACTAM 4.5 GM in DEXTROSE 5% 100 ML IV SCH ×3 (00:11→17:49)
--- NOTE | 2021-12-16 06:57 | Surgery Progress Note ---
Date of Service December 16, 2021 Assessment & Plan (1) Abdominal wall abscess: Plan: 12/16/2021atient appears to be stable-has wound infection with infected seroma Will need to check with Vera Mora this morning for treatment plan They mention possible IR drainage-I suppose there is a possibility of her having that done in [place] and then coming back to our hospital At this point there is no plan for surgery in our hospital-she had recent surgery in [place] Admission and Anticipated Discharge Date Admission Date: December 15, 2021 Subjective Patient appears to be more comfortable She is afebrile and her vital signs are stable She is receiving IV antibiotics Has taken no significant pain medication Review of Systems Review of Systems: All systems reviewed & are unremarkable except as noted in HPI & below Physical Exam Physical Exam: Patient is awake and alert in no distress Constitutional: well developed and well nourished; no acute distress Eyes: + anicteric sclerae Respiratory: normal respiratory effort; no respiratory distress Cardiovascular: Rate/Rhythm: regular rate Gastrointestinal (Abdomen): Inspection/Auscultation: + abdomen distended She has a midline incision with a drain on the left side She has less erythema over her abdomen then on admission Some mild tenderness Musculoskeletal: Head/Neck/Chest: head atraumatic Skin: Mild erythema over the abdominal incision Neurologic: awake Psychiatric: Orientation: alert Results & Data ([facility]) Vital Signs (Past 12 Hours) Vital Signs Temp Pulse Pulse Resp BP BP Pulse Ox 12/16/21 04:50 75 12/16/21 04:13 12/16/21 04:00 37.1 C 71 18 104/66 95 12/15/21 23:19 36.6 C 72 18 124/68 96 12/15/21 21:36 36.5 C 73 18 121/68 92 12/15/21 20:45 36.8 C 98 H 18 112/71 94 O2 Del Method 12/16/21 04:50 12/16/21 04:13 Room Air 12/16/21 04:00 Room Air 12/15/21 23:19 Room Air 12/15/21 21:36 Room Air 12/15/21 20:45 PG Care Time/CCT Total # of Minutes Spent Total Time Spent with Patient: Total time spent is greater than 50% in coordination of care (as documented) at patient's floor/unit and/or counseling patient: Coding Level of Care Code 25489 Inpt Consult Level 3 Diagnoses Abdominal wall abscess L02.211
[2021-12-16 07:31] LABS: Basophils # (auto) 0.04 K/uL (0-0.2); Basophils % (auto) 0.5 %; Eosinophils # (auto) 0.29 K/uL (0-0.50); Eosinophils % (auto) 3.8 %; Hematocrit (blood only) 31.3 % (34.1-44.9); Hemoglobin 10.4 g/dl (12.0-16.0); Immature Granulocytes # (auto) 0.07 K/uL (0.00-0.02); Immature Granulocytes % (auto) 0.9 %; Lymphocytes # (auto) 1.66 K/uL (1.2-3.4); Lymphocytes % (auto) 21.5 %; Mean Corpuscular Hemoglobin 28.4 pg (25.0-34.0); Mean Corpuscular Hgb Conc 33.2 g/dL (32.0-36.0); Mean Corpuscular Volume 85.5 fL (80.0-100.0); Mean Platelet Volume 9.3 fL (9.4-12.3); Monocytes # (auto) 0.78 K/uL (0.24-0.82); Monocytes % (auto) 10.1 %; Neutrophils # (auto) 4.87 K/uL (1.4-6.5); Neutrophils % (auto) 63.2 %; Platelet Count 368 K/uL (130-400); RDW Coefficient of Variation 13.3 % (11.5-14.5); RDW Standard Deviation 41.9 fL (36.4-46.3); Red Blood Count 3.66 M/uL (3.93-5.22); White Blood Count 7.71 K/ul (4.8-10.8)
[2021-12-16 07:53] LABS: BUN Creatinine Ratio 22.9 (10-20); Calcium 7.8 mg/dl (8.5-10.1); Est GFR (African American) 136.1 ml/min; Est GFR (Non-African American) 117.5 ml/min; Magnesium 1.6 mg/dl (1.7-2.4); Potassium 2.8 mmol/L (3.5-5.1)
--- NOTE | 2021-12-16 08:01 | Hospitalist Progress Note ---
Date of Service December 16, 2021 Assessment & Plan (1) Wound infection after surgery: Plan: -Recurrent abdominal wall incisional hernia S/P open repair and mesh placement at [facility] on 12/07/21 in the week since her surgery, her drainage has turned from serosanguineous to white/yellow, she has also developed increased abdominal pain at the surgical site. -Patient is currently afebrile, hemodynamically stable, and stable on room air -CT findings concerning for infected seroma/abscess, [facility] surgery has accepted the patient but no open beds yet, admitted here for IV antibiotics -Seen by our general surgery team who will follow, they agree with continuing Zosyn for now -Patient does not appear acutely toxic, monitor blood cultures and tailor abx accordingly -Pain control with tylenol for mild pain and oxy 5mg q4h prn for severe pain -AM CBC and BMP (2) Hypomagnesemia: Plan: -replete (3) Hypocalcemia: Plan: Noted to be 8.4 today -Given 1gb calcium gluconate in the ED -Monitor for now (4) HTN (hypertension): Plan: -Hemodynamically stable -Hold lisinopril for now to avoid hypotension with her current infection (5) CAD (coronary artery disease): Plan: -Continue aspirin and plavix (6) Diabetes: Plan: -Hold oral antihyperglycemics -Will start with 5 units lantus BID tonight -Correction factor of 45 and carb ratio 15 (7) Chronic pain syndrome: Plan: -Pain control may be an issue with her history -Try and avoid increasing pain regimen as able (8) RLS (restless legs syndrome): Plan: -Continue requip (9) Hyperlipidemia: Plan: -Continue atorvastatin Admission and Anticipated Discharge Date Admission Date: December 15, 2021 Subjective Patient is intermittently tearful she has some abdominal pain she does have a groin wound which is having some drainage. She understands that she is trying to go for intervention radiology drainage of this fluid collection. Review of Systems Review of Systems: Mild distress and fatigue no headache, no visual changes no speech or swallowing issues no chest pain, pressure or palpitations no shortness of breath, cough or wheezes Abdominal pain distention drain in the left mid quadrant no dysuria, hematuria or frequency no focal joint pain or swelling no back pain, CVA tenderness or radicular pain Open area in the left groin no focal signs of weakness or numbness or altered sensation no complaints of anxiety or depression.. Physical Exam Physical Exam: The patient appeared stable Vital signs as documented. Lungs are clear to auscultation and appear unlabored Cardiac exam, Rhythm is regular.. No murmurs, rubs or gallops. Abdominal exam reveals normal bowel sounds, distended tender healed midline incision drain in the left mid upper quadrant Extremities are nonedematous and both pedal pulses are normal. Neurologic exam is alert and oriented, no focal loss of strength or sensation Skin is with open area to groin appears to be intertrigo we will keep close eye on this case is tracking from her fluid collection Psychologically is without concerns for anxiety or depression. Results & Data Results & Data ([facility]) Vital Signs (Past 12 Hours) Vital Signs Temp Pulse Pulse Resp BP BP Pulse Ox 12/16/21 07:29 81 12/16/21 04:50 75 12/16/21 04:13 12/16/21 04:00 98.8 F 71 18 104/66 95 12/15/21 23:19 97.9 F 72 18 124/68 96 12/15/21 21:36 97.7 F 73 18 121/68 92 12/15/21 20:45 98.2 F 98 H 18 112/71 94 O2 Del Method 12/16/21 07:29 12/16/21 04:50 12/16/21 04:13 Room Air 12/16/21 04:00 Room Air 12/15/21 23:19 Room Air 12/15/21 21:36 Room Air 12/15/21 20:45 PG Care Time/CCT Total # of Minutes Spent Total Time Spent with Patient: Total time spent is greater than 50% in coordination of care (as documented) at patient's floor/unit and/or counseling patient: Coding Level of Care Code 93853 Subseq Hosp Care Lvl 2 Diagnoses Wound infection after surgery T81.49XA Hypomagnesemia E83.42 Hypocalcemia E83.51 HTN (hypertension) I10 CAD (coronary artery disease) I25.10 Diabetes E11.9 Chronic pain syndrome G89.4 RLS (restless legs syndrome) G25.81 Hyperlipidemia E78.5
[2021-12-16] MEDS: oxyCODONE HCL IR 5 MG TAB (IMMEDIATE RELEASE) PO PRN ×4 (08:04→21:41)
[2021-12-16] MEDS: ATORVASTATIN 40 MG TAB PO SCH (08:16)
[2021-12-16] MEDS ORDERED: POTASSIUM CHLORIDE 10 MEQ / 100ML WTR IV STA (11:22)
[2021-12-16] MEDS: ACETAMINOPHEN 325 MG TAB PO PRN (11:25)
[2021-12-16] MEDS: MAGNESIUM SULFATE / D5W 1 GM/100 ML BAG IV SCH ×2 (12:24→14:37)
[2021-12-16] MEDS: POTASSIUM CHLORIDE / WTR 10 MEQ/100 ML PLCT IV SCH ×3 (12:29→15:44)
[2021-12-16] MEDS: FUROSEMIDE 20 MG TAB PO SCH (14:37)
[2021-12-16] MEDS: POTASSIUM CHLORIDE CRTAB 20 MEQ TABCR PO SCH (21:41)
[2021-12-17] MEDS: PIPERACILLIN/TAZOBACTAM 4.5 GM in DEXTROSE 5% 100 ML IV SCH ×4 (00:44→23:50)
[2021-12-17] MEDS: ACETAMINOPHEN 325 MG TAB PO PRN ×2 (00:47→15:08)
[2021-12-17] MEDS ORDERED: POLYETHYLENE (MIRALAX) 17 GM PACK PO PRN (04:02)
[2021-12-17] MEDS: oxyCODONE HCL IR 5 MG TAB (IMMEDIATE RELEASE) PO PRN ×3 (04:28→21:51)
[2021-12-17 06:02] LABS: Basophils # (auto) 0.04 K/uL (0-0.2); Basophils % (auto) 0.5 %; Eosinophils # (auto) 0.38 K/uL (0-0.50); Eosinophils % (auto) 4.6 %; Hematocrit (blood only) 30.5 % (34.1-44.9); Immature Granulocytes # (auto) 0.07 K/uL (0.00-0.02); Immature Granulocytes % (auto) 0.8 %; Lymphocytes # (auto) 1.62 K/uL (1.2-3.4); Lymphocytes % (auto) 19.5 %; Mean Corpuscular Hemoglobin 28.5 pg (25.0-34.0); Mean Corpuscular Hgb Conc 32.8 g/dL (32.0-36.0); Mean Corpuscular Volume 86.9 fL (80.0-100.0); Mean Platelet Volume 9.5 fL (9.4-12.3); Monocytes % (auto) 8.4 %; Neutrophils % (auto) 66.2 %; Platelet Count 368 K/uL (130-400); RDW Coefficient of Variation 13.6 % (11.5-14.5); RDW Standard Deviation 43.2 fL (36.4-46.3); Red Blood Count 3.51 M/uL (3.93-5.22); White Blood Count 8.31 K/ul (4.8-10.8)
[2021-12-17 06:31] LABS: BUN Creatinine Ratio 21.2 (10-20); Calcium 7.9 mg/dl (8.5-10.1); Creatinine Clr Calc Pharmacy 139.3 ml/min; Est GFR (African American) 119.5 ml/min; Est GFR (Non-African American) 103.1 ml/min; Magnesium 1.5 mg/dl (1.7-2.4); Potassium 3.7 mmol/L (3.5-5.1)
--- NOTE | 2021-12-17 07:11 | Hospitalist Progress Note ---
Date of Service December 17, 2021 Assessment & Plan (1) Wound infection after surgery: Plan: -Recurrent abdominal wall incisional hernia S/P open repair and mesh placement at [facility] on 12/07/21 in the week since her surgery, her drainage has turned from serosanguineous to white/yellow, she has also developed increased abdominal pain at the surgical site. -Patient is currently afebrile, hemodynamically stable, and stable on room air -CT findings concerning for infected seroma/abscess, [facility] surgery has accepted the patient but no open beds yet, admitted here for IV antibiotics -Seen by our general surgery team who will follow, they agree with continuing Zosyn for now -Patient does not appear acutely toxic, monitor blood cultures and tailor abx accordingly -Pain control with tylenol for mild pain and oxy 5mg q4h prn for severe pain -AM CBC and BMP (2) Hypomagnesemia: Plan: -replete (3) Hypocalcemia: Plan: Noted to be 8.4 today -Given 1gb calcium gluconate in the ED -Monitor for now (4) HTN (hypertension): Plan: -Hemodynamically stable -Hold lisinopril for now to avoid hypotension with her current infection (5) CAD (coronary artery disease): Plan: -Continue aspirin and plavix (6) Diabetes: Plan: -Hold oral antihyperglycemics -Will start with 5 units lantus BID tonight -Correction factor of 45 and carb ratio 15 (7) Chronic pain syndrome: Plan: -Pain control may be an issue with her history -Try and avoid increasing pain regimen as able (8) RLS (restless legs syndrome): Plan: -Continue requip (9) Hyperlipidemia: Plan: -Continue atorvastatin Admission and Anticipated Discharge Date Admission Date: December 15, 2021 Review of Systems Review of Systems: Mild distress and fatigue no headache, no visual changes no speech or swallowing issues no chest pain, pressure or palpitations no shortness of breath, cough or wheezes Abdominal pain distention drain in the left mid quadrant no dysuria, hematuria or frequency no focal joint pain or swelling no back pain, CVA tenderness or radicular pain Open area in the left groin no focal signs of weakness or numbness or altered sensation no complaints of anxiety or depression.. Physical Exam Physical Exam: The patient appeared stable Vital signs as documented. Lungs are clear to auscultation and appear unlabored Cardiac exam, Rhythm is regular.. No murmurs, rubs or gallops. Abdominal exam reveals normal bowel sounds, distended tender healed midline in cision drain in the left mid upper quadrant Extremities are nonedematous and both pedal pulses are normal. Neurologic exam is alert and oriented, no focal loss of strength or sensation Skin is with open area to groin appears to be intertrigo we will keep close eye on this case is tracking from her fluid collection Psychologically is without concerns for anxiety or depression. Results & Data Results & Data ([facility]) Vital Signs (Past 12 Hours) Vital Signs Temp Pulse Pulse Resp BP BP Pulse Ox 12/17/21 06:53 73 12/16/21 22:17 70 12/17/21 03:34 97.7 F 64 18 117/75 96 12/16/21 22:13 75 12/17/21 00:46 67 16 99/68 L 95 12/16/21 22:58 97.9 F 66 18 103/81 96 12/16/21 20:14 98.2 F 64 18 104/68 98 12/16/21 19:38 O2 Del Method 12/17/21 06:53 12/16/21 22:17 12/17/21 03:34 Room Air 12/16/21 22:13 12/17/21 00:46 Room Air 12/16/21 22:58 Room Air 12/16/21 20:14 Room Air 12/16/21 19:38 Room Air PG Care Time/CCT Total # of Minutes Spent Total Time Spent with Patient: Total time spent is greater than 50% in coordination of care (as documented) at patient's floor/unit and/or counseling patient: Coding Diagnoses Wound infection after surgery T81.49XA Hypomagnesemia E83.42 Hypocalcemia E83.51 HTN (hypertension) I10 CAD (coronary artery disease) I25.10 Diabetes E11.9 Chronic pain syndrome G89.4 RLS (restless legs syndrome) G25.81 Hyperlipidemia E78.5
[2021-12-17] MEDS: INSULIN ASPART PER UNIT SC SCH ×4 (08:49→21:53)
[2021-12-17] MEDS: MAGNESIUM SULFATE / D5W 1 GM/100 ML BAG IV SCH ×2 (08:50→11:15)
[2021-12-17] MEDS: LANTUS PER UNIT CHARGE SQ SCH ×2 (08:50→21:53)
[2021-12-17] MEDS: CLOPIDOGREL BISULFATE 75 MG TAB PO SCH (09:00)
[2021-12-17] MEDS: FUROSEMIDE 20 MG TAB PO SCH (09:00)
[2021-12-17] MEDS: ASPIRIN 81 MG ECTAB PO SCH (09:00)
[2021-12-17] MEDS: FAMOTIDINE 20 MG TAB PO SCH (09:00)
[2021-12-17] MEDS: ATORVASTATIN 40 MG TAB PO SCH (09:00)
[2021-12-17] MEDS: POTASSIUM CHLORIDE CRTAB 20 MEQ TABCR PO SCH ×2 (09:00→21:52)
[2021-12-17] MEDS: rOPINIRole HCL 1 MG TABLET PO SCH ×3 (09:00→21:52)
[2021-12-17] MEDS: PANTOprazole 40 MG TAB PO SCH ×2 (09:00→21:51)
--- NOTE | 2021-12-17 18:18 | Discharge Summary ---
Date of Service December 17, 2021 Admission HPI Per Admitting Provider Jia is a 61 year old female with a PMH significant for recurrent abdominal wall incisional hernia S/P open repair and mesh placement at [facility] on 12/07/21, DM II, HTN, hyperlipidemia, chronic pain syndrome, CAD, methamphetamine abuse, fibromyalgia, and restless leg syndrome who presented to the [facility] ED on 12/15/21 due to concerns for surgical site infection. The patient currently has a drain in place, In the last week, her drainage has turned from serosanguineous to white/yellow, she has also developed increased abdominal pain at the surgical site. In the ED the patient was found to be afebrile, hemodynamically stable, and stable on RA. Labs were remarkable for a leukocytosis of 13.28, glucose of 206, calcium of 8.4, magnesium of 1.4. CT of the abdomen and pelvis with IV contrast revealed a 24 x 12 x 4 cm peripheral enhancing gas and fluid collection within the midline of the anterior abdominal wall concerning for abscess. She was evaluated by General Surgery who recommended IV antibiotics and transfer to [facility] to receive further care as the abscess will likely need to be drained by IR. [facility] was contacted and accepted the patient, however, they may not have an available bed for 24+ hours, for this reason we were asked to admit the patient until she receives a bed at [facility]. In the ED the patient was given a dose of Zosyn, dilaudid, zofran, and 2g of magnesium sulfate. At the time of the exam the patient was lying in bed crying because she does not want to be thought of as a pain medication seeker. I explained to her that she has a legitimate reason to have pain at this time. She states that she started developing increased abdominal pain and discolored drainage from her abdominal drain approximately 1 week ago. She saw a [facility] provider gem Lawson today who was concerned for mesh infection and sent her to the ED. Her pain is currently a 5/10 after receiving dilaudid prior to my exam. She has been having fevers and chills but has been able to eat and drink well. She denies chest pain/SOB, dysuria, hematuria, bloody bowel movements and increased leg swelling. She understands that we will until she gets a bed a [facility]. Principal Diagnosis abdominal wall abscess, post op transfer for [facility] for IR drainage Discharge Exam The patient appeared stable Vital signs as documented. Lungs are clear to auscultation and appear unlabored Cardiac exam, Rhythm is regular.. No murmurs, rubs or gallops. Abdominal exam reveals normal bowel sounds, soft drain in the left mid quadrant open area in the inguinal area does not appear infected Extremities are nonedematous and both pedal pulses are normal. Neurologic exam is alert and oriented, no focal loss of strength or sensation Skin is without bruises or rashes Psychologically is without concerns for anxiety or depression. Discharge Data Allergies Allergy/AdvReac Type Severity Reaction Status Date / Time amoxicillin Allergy Intermediate DIARRHEA Verified 12/15/21 19:35 clavulanic acid Allergy Intermediate DIARRHEA Verified 12/15/21 19:35 morphine Allergy Mild Unknown Verified 12/15/21 19:35 adhesive Allergy Unknown Unknown Verified 12/15/21 19:35 clonazepam Allergy Unknown blacks out Verified 12/15/21 19:35 Consultations 12/15/21 18:10 ED Decision to Admit Stat 12/17/21 18:01 Burn CD for patient Stat Ordered Studies 12/15/21 16:15 CT abd pelvis IV con only Stat Hospital Course (1) Wound infection after surgery: -Recurrent abdominal wall incisional hernia S/P open repair and mesh placement at [facility] on 12/07/21 in the week since her surgery, her drainage has turned from serosanguineous to white/yellow, she has also developed increased abdominal pain at the surgical site. -Patient is currently afebrile, hemodynamically stable, and stable on room air -CT findings concerning for infected seroma/abscess, [facility] surgery has accepted the patient but no open beds yet, admitted here for IV antibiotics -Seen by our general surgery team agree with continuing Zosyn for now -Patient does not appear acutely toxic, monitor blood cultures and tailor abx accordingly -Pain control with tylenol for mild pain and oxy 5mg q4h prn for severe pain (2) Hypomagnesemia: -replete (3) Hypocalcemia: Noted to be 8.4 today -Given 1gb calcium gluconate in the ED -Monitor for now (4) HTN (hypertension): -Hemodynamically stable -Hold lisinopril for now to avoid hypotension with her current infection (5) CAD (coronary artery disease): -Continue aspirin and plavix (6) Diabetes: -Hold oral antihyperglycemics -Will start with 5 units lantus BID tonight -Correction factor of 45 and carb ratio 15 (7) Chronic pain syndrome: -Pain control may be an issue with her history -Try and avoid increasing pain regimen as able (8) RLS (restless legs syndrome): -Continue requip (9) Hyperlipidemia: -Continue atorvastatin Total Time Total Time Spent Total Time Spent (In Minutes): It required greater than 30 minutes to prepare this patient for discharge Discharge Plan Discharge Items Patient Disposition: Transfer Acute Care Hospital Reason For Visit: CONCERN FOR INFECTION Discharge Diagnosis: [id number] peripheral enhancing gas containing fluid collectionin the subcutaneous space after recent hernia repair with mesh, concern for infection may benefit from IR drainage Condition on Discharge: Fair Activity: Per Instructions section Activity Comment: as per sohaer discharge instructions Non-emergency contact: Surgeon Call non-emergency contact if: your symptoms worsen Follow-up/Referrals: Lo Esposito MD [Primary Care Provider] - Diet: Carb Consistent or DM2 Addtl Attending Provider Instructions: . Blood cultures x2 from 12/15 are negative to date Pending Studies at Discharge: Yes Stand-Alone Forms: My [facility] Skilled Items Patient informed of condition?: Yes DNR: Yes Discharge Level of Care: Other Communicable Disease: No Discharge Prognosis: Stable Lines: Peripheral IV Urinary Catheter: Yes Medications and DC Order Prescriptions: New Zosyn in dextrose (iso-osm) 3.375 gram/50 mL piggyback 4.5 g IV Q8H 10 Days Qty: 2250 0RF insulin aspart U-100 [Novolog U-100 Insulin aspart] 100 unit/mL Solution 1 unit SC ACHS Qty: 1 0RF Rx Instructions: Goal 1 10-1 60, correction factor 45, carb ratio 15 insulin glargine [Lantus U-100 Insulin] 100 unit/mL Solution 5 unit subcut BID Qty: 1 0RF Continued ondansetron 4 mg film 4 mg PO Q6H PRN (Reason: nausea and vomiting) famotidine 20 mg tablet 20 mg PO DAILY senna 8.6 mg capsule 8.6 mg PO BID aspirin 81 mg tablet,delayed release (DR/EC) 81 mg PO QAM Qty: 100 2RF fluticasone propionate 50 mcg/actuation spray,suspension 2 spray intranasal DAILY Qty: 16 2RF Rx Instructions: administer into each nostril pantoprazole 40 mg tablet,delayed release (DR/EC) 40 mg PO BID Qty: 60 1RF atorvastatin 80 mg tablet 80 mg PO QAM Qty: 90 3RF (DME) OneTouch Verio test strips Strip See Rx Instructions .Route Qty: 100 1RF Rx Instructions: test TID with insulin use albuterol sulfate 90 mcg/actuation HFA aerosol inhaler 1 inh inhalation Q6H PRN (Reason: shortness of breath or wheezing) Qty: 8.5 0RF docusate sodium 100 mg capsule 100 mg PO BID Qty: 60 5RF clopidogrel 75 mg tablet 75 mg PO QAM furosemide 20 mg tablet 20 mg PO DAILY Qty: 30 1RF ropinirole 1 mg tablet 1 mg PO TID oxycodone 5 mg tablet 5 mg PO Q8H PRN (Reason: Pain) Discontinued acetaminophen 325 mg capsule 325 mg PO QID PRN (Reason: Pain) Rx Instructions: take 3 tabs every 6 hours for incisional pain Tradjenta 5 mg tablet 5 mg PO DAILY metformin 1,000 mg tablet 1,000 mg PO BID Qty: 180 3RF lisinopril 20 mg tablet 20 mg PO DAILY Qty: 90 3RF Hold Instructions: normal BP loratadine [Claritin] 10 mg tablet 10 mg PO DAILY Qty: 30 5RF nitroglycerin [Nitrostat] 0.4 mg tablet, sublingual 0.4 mg sublingual PRN PRN (Reason: chest pain) Qty: 25 1RF Rx Instructions: NEEDED FOR CHEST PAIN : ONE TAB UNDER THE TONGUE EVERY 5 MINUTES, UP TO THREE DOSES. Discharge Orders: Discharge Order (Routine); Ordered 12/17/21 Ordered By: Chon Ingram Admission Data Admit Date/Time: 12/15/21 18:43 Attending Provider: Chon Ingram Admit Provider: Sandeep Rojas Primary Care Provider: Lo Esposito V. Other Providers: Sandeep Rojas Coding Level of Care Code D/C DAY MANAGEMENT >30 MINS Diagnoses Wound infection after surgery T81.49XA Hypomagnesemia E83.42 Hypocalcemia E83.51 HTN (hypertension) I10 CAD (coronary artery disease) I25.10 Diabetes E11.9 Chronic pain syndrome G89.4 RLS (restless legs syndrome) G25.81 Hyperlipidemia E78.5
[2021-12-17] MEDS ORDERED: SENNA 8.6 MG TAB PO ONE (23:53)
[2021-12-18] MEDS: ACETAMINOPHEN 325 MG TAB PO PRN (01:25)
[2021-12-18] MEDS: oxyCODONE HCL IR 5 MG TAB (IMMEDIATE RELEASE) PO PRN ×2 (03:04→07:13)
[2021-12-18 07:23] LABS: Basophils # (auto) 0.04 K/uL (0-0.2); Basophils % (auto) 0.5 %; Eosinophils # (auto) 0.33 K/uL (0-0.50); Eosinophils % (auto) 4.5 %; Hematocrit (blood only) 30.7 % (34.1-44.9); Hemoglobin 9.9 g/dl (12.0-16.0); Immature Granulocytes # (auto) 0.05 K/uL (0.00-0.02); Immature Granulocytes % (auto) 0.7 %; Lymphocytes # (auto) 2.04 K/uL (1.2-3.4); Lymphocytes % (auto) 27.8 %; Mean Corpuscular Hemoglobin 28.1 pg (25.0-34.0); Mean Corpuscular Hgb Conc 32.2 g/dL (32.0-36.0); Mean Corpuscular Volume 87.2 fL (80.0-100.0); Mean Platelet Volume 9.5 fL (9.4-12.3); Monocytes # (auto) 0.74 K/uL (0.24-0.82); Monocytes % (auto) 10.1 %; Neutrophils # (auto) 4.14 K/uL (1.4-6.5); Neutrophils % (auto) 56.4 %; Platelet Count 387 K/uL (130-400); RDW Coefficient of Variation 13.8 % (11.5-14.5); RDW Standard Deviation 43.2 fL (36.4-46.3); Red Blood Count 3.52 M/uL (3.93-5.22); White Blood Count 7.34 K/ul (4.8-10.8)
[2021-12-18] MEDS: CLOPIDOGREL BISULFATE 75 MG TAB PO SCH (07:29)
[2021-12-18] MEDS: ATORVASTATIN 40 MG TAB PO SCH (07:29)
[2021-12-18] MEDS: FAMOTIDINE 20 MG TAB PO SCH (07:29)
[2021-12-18] MEDS: PANTOprazole 40 MG TAB PO SCH (07:29)
[2021-12-18] MEDS: ASPIRIN 81 MG ECTAB PO SCH (07:29)
[2021-12-18] MEDS: rOPINIRole HCL 1 MG TABLET PO SCH (07:29)
--- NOTE | 2021-12-18 07:50 | Discharge Summary ---
Discharge Summary Date of Service December 18, 2021 Admission HPI Per Admitting Provider Jia is a 61 year old female with a PMH significant for recurrent abdominal wall incisional hernia S/P open repair and mesh placement at [facility] on 12/07/21, DM II, HTN, hyperlipidemia, chronic pain syndrome, CAD, methamphetamine abuse, fibromyalgia, and restless leg syndrome who presented to the [facility] ED on 12/15/21 due to concerns for surgical site infection. The patient currently has a drain in place, In the last week, her drainage has turned from serosanguineous to white/yellow, she has also developed increased abdominal pain at the surgical site. In the ED the patient was found to be afebrile, hemodynamically stable, and stable on RA. Labs were remarkable for a leukocytosis of 13.28, glucose of 206, calcium of 8.4, magnesium of 1.4. CT of the abdomen and pelvis with IV contrast revealed a 24 x 12 x 4 cm peripheral enhancing gas and fluid collection within the midline of the anterior abdominal wall concerning for abscess. She was evaluated by General Surgery who recommended IV antibiotics and transfer to [facility] to receive further care as the abscess will likely need to be drained by IR. [facility] was contacted and accepted the patient, however, they may not have an available bed for 24+ hours, for this reason we were asked to admit the patient until she receives a bed at [facility]. In the ED the patient was given a dose of Zosyn, dilaudid, zofran, and 2g of magnesium sulfate. At the time of the exam the patient was lying in bed crying because she does not want to be thought of as a pain medication seeker. I explained to her that she has a legitimate reason to have pain at this time. She states that she started developing increased abdominal pain and discolored drainage from her abdominal drain approximately 1 week ago. She saw a [facility] provider gem Lawson today who was concerned for mesh infection and sent her to the ED. Her pain is currently a 5/10 after receiving dilaudid prior to my exam. She has been having fevers and chills but has been able to eat and drink well. She denies chest pain/SOB, dysuria, hematuria, bloody bowel movements and increased leg swelling. She understands that we will until she gets a bed a [facility]. Admission Exam Per Admitting Provider General: In no acute distress, stated age, chronically ill-appearing HEENT: Normocephalic, atraumatic, no scleral icterus, pupils around round, symmetrical, and reactive to light, moist mucus membranes, trachea midline, no thyromegaly Chest/Pulm: No respiratory distress, symmetrical chest expansion, clear breath sounds throughout Cardiac: RRR, no murmurs noted Abdomen: patient with surgical drain in place in the left lower quadrant, currently draining infected appearing fluid, large central abdominal scar appears well-healing and intact, soft, tender to palpation in the bilateral lower abdominal nix Musculoskeletal: Symmetrical and without signs of acute trauma, upper and lower extremities with full ROM, no atrophy, spasticity, or flaccidity Extremities: Radial, dorsalis pedis, and posterior tibial pulses are intact and symmetrical, no edema noted in the BL LE's Skin: Warm, dry, no rashes , lesions, or scars noted Neuro: Alert and oriented to person, place, month, year, and president, no focal defects, CN II-XII tested and intact, finger to nose test negative, no tremors noted Psych: Anxious/tearful, but cooperative during the exam Principal Dx & Hospital Course #1 = Principal Diagnosis (1) Wound infection after surgery: 61-year-old female past medical history significant for CAD, type 2 diabetes, hypertension, recurrent abdominal wall incisional hernia status post open repair and mesh in November of this year admitted for infected seroma/abscess. Wound infection after surgery: Underwent recurrent abdominal wall hernia open repair and mesh placement at [facility] on 12/07/2021. Presented to the ER for concerns for surgical site infection. Noted to have leukocytosis on admission. CT abdomen and pelvis showed 24 x 12 x 4 cm fluid collection concerning for abscess. Blood cultures negative x48 hours. Has been receiving Zosyn since admission. For transfer today to [facility] for IR drainage. Hypomagnesemia: Repleted. Hypocalcemia: Noted to be 8.1 today. Transfer as above to [facility]. HTN (hypertension): Hemodynamically stable Lisinopril held; BP 110 systolic without medications. CAD (coronary artery disease): Continue aspirin and plavix. Diabetes: Oral antihyperglycemic's held in favor of basal bolus insulin while admitted. Chronic pain syndrome: Has a history of substance use disorder, however patient has a notable reason for having abdominal pain at this time given abscess/infected seroma. Patient was on oxycodone 5 mg p.o. every 4 hours, requiring this medication every 6 hours or so. RLS (restless legs syndrome): Continue Requip. Hyperlipidemia: Continue atorvastatin. Dispo: Transfer to [facility] (2) Hypomagnesemia: (3) Hypocalcemia: (4) HTN (hypertension): (5) CAD (coronary artery disease): (6) Diabetes: (7) Chronic pain syndrome: (8) RLS (restless legs syndrome): (9) Hyperlipidemia: Discharge Exam Constitutional WD/WN, vitals as above Respiratory normal respiratory effort; no respiratory distress, no labored breathing, no cough and not tachypneic Psychiatric Orientation: alert and oriented x 3 Affect: + tearful affect Updated Medication List Medication Instructions Recorded Confirmed Type ropinirole 1 mg tablet 1 mg PO TID 03/30/20 12/15/21 History albuterol sulfate 90 mcg/actuation 1 inh inhalation Q6H PRN shortness 09/13/21 12/15/21 Rx aerosol inhaler of breath or wheezing #8.5 grams blood sugar diagnostic (OneTouch #100 ea 09/13/21 12/06/21 Rx Verio test strips) docusate sodium 100 mg capsule 100 mg PO BID #60 caps 09/13/21 12/15/21 Rx aspirin 81 mg tablet,delayed 81 mg PO QAM #100 tabs 10/07/21 12/15/21 Rx release atorvastatin 80 mg tablet 80 mg PO QAM #90 tabs 10/07/21 12/15/21 Rx fluticasone propionate 50 2 spray intranasal DAILY #16 grams 10/07/21 12/15/21 Rx mcg/actuation nasal spray,suspension pantoprazole 40 mg tablet,delayed 40 mg PO BID #60 tabs 10/07/21 12/15/21 Rx release famotidine 20 mg tablet 20 mg PO DAILY 12/01/21 12/15/21 History ondansetron 4 mg oral soluble film 4 mg PO Q6H PRN nausea and vomiting 12/01/21 12/15/21 History sennosides 8.6 mg capsule (senna) 8.6 mg PO BID 12/01/21 12/15/21 History clopidogrel 75 mg tablet 75 mg PO QAM 12/06/21 12/15/21 History furosemide 20 mg tablet 20 mg PO DAILY #30 tabs 12/06/21 12/15/21 Rx oxycodone 5 mg tablet 5 mg PO Q8H PRN Pain 12/15/21 12/15/21 History insulin aspart U-100 100 unit/mL 1 unit (0.01 mL) SC ACHS #1 mL 12/17/21 Rx subcutaneous solution (Novolog U-100 Insulin aspart) insulin glargine 100 unit/mL 5 unit (0.05 mL) subcut BID #1 mL 12/17/21 Rx subcutaneous solution (Lantus U-100 Insulin) piperacillin-tazobactam 3.375 4.5 g (75 mL) IV Q8H 10 days 12/17/21 Rx gram/50 mL dextrose(iso-os) IV #2,250 mL piggyback (Zosyn) Hospital Stay Data Consultations 12/15/21 18:10 ED Decision to Admit Stat 12/17/21 18:01 Burn CD for patient Stat Diagnostic Imagining Performed 12/15/21 16:15 CT abd pelvis IV con only Stat Pending Results Patient Have Any Pending Studies at Discharge: Yes Discharge Instructions Given to Patient (Per Discharging Provider) . Blood cultures x2 from 12/15 are negative to date Total Time Total Time Spent Total Time Spent (In Minutes): 35 Coding Level of Care Code D/C DAY MANAGEMENT >30 MINS Diagnoses Wound infection after surgery T81.49XA Hypomagnesemia E83.42 Hypocalcemia E83.51 HTN (hypertension) I10 CAD (coronary artery disease) I25.10 Diabetes E11.9 Chronic pain syndrome G89.4 RLS (restless legs syndrome) G25.81 Hyperlipidemia E78.5
[2021-12-18 07:58] LABS: BUN Creatinine Ratio 19.6 (10-20); Calcium 8.1 mg/dl (8.5-10.1); Creatinine Clr Calc Pharmacy 157.7 ml/min; Est GFR (African American) 124.4 ml/min; Est GFR (Non-African American) 107.4 ml/min; Potassium 3.9 mmol/L (3.5-5.1)
[2021-12-18] MEDS: INSULIN ASPART PER UNIT SC SCH (08:08)
[2021-12-18 17:16] LABS: Anion Gap 5.9 (3-11)
== END 2021-12-18 08:56 | disposition short-term general hospital (02) | DRG 920 ==
LOC: ED 13:34 → 2N 18:43 → SUATTDRO 18:43 → 2N 20:46

== ENCOUNTER 2022-06-01 14:18 | Observation (INO) ==
[~2022-06-01 14:18] MED LIST changes: -ADVIN25/60 INH; -AMIT25TA9 PO; -ATOR10TA82 PO; -FLUT0.15 NAE; -GLC/500 PO; +LANTUS PER UNIT CHARGE SQ ONE; -LISI-725 PO; -OMEP20CA9 PO; -OXYC-737 PO; -ROPI1TAB29 PO; -RTL10 PO; -SUCR1TAB PO; -ZOLP5TAB6 PO
[2022-06-01] MEDS ORDERED: ALBUT/IPRATROP 3MG/0.5MG NEB 3 ML VIAL NEB ONE (15:06)
[2022-06-01] MEDS ORDERED: BENZONATATE 100 MG CAPSULE PO ONE (15:06)
[2022-06-01] MEDS ORDERED: methylPREDNISolone 125 MG/2 ML VIAL IV STA (15:06)
[2022-06-01] MEDS ORDERED: SODIUM CHLORIDE 0.9% 1000ML 500 ML IV ONE (15:06)
[2022-06-01] MEDS ORDERED: IBUPROFEN 200 MG TAB PO STA (15:07)
[2022-06-01 15:13] LABS: Basophils # (auto) 0.02 K/uL (0-0.2); Basophils % (auto) 0.4 %; Eosinophils # (auto) 0.01 K/uL (0-0.50); Eosinophils % (auto) 0.2 %; Hematocrit (blood only) 39.4 % (37.0-47.0); Immature Granulocytes # (auto) 0.02 K/uL (0.01-0.20); Immature Granulocytes % (auto) 0.4 %; Lymphocytes # (auto) 1.05 K/uL (1.2-3.4); Lymphocytes % (auto) 20.5 %; Mean Corpuscular Hemoglobin 27.2 pg (25.0-34.0); Mean Corpuscular Volume 82.4 fL (80.0-100.0); Mean Platelet Volume 9.9 fL (9.4-12.4); Monocytes # (auto) 0.44 K/uL (0.11-0.59); Monocytes % (auto) 8.6 %; Neutrophils # (auto) 3.59 K/uL (1.40-6.50); Neutrophils % (auto) 69.9 %; Platelet Count 221 K/uL (130-400); RDW Coefficient of Variation 15.9 % (11.5-14.5); RDW Standard Deviation 47.9 fL (36.4-46.3); Red Blood Count 4.78 M/uL (4.20-5.40); White Blood Count 5.13 K/ul (4.8-10.8)
[2022-06-01 15:23] LABS: Appearance Urine Cloudy (Clear); Bacteria Urine Automated 4+ (Negative); Bilirubin Urine Negative (Negative); Blood Urine Negative (Negative); Color Urine Dark Yellow; Epithelial Cell Urine Auto >30 /lpf (0-5); Glucose Urine UA Negative (Negative); Ketones Urine Trace (Negative); Leukocyte Esterase Urine 1+ (Negative); Nitrite Urine Positive (Negative); Protein Urine 2+ (Negative); RBC Urine Automated 0-4 /hpf (0-4); Specific Gravity Urine 1.026 (1.000-1.030); Urobilinogen Urine Negative (Negative); pH Urine 5.5 (4.5-7.5)
[2022-06-01 15:34] LABS: Albumin Globulin Ratio 1.1 (0.9-2); Albumin Level 3.5 gm/dl (3.4-5.0); BUN Creatinine Ratio 28.3 (10-20); Bilirubin,Total 0.4 mg/dl (0.2-1.0); Calcium 8.5 mg/dl (8.6-10.3); Creatinine Clr Calc Pharmacy 148.8 ml/min; Est GFR (African American) 124.4 ml/min; Est GFR (Non-African American) 107.4 ml/min; Globulin 3.1 gm/dl (2.5-4.0); Potassium 3.3 mmol/L (3.5-5.1); Total Protein 6.6 gm/dl (6.0-8.3)
[2022-06-01 15:39] LABS: Troponin I High Sensitivity 26.6 pg/ml (0-14)
--- NOTE | 2022-06-01 15:42 | Emergency Department Note ---
Impression & Plan Hypoxia, Cough, Tobacco abuse, Acute UTI, Weakness ED Provider Note Provider: Gianni Zuñiga MD DATE OF SERVICE: 06/01/2022 CHIEF COMPLAINT: Cough, weakness HISTORY OF PRESENT ILLNESS: Patient is a 61-year-old female history of CAD, gastric bypass, chronic pain syndrome, RLS, diabetes, and smoking presenting here today stating she has been ill for approximately 4 days since the weekend. Did recently help take care of her daughter who had a bronchitis. Was treated for UTI empirically just over a week ago. Reports that she has been using Tylenol and Advil regularly as well as Tessalon Perles for cough but having some thick brown sputum with her cough. States that she has been having pain related to her coughing and a bit of a sore throat. Denies nausea vomiting or diarrhea. Reports generalized weakness and much increased fatigue. Not only oxygen at home has been too sick for the last 2 days to smoke which she normally does smoke. Home albuterol has not been helping her. Last took Tylenol and Advil at 830 this morning with her Tessalon Perle. No travel reported. No significant leg swelling. No trauma reported. States she feels concerned to be at home given that she feels so weak. Not eating and drinking well. PAST MEDICAL HISTORY: As noted above MEDICATIONS: Reviewed home medications includes home albuterol and baby aspirin SOCIAL HISTORY: Smoker, lives by herself PHYSICAL EXAM: GENERAL: alert and oriented in no acute distress on stretcher quite fatigued in appearance Head: normocephalic and atraumatic EYES: No injection, discharge or icterus. NECK: Trachea midline. Supple. ENT: Mucous membranes pink and moist. Pharynx without erythema or exudate. LUNGS: Airway patent. No retractions. Breath sounds diminished with some expiratory wheeze HEART: Regular rate and rhythm. No chest wall tenderness ABDOMEN: Soft and non-tender, without guarding or rebound. SKIN: Acyanotic, warm, dry, without rashes EXTREMITIES: Without swelling, tenderness or deformity NEUROLOGICAL: No focal deficits. No aphasia. No facial droop or slurred speech. EK bpm sinus rhythm occasional PVC. No acute ST segment elevation or depression with some nonspecific lateral T wave changes. QTc 453. CONTINUOUS CARDIAC MONITORING: was ordered and showed a heart rate of bpm in Patient's laboratory studies and imaging reviewed. Differential includes Infection, dehydration, metabolic abnormality, hypo/hyperglycemia, electrolyte disturbance, anemia, hypoxia, cardiac sources, gastrointestinal issues as well as other pathologies. IMPRESSION/MEDICAL DECISION MAKING: Patient with several days of illness normally a smoker with no clear history of emphysema but likely some underlying component of this found to be hypoxic. Febrile upon arrival. Recent empiric treatment with Bactrim for UTI according to reviewed medical records. No travel or significant leg swelling. Does report her daughter was recently ill. Chest x-ray and basic blood work ordered. Not horribly wheezy but not moving a good amount of air and given her smoking history given a dose of steroids as well as Solu-Medrol. Urinalysis questions and infection although there are some epithelial cells. Laboratory studies without significant anemia or leukocytosis. Borderline hyponatremia and hypokalemia but no significant renal dysfunction. No evidence of hepatitis. Given some gentle IV hydration given her decreased intake. Mild troponin elevation of 26 is noted; unclear exact baseline with the high-sensitivity assay. Chest x-ray questions may be a little bit of pulmonary edema but again she does not examine significantly fluid overloaded and reports decreased fluid intake. Do not see a clear consolidation. Patient after breathing treatment and steroids still desaturates into the mid 80s at rest. Given some additional Tylenol for chest wall pain. Discussed with her and she very much feels uncomfortable going home and wishes to stay and given her hypoxia feel this is reasonable. Lower suspicion this represents acute PE given the cough and wheeze on exam. Would likely a viral illness is affecting her. She is COVID-negative today. Discussed with the hospitalist. Does endorse some urinary symptoms. DIAGNOSIS: Hypoxia, shortness of breath, acute UTI, weakness DISPOSITION: Hospitalist will evaluate Patient was agreeable with this plan. Past Med/Surg History Medical History Abdominal wall abscess Abscess of vulva Acute cholecystitis Acute hyperglycemia Acute ST elevation myocardial infarction (STEMI) of inferior wall Anastomotic ulcer S/P gastric bypass Anxiety and depression Bloody emesis Bronchitis Chronic pain syndrome Corneal abrasion COVID-19 DVT prophylaxis Fibromyalgia Gastric ulcer HTN (hypertension) Hypocalcemia Hypomagnesemia Incarcerated hernia Insomnia L1 vertebral fracture Left corneal abrasion Leukocytosis Leukocytosis Methamphetamine abuse Migraine Open thigh wound Pneumonia Restless leg syndrome Traumatic wound UTI (lower urinary tract infection) Ventral hernia Wound infection after surgery Surgical History H/O gastric bypass H/O knee surgery H/O: hysterectomy History of ankle surgery S/P anal fissurectomy S/P cholecystectomy S/P recurrent ventral herniorrhaphy S/P tonsillectomy S/P ventral herniorrhaphy Family History Father Myocardial infarction Leukemia Sister Ovarian cancer Myocardial infarction Other Family history of diabetes mellitus Hypertension Denies family history of Prostate cancer Breast cancer Colorectal cancer Social History Smoking Status: Current some day smoker Tobacco Type: Cigarettes packs per day: 1.5; Cigarettes Per Day: 12-15; Second Hand Exposure: No; Hx Alcohol Use: No Hx Substance Use: No Preferred Language: Mozambican Communication Ability: Effective Visual Impairment: No Limitations Senior Engineering 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 Required: No Beliefs That Will Affect Care: None marital status: Current Living Situation: Alone current occupational status: unemployed and disabled How many Children do You have: 2 Feels Safe at Home: Yes Childhood Exposure to Second-Hand Smoke: Yes during the past year weight has: remained stable Dental Care, Regularly: No Physical Activity Frequency: Does not Exercise Seatbelt Use: always Sunscreen Use: Yes Assistive Devices: Glasses Allergies Allergies Allergy/AdvReac Type Severity Reaction Status Date / Time morphine Allergy Intermediate Hives Verified 05/24/22 12:17 adhesive Allergy Unknown Unknown Verified 05/19/22 09:21 clonazepam Allergy Unknown short term Verified 05/24/22 12:17 memory loss amoxicillin [From Augmentin] AdvReac Diarrhea Verified 05/24/22 12:18 clavulanic acid AdvReac Diarrhea Verified 05/24/22 12:18 [From Augmentin] Home Meds Home Medications Medication Instructions Recorded Confirmed ondansetron 4 mg oral soluble film 4 mg PO Q6H PRN nausea and vomiting 12/01/21 06/01/22 sennosides 8.6 mg capsule (senna) 8.6 mg PO BID 12/01/21 06/01/22 lisinopril 10 mg tablet 10 mg PO DAILY 05/24/22 06/01/22 Previous Rx's Medication Instructions Recorded docusate sodium 100 mg capsule 100 mg PO BID #60 caps 09/13/21 fluticasone propionate 50 2 spray intranasal DAILY #16 grams 10/07/21 mcg/actuation nasal spray,suspension cholecalciferol (vitamin D3) 1,250 50,000 unit PO WK #12 caps 03/29/22 mcg (50,000 unit) capsule aspirin 81 mg tablet,delayed 81 mg PO QAM #90 tabs 05/02/22 release atorvastatin 80 mg tablet 80 mg PO QAM #90 tabs 05/02/22 blood sugar diagnostic (OneTouch #100 ea 05/02/22 Verio test strips) blood-glucose meter (OneTouch #1 ea 05/02/22 Verio Flex Meter) clopidogrel 75 mg tablet 75 mg PO QAM #90 tabs 05/02/22 famotidine 20 mg tablet 20 mg PO DAILY #90 tabs 05/02/22 lancets 33 gauge (OneTouch Delica #100 ea 05/02/22 Lancets) linagliptin 5 mg tablet (Tradjenta) 5 mg PO QAM #90 tabs 05/02/22 metformin 1,000 mg tablet 1,000 mg PO BID #180 tabs 05/02/22 pantoprazole 40 mg tablet,delayed 40 mg PO BID #60 tabs 05/02/22 release ropinirole 1 mg tablet 1 mg PO TID #270 tabs 05/29/22 albuterol sulfate 90 mcg/actuation 2 inh inhalation Q6H PRN shortness 05/30/22 aerosol inhaler of breath or wheezing #8.5 grams benzonatate 200 mg capsule 200 mg PO TID PRN cough #30 caps 05/30/22 Results & Data (ED) Vital Signs Vital Signs - 24 hr 06/01/22 14:25 06/01/22 14:25 06/01/22 14:25 Temperature 38.3 C H 38.3 C H Temperature Source Oral Oral Pulse Rate 82 Pulse Rate [Right Apical] 82 Pulse Rate from SpO2 Sensor Respiratory Rate 18 18 Respiratory Effort / Characteristics Non-Labored Spontaneous Non-Labored Spontaneous Respiratory Depth Normal Normal Respiratory Pattern Regular Regular Blood Pressure 123/65 Blood Pressure [Left Arm] 123/65 Blood Pressure Mean 84 Blood Pressure Mean [Left Arm] 84 Pulse Oximetry 93 93 93 Oxygen Delivery Method Nasal Cannula Nasal Cannula Nasal Cannula Oxygen Flow Rate 2 2 2 Sepsis Recent Fever Within 48 Hours Yes Sepsis New/Unexplained Change in Mental Status No Sepsis Action Taken by Nursing No Action Required 06/01/22 14:32 06/01/22 14:52 06/01/22 14:31 Temperature Temperature Source Pulse Rate 87 89 81 Pulse Rate [Right Apical] Pulse Rate from SpO2 Sensor 76 Respiratory Rate 18 18 Respiratory Effort / Characteristics Respiratory Depth Respiratory Pattern Blood Pressure 134/69 Blood Pressure [Left Arm] Blood Pressure Mean 90 Blood Pressure Mean [Left Arm] Pulse Oximetry 99 94 Oxygen Delivery Method Nasal Cannula Nasal Cannula Oxygen Flow Rate 2 2 Sepsis Recent Fever Within 48 Hours Sepsis New/Unexplained Change in Mental Status Sepsis Action Taken by Nursing 06/01/22 15:00 06/01/22 15:00 06/01/22 15:44 Temperature Temperature Source Pulse Rate 79 Pulse Rate [Right Apical] 80 Pulse Rate from SpO2 Sensor 77 Respiratory Rate 28 H 20 Respiratory Effort / Characteristics Spontaneous Respiratory Depth Respiratory Pattern Blood Pressure 123/81 Blood Pressure [Left Arm] Blood Pressure Mean 95 Blood Pressure Mean [Left Arm] Pulse Oximetry 87 L 94 92 Oxygen Delivery Method Room Air Oxygen Flow Rate Sepsis Recent Fever Within 48 Hours Sepsis New/Unexplained Change in Mental Status Sepsis Action Taken by Nursing 06/01/22 16:23 06/01/22 15:30 06/01/22 16:22 Temperature 36.8 C Temperature Source Oral Pulse Rate 76 87 Pulse Rate [Right Apical] Pulse Rate from SpO2 Sensor 74 86 Respiratory Rate 29 H 19 Respiratory Effort / Characteristics Respiratory Depth Respiratory Pattern Blood Pressure 130/78 132/76 Blood Pressure [Left Arm] Blood Pressure Mean 95 94 Blood Pressure Mean [Left Arm] Pulse Oximetry 94 97 Oxygen Delivery Method Nasal Cannula Nasal Cannula Oxygen Flow Rate 2 2 Sepsis Recent Fever Within 48 Hours Sepsis New/Unexplained Change in Mental Status Sepsis Action Taken by Nursing 06/01/22 17:00 Temperature Temperature Source Pulse Rate 84 Pulse Rate [Right Apical] Pulse Rate from SpO2 Sensor 83 Respiratory Rate 27 H Respiratory Effort / Characteristics Respiratory Depth Respiratory Pattern Blood Pressure 145/93 H Blood Pressure [Left Arm] Blood Pressure Mean 110 Blood Pressure Mean [Left Arm] Pulse Oximetry 91 Oxygen Delivery Method Nasal Cannula Oxygen Flow Rate 2 Sepsis Recent Fever Within 48 Hours Sepsis New/Unexplained Change in Mental Status Sepsis Action Taken by Nursing Laboratory Data 06/01/22 14:34 06/01/22 14:34 Lab Results 06/01/22 06/01/2223 Range/Units 14:34 14:34 14:34 WBC 5.13 (4.8-10.8) K/ul RBC 4.78 (4.20-5.40) M/uL Hgb 13.0 (12.0-16.0) g/dl Hct 39.4 (37.0-47.0) % MCV 82.4 (80.0-100.0) fL MCH 27.2 (25.0-34.0) pg MCHC 33.0 (32.0-36.0) g/dL RDW Std Deviation 47.9 H (36.4-46.3) fL RDW Coeff of Rubi 15.9 H (11.5-14.5) % Plt Count 221 (130-400) K/uL MPV 9.9 (9.4-12.4) fL Immature Gran % (Auto) 0.4 % Neut % (Auto) 69.9 % Lymph % (Auto) 20.5 % [place] % (Auto) 8.6 % Eos % (Auto) 0.2 % Baso % (Auto) 0.4 % Neut # (Auto) 3.59 (1.40-6.50) K/uL Lymph # (Auto) 1.05 L (1.2-3.4) K/uL [place] # (Auto) 0.44 (0.11-0.59) K/uL Eos # (Auto) 0.01 (0-0.50) K/uL Baso # (Auto) 0.02 (0-0.2) K/uL Immature Gran # (Auto) 0.02 (0.01-0.20) K/uL PT 10.7 (9.0-12.0) Seconds INR 1.0 (0.9-1.1) Sodium 134 L (136-145) mmol/L Potassium 3.3 L (3.5-5.1) mmol/L Chloride 100 (98-107) mmol/L Carbon Dioxide 27 (21-32) mmol/L Anion Gap 7 (3-11) BUN 13 (6-23) mg/dl Creatinine 0.46 L (0.6-1.2) mg/dl Est Cr Clr Drug Dosing 148.8 ml/min Est GFR ( Amer) 124.4 ml/min Est GFR (Non-Af Amer) 107.4 ml/min BUN/Creatinine Ratio 28.3 H (10-20) Glucose 249 H (70-99(Fasting)) mg/dl Lactate (0.4-2.0) mmol/L Calcium 8.5 L (8.6-10.3) mg/dl Total Bilirubin 0.4 (0.2-1.0) mg/dl AST 15 (13-39) U/L ALT 7 (7-52) U/L Alkaline Phosphatase 73 (34-104) U/L Troponin I High Sens 26.6 H (0-14) pg/ml Total Protein 6.6 (6.0-8.3) gm/dl Albumin 3.5 (3.4-5.0) gm/dl Globulin 3.1 (2.5-4.0) gm/dl Albumin/Globulin Ratio 1.1 (0.9-2) TSH (0.300-4.500) uIu/ml Urine Color Urine Appearance (Clear) Urine pH (4.5-7.5) Ur Specific [place] (1.000-1.030) Urine Protein (Negative) Urine Glucose (UA) (Negative) Urine Ketones (Negative) Urine Blood (Negative) Urine Nitrite (Negative) Urine Bilirubin (Negative) Urine Urobilinogen (Negative) Ur Leukocyte Esterase (Negative) Urine WBC (Auto) (0-5) /hpf Urine RBC (Auto) (0-4) /hpf U Hyaline Cast (Auto) (0-5) /lpf U Epithel Cells (Auto) (0-5) /lpf Urine Bacteria (Auto) (Negative) SARS-CoV-2 (PCR) (Negative) 06/01/22 06/01/22 06/01/22 Range/Units 14:34 14:42 15:18 WBC (4.8-10.8) K/ul RBC (4.20-5.40) M/uL Hgb (12.0-16.0) g/dl Hct (37.0-47.0) % MCV (80.0-100.0) fL MCH (25.0-34.0) pg MCHC (32.0-36.0) g/dL RDW Std Deviation (36.4-46.3) fL RDW Coeff of Rubi (11.5-14.5) % Plt Count (130-400) K/uL MPV (9.4-12.4) fL Immature Gran % (Auto) % Neut % (Auto) % Lymph % (Auto) % [place] % (Auto) % Eos % (Auto) % Baso % (Auto) % Neut # (Auto) (1.40-6.50) K/uL Lymph # (Auto) (1.2-3.4) K/uL [place] # (Auto) (0.11-0.59) K/uL Eos # (Auto) (0-0.50) K/uL Baso # (Auto) (0-0.2) K/uL Immature Gran # (Auto) (0.01-0.20) K/uL PT (9.0-12.0) Seconds INR (0.9-1.1) Sodium (136-145) mmol/L Potassium (3.5-5.1) mmol/L Chloride (98-107) mmol/L Carbon Dioxide (21-32) mmol/L Anion Gap (3-11) BUN (6-23) mg/dl Creatinine (0.6-1.2) mg/dl Est Cr Clr Drug Dosing ml/min Est GFR ( Amer) ml/min Est GFR (Non-Af Amer) ml/min BUN/Creatinine Ratio (10-20) Glucose (70-99(Fasting)) mg/dl Lactate (0.4-2.0) mmol/L Calcium (8.6-10.3) mg/dl Total Bilirubin (0.2-1.0) mg/dl AST (13-39) U/L ALT (7-52) U/L Alkaline Phosphatase (34-104) U/L Troponin I High Sens (0-14) pg/ml Total Protein (6.0-8.3) gm/dl Albumin (3.4-5.0) gm/dl Globulin (2.5-4.0) gm/dl Albumin/Globulin Ratio (0.9-2) TSH 0.340 (0.300-4.500) uIu/ml Urine Color Dark Yellow Urine Appearance Cloudy A (Clear) Urine pH 5.5 (4.5-7.5) Ur Specific [place] 1.026 (1.000-1.030) Urine Protein 2+ H (Negative) Urine Glucose (UA) Negative (Negative) Urine Ketones Trace H (Negative) Urine Blood Negative (Negative) Urine Nitrite Positive A (Negative) Urine Bilirubin Negative (Negative) Urine Urobilinogen Negative (Negative) Ur Leukocyte Esterase 1+ H (Negative) Urine WBC (Auto) 10-30 H (0-5) /hpf Urine RBC (Auto) 0-4 (0-4) /hpf U Hyaline Cast (Auto) 1-5 (0-5) /lpf U Epithel Cells (Auto) >30 H (0-5) /lpf Urine Bacteria (Auto) 4+ H (Negative) SARS-CoV-2 (PCR) NEGATIVE (Negative) 06/01/22 Range/Units 16:00 WBC (4.8-10.8) K/ul RBC (4.20-5.40) M/uL Hgb (12.0-16.0) g/dl Hct (37.0-47.0) % MCV (80.0-100.0) fL MCH (25.0-34.0) pg MCHC (32.0-36.0) g/dL RDW Std Deviation (36.4-46.3) fL RDW Coeff of Rubi (11.5-14.5) % Plt Count (130-400) K/uL MPV (9.4-12.4) fL Immature Gran % (Auto) % Neut % (Auto) % Lymph % (Auto) % [place] % (Auto) % Eos % (Auto) % Baso % (Auto) % Neut # (Auto) (1.40-6.50) K/uL Lymph # (Auto) (1.2-3.4) K/uL [place] # (Auto) (0.11-0.59) K/uL Eos # (Auto) (0-0.50) K/uL Baso # (Auto) (0-0.2) K/uL Immature Gran # (Auto) (0.01-0.20) K/uL PT (9.0-12.0) Seconds INR (0.9-1.1) Sodium (136-145) mmol/L Potassium (3.5-5.1) mmol/L Chloride (98-107) mmol/L Carbon Dioxide (21-32) mmol/L Anion Gap (3-11) BUN (6-23) mg/dl Creatinine (0.6-1.2) mg/dl Est Cr Clr Drug Dosing ml/min Est GFR ( Amer) ml/min Est GFR (Non-Af Amer) ml/min BUN/Creatinine Ratio (10-20) Glucose (70-99(Fasting)) mg/dl Lactate 1.2 (0.4-2.0) mmol/L Calcium (8.6-10.3) mg/dl Total Bilirubin (0.2-1.0) mg/dl AST (13-39) U/L ALT (7-52) U/L Alkaline Phosphatase (34-104) U/L Troponin I High Sens (0-14) pg/ml Total Protein (6.0-8.3) gm/dl Albumin (3.4-5.0) gm/dl Globulin (2.5-4.0) gm/dl Albumin/Globulin Ratio (0.9-2) TSH (0.300-4.500) uIu/ml Urine Color Urine Appearance (Clear) Urine pH (4.5-7.5) Ur Specific [place] (1.000-1.030) Urine Protein (Negative) Urine Glucose (UA) (Negative) Urine Ketones (Negative) Urine Blood (Negative) Urine Nitrite (Negative) Urine Bilirubin (Negative) Urine Urobilinogen (Negative) Ur Leukocyte Esterase (Negative) Urine WBC (Auto) (0-5) /hpf Urine RBC (Auto) (0-4) /hpf U Hyaline Cast (Auto) (0-5) /lpf U Epithel Cells (Auto) (0-5) /lpf Urine Bacteria (Auto) (Negative) SARS-CoV-2 (PCR) (Negative) Administered Medications Albuterol (Albut/Ipratrop 3mg/0.5mg Neb 3 Ml Vial) 3 ml NEB QIDR LUC; Protocol Stop: 07/01/22 18:59 Last Admin: 06/01/22 20:24 Dose: 3 ml Documented By: AMADOU Clopidogrel Bisulfate (Clopidogrel Bisulfate 75 Mg Tab) 75 mg PO QAM [facility] Stop: 07/01/22 19:30 Last Admin: 06/01/22 20:51 Dose: 75 mg Documented By: CB Docusate Sodium (Docusate Sodium 100 Mg Cap) 100 mg PO BID [facility] Stop: 07/01/22 20:59 Last Admin: 06/01/22 20:51 Dose: 100 mg Documented By: GINGER Enoxaparin Sodium (Enoxaparin Inj 40 Mg/0.4 Ml Syr) 40 mg SQ Q24H LUC Stop: 07/01/22 19:59 Last Admin: 06/01/22 20:50 Dose: 40 mg Documented By: GINGER Famotidine (Famotidine 20 Mg Tab) 20 mg PO DAILY LUC Stop: 07/01/22 19:30 Last Admin: 06/01/22 20:52 Dose: 20 mg Documented By: GINGER Magnesium Sulfate/Dextrose (Magnesium Sulfate / D5w) 1 gm in 100 mls @ 50 mls/hr IV Q2H LUC Stop: 06/01/22 23:29 Last Admin: 06/01/22 21:01 Dose: 50 mls/hr Documented By: Infusion: 06/01/22 21:01 Dose: 50 mls/hr Documented By: Admin: 06/01/22 21:00 Dose: 50 mls/hr Documented By: GINGER Insulin Aspart (Insulin Aspart Per Unit Charge) 0 units SC ACHS LUC Stop: 07/01/22 20:59 Last Admin: 06/01/22 20:58 Dose: 9 units Documented By: GINGER Co-signed By: RAMIRO Insulin Glargine (Lantus Per Unit Charge) 5 units SQ BID LUC Stop: 07/01/22 20:59 Last Admin: 06/01/22 21:00 Dose: 5 units Documented By: GINGER Co-signed By: RAMIRO Pantoprazole Sodium (Pantoprazole 40 Mg Tab) 40 mg PO BID LUC Stop: 07/01/22 20:59 Last Admin: 06/01/22 20:51 Dose: 40 mg Documented By: GINGER Ropinirole HCl (Ropinirole Hcl 1 Mg Tablet) 1 mg PO TID LUC Stop: 07/01/22 20:59 Last Admin: 06/01/22 20:51 Dose: 1 mg Documented By: GINGER Discontinued Medications Acetaminophen (Acetaminophen 500 Mg Tab) 1,000 mg PO NOW STA Stop: 06/01/22 16:58 Last Admin: 06/01/22 17:12 Dose: 1,000 mg Documented By: MANOHAR Albuterol (Albut/Ipratrop 3mg/0.5mg Neb 3 Ml Vial) 12 ml NEB ONE ONE; Protocol Stop: 06/01/22 15:07 Last Admin: 06/01/22 15:41 Dose: 12 ml Documented By: HARI Benzonatate (Benzonatate 100 Mg Capsule) 100 mg PO NOW ONE Stop: 06/01/22 15:07 Last Admin: 06/01/22 15:19 Dose: 100 mg Documented By: MANOHAR Sodium Chloride (Nss 1000ml) 500 mls @ 999 mls/hr IV .Q31M ONE Stop: 06/01/22 15:36 Last Infusion: 06/01/22 16:19 Dose: 0 mls/hr Documented By: Admin: 06/01/22 15:25 Dose: 999 mls/hr Documented By: MANOHAR Ceftriaxone Sodium (Rocephin) 2,000 mg in 70 mls @ 140 mls/hr IV NOW STA Stop: 06/01/22 17:18 Last Infusion: 06/01/22 17:57 Dose: 0 mls/hr Documented By: Admin: 06/01/22 17:11 Dose: 140 mls/hr Documented By: MANOHAR Azithromycin 500 mg/ Dextrose 255 mls @ 125 mls/hr IV ONE ONE Stop: 06/01/22 19:47 Last Admin: 06/01/22 20:50 Dose: 125 mls/hr Documented By: GINGER Ibuprofen (Ibuprofen 200 Mg Tab) 400 mg PO NOW STA Stop: 06/01/22 15:08 Last Admin: 06/01/22 15:19 Dose: 400 mg Documented By: MANOHAR Methylprednisolone (Methylprednisolone 125 Mg/2 Ml Vial) 60 mg IV NOW STA Stop: 06/01/22 15:07 Last Admin: 06/01/22 15:21 Dose: 60 mg Documented By: MANOHAR Potassium Chloride (Potassium Chloride Crtab 20 Meq Tabcr) 40 meq PO NOW STA Stop: 06/01/22 18:21 Last Admin: 06/01/22 20:52 Dose: 40 meq Documented By: GINGER Imaging Data Radiologist's Impression: Chest X-Ray 06/01/22 14:49 XR chest 1V portable HISTORY: weakness COMPARISON: Chest 03/27/2022. FINDINGS: No pneumothorax. No pleural effusions. The heart remains mildly enlarg ed. There is progressive interstitial/vascular thickening consistent with mild pulmonary edema. No new focal lung consolidations. No acute rib fractures. IMPRESSION: Interval development of mild interstitial pulmonary edema and mild cardiomegaly. ACT 112: Negative or not required by law. Electronically signed by: Conner Porras M.D. 06/01/2022 3:49 PM Discharge Plan Visit Data Chief Complaint: Weakness Stated Complaint: COUGH, WEAKNESS ED Provider: Gianni Zuñiga Discharge Problem: Hypoxia, Cough, Tobacco abuse, Acute UTI, Weakness Patient Disposition: Being Evaluated by Hospitalist Discharge Instructions Interventions: ED Discharge Assessment Last Done: 06/01/22 17:43
--- NOTE | 2022-06-01 15:51 | XRay Report ---
XR chest 1V portable HISTORY: weakness COMPARISON: Chest 03/27/2022. FINDINGS: No pneumothorax. No pleural effusions. The heart remains mildly enlarged. There is progress damian interstitial/vascular thickening consistent with mild pulmonary edema. No new focal lung consolid ations. No acute rib fractures. IMPRESSION: Interval development of mild interstitial pulmonary edema and mild cardiomegaly. ACT 112: Negative or not required by law. Electronically signed by: Conner Porras M.D. 06/01/2022 3:49 PM
[2022-06-01 16:00] LABS: Prothrombin Time 10.7 Seconds (9.0-12.0)
[2022-06-01] MEDS ORDERED: cefTRIAXone SODIUM 2,000 MG/70 ML BAG IV STA (16:49)
[2022-06-01] MEDS ORDERED: ACETAMINOPHEN 500 MG TAB PO STA (16:57)
--- NOTE | 2022-06-01 17:12 | Electrocardiogram Report ---
Test Reason : Blood Pressure : / mmHG Vent. Rate : 082 BPM Atrial Rate : 082 BPM P-R Int : 176 ms QRS Dur : 094 ms QT Int : 388 ms P-R-T Axes : 030 006 094 degrees QTc Int : 453 ms Sinus rhythm with occasional Premature ventricular complexes Possible Inferior infarct (cited on or before 13-MAR-2020) Abnormal ECG When compared with ECG of 25-MAR-2021 14:14, Premature ventricular complexes are now Present Premature atrial complexes are no longer Present Nonspecific T wave abnormality now evident in Lateral leads Confirmed by Robinson Strong ([id number]) on 06/01/2022 5:12:34 PM Referred By: REFERRED SELF Confirmed By:Bandar Strong
--- NOTE | 2022-06-01 17:17 | History & Physical Report ---
Date of Service June 01, 2022 Assessment & Plan (1) Acute respiratory failure with hypoxia: Plan: -Admit to med/surge with tele -The patient is currently febrile, hemodynamically stable, and stable on 2L NC -At this time it appears that her acute hypoxic respiratory failure is likely multifactorial. She likely has some component of COPD with her long smoking history, but does not appear to have an official diagnosis. Her symptoms and history sound as if she is having a COPD exacerbation but superimposed bacterial pneumonia cannot be ruled out at this time. Her chest xray shows mild interstitial pulmonary edema and mild cardiomegaly, her last echo was in 2020 and showed HFpEF and grade II diastolic dysfunction, there may be a component of CHF as well. PE is lower on the differential at this time as she is without pleuritic chest pain, is not tachycardic, and appears to have symptoms consistent with an URI. Will hold off on a CTPE for now -Will obtain Procal, BNP, ABG, full respiratory biofire, and sputum culture with gram stain for further assessment -Will obtain TTE tomorrow for further evaluation of CHF -S/P ceftriaxone, 60 mg IV methylprednisolone, Duonebs, 500 ml NSS, tylenol, and advil in the ED -Will continue with Ceftriaxone q24h and will add on Daily azithromycin for atypical coverage at this time (QTc WNL) -Continue 40 mg IV Solu-medrol daily to treat for possible COPD exacerbation, can swith to PO prednisone when stable -Continue incentive spirometry, flutter therapy, QID DuoNebs, Scheduled robitussin -If BNP is elevated will give her a dose of lasix -Prn O2 to keep SpO2 between 89-92% -BL SCD's and Sub-Q Lovenox for DVT PPX -AM CBC, BMP, Mag (2) Generalized weakness: Plan: -At this time the patient's generalized weakness is multifactorial including current UTI, COPD exacerbation vs bacterial pneumonia, chronic illness with deconditioning over the past week and poor oral intake -No focal neuro defects on exam -Continue to monitor for improvement with treatment of her acute illnesses (3) Urinary tract infection: Plan: -Was treated with a 3 day course of Bactrim approximately 2 weeks ago, still having symptoms at this time -UA appears infected today -Will continue with q24h ceftriaxone, follow urine and blood cultures (4) Hypokalemia: Plan: -Noted to be 3.3 today -Likely due to poor oral intake -Will otbain Mag level on admission -Will give 2 doses of 40 meq PO KCL -Monitor am electrolytes (5) Elevated troponin: Plan: -Initial high sen trop elevated at 26.6, no acute ST segment or T-wave changes -The patient only has chest pain with coughing, not at rest and no chest pain prior to URI symptoms -Will repeat another 2 hour high sen trop STAT -Continue to monitor on tele and pulse oximetry (6) Nicotine dependence: Plan: -Nicotine patch ordered -Conitnue to stress smoking cessation (7) Diabetes mellitus treated with oral medication: Plan: -Hold oral agents -Monitor BSG ACHS, goal is 110-140 -Start with 5 units lantus BID, correction factor of 50 with carb ratio of 15 -Patient may require an increased regimen while on steroids, increase as needed -DMII diet (8) CAD (coronary artery disease): Plan: -Continue aspirin (9) RLS (restless legs syndrome): Plan: -Continue Requip (10) Hyperlipidemia: Plan: -Continue atorvastatin (11) HTN (hypertension): Plan: -Stable -Continue lisinopril Plan The patient was discussed with Dr. Mccracken at the time of the admission History of Present Illness Chief Complaint: Generalized weakness Primary Care Provider: Lo Esposito MD Jia is a 61 year old female with a PMH significant for recurrent abdominal wall incisional hernia S/P open repair and mesh placement at [facility] on 12/07/21, tobacco abuse, DM II, HTN, hyperlipidemia, chronic pain syndrome, CAD, methamphetamine abuse, fibromyalgia, and restless leg syndrome who presented to the [facility] ED on 06/01/22 with a chief complaint of generalized weakness. In the ED the patient was found to be febrile at 38.3C, hemodynamically stable, but hypoxic in the mid 80's on RA. Labs were remarkable for a CBC with lymphocyte count of 1.05 otherwise WNL, stable renal function at 0.46, glucose of 249, corrected sodium of 136, potassium of 3.3, LFT's WNL, initial high sen trop of 26.6, TSH WNL, UA suggestive of acute infection with cloudy appearance, nitrite positive, 1+ leukocyte esterase, 10-30 WBC, and 4+ bacteria, and covid negative. Chest xray was read as "Interval development of mild interstitial pulmonary edema and mild cardiomegaly.". Prior to admission the patient was given 2g IV ceftriaxone, 1gm IV tylenol, an hour long DuoNeb treatment, tessalon pearls, 400 mg PO Advil, 60 mg IV methyprednisolone, and 500 mL NSS bolus. At the time of the exam the patient was lying in bed in no acute distress, she does appear fatigued. She states that she began to develop URI symtpoms approximately 4 days ago. Her daughter was sick first and is recovering from bronchitis. She has noted fever, chills, SOB, a productive cough with yellow- brown sputum, chest pain only with coughing, and generalized weakness/fatigue. She states that she was treated with a short course of Bactrim "a few weeks ago" for UTI. Per chart review, she was given a 3 day course of Bactrrim on 05/21/22. She states that she is still experiencing dysuria and increased urinary frequency at this time. She has been using her breathing treatments as prescribed. She states that she has become so weak that she is not able to properly care for herself at this time. She has had a poor appetite over the past 4 days. Her chronic abdominal wounds are healing well and she does not believe they are currently infected. The patient is typically a daily smoker, she has felt too ill over the past 2 days to smoke. She wishes to be a DNR/DNI and for her Daughter to make decisions for her if she could not make them herself. Please refer to Dr. Mccracken's attestation for any changes to the treatment plan Allergies Allergy/AdvReac Type Severity Reaction Status Date / Time morphine Allergy Intermediate Hives Verified 05/24/22 12:17 adhesive Allergy Unknown Unknown Verified 05/19/22 09:21 clonazepam Allergy Unknown short term Verified 05/24/22 12:17 memory loss amoxicillin [From Augmentin] AdvReac Diarrhea Verified 05/24/22 12:18 clavulanic acid AdvReac Diarrhea Verified 05/24/22 12:18 [From Augmentin] Home Medications Medication Instructions Recorded Confirmed Type docusate sodium 100 mg capsule 100 mg PO BID #60 caps 09/13/21 06/05/22 Rx fluticasone propionate 50 2 spray intranasal DAILY #16 grams 10/07/21 06/05/22 Rx mcg/actuation nasal spray,suspension ondansetron 4 mg oral soluble film 4 mg PO Q6H PRN nausea and vomiting 12/01/21 06/05/22 History sennosides 8.6 mg capsule (senna) 8.6 mg PO BID 12/01/21 06/05/22 History cholecalciferol (vitamin D3) 1,250 50,000 unit PO WK #12 caps 03/29/22 06/05/22 Rx mcg (50,000 unit) capsule aspirin 81 mg tablet,delayed 81 mg PO QAM #90 tabs 05/02/22 06/05/22 Rx release atorvastatin 80 mg tablet 80 mg PO QAM #90 tabs 05/02/22 06/05/22 Rx blood sugar diagnostic (Oneuch #100 ea 05/02/22 06/05/22 Rx Verio test strips) blood-glucose meter (OneTouch #1 ea 05/02/22 06/05/22 Rx Verio Flex Meter) clopidogrel 75 mg tablet 75 mg PO QAM #90 tabs 05/02/22 06/05/22 Rx famotidine 20 mg tablet 20 mg PO DAILY #90 tabs 05/02/22 06/05/22 Rx lancets 33 gauge ([facility] ea 05/02/22 06/05/22 Rx Lancets) linagliptin 5 mg tablet (Tradjenta) 5 mg PO QAM #90 tabs 05/02/22 06/05/22 Rx metformin 1,000 mg tablet 1,000 mg PO BID #180 tabs 05/02/22 06/05/22 Rx pantoprazole 40 mg tablet,delayed 40 mg PO BID #60 tabs 05/02/22 06/05/22 Rx release lisinopril 10 mg tablet 10 mg PO DAILY 05/24/22 06/05/22 History ropinirole 1 mg tablet 1 mg PO TID #270 tabs 05/29/22 06/05/22 Rx albuterol sulfate 90 mcg/actuation 2 inh inhalation Q6H PRN shortness 05/30/22 06/05/22 Rx aerosol inhaler of breath or wheezing #8.5 grams benzonatate 200 mg capsule 200 mg PO TID PRN cough #30 caps 05/30/22 06/05/22 Rx azithromycin 250 mg tablet 250 mg PO QAM #3 tabs 06/02/22 06/05/22 Rx cephalexin 500 mg capsule 500 mg PO BID #7 caps 06/02/22 06/05/22 Rx prednisone 10 mg tablet 10 mg PO DIRECTED #21 tabs 06/02/22 06/05/22 Rx Lantus Solostar U-100 Insulin 100 10 - 20 unit (0.1 - 0.2 mL) subcut 06/08/22 Rx unit/mL (3 mL) subcutaneous pen DAILY #15 mL (insulin glargine) pen needle, diabetic 32 gauge x #50 ea 06/08/22 Rx 1/4" (BD Ultra-Fine Micro Pen Needle) Past Med/Surg History Medical History Abdominal wall abscess Abscess of vulva Acute cholecystitis Acute hyperglycemia Acute ST elevation myocardial infarction (STEMI) of inferior wall Anastomotic ulcer S/P gastric bypass Anxiety and depression Bloody emesis Bronchitis Chronic pain syndrome Corneal abrasion COVID-19 DVT prophylaxis Fibromyalgia Gastric ulcer HTN (hypertension) Hypocalcemia Hypomagnesemia Incarcerated hernia Insomnia L1 vertebral fracture Left corneal abrasion Leukocytosis Leukocytosis Methamphetamine abuse Migraine Open thigh wound Pneumonia Restless leg syndrome Traumatic wound UTI (lower urinary tract infection) Ventral hernia Wound infection after surgery Surgical History H/O gastric bypass H/O knee surgery H/O: hysterectomy History of ankle surgery S/P anal fissurectomy S/P cholecystectomy S/P recurrent ventral herniorrhaphy S/P tonsillectomy S/P ventral herniorrhaphy Family History Father Myocardial infarction Leukemia Sister Ovarian cancer Myocardial infarction Other Family history of diabetes mellitus Hypertension Denies family history of Prostate cancer Breast cancer Colorectal cancer Social History Smoking Status: Current every day smoker Tobacco Type: Cigarettes packs per day: 1.5; Cigarettes Per Day: 10; Second Hand Exposure: No; Hx Alcohol Use: No Hx Substance Use: Yes Prescribed Medications: Marijuana and Other Non- Prescribed Medications: Crack / Cocaine and Methamphetamines Last Used Substance: Just Prior to Arrival Last Used Substance Other:: within the last year, Dr. Mccracken made aware Preferred Language: Portuguese Communication Ability: Effective Visual Impairment: No Limitations Machine Splitter Required: No Beliefs That Will Affect Care: None marital status: Current Living Situation: Alone current occupational status: unemployed and disabled How many Children do You have: 2 Feels Safe at Home: Yes Childhood Exposure to Second-Hand Smoke: Yes during the past year weight has: remained stable Dental Care, Regularly: No Physical Activity Frequency: Does not Exercise Seatbelt Use: always Sunscreen Use: Yes Assistive Devices: Nebulizer Review of Systems Review of Systems: Denies current headache, changes in vision, hearing, taste, and smell, chest pain at rest, abdominal pain, nausea, vomiting, diarrhea, hematemesis, melena, hematuria, and recent falls. All systems have been reviewed and are otherwise negative. Physical Exam Physical Exam: Physical Exam: General: In no acute distress, older than stated age, chronically ill appearing, non-toxic appearing HEENT: Normocephalic, atraumatic, no scleral icterus, pupils around round, symmetrical, and reactive to light, dry mucus membranes, trachea midline, no thyromegaly Chest/Pulm: No respiratory distress, symmetrical chest expansion, decreased breath sounds in the BL lower lung nix, expiratory wheezing and crackles noted in the upper and middle lung nix Cardiac: RRR, no murmurs noted Abdomen: Negative for ascites and bruising, large centra scar from previous procedures appears well-healed and without signs of infection, normoactive bowel sounds, soft, non-tender to palpation throughout Musculoskeletal: Symmetrical and without signs of acute trauma, upper and lower extremities with full ROM, no atrophy, spasticity, or flaccidity Extremities: Radial, dorsalis pedis, and posterior tibial pulses are intact and symmetrical, no edema noted in the BL LE's Skin: Warm, dry, no rashes , lesions, or scars noted Neuro: Alert and oriented to person, place, month, year, and president, no focal defects, no tremors noted Psych: No acute distress,fatigued but cooperative during the exam Results & Data Results & Data Vital Signs (Past 12 Hours) Vital Signs Temp Pulse Pulse Resp BP BP Pulse Ox 06/01/22 16:22 87 19 132/76 97 06/01/22 15:30 76 29 H 130/78 94 06/01/22 16:23 36.8 C 06/01/22 15:44 80 20 92 06/01/22 15:00 79 28 H 94 06/01/22 15:00 123/81 87 L 06/01/22 14:31 81 18 134/69 94 06/01/22 14:52 89 18 99 06/01/22 14:32 87 06/01/22 14:25 93 06/01/22 14:25 38.3 C H 82 18 123/65 93 06/01/22 14:25 38.3 C H 82 18 123/65 93 O2 Del Method O2 Flow Rate 06/01/22 16:22 Nasal Cannula 2 06/01/22 15:30 Nasal Cannula 2 06/01/22 16:23 06/01/22 15:44 Room Air 06/01/22 15:00 06/01/22 15:00 06/01/22 14:31 Nasal Cannula 2 06/01/22 14:52 Nasal Cannula 2 06/01/22 14:32 06/01/22 14:25 Nasal Cannula 2 06/01/22 14:25 Nasal Cannula 2 06/01/22 14:25 Nasal Cannula 2 Laboratory Results Abnormal lab results 06/01/22 06/01/22 06/01/22 Range/Units 14:34 14:34 14:42 RDW Std Deviation 47.9 H (36.4-46.3) fL RDW Coeff of Rubi 15.9 H (11.5-14.5) % Lymph # (Auto) 1.05 L (1.2-3.4) K/uL Sodium 134 L (136-145) mmol/L Potassium 3.3 L (3.5-5.1) mmol/L Creatinine 0.46 L (0.6-1.2) mg/dl BUN/Creatinine Ratio 28.3 H (10-20) Glucose 249 H (70-99(Fasting)) mg/dl Calcium 8.5 L (8.6-10.3) mg/dl Troponin I High Sens 26.6 H (0-14) pg/ml Urine Appearance Cloudy A (Clear) Urine Protein 2+ H (Negative) Urine Ketones Trace H (Negative) Urine Nitrite Positive A (Negative) Ur Leukocyte Esterase 1+ H (Negative) Urine WBC (Auto) 10-30 H (0-5) /hpf U Epithel Cells (Auto) >30 H (0-5) /lpf Urine Bacteria (Auto) 4+ H (Negative) Diagnostic Findings Chest X-Ray 06/01/22 14:49 XR chest 1V portable HISTORY: weakness COMPARISON: Chest 03/27/2022. FINDINGS: No pneumothorax. No pleural effusions. The heart remains mildly enlarged. There is progressive interstitial/vascular thickening consistent with mild pulmonary edema. No new focal lung consolidations. No acute rib fractures. IMPRESSION: Interval development of mild interstitial pulmonary edema and mild cardiomegaly. ACT 112: Negative or not required by law. Electronically signed by: Conner Porras M.D. 06/01/2022 3:49 PM ECG Additional Comments: Sinus rhythm with occasional Premature ventricular complexes Possible Inferior infarct (cited on or before 13-MAR-2020) Abnormal ECG When compared with ECG of 25-MAR-2021 14:14, Premature ventricular complexes are now Present Premature atrial complexes are no longer Present Nonspecific T wave abnormality now evident in Lateral leads Confirmed by Robinson Strong ([id number]) on 06/01/2022 5:12:34 PM Code Status & VTE Plan Code Status DNR/DNI VTE Prophylaxis Plan VTE Prophylaxis will be ordered: Yes Supervising Physician Co-Signing Physician Notes I personally saw and examined the patient. I verified all toro points and agree with Luis Rosen PA-C with the following exceptions and/or additions: 61 year old female admission who presented to the ER with generalized weakness with URI symptoms 4 days previous. Metapneumovirus positive on Biofire PCR. Procalcitonin negative. CXR with possible pulmonary edema. Also having some UTI symptoms wit dysuria and frequency O/E Resp: using accessory muscle, rhonchi and expiratory wheezing b/l, HS RRR, no murmurs, Abdo SNT A/P Acute respiratory failure with hypoxia - TTE due to concern for pulmonary edema. Suspect mostly secondary to COPD exacerbation in setting of metapneumovirus COPD exacerbation - duonebs, Solu-Medrol, azithromycin UTI - ceftriaxone, follow up urine culture PG Care Time/CCT Total # of Minutes Spent Total Time Spent with Patient: Total time spent is greater than 50% in coordination of care (as documented) at patient's floor/unit and/or counseling patient: Coding [place] [address] INT INP/OBS CARE 3/75MIN Patient Type Established Medical Decision Making High Complexity Diagnoses Acute respiratory failure with hypoxia J96.01 Generalized weakness R53.1 Urinary tract infection N39.0 Hypokalemia E87.6 Elevated troponin R77.8 Nicotine dependence F17.200 Diabetes mellitus treated with oral medication E11.9; Z79.84 CAD (coronary artery disease) I25.10 RLS (restless legs syndrome) G25.81 Hyperlipidemia E78.5 HTN (hypertension) I10
[2022-06-01] MEDS ORDERED: CARBOHYDRATES FOR HYPOGLYCEMIA PO PRN (17:40)
[2022-06-01] MEDS ORDERED: DEXTROSE 50% 50 ML SYRINGE IV PRN (17:40)
[2022-06-01] MEDS ORDERED: GLUCOSE 40% GEL 15 GM TUBE PO PRN (17:40)
[2022-06-01] MEDS ORDERED: GLUCAGON FOR INJ 1 MG VIAL SQ PRN (17:40)
[2022-06-01] MEDS ORDERED: GLUCOSE 10 TAB/TUBE PO PRN (17:40)
[2022-06-01] MEDS ORDERED: AZITHROMYCIN 500 MG in DEXTROSE 5% 250 ML IV ONE (17:45)
[2022-06-01] MEDS ORDERED: POTASSIUM CHLORIDE CRTAB 20 MEQ TABCR PO SCH (18:00)
[2022-06-01] MEDS ORDERED: POTASSIUM CHLORIDE CRTAB 20 MEQ TABCR PO STA (18:20)
[2022-06-01 18:32] LABS: Magnesium 1.4 mg/dl (1.7-2.4)
[2022-06-01 18:37] LABS: Adenovirus PCR Not Detected (NotDetected); Bordetella parapertussis PCR Not Detected (NotDetected); Bordetella pertussis PCR Not Detected (NotDetected); Chlamydia pneumoniae PCR Not Detected (NotDetected); Coronavirus 229E PCR Not Detected (NotDetected); Coronavirus CoV-2 (COVID19)PCR Not Detected (NotDetected); Coronavirus HKU1 PCR Not Detected (NotDetected); Coronavirus NL63 PCR Not Detected (NotDetected); Coronavirus OC43PCR Not Detected (NotDetected); Influenza A PCR Not Detected (NotDetected); Influenza B PCR Not Detected (NotDetected); Mycoplasma pneumoniae PCR Not Detected (NotDetected); Parainfluenza Virus 1 PCR Not Detected (NotDetected); Parainfluenza Virus 2 PCR Not Detected (NotDetected); Parainfluenza Virus 3 PCR Not Detected (NotDetected); Parainfluenza Virus 4 PCR Not Detected (NotDetected); Respiratory Syncytial VirusPCR Not Detected (NotDetected); Rhinovirus/Enterovirus PCR Not Detected (NotDetected)
[2022-06-01 18:39] LABS: Troponin I High Sensitivity 25.3 pg/ml (0-14)
[2022-06-01 18:47] LABS: Human Metapneumovirus PCR DETECTED (NotDetected)
[2022-06-01 19:05] LABS: Base Excess ABG -0.2 mEq/L (-9-1.8); HCO3 ABG 24 mmol/L (19-24); Oxygen Saturation ABG 98.3 % (90-95); PCO2 ABG 37 mmHg (35-46); PO2 ABG 90 mmHg (80-95); pH ABG 7.42 (7.35-7.45)
[2022-06-01 19:09] LABS: Allen Test Pos (Pos)
[2022-06-01] MEDS ORDERED: ENOXAPARIN INJ 40 MG/0.4 ML SYR SQ SCH (20:00)
[2022-06-01] MEDS ORDERED: PHARMACY GLYCEMIC MGMT CONSULT PRN (20:21)
[2022-06-01] MEDS: ALBUT/IPRATROP 3MG/0.5MG NEB 3 ML VIAL NEB SCH (20:24)
[2022-06-01] MEDS: CLOPIDOGREL BISULFATE 75 MG TAB PO SCH (20:51)
[2022-06-01] MEDS: DOCUSATE SODIUM 100 MG CAP PO SCH (20:51)
[2022-06-01] MEDS: rOPINIRole HCL 1 MG TABLET PO SCH (20:51)
[2022-06-01] MEDS: PANTOprazole 40 MG TAB PO SCH (20:51)
[2022-06-01] MEDS: FAMOTIDINE 20 MG TAB PO SCH (20:52)
[2022-06-01] MEDS: INSULIN ASPART PER UNIT CHARGE SC SCH (20:58)
[2022-06-01] MEDS: MAGNESIUM SULFATE / D5W 1 GM/100 ML BAG IV SCH ×2 (21:00→21:01)
[2022-06-01] MEDS ORDERED: LANTUS PER UNIT CHARGE SQ SCH (21:00)
[2022-06-01] MEDS: NICOTINE 21 MG/24 HR TDSY TD SCH (22:08)
[2022-06-02] MEDS: INSULIN ASPART PER UNIT CHARGE SC SCH ×5 (00:12→17:06)
[2022-06-02] MEDS ORDERED: LANTUS PER UNIT CHARGE SQ ONE ×2 (00:15→18:36)
[2022-06-02] MEDS ORDERED: COUGH DROP (SUGAR FREE) LOZ 24 LOZ/1 BOX BUCCAL PRN (01:14)
[2022-06-02] MEDS: guaiFENesin SUGAR FREE 200 MG/10 ML UDC PO PRN ×2 (02:20→09:36)
[2022-06-02 07:33] LABS: Hematocrit (blood only) 39.3 % (37.0-47.0); Hemoglobin 13.2 g/dl (12.0-16.0); Mean Corpuscular Hemoglobin 27.2 pg (25.0-34.0); Mean Corpuscular Hgb Conc 33.6 g/dL (32.0-36.0); Mean Platelet Volume 9.6 fL (9.4-12.4); Platelet Count 238 K/uL (130-400); RDW Coefficient of Variation 15.9 % (11.5-14.5); RDW Standard Deviation 46.7 fL (36.4-46.3); Red Blood Count 4.85 M/uL (4.20-5.40); White Blood Count 4.39 K/ul (4.8-10.8)
--- NOTE | 2022-06-02 07:44 | Hospitalist Progress Note ---
Date of Service June 02, 2022 Assessment & Plan (1) Acute respiratory failure with hypoxia: Plan: #Acute respiratory failure with hypoxia - on RA Patient x4 days of respiratory symptoms. Patient hypoxia to 87 on presentation. Now on RA and satting well. -Likely multifactorial in nature with component of possible COPD as patient has a significant smoking history. Patient is positive for metapneumovirus as well. Cannot r/o superimposed bacterial pneumonia as well. - CXR shows no new focal consolidations or signs of bacterial PNA. Urine is growing gram negative bacteria. So pharmacy suggested de-escalating abx from ceftriaxone to cephalexin d/t low likelihood of bacterial PNA. We will leave azithromycin for its anti-inflammatory effects in picture of potential COPD. Imaging: CXR - mild interstitial pulmonary edema, mild cardiomegaly Last ECHO 2020 - HFpEF with grade II diastolic dysfunction [] abx - cephalexin, azithromycin [] pulmonary toilet - mucinex, duonebs, IS, flutter valve, robitussen [] Procal, BNP, ABG, biofire - pos metapneumovirus, sputum culture [] TTE [] SoluMedrol 40mg, plan to transition to PO during stay #UTI Was treated with a 3 day course of Bactrim approximately 2 weeks ago, still having symptoms at this time. UA appears infected today. Being treated with cephalexin which is appropriate empiric treatment for UTI. [] urine/blood cx #Generalized weakness Multifactorial - current UTI, COPD exacerbation, viral pneumonia, deconditioning, decreased PO intake [] PT/OT [] continue to monitor Metabolic derangements. K 3.3 on admit, repleted. [] AM BMP #Elevated Troponin Initial high sen trop elevated at 26.6, no acute ST segment or T-wave changes [] tele [] trend trops #DM Hold oral agents. Monitor BSG ACHS, goal is 110-140 -Start with 5 units lantus BID, correction factor of 50 with carb ratio of 15 -Patient may require an increased regimen while on steroids, increase as needed -DMII diet #Nicotine dependence -Nicotine patch ordered -Continue to stress smoking cessation #HLD Continue home statin #CAD Continue home ASA #RLS Continue Requip #HTN Stable. Continue lisinopril Code status: full DVT ppx: plavix FENGI: tolerating PO, fluid restriction 1500mL, strict Is and Os Dispo: med/tele (2) Generalized weakness: (3) Urinary tract infection: (4) Hypokalemia: (5) Elevated troponin: (6) Nicotine dependence: (7) Diabetes mellitus treated with oral medication: (8) CAD (coronary artery disease): (9) RLS (restless legs syndrome): (10) Hyperlipidemia: (11) HTN (hypertension): Admission and Anticipated Discharge Date Admission Date: June 01, 2022 Review of Systems Review of Systems: See HPI Physical Exam Physical Exam: Physical Exam: General: In no acute distress, older than stated age, chronically ill appearing, non-toxic appearing HEENT: Normocephalic, atraumatic, no scleral icterus, trachea midline, no thyromegaly Chest/Pulm: No respiratory distress, symmetrical chest expansion, decreased breath sounds in the BL lower lung nix, expiratory wheezing noted in the upper and middle lung nix. Rhonchi noted and cleared with coughing. Cardiac: RRR, no murmurs noted. Abdomen: soft, non-tender to palpation Musculoskeletal: Symmetrical and without signs of acute trauma, upper and lower extremities with full ROM Skin: Warm, dry, no rashes Neuro: A&O x 3. no focal deficits Psych: Appropriate mood and affect. Results & Data Results & Data Vital Signs (Past 12 Hours) Vital Signs Temp Pulse Pulse Resp BP Pulse Ox O2 Del Method 06/02/22 07:17 63 06/02/22 03:40 36.8 C 64 20 97/58 L 94 Room Air 06/02/22 02:02 Nasal Cannula 06/02/22 01:16 72 06/01/22 20:27 75 18 93 Nasal Cannula 06/01/22 20:00 37.4 C 76 19 123/77 94 Nasal Cannula O2 Flow Rate 06/02/22 07:17 06/02/22 03:40 06/02/22 02:02 2 06/02/22 01:16 06/01/22 20:27 3 06/01/22 20:00 3
[2022-06-02] MEDS: ALBUT/IPRATROP 3MG/0.5MG NEB 3 ML VIAL NEB SCH ×3 (07:54→15:21)
[2022-06-02 08:03] LABS: BUN Creatinine Ratio 42.1 (10-20); Calcium 8.9 mg/dl (8.6-10.3); Creatinine Clr Calc Pharmacy 177.1 ml/min; Est GFR (African American) 132.5 ml/min; Est GFR (Non-African American) 114.3 ml/min; Magnesium 1.8 mg/dl (1.7-2.4); Potassium 3.7 mmol/L (3.5-5.1)
[2022-06-02 08:15] LABS: Basophils # (auto) 0.01 K/uL (0-0.2); Basophils % (auto) 0.2 %; Immature Granulocytes # (auto) 0.01 K/uL (0.01-0.20); Immature Granulocytes % (auto) 0.2 %; Lymphocytes # (auto) 1.68 K/uL (1.2-3.4); Lymphocytes % (auto) 38.3 %; Monocytes # (auto) 0.78 K/uL (0.11-0.59); Monocytes % (auto) 17.8 %; Neutrophils # (auto) 1.91 K/uL (1.40-6.50); Neutrophils % (auto) 43.5 %
[2022-06-02] MEDS ORDERED: AZITHROMYCIN 250 MG in DEXTROSE 5% 250 ML IV SCH (09:00)
[2022-06-02] MEDS ORDERED: cephALEXin 500 MG CAP PO SCH (09:00)
[2022-06-02] MEDS ORDERED: ASPIRIN 81 MG ECTAB PO SCH (09:00)
[2022-06-02] MEDS ORDERED: ATORVASTATIN 40 MG TAB PO SCH (09:00)
[2022-06-02] MEDS ORDERED: AZITHROMYCIN 250 MG TAB PO SCH (09:00)
[2022-06-02] MEDS ORDERED: cefTRIAXone SODIUM 1,000 MG in DEXTROSE 5% AD-VAN 50 ML IV SCH (09:00)
[2022-06-02] MEDS ORDERED: methylPREDNISolone 40 MG in SYRINGE 0 ML IV SCH (09:00)
[2022-06-02] MEDS ORDERED: lisinopril 10 MG TAB PO SCH (09:00)
--- NOTE | 2022-06-02 09:21 | Pharmacy Report ---
Pharmacy Glycemic Short Note 2 - Date of Service June 02, 2022 - Glycemic Short BSG Results (Last 24 hours): 06/01/22 06/01/22 06/01/22 14:34 20:36 20:39 Glucose 249 H POC Glucose 384 H* 342 H* 06/01/22 06/01/22 06/02/22 23:15 23:16 03:30 Glucose POC Glucose 398 H* 400 H* 241 H 06/02/22 06/02/22 07:00 07:49 Glucose 76 POC Glucose 97 OUTPATIENT ANTIDIABETIC REGIMEN: * Tradjenta 5 mg daily * Metformin 1,000 mg BID ASSESSMENT: * Jia Evans is a 61 year old type 2 diabetic patient who presents with general weakness. Managed outpatient on only oral agents (Tradjenta and Metformin) and is not well controlled (A1C: 10.1% on 03/27/22). Patient received Solumedrol 60 mg IV yesterday and is currently ordered Solumedrol 40 mg IV q24h. * BSG's yesterday (06/01/22) ranged from 249-400 mg/dL and through the evening bolus insulin parameters were tightened from CF:25,CR:10 to CF:15,CR:6. A total of 25 units of Lantus was given for basal insulin last evening. * Patient's fasting BSG dropped significantly this morning (97 mg/dL). No morning basal insulin needed, and loosened bolus insulin parameters to CF:25,CR:9. Lunchtime BSG was 144 mg/dL. Continuing current bolus insulin parameters CF:25,Cr:9. Lantus scale ordered for bedtime (BSG 140 mg/dL or greater= 20 units of Lantus, BSG less than 140 mg/dL = 10 units of Lantus) PLAN FOR INPATIENT GLYCEMIC CONTROL: * Hold outpatient oral diabetes medications * Basal insulin * Lantus 20 units at bedtime if BSG 140 mg/dL or greater, or Lantus 10 units at bedtime if BSG less than 140 mg/dL. * Bolus insulin * NovoLog per scale ACHS or Q6hrs while NPO * Goal Range: Low 110 mg/dL - High 140 mg/dL * Correction Factor: 25 mg/dL/unit * Nutritional / Prandial insulin per carb ratio of 1 unit per 9 grams CHO consumed
[2022-06-02] MEDS: PANTOprazole 40 MG TAB PO SCH (09:38)
[2022-06-02] MEDS: rOPINIRole HCL 1 MG TABLET PO SCH ×2 (09:38→12:52)
[2022-06-02] MEDS: CLOPIDOGREL BISULFATE 75 MG TAB PO SCH (09:40)
[2022-06-02] MEDS: FAMOTIDINE 20 MG TAB PO SCH (09:40)
[2022-06-02] MEDS: DOCUSATE SODIUM 100 MG CAP PO SCH (09:41)
--- NOTE | 2022-06-02 09:41 | XRay Report ---
XR chest 2V PA/lateral HISTORY: hypoxia COMPARISON: Chest 06/01/2022. FINDINGS: No pneumothorax. The heart remains mildly enlarged. Interstitial/vascular thickening has im proved. There are patchy left lower lobe airspace opacities. Trace bilateral pleural effusions are ag ain noted. IMPRESSION: 1. Interval improvement in the pulmonary edema. 2. Patchy left lower lobe airspace opacities which may represent a component of the pulmonary edema o r a low-grade pneumonitis. ACT 112: Negative or not required by law. Electronically signed by: Conner Porras M.D. 06/02/2022 9:40 AM
[2022-06-02] MEDS: NICOTINE 21 MG/24 HR TDSY TD SCH (09:51)
--- NOTE | 2022-06-02 11:27 | XCELERA ---
[id number] \\[id number]
--- NOTE | 2022-06-02 16:27 | Discharge Summary ---
Date of Service June 02, 2022 Admission HPI Per Admitting Provider Jia is a 61 year old female with a PMH significant for recurrent abdominal wall incisional hernia S/P open repair and mesh placement at [facility] on 12/07/21, tobacco abuse, DM II, HTN, hyperlipidemia, chronic pain syndrome, CAD, methamphetamine abuse, fibromyalgia, and restless leg syndrome who presented to the [facility] ED on 06/01/22 with a chief complaint of generalized weakness. In the ED the patient was found to be febrile at 38.3C, hemodynamically stable, but hypoxic in the mid 80's on RA. Labs were remarkable for a CBC with lymphocyte count of 1.05 otherwise WNL, stable renal function at 0.46, glucose of 249, corrected sodium of 136, potassium of 3.3, LFT's WNL, initial high sen trop of 26.6, TSH WNL, UA suggestive of acute infection with cloudy appearance, nitrite positive, 1+ leukocyte esterase, 10-30 WBC, and 4+ bacteria, and covid negative. Chest xray was read as "Interval development of mild interstitial pulmonary edema and mild cardiomegaly.". Prior to admission the patient was given 2g IV ceftriaxone, 1gm IV tylenol, an hour long DuoNeb treatment, tessalon pearls, 400 mg PO Advil, 60 mg IV methyprednisolone, and 500 mL NSS bolus. At the time of the exam the patient was lying in bed in no acute distress, she does appear fatigued. She states that she began to develop URI symtpoms approximately 4 days ago. Her daughter was sick first and is recovering from bronchitis. She has noted fever, chills, SOB, a productive cough with yellow- brown sputum, chest pain only with coughing, and generalized weakness/fatigue. She states that she was treated with a short course of Bactrim "a few weeks ago" for UTI. Per chart review, she was given a 3 day course of Bactrrim on 05/21/22. She states that she is still experiencing dysuria and increased urinary frequency at this time. She has been using her breathing treatments as prescribed. She states that she has become so weak that she is not able to properly care for herself at this time. She has had a poor appetite over the past 4 days. Her chronic abdominal wounds are healing well and she does not believe they are currently infected. The patient is typically a daily smoker, she has felt too ill over the past 2 days to smoke. She wishes to be a DNR/DNI and for her Daughter to make decisions for her if she could not make them her self. Please refer to Dr. Mccracken's attestation for any changes to the treatment plan Admission Exam Per Admitting Provider Physical Exam: General:In no acute distress, older than stated age, chronically ill appearing, non-toxic appearing HEENT:Normocephalic, atraumatic, no scleral icterus, pupils around round, symmetrical, and reactive to light, dry mucus membranes, trachea midline, no thyromegaly Chest/Pulm:No respiratory distress, symmetrical chest expansion, decreased breath sounds in the BL lower lung nix, expiratory wheezing and crackles noted in the upper and middle lung nix Cardiac:RRR, no murmurs noted Abdomen:Negative for ascites and bruising, large centra scar from previous procedures appears well-healed and without signs of infection, normoactive bowel sounds, soft, non-tender to palpation throughout Musculoskeletal:Symmetrical and without signs of acute trauma, upper and lower extremities with full ROM, no atrophy, spasticity, or flaccidity Extremities:Radial, dorsalis pedis, and posterior tibial pulses are intact and symmetrical, no edema noted in the BL LE's Skin:Warm, dry, no rashes , lesions, or scars noted Neuro:Alert and oriented to person, place, month, year, and president, no focal defects, no tremors noted Psych:No acute distress,fatigued but cooperative during the exam Principal Diagnosis Acute Respiratory Failure with Hypoxia Discharge Exam Physical Exam: General: In no acute distress, non-toxic appearing HEENT: Normocephalic, atraumatic Chest/Pulm: No respiratory distress, symmetrical chest expansion. Expiratory wheezing noted in the upper and middle lung nix. Rhonchi noted and cleared with coughing. Cardiac: RRR, no murmurs noted. Abdomen: soft, non-tender to palpation Musculoskeletal: upper and lower extremities with full ROM Skin: Warm, dry, no rashes Neuro: A&O x 3. no focal deficits Psych: Appropriate mood and affect. Discharge Data Allergies Allergy/AdvReac Type Severity Reaction Status Date / Time morphine Allergy Intermediate Hives Verified 05/24/22 12:17 adhesive Allergy Unknown Unknown Verified 05/19/22 09:21 clonazepam Allergy Unknown short term Verified 05/24/22 12:17 memory loss amoxicillin [From Augmentin] AdvReac Diarrhea Verified 05/24/22 12:18 clavulanic acid AdvReac Diarrhea Verified 05/24/22 12:18 [From Augmentin] Consultations 06/01/22 17:09 ED Decision to Admit Stat Ordered Studies Chest X-Ray 06/01/22 14:49 XR chest 1V portable HISTORY: weakness COMPARISON: Chest 03/27/2022. FINDINGS: No pneumothorax. No pleural effusions. The heart remains mildly enlarged. There is progressive interstitial/vascular thickening consistent with mild pulmonary edema. No new focal lung consolidations. No acute rib fractures. IMPRESSION: Interval development of mild interstitial pulmonary edema and mild cardiomegaly. Chest X-Ray 06/02/22 08:14 XR chest 2V PA/lateral HISTORY: hypoxia COMPARISON: Chest 06/01/2022. FINDINGS: No pneumothorax. The heart remains mildly enlarged. Interstitial/vascular thickening has improved. There are patchy left lower lobe airspace opacities. Trace bilateral pleural effusions are again noted. IMPRESSION: 1. Interval improvement in the pulmonary edema. 2. Patchy left lower lobe airspace opacities which may represent a component of the pulmonary edema or a low-grade pneumonitis. 06/02/22 07:00 06/02/22 07:00 Hospital Course (1) Acute respiratory failure with hypoxia: 61 y/o female with a PMHx of NIDTIIDM, chronic bronchitis, 3/4 ppd smoker, HLD, HFpEF, HTN, GERD presented with generalized weakness found to have a viral pneumonia, UTI, and acute respiratory failure requiring NC admitted for further workup now HDS with resolved oxygen requirement stable for discharge. #Acute respiratory failure with hypoxia - resolved Patient x4 days of respiratory symptoms. Patient febrile and hypoxic to 87 on presentation. Fever resolved rapidly and she has been afebrile since. Now on RA and satting well. Patient treated with abx and steroids while admitted which gr eatly improved symptoms. Patient utilized supportive measures - IS, mucinex, robitussen, duonebs, flutter during her hospital course. Symptoms likely multifactorial in nature with component of possible COPD as patient has a significant smoking history. Patient is positive for metapneumovirus as well. Sputum culture -- moderate gram positive cocci, few gram positive bacilli, few WBCs, and rare epithelial cells. Less likely superimposed bacterial pneumonia as CXR shows no new focal consolidations or signs of bacterial PNA. Urine is growing gram negative bacteria likely e.coli. Narrowed abx to tx UTI and will continue these for a total 5 days. As there is likely an inflammatory component with presumed COPD azithromycin x5 days as well. Discharge on Prednisone 40 mg for 2 days (4 tabs), 30 mg for 2 days (3 tabs), 20 mg for 2 days (2 tabs), 10 mg for 2 days (1 tab), 5 mg for 2 days (0.5 tab). Imaging: CXR - mild interstitial pulmonary edema, mild cardiomegaly ECHO this admit: HFpEF with EF of 50-55%, low normal left ventricular systolic function, normal left ventricular wall motion, moderately dilated left atrium, moderate mitral regurgitation, grade II dystolic dysfunction consistent with elevated left atrial pressure, normal right ventricular systolic pressure. #UTI Was treated with a 3 day course of Bactrim approximately 2 weeks ago, still having symptoms at this time. UA appeared infected on admission. Blood cx shows NGTD after 24 hours. Urine cx shows gram negative bacilli. #Generalized weakness Multifactorial - current UTI, COPD exacerbation, viral pneumonia, decondit ioning, decreased PO intake. PT/OT while inpatient #Metabolic derangements. Repleted electrolytes as indicated #Elevated Troponin Initial high sen trop elevated at 26.6 - peaked. No acute ST segment or T-wave changes. Monitored with tele during stay. #DM Patient to be on home regimen of metformin 1000 BID and linagliptin. While discharging, patient admitted that she has not been taking her metformin 1000 mg BID or linagliptin 5 mg QAM. Advised patient that especially since she is being discharged on prednisone, which could elevate her glucose, she needs to begin taking these medications regularly. Patient was agreeable and demonstrated understanding. Sliding scale used during admit. Would recommend close f/u with PCP for optimal sugar control as this is likely contributing to her recurrent UTIs and overall health status. #Nicotine dependence Nicotine patch ordered while inpatient. Discussed smoking cessation. Patient precontemplative. Address outpatient. #HLD Continue home statin #CAD Continue home ASA #RLS Continue Requip #HTN Stable. Continue lisinopril Code status: full DVT ppx: plavix FENGI: tolerating PO, fluid restriction 1500mL, strict Is and Os Dispo: home (2) Generalized weakness: (3) Urinary tract infection: (4) Hypokalemia: (5) Elevated troponin: (6) Nicotine dependence: (7) Diabetes mellitus treated with oral medication: (8) CAD (coronary artery disease): (9) RLS (restless legs syndrome): (10) Hyperlipidemia: (11) HTN (hypertension): Total Time Total Time Spent Total Time Spent (In Minutes): 25 Discharge Plan Discharge Items Patient Disposition: Home - Self-Care Reason For Visit: GENERALIZED WEAKNESS Discharge Diagnosis: COPD exacerbation Activity: Per Instructions section Non-emergency contact: Primary Care Provider Call non-emergency contact if: you have any medication questions, your symptoms worsen and your temperature is above 101.5 Follow-up/Referrals: Lo Esposito MD [Primary Care Provider] - 06/09/22 10:30 am Diet: Carb Consistent or DM2, Heart Healthy and Low Sodium (2gm) Addtl Attending Provider Instructions: You were admitted to the hospital with low oxygen saturation and were found to have a UTI and viral pneumonia. You were treated with antibiotics, steroids, and supplemental oxygen. Your oxygen requirement was no longer present at the time of discharge. We will continue antibiotics for your UTI and viral pneumonia. You have an appointment scheduled with your PCP 06/09. Please keep this appointment. As we discussed we strongly recommend smoking cessation. Continue to consider the pros/cons of tobacco use and discuss this with your PCP. A discharge summary will be sent to them. We also talked about your sugar control. I'd recommend restarting your home medications and monitoring your sugars at home. High sugars may also have been contributing to your recurrent urinary tract infections. We sent a new medication called Azithromycin to your pharmacy. Take one tab in the morning for 3 days. We sent a new medication called Cephalexin to your pharmacy. Take one tab every 12 hours for 4 days We sent a new medication called Prednisone to your pharmacy. Take 40 mg for 2 days (4 tabs), 30 mg for 2 days (3 tabs), 20 mg for 2 days (2 tabs), 10 mg for 2 days (1 tab), 5 mg for 2 days (0.5 tab). If you have any issues filling these prescriptions call [phone] and ask to leave a message for Dr. Cisneros Take your medications as instructed; do not skip a dose of your medicines. Make sure all of your doctors know every medicine you are taking (including htxs-row-[id number] medicines, vitamins, and supplements). Call your primary care provider before taking any new medicines (including over- the- counter medicines, vitamins, and supplements), because some of these may interact with your current medications, or may make your symptoms worse. Tell your primary care provider if you cannot afford your medications. CONTACT YOUR PRIMARY CARE PROVIDER if you experience any of the following: shortness of breath, trouble speaking in full sentences fevers, chills, worsening of symptoms Difficulty following your treatment plan, or difficulty taking medications CALL 911 OR GO TO THE EMERGENCY DEPARTMENT if you experience any of the following: Sudden, severe abdominal pain or nausea/vomiting Severe chest pain, or chest pain that radiates (moves) to your jaw or arm Sudden, severe shortness of breath or difficulty breathing Thank you for allowing us to participate in your care Pending Studies at Discharge: No Stand-Alone Forms: My [facility] [employer], Smoking Cessation Medications and DC Order Prescriptions: New azithromycin 250 mg Tablet 250 mg PO QAM Qty: 3 0RF cephalexin 500 mg Capsule 500 mg PO BID Qty: 7 0RF prednisone 10 mg tablet 10 mg PO DIRECTED Qty: 21 0RF Rx Instructions: see taper instructions - take 40 mg (4 tabs) x2 days 30 mg (3 tabs) x2 20 mg (2 tabs) x2 days 10 mg x2 day (1 tab), 5 mg x2 days (0.5 tab) Continued ondansetron 4 mg film 4 mg PO Q6H PRN (Reason: nausea and vomiting) senna 8.6 mg capsule 8.6 mg PO BID cholecalciferol (vitamin D3) 1,250 mcg (50,000 unit) capsule 50,000 unit PO WK Qty: 12 3RF ropinirole 1 mg tablet 1 mg PO TID Qty: 270 1RF albuterol sulfate 90 mcg/actuation HFA aerosol inhaler 2 inh inhalation Q6H PRN (Reason: shortness of breath or wheezing) Qty: 8.5 1RF benzonatate 200 mg capsule 200 mg PO TID PRN (Reason: cough) Qty: 30 1RF fluticasone propionate 50 mcg/actuation spray,suspension 2 spray intranasal DAILY Qty: 16 2RF Rx Instructions: administer into each nostril docusate sodium 100 mg capsule 100 mg PO BID Qty: 60 5RF pantoprazole 40 mg tablet,delayed release (DR/EC) 40 mg PO BID Qty: 60 5RF aspirin 81 mg tablet,delayed release (DR/EC) 81 mg PO QAM Qty: 90 3RF atorvastatin 80 mg tablet 80 mg PO QAM Qty: 90 3RF clopidogrel 75 mg tablet 75 mg PO QAM Qty: 90 3RF famotidine 20 mg tablet 20 mg PO DAILY Qty: 90 3RF Tradjenta 5 mg tablet 5 mg PO QAM Qty: 90 1RF metformin 1,000 mg tablet 1,000 mg PO BID Qty: 180 1RF (DME) blood-glucose meter [OneTouch Verio Flex meter] [facility] See Rx Instructions .Route Qty: 1 0RF Rx Instructions: As directed to check blood sugars two times a day (DME) OneTouch Verio test strips Strip See Rx Instructions .Route Qty: 100 5RF Rx Instructions: As directed to test blood sugars two times a day (DME) lancets [OneTouch Delica Lancets] 33 gauge [facility] [place] See Rx Instructions .Route Qty: 100 5RF Rx Instructions: As directed to test blood sugars two times a day lisinopril 10 mg Tablet 10 mg PO DAILY Discharge Orders: Discharge Order (Routine); Ordered 06/02/22 Ordered By: Shazia Cisneros Admission Data Admit Date/Time: 06/01/22 17:17 Attending Provider: Severino Ledezma Admit Provider: Dat Mccracken Primary Care Provider: Lo Esposito V. Other Providers: Dat Mccracken Other Interventions: Discharge Summary Assessment (RN) Last Done: 06/02/22 17:43 Supervising Physician Co-Signing Physician Notes I personally examined the patient and verified all toro points of history and exam, discussed case, and agree with decision making and plan documented by Dr. Cisneros. Resident Activity Tracking Resident Involvement: Resident Care Provided Care Provided: Adult Hospital Medicine
[2022-06-02] MEDS ORDERED: cefTRIAXone SODIUM 2,000 MG in DEXTROSE 5% 50 ML IV SCH (17:00)
[2022-06-02] MEDS ORDERED: INSULIN ASPART PER UNIT CHARGE SC ONE (18:36)
[2022-06-02] MEDS ORDERED: LANTUS PER UNIT CHARGE SQ SCH (21:00)
== END 2022-06-02 18:37 | disposition home or self-care (01) | DRG 189 ==
LOC: ED 14:18 → INTOOBSV 17:17 → 2N 17:17 → SUATTDRO 17:17 → 2N 17:43 → 2W 22:17
DX: G89.4 Chronic pain syndrome; J12.3 Human metapneumovirus pneumonia; Z86.16 Personal history of COVID-19; I25.10 Atherosclerotic heart disease of native coronary artery without angina pectoris; E11.9 Type 2 diabetes mellitus without complications; I10 Essential (primary) hypertension; Z79.84 Long term (current) use of oral hypoglycemic drugs; B96.20 Unspecified Escherichia coli [E. coli] as the cause of diseases classified elsewhere; F17.210 Nicotine dependence, cigarettes, uncomplicated; Z88.1 Allergy status to other antibiotic agents; E78.5 Hyperlipidemia, unspecified; Z83.3 Family history of diabetes mellitus; Z88.5 Allergy status to narcotic agent; J96.01 Acute respiratory failure with hypoxia; J44.1 Chronic obstructive pulmonary disease with (acute) exacerbation; E87.6 Hypokalemia; Z98.84 Bariatric surgery status; N39.0 Urinary tract infection, site not specified

== ENCOUNTER 2023-01-18 16:52 | Observation (INO) ==
[2023-01-18 17:26] LABS: Basophils # (auto) 0.08 K/uL (0.00-0.20); Basophils % (auto) 0.8 %; Eosinophils # (auto) 0.29 K/uL (0.00-0.50); Eosinophils % (auto) 2.8 %; Hematocrit (blood only) 39.9 % (37.0-47.0); Hemoglobin 13.3 g/dl (12.0-16.0); Immature Granulocytes # (auto) 0.06 K/uL (0.01-0.20); Immature Granulocytes % (auto) 0.6 %; Lymphocytes # (auto) 2.04 K/uL (1.20-3.40); Lymphocytes % (auto) 19.9 %; Mean Corpuscular Hemoglobin 29.6 pg (25.0-34.0); Mean Corpuscular Hgb Conc 33.3 g/dL (32.0-36.0); Mean Corpuscular Volume 88.7 fL (80.0-100.0); Mean Platelet Volume 9.4 fL (9.4-12.4); Monocytes # (auto) 0.79 K/uL (0.11-0.59); Monocytes % (auto) 7.7 %; Neutrophils # (auto) 7.01 K/uL (1.40-6.50); Neutrophils % (auto) 68.2 %; Platelet Count 321 K/uL (130-400); RDW Coefficient of Variation 14.6 % (11.5-14.5); RDW Standard Deviation 46.9 fL (36.4-46.3); White Blood Count 10.27 K/ul (4.8-10.8)
[2023-01-18 17:43] LABS: Albumin Globulin Ratio 1.3 (0.9-2); Albumin Level 3.8 gm/dl (3.4-5.0); BUN Creatinine Ratio 25.5 (10-20); Bilirubin,Total 0.4 mg/dl (0.2-1.0); Calcium 9.3 mg/dl (8.6-10.3); Creatinine Clr Calc Pharmacy 160.8 ml/min; Est GFR (African American) 122.7 ml/min; Est GFR (Non-African American) 105.9 ml/min; Globulin 2.9 gm/dl (2.5-4.0); Total Protein 6.7 gm/dl (6.0-8.3)
--- NOTE | 2023-01-18 17:47 | XRay Report ---
XR chest 1V not portable CLINICAL HISTORY: Chest pain, nonspecific TECHNIQUE: Single frontal radiograph of the chest was obtained. Comparison: Comparison is made to chest radiograph 12/27/2022 FINDINGS: Exam is limited by underpenetration. The cardiomediastinal silhouette is normal. The lungs are clear. No evidence of pleural effusion or pneumothorax. IMPRESSION: No acute chest disease. ACT 112: Negative or not required by law. Electronically signed by: Donny Carbone M.D. 01/18/2023 5:45 PM
[2023-01-18 17:51] LABS: INR 0.9 (0.9-1.1); Partial Thromboplastin Ratio 0.9; Partial Thromboplastin Time 26.2 Seconds (21.0-31.0); Prothrombin Time 10.2 Seconds (9.0-12.0)
[2023-01-18 18:06] LABS: Troponin I High Sensitivity 68.2 pg/ml (0-14)
[2023-01-18] MEDS ORDERED: OPTIRAY 320 500ml IV ONE (19:44)
--- NOTE | 2023-01-18 20:25 | CT Scan Report ---
Exam(s): CTA CHEST IV Amt: 106 ml optiray 320 EXAM: CT Angiography Chest With Intravenous Contrast CLINICAL HISTORY: Reason for exam: ro PE. TECHNIQUE: Axial computed tomographic angiography images of the chest with intravenous contrast. CTDI is 27.91 mGy and DLP is 880.22 mGy-cm. Automated exposure control was utilized for the study. A dose lowering technique was utilized adhering to the principles of ALARA. MIP reconstructed images were created and reviewed. COMPARISON: No relevant prior studies available. FINDINGS: LUNGS: No focal consolidation, pleural effusion, or pneumothorax. HEART: Cardiomegaly. VASCULATURE: No acute pulmonary embolism. Atherosclerotic changes of the aorta. THYROID: Within normal limits. MEDIASTINUM + LYMPH NODES: There are no pathologically enlarged mediastinal, hilar, or axillary lymph nodes. SUPERIOR ABDOMEN: Hepatic steatosis. MUSCULOSKELETAL: Degenerative changes. IMPRESSION: No acute pulmonary embolism. Electronically signed by: Jered Guadarrama MD 01/18/23 20:24 PM
--- NOTE | 2023-01-18 21:36 | Ultrasound Report ---
Exam(s): US VENOUS BILATERAL LOWER EXTREMITIES EXAM: US Duplex Bilateral Lower Extremities Veins CLINICAL HISTORY: Reason for exam: ro dvt. TECHNIQUE: Real-time duplex ultrasound scan of the bilateral lower extremity veins integrating B-mode two-dimensional vascular structure, Doppler spectral analysis, color flow Doppler imaging and compression. COMPARISON: No relevant prior studies available. FINDINGS: Right deep veins: Unremarkable. No DVT in the right common femoral, femoral, proximal deep femoral or popliteal veins. The veins demonstrate normal color flow, are normally compressible, with normal phasic flow and/or augmentation response. Right superficial veins: Unremarkable. No thrombus in the visualized right great saphenous vein. Left deep veins: Unremarkable. No DVT in the left common femoral, femoral, proximal deep femoral or popliteal veins. The veins demonstrate normal color flow, are normally compressible, with normal phasic flow and/or augmentation response. Left superficial veins: Unremarkable. No thrombus in the visualized left great saphenous vein. Soft tissues: Bilateral subcutaneous edema. No popliteal cyst. Lymph nodes: LEFT inguinal lymph measures 4.7 x 1.6 cm. IMPRESSION: No acute findings in the bilateral lower extremity veins. Electronically signed by: Jered Guadarrama MD 01/18/23 21:35 PM
--- NOTE | 2023-01-18 21:36 | History & Physical Report ---
Date of Service January 18, 2023 Assessment & Plan (1) Elevated troponin: (2) CAD (coronary artery disease): (3) Diabetes mellitus: (4) Hyperlipidemia: (5) HTN (hypertension): (6) Fibromyalgia: (7) Chronic pain syndrome: (8) RLS (restless legs syndrome): (9) Tobacco abuse: (10) H/O drug abuse: (11) Leg edema: Plan 62 yo female PMHx CAD s/p MIGUEL to RCA, T2DM on insulin, HTN, HLD, Tobacco abuse, GERD, h/o gastric bypass, h/o drug abuse (amphetamine and EtOH) admitted for CP and SOB. #Elevated Troponin 68.2 on admission, repeat 60.3 NSTEMI vs CHF #LE Edema BNP 376 Pt has gained 77lbs since 06/2022 TTE Lasix 40mg BID Daily weights #CAD s/p MIGUEL to RCA #T2DM Lantus 20U BID ISS Hold metformin #HLD Continue atorvastatin #HTN Continue lisinopril #Fibromyalgia #GERD continue esomeprazole and famotidine #RLS Continue Ropinarole #Tobacco Abuse Current smoker Does not desire nicotine replacement #H/O Drug Abuse Thiamine and folate daily History of Present Illness Chief Complaint: CP and SOB Primary Care Provider: Lo Esposito MD 62 yo female PMHx CAD s/p MIGUEL to RCA, T2DM on insulin, HTN, HLD, Tobacco abuse, GERD, h/o gastric bypass, h/o drug abuse (amphetamine and EtOH) admitted for CP and SOB. Has had progressive CP, SOB and vomiting for the last 3 days, it became constant over the last 24hrs. This was similar to her symptomatology during her MD in 2020. She has noticed a dramatic increase in LE swelling over the last few months, lately they have been weeping fluid and are painful. She has noticed during the same time period she is increasingly short of breath during exertion. She is currently attending daily aa meetings and meeting with her chief juvenile probation officer which has been difficult due to her exercise intolerance. Of note she recently had adenovirus and bronchitis at that time a urine culture was done and she was found to have resistant E. coli asymptomatic bacteriuria for which she was not treated. At this time, endorses SOB and painful swollen legs. Denies CP, N/V/D. In the ED: High sensitivity troponin elevated to 68.2 later 60.3, BNP 376, CXR and CTA negative, LE Doppler studies negative for DVT Allergies Allergy/AdvReac Type Severity Reaction Status Date / Time morphine Allergy Intermediate Hives Verified 08/11/22 11:38 adhesive Allergy Unknown Unknown Verified 08/11/22 11:38 clonazepam Allergy Unknown short term Verified 08/11/22 11:38 memory loss amoxicillin [From Augmentin] AdvReac Diarrhea Verified 08/11/22 11:38 clavulanic acid AdvReac Diarrhea Verified 08/11/22 11:38 [From Augmentin] NSAIDS (Non-Steroidal AdvReac CONTRAINDICATED Verified 08/11/22 11:38 Anti-Inflamma IS ON ANTICOAGULATION Home Medications Medication Instructions Recorded Confirmed Type atorvastatin 80 mg tablet 80 mg PO QAM #90 tabs 05/02/22 01/18/23 Rx blood sugar diagnostic (Smart MuseumTouch #100 ea 05/02/22 01/18/23 Rx Verio test strips) blood-glucose meter (Smart MuseumTouch #1 ea 05/02/22 01/18/23 Rx Verio Flex Meter) famotidine 20 mg tablet 20 mg PO DAILY #90 tabs 05/02/22 01/18/23 Rx lancets 33 gauge (OneTouch Delica #100 ea 05/02/22 01/18/23 Rx Lancets) acetaminophen 650 mg 650 mg PO BID PRN Unknown 07/03/22 01/18/23 History tablet,extended release docusate sodium 100 mg capsule 100 mg PO DAILY PRN constipation 07/26/22 01/18/23 History fluticasone propionate 50 2 spray intranasal DAILY 07/26/22 01/18/23 History mcg/actuation nasal spray,suspension (Flonase Allergy Relief) loratadine 10 mg tablet 10 mg PO DAILY PRN allergy symptoms 07/26/22 01/18/23 History metformin 1,000 mg tablet 1,000 mg PO BID #60 tabs 10/31/22 01/18/23 Rx ropinirole 1 mg tablet 1 mg PO TID #90 tabs 10/31/22 01/18/23 Rx lisinopril 20 mg tablet 20 mg PO DAILY #90 tabs 11/14/22 01/18/23 Rx albuterol sulfate 90 mcg/actuation 2 inh inhalation Q6H PRN shortness 12/01/22 01/18/23 Rx aerosol inhaler of breath or wheezing #8.5 grams cholecalciferol (vitamin D3) 1,250 50,000 unit PO WK #12 caps 12/13/22 01/18/23 Rx mcg (50,000 unit) capsule potassium chloride 20 mEq 20 meq PO DAILY #90 tabs 12/21/22 01/18/23 Rx tablet,extended release(part/cryst) aspirin 81 mg tablet,delayed 81 mg PO QAM #90 tabs 12/25/22 01/18/23 Rx release linagliptin 5 mg tablet (Tradjenta) 5 mg PO DAILY #30 tabs 12/25/22 01/18/23 Rx fluticasone fur. 200 mcg-umeclid 1 inh inhalation DAILY #28 ea 12/28/22 01/18/23 Rx 62.5 mcg-vilant 25 mcg inhalat.powder (Trelegy Ellipta) furosemide 20 mg tablet 20 mg PO QAM #3 tabs 12/28/22 01/18/23 Rx insulin aspart U-100 100 unit/mL See Rx Instructions subcut UD #15 12/28/22 01/18/23 Rx (3 mL) subcutaneous pen (Novolog mL FlexPen U-100 Insulin aspart) insulin glargine 100 unit/mL (3 20 unit (0.2 mL) subcut BID #15 mL 12/28/22 01/18/23 Rx mL) subcutaneous pen (Lantus Solostar U-100 Insulin) pen needle, diabetic 32 gauge x #200 ea 12/28/22 01/18/23 Rx 1/4" (BD Ultra-Fine Micro Pen Needle) esomeprazole magnesium 40 mg 40 mg PO DAILY #30 caps 01/03/23 01/18/23 Rx capsule,delayed release Past Med/Surg History Medical History Diabetes mellitus treated with insulin and oral medication Closed fracture of radial styloid (07/03/22) Acute UTI Acute respiratory failure with hypoxia Rash Diabetes mellitus treated with oral medication Leukocytosis Abdominal wall abscess Hypocalcemia Hypomagnesemia Wound infection after surgery Abscess of vulva COVID-19 Open thigh wound Traumatic wound Chronic pain syndrome Acute hyperglycemia Methamphetamine abuse Acute ST elevation myocardial infarction (STEMI) of inferior wall Anastomotic ulcer S/P gastric bypass Restless leg syndrome Insomnia Anxiety and depression Leukocytosis DVT prophylaxis Incarcerated hernia Abdominal pain Ventral hernia Fibromyalgia HTN (hypertension) Gastric ulcer Bloody emesis Corneal abrasion Left corneal abrasion L1 vertebral fracture Migraine Acute cholecystitis UTI (lower urinary tract infection) Pneumonia Bronchitis Surgical History S/P anal fissurectomy History of ankle surgery S/P tonsillectomy S/P recurrent ventral herniorrhaphy S/P ventral herniorrhaphy [place] [facility] [place] then drainage of incisional abscess 12/2021 H/O gastric bypass S/P cholecystectomy H/O: hysterectomy H/O knee surgery Family History Father Myocardial infarction Leukemia Sister Ovarian cancer Myocardial infarction Other Family history of diabetes mellitus Hypertension Denies family history of Prostate cancer Breast cancer Colorectal cancer Social History Smoking Status: Smoker, status unknown Tobacco Type: Cigarettes packs per day: 1.5; Cigarettes Per Day: 10; Second Hand Exposure: No; Do You Dip or Chew Tobacco: No; Hx Alcohol Use: No Hx Substance Use: No Preferred Language: Tongan Communication Ability: Effective Visual Impairment: No 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 [employer]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: No Beliefs That Will Affect Care: None marital status: Current Living Situation: Family Current Living Situation Comment: with daughter current occupational status: unemployed and disabled How many Children do You have: 2 Feels Safe at Home: Yes Childhood Exposure to Second-Hand Smoke: Yes Diet: regular during the past year weight has: remained stable Dental Care, Regularly: No Physical Activity Frequency: Does not Exercise Seatbelt Use: always Sunscreen Use: Yes Assistive Devices: None Review of Systems Review of Systems: reviewed, per HPI Physical Exam Physical Exam: General: patient resting comfortably, NAD, non-toxic in appearance, AA&O x 4, answers questions appropriately and follows commands. Skin: LE macular rash L>R. 2+pitting edema HEENT: NC/AT, anicteric sclera, conjunctiva without injection, moist mucus membranes, trachea midline, no thyromegaly, no JVD Heart: +S1/S2, regular, no m/r/g Lungs: equal air entry bilaterally, +expiratory wheeze. -rales,rhonchi Abd: +BS, soft, NT/ND, no masses/organomegaly/ascites Ext: warm, no clubbing/cyanosis. Edematous LE Neuro: nonfocal, patient AA&O x 4, speech intact, no facial droop, moving all extremities on command. Results & Data Results & Data Vital Signs (Past 12 Hours) Vital Signs Temp Pulse Resp BP Pulse Ox O2 Del Method 01/18/23 19:22 69 01/18/23 16:56 36.9 C 91 H 19 131/72 97 Room Air Supervising Physician Co-Signing Physician Notes Attending addendum: I have physically seen this patient, have supervised the medical residents activities, and agree with the H&P unless as otherwise noted. Assessment and Plan: Elevated troponin/CAD/status post MIGUEL to RCA/CHF- The patient will be admitted to telemetry for serial cardiac enzymes, serial EKG's, cardiac rhythm monitoring and a 2-D echocardiogram with Dopplers. Initial troponin 68.2, with follow-up 60.3 Patient with noted 70 pound weight gain Fluid overload/CHF, given furosemide 40 mg IV in the ED, and will continue 40 mg IV twice daily Continue lisinopril Diabetes mellitus- Lantus 20 units subcu twice daily Hold metformin Placed on Accu-Cheks with NovoLog SSI Check hemoglobin A1c Hyperlipidemia- Continue atorvastatin Check a fasting lipid panel Resident Activity Tracking Resident Involvement: Resident Care Provided Care Provided: Adult Hospital Medicine (3) Diabetes mellitus Diabetes mellitus half-way insulin use: with half-way use Diabetes mellitus type: type 2
[2023-01-18] MEDS ORDERED: FUROSEMIDE 40 MG/4 ML VIAL IV ONE (21:37)
--- NOTE | 2023-01-18 23:15 | Emergency Department Note ---
History of Present Illness General Chief Complaint: Chest Pain Stated Complaint: SOB, LT ARM PAIN, CHEST PAIN, EDEMA BOTH LEGS Time Seen by Provider: 01/18/23 18:25 History of Present Illness Provider Complaint: shortness of breath and chest pain Onset (ago): day(s) (3) Severity: mild Maximum Pain Intensity: 3 Relieved By: + upright position Exacerbated By: + lying flat Associated symptoms: + orthopnea and + chest congestion; no cough, no sputum production, no lower extremity pain or no rash HPI Narrative: Patient reports bilateral lower extremity edema and a weight gain of 30 pounds over the last month. Home Medications Medication Instructions Recorded Confirmed Type atorvastatin 80 mg tablet 80 mg PO QAM #90 tabs 05/02/22 01/18/23 Rx blood sugar diagnostic (Energy Storage SystemsTouch #100 ea 05/02/22 01/18/23 Rx Verio test strips) blood-glucose meter (Energy Storage SystemsTouch #1 ea 05/02/22 01/18/23 Rx Verio Flex Meter) famotidine 20 mg tablet 20 mg PO DAILY #90 tabs 05/02/22 01/18/23 Rx lancets 33 gauge (OneTouch Delica #100 ea 05/02/22 01/18/23 Rx Lancets) acetaminophen 650 mg 650 mg PO BID PRN Unknown 07/03/22 01/18/23 History tablet,extended release docusate sodium 100 mg capsule 100 mg PO DAILY PRN constipation 07/26/22 01/18/23 History fluticasone propionate 50 2 spray intranasal DAILY 07/26/22 01/18/23 History mcg/actuation nasal spray,suspension (Flonase Allergy Relief) loratadine 10 mg tablet 10 mg PO DAILY PRN allergy symptoms 07/26/22 01/18/23 History metformin 1,000 mg tablet 1,000 mg PO BID #60 tabs 10/31/22 01/18/23 Rx ropinirole 1 mg tablet 1 mg PO TID #90 tabs 10/31/22 01/18/23 Rx lisinopril 20 mg tablet 20 mg PO DAILY #90 tabs 11/14/22 01/18/23 Rx albuterol sulfate 90 mcg/actuation 2 inh inhalation Q6H PRN shortness 12/01/22 01/18/23 Rx aerosol inhaler of breath or wheezing #8.5 grams cholecalciferol (vitamin D3) 1,250 50,000 unit PO WK #12 caps 12/13/22 01/18/23 Rx mcg (50,000 unit) capsule potassium chloride 20 mEq 20 meq PO DAILY #90 tabs 12/21/22 01/18/23 Rx tablet,extended release(part/cryst) aspirin 81 mg tablet,delayed 81 mg PO QAM #90 tabs 12/25/22 01/18/23 Rx release linagliptin 5 mg tablet (Tradjenta) 5 mg PO DAILY #30 tabs 12/25/22 01/18/23 Rx fluticasone fur. 200 mcg-umeclid 1 inh inhalation DAILY #28 ea 12/28/22 01/18/23 Rx 62.5 mcg-vilant 25 mcg inhalat.powder (Trelegy Ellipta) furosemide 20 mg tablet 20 mg PO QAM #3 tabs 12/28/22 01/18/23 Rx insulin aspart U-100 100 unit/mL See Rx Instructions subcut UD #15 12/28/22 01/18/23 Rx (3 mL) subcutaneous pen (Novolog mL FlexPen U-100 Insulin aspart) insulin glargine 100 unit/mL (3 20 unit (0.2 mL) subcut BID #15 mL 12/28/22 01/18/23 Rx mL) subcutaneous pen (Lantus Solostar U-100 Insulin) pen needle, diabetic 32 gauge x #200 ea 12/28/22 01/18/23 Rx 1/4" (BD Ultra-Fine Micro Pen Needle) esomeprazole magnesium 40 mg 40 mg PO DAILY #30 caps 01/03/23 01/18/23 Rx capsule,delayed release Allergies Allergy/AdvReac Type Severity Reaction Status Date / Time morphine Allergy Intermediate Hives Verified 08/11/22 11:38 adhesive Allergy Unknown Unknown Verified 08/11/22 11:38 clonazepam Allergy Unknown short term Verified 08/11/22 11:38 memory loss amoxicillin [From Augmentin] AdvReac Diarrhea Verified 08/11/22 11:38 clavulanic acid AdvReac Diarrhea Verified 08/11/22 11:38 [From Augmentin] NSAIDS (Non-Steroidal AdvReac CONTRAINDICATED Verified 08/11/22 11:38 Anti-Inflamma IS ON ANTICOAGULATION Past Med/Surg History Medical History Diabetes mellitus treated with insulin and oral medication Closed fracture of radial styloid (07/03/22) Acute UTI Acute respiratory failure with hypoxia Rash Diabetes mellitus treated with oral medication Leukocytosis Abdominal wall abscess Hypocalcemia Hypomagnesemia Wound infection after surgery Abscess of vulva COVID-19 Open thigh wound Traumatic wound Chronic pain syndrome Acute hyperglycemia Methamphetamine abuse Acute ST elevation myocardial infarction (STEMI) of inferior wall Anastomotic ulcer S/P gastric bypass Restless leg syndrome Insomnia Anxiety and depression Leukocytosis DVT prophylaxis Incarcerated hernia Abdominal pain Ventral hernia Fibromyalgia HTN (hypertension) Gastric ulcer Bloody emesis Corneal abrasion Left corneal abrasion L1 vertebral fracture Migraine Acute cholecystitis UTI (lower urinary tract infection) Pneumonia Bronchitis Surgical History S/P anal fissurectomy History of ankle surgery S/P tonsillectomy S/P recurrent ventral herniorrhaphy S/P ventral herniorrhaphy repair [facility] [place] 11/2021, then drainage of incisional abscess 12/2021 H/O gastric bypass S/P cholecystectomy H/O: hysterectomy H/O knee surgery Family History Father Myocardial infarction Leukemia Sister Ovarian cancer Myocardial infarction Other Family history of diabetes mellitus Hypertension Denies family history of Prostate cancer Breast cancer Colorectal cancer Social History Smoking Status: Current every day smoker Tobacco Type: Cigarettes packs per day: 1.5; Cigarettes Per Day: 10; Second Hand Exposure: No; Do You Dip or Chew Tobacco: No; Hx Alcohol Use: No Hx Substance Use: Yes Prescribed Medications: Marijuana and Other Non- Prescribed Medications: Crack / Cocaine and Methamphetamines Last Used Substance: Just Prior to Arrival Last Used Substance Other:: within the last year, Dr. Mccracken made aware Preferred Language: Turkish Communication Ability: Effective Visual Impairment: No Limitations Boxing And Pressing Supervisor Required: No Beliefs That Will Affect Care: None marital status: Current Living Situation: Alone current occupational status: unemployed and disabled How many Children do You have: 2 Feels Safe at Home: Yes Childhood Exposure to Second-Hand Smoke: Yes Diet: regular during the past year weight has: remained stable Dental Care, Regularly: No Physical Activity Frequency: Does not Exercise Seatbelt Use: always Sunscreen Use: Yes Assistive Devices: Nebulizer Physical Exam 2 Vital Signs: Vital Signs - 24 hr 01/18/23 16:56 01/18/23 19:17 01/18/23 19:22 Temperature 36.9 C Temperature Source Temporal Artery Sc an Pulse Rate 91 H 70 69 Respiratory Rate 19 20 Respiratory Effort / Characteristics Non-Labored Sponta neous Respiratory Depth Normal Blood Pressure 131/72 Blood Pressure Alyse n 91 Pulse Oximetry 97 Oxygen Delivery Me thod Room Air Sepsis Recent Feve r Within 48 Hours No Sepsis New/Unexpla ined Change in Men bibiana Status N/A Sepsis Action Take n by Nursing No Action Required 01/18/23 19:30 01/18/23 19:56 01/18/23 19:56 Temperature Temperature Source Pulse Rate 67 73 Respiratory Rate 20 18 Respiratory Effort / Characteristics Respiratory Depth Blood Pressure 120/70 Blood Pressure Alyse n 79 Pulse Oximetry Oxygen Delivery Me thod Sepsis Recent Feve r Within 48 Hours Sepsis New/Unexpla ined Change in Men bibiana Status Sepsis Action Take n by Nursing 01/18/23 21:48 01/18/23 21:49 01/18/23 21:49 Temperature Temperature Source Pulse Rate 71 75 Respiratory Rate 17 21 Respiratory Effort / Characteristics Respiratory Depth Blood Pressure 149/100 H Blood Pressure Alyse n 104 Pulse Oximetry Oxygen Delivery Me thod Sepsis Recent Feve r Within 48 Hours Sepsis New/Unexpla ined Change in Men bibiana Status Sepsis Action Take n by Nursing 01/18/23 22:00 01/18/23 22:02 Temperature Temperature Source Pulse Rate 68 72 Respiratory Rate 18 21 Respiratory Effort / Characteristics Respiratory Depth Blood Pressure Blood Pressure Alyse n Pulse Oximetry Oxygen Delivery Me thod Sepsis Recent Feve r Within 48 Hours Sepsis New/Unexpla ined Change in Men bibiana Status Sepsis Action Take n by Nursing Physical Exam: Physical Exam HENT: Exam performed. -Head: Normocephalic and atraumatic. EYES: Conjunctivae and EOM are normal. Pupils are equal, round, and reactive to light. Right eye exhibits no discharge. Left eye exhibits no discharge. No scleral icterus. NECK: Normal range of motion. Neck supple. No JVD present. CV: Normal rate, regular rhythm, normal heart sounds and intact distal pulses. Palpable radial pulses bue. PULM/CHEST: Inspiratory rales at the bases bilaterally. ABD: The abdomen is soft and obese. MUSC/SKEL: 3+ pitting edema of the bilateral lower extremities. NEURO: Motor and sensation grossly intact. Course Course 1824: The patient was evaluated in room A2. A complete history and physical exam was performed Cardiac monitoring: An order was placed for continuous cardiac monitoring. The monitor shows a rate of 70 with sinus rhythm interpreted by me 2140: Vital signs stable. CTA of the chest negative for PE. Labs show elevated troponin and proBNP. Troponin is trending downward. Patient will be given Lasix and admitted to the hospitalist service. Dr. Dupont's team has been notified. Administered Medications Discontinued Medications Furosemide (Furosemide 40 Mg/4 Ml Vial) 40 mg IV ONE ONE Stop: 01/18/23 21:38 Last Admin: 01/18/23 22:15 Dose: 40 mg Documented By: TIARA Ioversol (Optiray 320 500ml) 106 ml IV ONCE ONE Stop: 01/18/23 19:45 Last Admin: 01/18/23 19:44 Dose: 106 ml Documented By: HORTENCIA Medical Decision Making Laboratory Data Attestation: I reviewed the patient's lab results. 01/18/23 17:05 01/18/23 17:05 Lab Results 01/18/23 01/18/23 Range/Units 17:05 19:23 WBC 10.27 (4.8-10.8) K/ul RBC 4.50 (4.20-5.40) M/uL Hgb 13.3 (12.0-16.0) g/dl Hct 39.9 (37.0-47.0) % MCV 88.7 (80.0-100.0) fL MCH 29.6 (25.0-34.0) pg MCHC 33.3 (32.0-36.0) g/dL RDW Std Deviation 46.9 H (36.4-46.3) fL RDW Coeff of Rubi 14.6 H (11.5-14.5) % Plt Count 321 (130-400) K/uL MPV 9.4 (9.4-12.4) fL Immature Gran % (Auto) 0.6 % Neut % (Auto) 68.2 % Lymph % (Auto) 19.9 % Shoshone % (Auto) 7.7 % Eos % (Auto) 2.8 % Baso % (Auto) 0.8 % Neut # (Auto) 7.01 H (1.40-6.50) K/uL Lymph # (Auto) 2.04 (1.20-3.40) K/uL Shoshone # (Auto) 0.79 H (0.11-0.59) K/uL Eos # (Auto) 0.29 (0.00-0.50) K/uL Baso # (Auto) 0.08 (0.00-0.20) K/uL Immature Gran # (Auto) 0.06 (0.01-0.20) K/uL PT 10.2 (9.0-12.0) Seconds INR 0.9 (0.9-1.1) APTT 26.2 (21.0-31.0) Seconds PTT Ratio 0.9 Sodium 143 (136-145) mmol/L Potassium 4.0 (3.5-5.1) mmol/L Chloride 111 H (98-107) mmol/L Carbon Dioxide 25 (21-32) mmol/L Anion Gap 7 (3-11) BUN 12 (6-23) mg/dl Creatinine 0.47 L (0.6-1.2) mg/dl Est Cr Clr Drug Dosing 160.8 ml/min Est GFR ( Amer) 122.7 ml/min Est GFR (Non-Af Amer) 105.9 ml/min BUN/Creatinine Ratio 25.5 H (10-20) Glucose 171 H (70-99(Fasting)) mg/dl Calcium 9.3 (8.6-10.3) mg/dl Total Bilirubin 0.4 (0.2-1.0) mg/dl AST 15 (13-39) U/L ALT 12 (7-52) U/L Alkaline Phosphatase 82 (34-104) U/L Troponin I High Sens 68.2 H* 60.3 H* (0-14) pg/ml B-Natriuretic Peptide 376 H (0-100) pg/ml Total Protein 6.7 (6.0-8.3) gm/dl Albumin 3.8 (3.4-5.0) gm/dl Globulin 2.9 (2.5-4.0) gm/dl Albumin/Globulin Ratio 1.3 (0.9-2) Imaging Data Attestation: I personally reviewed and interpreted this imaging study as follows: My Impression: Chest x-ray negative. Airway clear. No pneumothorax. No consolidation. No cardiomegaly or cephalization.. No free air under the diaphragm. No fractures of the skeletal structures. Radiologist's Impression: Chest X-Ray 01/18/23 17:02 XR chest 1V not portable CLINICAL HISTORY: Chest pain, nonspecific TECHNIQUE: Single frontal radiograph of the chest was obtained. Comparison: Comparison is made to chest radiograph 12/27/2022 FINDINGS: Exam is limited by underpenetration. The cardiomediastinal silhouette is normal. The lungs are clear. No evidence of pleural effusion or pneumothorax. IMPRESSION: No acute chest disease. ACT 112: Negative or not required by law. Electronically signed by: Donny Carbone M.D. 01/18/2023 5:45 PM Chest CTA 01/18/23 18:39 Exam(s): CTA CHEST IV Amt: 106 ml optiray 320 EXAM: CT Angiography Chest With Intravenous Contrast CLINICAL HISTORY: Reason for exam: ro PE. TECHNIQUE: Axial computed tomographic angiography images of the chest with intravenous contrast. CTDI is 27.91 mGy and DLP is 880.22 mGy-cm. Automated exposure control was utilized for the study. A dose lowering technique was utilized adhering to the principles of ALARA. MIP reconstructed images were created and reviewed. COMPARISON: No relevant prior studies available. FINDINGS: LUNGS: No focal consolidation, pleural effusion, or pneumothorax. HEART: Cardiomegaly. VASCULATURE: No acute pulmonary embolism. Atherosclerotic changes of the aorta. THYROID: Within normal limits. MEDIASTINUM + LYMPH NODES: There are no pathologically enlarged mediastinal, hilar, or axillary lymph nodes. SUPERIOR ABDOMEN: Hepatic steatosis. MUSCULOSKELETAL: Degenerative changes. IMPRESSION: No acute pulmonary embolism. Electronically signed by: Jered Guadarrama MD 01/18/23 20:24 PM Venous Doppler Study 01/18/23 18:39 Exam(s): US VENOUS BILATERAL LOWER EXTREMITIES EXAM: US Duplex Bilateral Lower Extremities Veins CLINICAL HISTORY: Reason for exam: ro dvt. TECHNIQUE: Real-time duplex ultrasound scan of the bilateral lower extremity veins integrating B-mode two-dimensional vascular structure, Doppler spectral analysis, color flow Doppler imaging and compression. COMPARISON: No relevant prior studies available. FINDINGS: Right deep veins: Unremarkable. No DVT in the right common femoral, femoral, proximal deep femoral or popliteal veins. The veins demonstrate normal color flow, are normally compressible, with normal phasic flow and/or augmentation response. Right superficial veins: Unremarkable. No thrombus in the visualized right great saphenous vein. Left deep veins: Unremarkable. No DVT in the left common femoral, femoral, proximal deep femoral or popliteal veins. The veins demonstrate normal color flow, are normally compressible, with normal phasic flow and/or augmentation response. Left superficial veins: Unremarkable. No thrombus in the visualized left great saphenous vein. Soft tissues: Bilateral subcutaneous edema. No popliteal cyst. Lymph nodes: LEFT inguinal lymph measures 4.7 x 1.6 cm. IMPRESSION: No acute findings in the bilateral lower extremity veins. Electronically signed by: Jered Guadarrama MD 01/18/23 21:35 PM ECG Data Attestation: I personally reviewed and interpreted this ECG as follows: Interpretation: Sinus arrhythmia with a rate of 83. [place] QRS and QTc within normal limits. [facility] Narrative 1825: The patient was evaluated in room A2. A complete history and physical exam was performed Cardiac monitoring: An order was placed for continuous cardiac monitoring. The monitor shows a rate of 70 with sinus rhythm interpreted by me 2140: Vital signs stable. CTA of the chest negative for PE. Labs show elevated troponin and proBNP. Troponin is trending downward. Patient will be given Lasix and admitted to the hospitalist service. Dr. Dupont's team has been notified. Impression & Plan CHF exacerbation Discharge Plan Visit Data Chief Complaint: Chest Pain Stated Complaint: SOB, LT ARM PAIN, CHEST PAIN, EDEMA BOTH LEGS ED Provider: Ramiro Rose Discharge Problem: CHF exacerbation Patient Disposition: Being Evaluated by Hospitalist Forms Stand Alone Forms: My [facility] Prescriptions Prescriptions: No Action metformin 1,000 mg tablet 1,000 mg PO BID Qty: 60 0RF ropinirole 1 mg tablet 1 mg PO TID Qty: 90 0RF albuterol sulfate 90 mcg/actuation HFA aerosol inhaler 2 inh inhalation Q6H PRN (Reason: shortness of breath or wheezing) Qty: 8.5 1RF potassium chloride 20 mEq tablet,ER particles/crystals 20 meq PO DAILY Qty: 90 1RF Tradjenta 5 mg tablet 5 mg PO DAILY Qty: 30 0RF aspirin 81 mg tablet,delayed release (DR/EC) 81 mg PO QAM Qty: 90 3RF insulin aspart U-100 [Novolog FlexPen U-100 Insulin] 100 unit/mL (3 mL) insulin pen See Rx Instructions subcut UD Qty: 15 2RF Rx Instructions: Take as directed per scale before meals; max of 50 units/day subcutaneously use as directed; (DME) pen needle, diabetic [BD Ultra-Fine Micro Pen Needle] 32 gauge x 1/4" needle See Rx Instructions .Route Qty: 200 5RF Rx Instructions: As directed to inject insulin up to 5 times a day insulin glargine [Lantus Solostar U-100 Insulin] 100 unit/mL (3 mL) insulin pen 20 unit subcut BID Qty: 15 5RF Rx Instructions: or as directed esomeprazole magnesium 40 mg capsule,delayed release(DR/EC) 40 mg PO DAILY Qty: 30 2RF lisinopril 20 mg tablet 20 mg PO DAILY Qty: 90 3RF Trelegy Ellipta 200-62.5-25 mcg blister with device 1 inh inhalation DAILY Qty: 28 0RF furosemide 20 mg tablet 20 mg PO QAM Qty: 3 0RF cholecalciferol (vitamin D3) 1,250 mcg (50,000 unit) capsule 50,000 unit PO WK Qty: 12 1RF atorvastatin 80 mg tablet 80 mg PO QAM Qty: 90 3RF famotidine 20 mg tablet 20 mg PO DAILY Qty: 90 3RF (DME) blood-glucose meter [OneTouch Verio Flex meter[place] [facility] [place] Instructions .Route Qty: 1 0RF Rx Instructions: As directed to check blood sugars two times a day (DME) OneTouch Verio test strips Strip See Rx Instructions .Route Qty: 100 5RF Rx Instructions: As directed to test blood sugars two times a day (DME) lancets [OneTouch Delica Lancets] 33 gauge misc See Rx Instructions .Route Qty: 100 5RF Rx Instructions: As directed to test blood sugars two times a day loratadine 10 mg tablet 10 mg PO DAILY PRN (Reason: allergy symptoms) docusate sodium 100 mg capsule 100 mg PO DAILY PRN (Reason: constipation) fluticasone propionate [Flonase Allergy Relief] 50 mcg/actuation spray,suspension 2 spray intranasal DAILY Rx Instructions: administer into each nostril acetaminophen 650 mg Tablet Extended Release 650 mg PO BID PRN (Reason: Unknown) Referrals Referrals: Lo Esposito MD [Primary Care Provider] -
[2023-01-19] MEDS ORDERED: ONDANSETRON INJ 2 MG/ML 2 ML VIAL IV PRN (00:01)
[2023-01-19] MEDS ORDERED: GLUCAGON FOR INJ 1 MG VIAL SQ PRN (00:01)
[2023-01-19] MEDS ORDERED: ACETAMINOPHEN 325 MG TAB PO PRN (00:01)
[2023-01-19] MEDS ORDERED: GLUCOSE 40% GEL 15 GM TUBE PO PRN (00:01)
[2023-01-19] MEDS ORDERED: POLYETHYLENE (MIRALAX) 17 GM PACK PO PRN (00:01)
[2023-01-19] MEDS ORDERED: ALBUTEROL HFA 8 GM INHALER INH PRN (00:01)
[2023-01-19] MEDS ORDERED: ALUMINUM/MAGNESIUM SUSP 30 ML UDC PO PRN (00:01)
[2023-01-19] MEDS ORDERED: GLUCOSE 10 TAB/TUBE PO PRN (00:01)
[2023-01-19] MEDS ORDERED: CARBOHYDRATES FOR HYPOGLYCEMIA PO PRN (00:01)
[2023-01-19] MEDS ORDERED: DEXTROSE 50% 50 ML SYRINGE IV PRN (00:01)
[2023-01-19] MEDS ORDERED: INFLUENZA VIRUS QUADRIVALENT VACCINE (IIV4) 0.5 ML SYR IM ONE (01:46)
[2023-01-19] MEDS ORDERED: PNEUMOCOCCAL VACCINE (PCV20) 20-VAL CONJ-DIP CRM/PF 0.5 ML SYR IM ONE (01:46)
[2023-01-19 06:12] LABS: Basophils # (auto) 0.06 K/uL (0.00-0.20); Basophils % (auto) 0.6 %; Eosinophils # (auto) 0.31 K/uL (0.00-0.50); Eosinophils % (auto) 3.2 %; Hematocrit (blood only) 40.4 % (37.0-47.0); Hemoglobin 13.1 g/dl (12.0-16.0); Immature Granulocytes # (auto) 0.07 K/uL (0.01-0.20); Immature Granulocytes % (auto) 0.7 %; Lymphocytes # (auto) 2.92 K/uL (1.20-3.40); Lymphocytes % (auto) 29.8 %; Mean Corpuscular Hemoglobin 29.1 pg (25.0-34.0); Mean Corpuscular Hgb Conc 32.4 g/dL (32.0-36.0); Mean Corpuscular Volume 89.8 fL (80.0-100.0); Mean Platelet Volume 9.9 fL (9.4-12.4); Monocytes % (auto) 10.2 %; Neutrophils # (auto) 5.44 K/uL (1.40-6.50); Neutrophils % (auto) 55.5 %; Platelet Count 299 K/uL (130-400); RDW Coefficient of Variation 14.6 % (11.5-14.5); RDW Standard Deviation 48.4 fL (36.4-46.3)
[2023-01-19 06:33] LABS: Albumin Globulin Ratio 1.3 (0.9-2); Albumin Level 3.8 gm/dl (3.4-5.0); BUN Creatinine Ratio 21.4 (10-20); Bilirubin,Total 0.4 mg/dl (0.2-1.0); Calcium 9.6 mg/dl (8.6-10.3); Creatinine Clr Calc Pharmacy 141.2 ml/min; Est GFR (African American) 115.8 ml/min; Est GFR (Non-African American) 99.9 ml/min; Globulin 2.9 gm/dl (2.5-4.0); Potassium 4.3 mmol/L (3.5-5.1); Total Protein 6.7 gm/dl (6.0-8.3)
[2023-01-19 06:37] LABS: Troponin I High Sensitivity 46.1 pg/ml (0-14)
[2023-01-19 08:08] LABS: Estimated Average Glucose 174 mg/dl; Hemoglobin A1C 7.7 % (4.5-5.6)
[2023-01-19] MEDS: POTASSIUM CHLORIDE CRTAB 20 MEQ TABCR PO SCH (09:24)
[2023-01-19] MEDS: FAMOTIDINE 20 MG TAB PO SCH (09:24)
[2023-01-19] MEDS: FLUTICASONE PROPIONATE NA SPR 16 GM BTL NAE SCH (09:24)
[2023-01-19] MEDS: ASPIRIN 81 MG ECTAB PO SCH (09:24)
[2023-01-19] MEDS: FLUTICASONE FUROATE 200MCG 14 PUFFS/INHALER INH SCH (09:24)
[2023-01-19] MEDS: rOPINIRole HCL 1 MG TABLET PO SCH ×3 (09:24→19:50)
[2023-01-19] MEDS: lisinopril 20 MG TAB PO SCH (09:24)
[2023-01-19] MEDS: PANTOprazole 40 MG TAB PO SCH (09:24)
[2023-01-19] MEDS: FUROSEMIDE 40 MG/4 ML VIAL IV SCH ×2 (09:24→17:10)
[2023-01-19] MEDS: THIAMINE HCL 100 MG TAB PO SCH (09:24)
[2023-01-19] MEDS: UMECLIDINIUM/VILANTEROL 62.5/25MCG 7 PUFFS/INHALER INH SCH (09:24)
[2023-01-19] MEDS: FOLIC ACID 1 MG TAB PO SCH (09:24)
[2023-01-19] MEDS: ATORVASTATIN 40 MG TAB PO SCH (09:24)
[2023-01-19] MEDS: LORATADINE 10 MG TAB PO PRN (09:24)
[2023-01-19] MEDS: INSULIN ASPART PER UNIT CHARGE SC SCH ×4 (09:34→20:10)
[2023-01-19] MEDS: LANTUS PER UNIT CHARGE SQ SCH ×2 (09:35→20:10)
[2023-01-19] MEDS ORDERED: FUROSEMIDE 40 MG/4 ML VIAL IV SCH (11:00)
--- NOTE | 2023-01-19 11:39 | XCELERA ---
[id number]
--- NOTE | 2023-01-19 12:57 | Electrocardiogram Report ---
Test Reason : Blood Pressure : / mmHG Vent. Rate : 083 BPM Atrial Rate : 083 BPM P-R Int : 176 ms QRS Dur : 086 ms QT Int : 374 ms P-R-T Axes : 037 002 055 degrees QTc Int : 439 ms Sinus rhythm with Premature atrial complexes Low voltage QRS Possible Inferior infarct , age undetermined Poor R wave progression, consider anterior [place] vs. lead placement vs. LVH Abnormal ECG When compared with ECG of 27-DEC-2022 19:45, Premature ventricular complexes are no longer Present Nonspecific T wave abnormality now evident in Anterior leads Confirmed by Severino Bronson ([id number]) on 01/19/2023 12:56:33 PM Referred By: REFERRED SELF Confirmed By:Severino Bronson
--- NOTE | 2023-01-19 19:00 | Hospitalist Progress Note ---
Date of Service January 19, 2023 Assessment & Plan (1) CHF exacerbation: Plan: CHF exacerbation acute on chronic diastolic type Improving Continue Lasix 40 mg twice daily BMP tomorrow (2) Elevated troponin: Plan: Most likely secondary to denies elevation SC type II secondary to CHF exacerbation, monitor for now (3) CAD (coronary artery disease): Plan: 62 yo female PMHx CAD s/p MIGUEL to RCA, T2DM on insulin, HTN, HLD, Tobacco abuse, complain of 40 seconds of Cardizem rehab and check lipid profile, aspirin, continue atorvastatin, add metoprolol, (4) Diabetes mellitus: Plan: Continue home regimen, sliding scale, A1c (5) Hyperlipidemia: Plan: Check lipid profile, (6) HTN (hypertension): Plan: Rate control with current regimen (7) Fibromyalgia: (8) Chronic pain syndrome: (9) RLS (restless legs syndrome): Plan: Continue Requip (10) Tobacco abuse: Plan: Declined NicoDerm, smokes about half a pack a day (11) H/O drug abuse: Plan: History of amphetamine and alcohol abuse, continue thiamine and folic acid Plan #Elevated Troponin 68.2 on admission, repeat 60.3 NSTEMI vs CHF #LE Edema BNP 376 Pt has gained 77lbs since 06/2022 TTE Lasix 40mg BID Daily weights #CAD s/p MIGUEL to RCA #T2DM Lantus 20U BID ISS Hold metformin #HLD Continue atorvastatin #HTN Continue lisinopril #Fibromyalgia #GERD continue esomeprazole and famotidine #RLS Continue Ropinarole #Tobacco Abuse Current smoker Does not desire nicotine replacement #H/O Drug Abuse Thiamine and folate daily Admission and Anticipated Discharge Date Admission Date: January 18, 2023 Subjective Patient presented to hospital with CHF exacerbation diastolic type, patient is noncompliant, patient smokes, echocardiogram showed preserved ejection fraction, patient mild elevated troponin possibly secondary to non-ST elevation SC type II, patient still on Lasix, patient feels significantly better, continue Lasix Review of Systems Review of Systems: reviewed, per HPI Physical Exam Physical Exam: General: patient resting comfortably, NAD, non-toxic in appearance, AA&O x 4, answers questions appropriately and follows commands. Skin: LE macular rash L>R. 2+pitting edema HEENT: NC/AT, anicteric sclera, conjunctiva without injection, moist mucus membranes, trachea midline, no thyromegaly, no JVD Heart: +S1/S2, regular, no m/r/g Lungs: equal air entry bilaterally, +expiratory wheeze. -rales,rhonchi Abd: +BS, soft, NT/ND, no masses/organomegaly/ascites Ext: warm, no clubbing/cyanosis. Edematous LE Neuro: nonfocal, patient AA&O x 4, speech intact, no facial droop, moving all extremities on command. Results & Data Results & Data Vital Signs (Past 12 Hours) Vital Signs Temp Pulse Pulse BP Pulse Ox O2 Del Method 01/19/23 15:30 67 116/72 95 Room Air 01/19/23 11:55 73 124/77 90 Room Air 01/19/23 08:38 36.4 C L 76 158/92 H 95 Room Air 01/19/23 07:30 74 01/19/23 07:30 Room Air PG Care Time/CCT Total # of Minutes Spent Total Time Spent with Patient: Total time spent is greater than 50% in coordination of care (as documented) at patient's floor/unit and/or counseling patient: Coding Level of Care Code 70489 SUB INP/OBS CARE 3/50MIN Diagnoses CHF exacerbation I50.9 Elevated troponin R77.8 CAD (coronary artery disease) I25.10 Diabetes mellitus E11.9 Diabetes mellitus buttermaker continuous churn insulin use: with half-way use Diabetes mellitus type: type 2 Hyperlipidemia E78.5 HTN (hypertension) I10 Fibromyalgia M79.7 Chronic pain syndrome G89.4 RLS (restless legs syndrome) G25.81 Tobacco abuse Z72.0 H/O drug abuse F19.11 (4) Diabetes mellitus Diabetes mellitus buttermaker continuous churn insulin use: with half-way use Diabetes mellitus type: type 2
[2023-01-19] MEDS: METOPROLOL SUCC 50MG EXT REL TAB PO SCH (19:48)
--- NOTE | 2023-01-20 04:25 | Billing Data ---
Date of Service January 20, 2023 Coding Level of Care Code 03659 INT INP/OBS CARE
[2023-01-20 07:09] LABS: BUN Creatinine Ratio 28.8 (10-20); Calcium 9.2 mg/dl (8.6-10.3); Chol HDL Ratio 3.1 (0-5); Creatinine Clr Calc Pharmacy 118.9 ml/min; Est GFR (African American) 109.7 ml/min; Est GFR (Non-African American) 94.7 ml/min
[2023-01-20] MEDS: PANTOprazole 40 MG TAB PO SCH (08:27)
[2023-01-20] MEDS: THIAMINE HCL 100 MG TAB PO SCH (08:27)
[2023-01-20] MEDS: ATORVASTATIN 40 MG TAB PO SCH (08:27)
[2023-01-20] MEDS: FOLIC ACID 1 MG TAB PO SCH (08:28)
[2023-01-20] MEDS: ASPIRIN 81 MG ECTAB PO SCH (08:28)
[2023-01-20] MEDS: rOPINIRole HCL 1 MG TABLET PO SCH (08:28)
[2023-01-20] MEDS: FUROSEMIDE 40 MG/4 ML VIAL IV SCH (08:28)
[2023-01-20] MEDS: POTASSIUM CHLORIDE CRTAB 20 MEQ TABCR PO SCH (08:28)
[2023-01-20] MEDS: FLUTICASONE FUROATE 200MCG 14 PUFFS/INHALER INH SCH (08:28)
[2023-01-20] MEDS: UMECLIDINIUM/VILANTEROL 62.5/25MCG 7 PUFFS/INHALER INH SCH (08:28)
[2023-01-20] MEDS: LORATADINE 10 MG TAB PO PRN (08:28)
[2023-01-20] MEDS: METOPROLOL SUCC 50MG EXT REL TAB PO SCH (08:28)
[2023-01-20] MEDS: lisinopril 20 MG TAB PO SCH (08:28)
[2023-01-20] MEDS: FAMOTIDINE 20 MG TAB PO SCH (08:28)
[2023-01-20] MEDS: FLUTICASONE PROPIONATE NA SPR 16 GM BTL NAE SCH (08:28)
[2023-01-20] MEDS: LANTUS PER UNIT CHARGE SQ SCH (08:39)
[2023-01-20] MEDS: INSULIN ASPART PER UNIT CHARGE SC SCH (08:40)
--- NOTE | 2023-01-20 21:45 | Discharge Summary ---
Date of Service January 20, 2023 Admission HPI Per Admitting Provider 62 yo female PMHx CAD s/p MIGUEL to RCA, T2DM on insulin, HTN, HLD, Tobacco abuse, GERD, h/o gastric bypass, h/o drug abuse (amphetamine and EtOH) admitted for CP and SOB. Has had progressive CP, SOB and vomiting for the last 3 days, it became constant over the last 24hrs. This was similar to her symptomatology during her VT in 2020. She has noticed a dramatic increase in LE swelling over the last few months, lately they have been weeping fluid and are painful. She has noticed during the same time period she is increasingly short of breath during exertion. 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 Of note she recently had adenovirus and bronchitis at that time a urine culture was done and she was found to have resistant E. coli asymptomatic bacteriuria for which she was not treated. At this time, endorses SOB and painful swollen legs. Denies CP, N/V/D. In the ED: High sensitivity troponin elevated to 68.2 later 60.3, BNP 376, CXR and CTA negative, LE Doppler studies negative for DVT Principal Diagnosis CHF exacerbation diastolic type Discharge Exam General: patient resting comfortably, NAD, non-toxic in appearance, AA&O x 4, answers questions appropriately and follows commands. Skin: LE macular rash L>R. 2+pitting edema HEENT: NC/AT, anicteric sclera, conjunctiva without injection, moist mucus membranes, trachea midline, no thyromegaly, no JVD Heart: +S1/S2, regular, no m/r/g Lungs: equal air entry bilaterally, +expiratory wheeze. -rales,rhonchi Abd: +BS, soft, NT/ND, no masses/organomegaly/ascites Ext: warm, no clubbing/cyanosis. Edematous LE Neuro: nonfocal, patient AA&O x 4, speech intact, no facial droop, moving all extremities on command. Discharge Data Allergies Allergy/AdvReac Type Severity Reaction Status Date / Time morphine Allergy Intermediate Hives Verified 08/11/22 11:38 adhesive Allergy Unknown Unknown Verified 08/11/22 11:38 clonazepam Allergy Unknown short term Verified 08/11/22 11:38 memory loss amoxicillin [From Augmentin] AdvReac Diarrhea Verified 08/11/22 11:38 clavulanic acid AdvReac Diarrhea Verified 08/11/22 11:38 [From Augmentin] NSAIDS (Non-Steroidal AdvReac CONTRAINDICATED Verified 08/11/22 11:38 Anti-Inflamma IS ON ANTICOAGULATION Consultations 01/18/23 21:37 ED Decision to Admit Stat Ordered Studies 01/18/23 18:39 CT angio chest PE protocol Stat US venous doppler LE BI Stat Hospital Course (1) Elevated troponin: (2) CAD (coronary artery disease): (3) Diabetes mellitus: (4) Hyperlipidemia: (5) HTN (hypertension): (6) Fibromyalgia: (7) Chronic pain syndrome: (8) RLS (restless legs syndrome): (9) Tobacco abuse: (10) H/O drug abuse: (11) Leg edema: Plan 62 yo female PMHx CAD s/p MIGUEL to RCA, T2DM on insulin, HTN, HLD, Tobacco abuse, GERD, h/o gastric bypass, h/o drug abuse (amphetamine and EtOH) admitted for CP and SOB. With elevated troponin of 6.8 on exam patient lower extremity edema CHF exacerbation diastolic type -The patient has a history of coronary artery disease status post stent placement Patient does not have a recent follow-up, patient is noncompliant, the patient smokes about a half a pack a day started on Lasix 40 mg IV twice daily, patient feels better, and 01/20 patient decided to leave the hospital, I offered her cardiology consult, however she states that she would like to follow-up with her outpatient phlebotomist outpatient Dr. Dillon -She was started on Farxiga given systolic heart failure, she was discharged on Lasix 40 mg twice daily, patient was advised to check her BMP in 1 week, call follow-up with cardiology for ischemic work-up given troponin was mildly elevated Non-ST elevation type II Most likely ischemic demand due to to CHF Continue aspirin Continue metoprolol Coronary artery disease status post MIGUEL to RCA Continue aspirin Continue metoprolol Patient advised to have an outpatient stress test with her outpatient phlebotomist given having chest pain Diabetes type 2 Continue Lantus Replace metformin with Farxiga #HLD Continue atorvastatin #HTN Continue lisinopril #Fibromyalgia #GERD continue esomeprazole and famotidine #RLS Continue Ropinarole #Tobacco Abuse Current smoker Does not desire nicotine replacement #H/O Drug Abuse Thiamine and folate daily Total Time Total Time Spent Total Time Spent (In Minutes): 45 mins Discharge Plan Discharge Items Patient Disposition: Home - Self-Care Reason For Visit: SOB, LE EDEMA Discharge Diagnosis: Diastolic Heart failure , Chest pain , Tobacco abuse Condition on Discharge: Good Activity: Resume your previous activity Lifting: Gradually increase as tolerated Bathing: No limitations Sexual Activity: When tolerated Driving/Machine Use: No limitations Non-emergency contact: Primary Care Provider and Head Of Advertising Call non-emergency contact if: you have any medication questions Follow-up/Referrals: Lo Esposito MD [Primary Care Provider] - 01/29/23 11:00 am (Follow up scheduled on 01/29/23 @ 11am) Robinson Dillon MD [Physician] - 02/03/23 Diet: Heart Healthy Addtl Attending Provider Instructions: Please stop smoking given you have serious heart condition including heart failure and coronary artery disease . please follow-up with your outpatient phlebotomist Dr. Dillon in 2 weeks please check your kidney function in 2 weeks by visiting your primary care doctor, yesterday on diuretic pill that can affect your kidney function please with Weight yourself on a daily basis You may need outpatient stress test please contact your outpatient phlebotomist as soon as as you can You have poorly controlled diabetes, you are started on Farxiga which helps with your diabetes and your heart disease Pending Studies at Discharge: Yes Studies:: out patient stress test , BMP in 1-2 weeks Stand-Alone Forms: [employer], Smoking Cessation Medications and DC Order Prescriptions: New Farxiga 10 mg tablet 10 mg PO DAILY Qty: 90 0RF furosemide [Lasix] 40 mg tablet 40 mg PO BID Qty: 120 0RF Continued metformin 1,000 mg tablet 1,000 mg PO BID Qty: 60 0RF ropinirole 1 mg tablet 1 mg PO TID Qty: 90 0RF albuterol sulfate 90 mcg/actuation HFA aerosol inhaler 2 inh inhalation Q6H PRN (Reason: shortness of breath or wheezing) Qty: 8.5 1RF potassium chloride 20 mEq tablet,ER particles/crystals 20 meq PO DAILY Qty: 90 1RF Tradjenta 5 mg tablet 5 mg PO DAILY Qty: 30 0RF aspirin 81 mg tablet,delayed release (DR/EC) 81 mg PO QAM Qty: 90 3RF insulin aspart U-100 [Novolog FlexPen U-100 Insulin] 100 unit/mL (3 mL) insulin pen See Rx Instructions subcut UD Qty: 15 2RF Rx Instructions: Take as directed per scale before meals; max of 50 units/day subcutaneously use as directed; (DME) pen needle, diabetic [BD Ultra-Fine Micro Pen Needle] 32 gauge x 1/4" needle See Rx Instructions .Route Qty: 200 5RF Rx Instructions: As directed to inject insulin up to 5 times a day insulin glargine [Lantus Solostar U-100 Insulin] 100 unit/mL (3 mL) insulin pen 20 unit subcut BID Qty: 15 5RF Rx Instructions: or as directed esomeprazole magnesium 40 mg capsule,delayed release(DR/EC) 40 mg PO DAILY Qty: 30 2RF lisinopril 20 mg tablet 20 mg PO DAILY Qty: 90 3RF Trelegy Ellipta 200-62.5-25 mcg blister with device 1 inh inhalation DAILY Qty: 28 0RF cholecalciferol (vitamin D3) 1,250 mcg (50,000 unit) capsule 50,000 unit PO WK Qty: 12 1RF atorvastatin 80 mg tablet 80 mg PO QAM Qty: 90 3RF famotidine 20 mg tablet 20 mg PO DAILY Qty: 90 3RF (DME) blood-glucose meter [OneTouch Verio Flex meter] [facility] [place] See Rx Instructions .Route Qty: 1 0RF Rx Instructions: As directed to check blood sugars two times a day (DME) OneTouch Verio test strips Strip See Rx Instructions .Route Qty: 100 5RF Rx Instructions: As directed to test blood sugars two times a day (DME) lancets [OneTouch Delica Lancets] [facility] See Rx Instructions .Route Qty: 100 5RF Rx Instructions: As directed to test blood sugars two times a day loratadine 10 mg tablet 10 mg PO DAILY PRN (Reason: allergy symptoms) docusate sodium 100 mg capsule 100 mg PO DAILY PRN (Reason: constipation) fluticasone propionate [Flonase Allergy Relief] 50 mcg/actuation spray,suspension 2 spray intranasal DAILY Rx Instructions: administer into each nostril acetaminophen 650 mg Tablet Extended Release 650 mg PO BID PRN (Reason: Unknown) Discontinued furosemide 20 mg tablet 20 mg PO QAM Qty: 3 0RF Discharge Orders: Discharge Order (Routine); Ordered 01/20/23 Ordered By: Jair Rosa Discharge Order- CHF (Routine); Ordered 01/20/23 Ordered By: Jair Rosa Admission Data Admit Date/Time: 01/18/23 22:58 Attending Provider: Jair Rosa Admit Provider: Rory Roman Primary Care Provider: Lo Esposito V. Other Providers: Alphonse Corrigan Other Interventions: Discharge Summary Assessment (RN) Last Done: 01/20/23 12:33 Coding Level of Care Code 04477 INP/OBS DISCH >30 MIN Diagnoses Elevated troponin R77.8 CAD (coronary artery disease) I25.10 Diabetes mellitus E11.9 Diabetes mellitus type: type 2 Diabetes mellitus intermediate accountant insulin use: with intermediate accountant use Hyperlipidemia E78.5 HTN (hypertension) I10 Fibromyalgia M79.7 Chronic pain syndrome G89.4 RLS (restless legs syndrome) G25.81 Tobacco abuse Z72.0 H/O drug abuse F19.11 Leg edema R60.0
== END 2023-01-20 13:55 | disposition home or self-care (01) | DRG 280 ==
LOC: ED 16:52 → 2S 22:58 → SUATTDRO 22:58 → INTOOBSV 22:58 → 2S 23:33
DX: I25.10 Atherosclerotic heart disease of native coronary artery without angina pectoris; E78.5 Hyperlipidemia, unspecified; Z91.048 Other nonmedicinal substance allergy status; I50.33 Acute on chronic diastolic (congestive) heart failure; Z82.49 Family history of ischemic heart disease and other diseases of the circulatory system; M79.7 Fibromyalgia; Z88.5 Allergy status to narcotic agent; Z98.84 Bariatric surgery status; G25.81 Restless legs syndrome; Z79.4 Long term (current) use of insulin; Z88.6 Allergy status to analgesic agent; Z95.5 Presence of coronary angioplasty implant and graft; Z88.0 Allergy status to penicillin; K21.9 Gastro-esophageal reflux disease without esophagitis; Z79.82 Long term (current) use of aspirin; Z79.899 Other long term (current) drug therapy; I21.A1 Myocardial infarction type 2; Z86.16 Personal history of COVID-19; E11.9 Type 2 diabetes mellitus without complications; F17.210 Nicotine dependence, cigarettes, uncomplicated; Z79.84 Long term (current) use of oral hypoglycemic drugs; G89.4 Chronic pain syndrome; I11.0 Hypertensive heart disease with heart failure

== ENCOUNTER 2023-01-26 01:20 | Inpatient (IN) ==
[2023-01-26 02:01] LABS: Basophils # (auto) 0.07 K/uL (0.00-0.20); Basophils % (auto) 0.5 %; Eosinophils # (auto) 0.24 K/uL (0.00-0.50); Eosinophils % (auto) 1.8 %; Hematocrit (blood only) 41.1 % (37.0-47.0); Hemoglobin 13.4 g/dl (12.0-16.0); Immature Granulocytes # (auto) 0.09 K/uL (0.01-0.20); Immature Granulocytes % (auto) 0.7 %; Lymphocytes # (auto) 2.38 K/uL (1.20-3.40); Lymphocytes % (auto) 17.9 %; Mean Corpuscular Hemoglobin 29.4 pg (25.0-34.0); Mean Corpuscular Hgb Conc 32.6 g/dL (32.0-36.0); Mean Corpuscular Volume 90.1 fL (80.0-100.0); Mean Platelet Volume 9.6 fL (9.4-12.4); Monocytes # (auto) 0.98 K/uL (0.11-0.59); Monocytes % (auto) 7.4 %; Neutrophils # (auto) 9.57 K/uL (1.40-6.50); Neutrophils % (auto) 71.7 %; Platelet Count 294 K/uL (130-400); RDW Coefficient of Variation 14.1 % (11.5-14.5); RDW Standard Deviation 47.4 fL (36.4-46.3); Red Blood Count 4.56 M/uL (4.20-5.40); White Blood Count 13.33 K/ul (4.8-10.8)
[2023-01-26 02:16] LABS: Albumin Globulin Ratio 1.3 (0.9-2); BUN Creatinine Ratio 25.7 (10-20); Bilirubin,Total 0.4 mg/dl (0.2-1.0); Calcium 9.3 mg/dl (8.6-10.3); Creatinine Clr Calc Pharmacy 107.2 ml/min; Est GFR (African American) 107.6 ml/min; Est GFR (Non-African American) 92.9 ml/min
[2023-01-26 02:22] LABS: Troponin I High Sensitivity 34.2 pg/ml (0-14)
[2023-01-26] MEDS ORDERED: LABETALOL HCL IV 5 MG/ML 20ML IV STA (02:53)
[2023-01-26] MEDS ORDERED: Heparin IV Adult Wt-Based Low-Dose WITH Bolus Protocol IV STA (05:33)
--- NOTE | 2023-01-26 05:33 | Emergency Department Note ---
Impression & Plan Non-ST elevated myocardial infarction (non-STEMI) ED Provider Note CHIEF COMPLAINT: Chest pain into the left arm HISTORY OF PRESENT ILLNESS: This 62-year-old female patient with past medical history of congestive heart failure, diabetes, tobacco abuse, substance abuse, gastric bypass, chronic pain syndrome, coronary artery disease, gastric ulcer, hyperlipidemia, hypertension presents to the emergency department with complaints of chest pain that radiates into the left arm. Patient states it started suddenly at approximately 1 AM when she got up to go to the bathroom. REVIEW OF SYSTEMS: A review of systems was performed with positives and pertinent negatives listed in the history of present illness. 10 systems were reviewed and are otherwise negative. ALLERGIES: see below MEDICATIONS: see below PMH: see below SOCIAL HISTORY: see below DDx: Acute coronary syndrome, congestive heart failure, GERD, peptic ulcer disease, pneumonia, PE among others. PHYSICAL EXAM: Vital signs reviewed. General: Chronically ill-appearing 62-year-old female, in no significant distress. HEENT: No scleral icterus, PERRLA, neck supple. Moist mucous membranes Cardiovascular: Regular rate and rhythm, no extra sounds. Occasional ectopy. Pulmonary: Clear to auscultation bilaterally, normal work of breathing. Abdomen: Soft, obese, nontender, nondistended, positive bowel sounds. Musculoskeletal: Atraumatic, moderate peripheral edema. Neurologic: Patient awake alert and oriented x 3, speech is clear Skin: Warm, dry, no rash EXTERNAL medical records reviewed: ED visit notes/laboratory work dated 01/24/2023, previous EKG for comparison. EMERGENCY DEPARTMENT COURSE/MDM: This patient was evaluated and appeared to be in no significant distress. IV access was obtained and laboratory work was drawn. Patient did receive aspirin in nitroglycerin prior to arrival. EKG reveals no evidence of acute ST elevation. Chest x-ray was performed and reveals no evidence of focal lung consolidation or failure. Patient's laboratory work initially reveals a slightly elevated troponin however it is within her baseline range at 34.2. Repeat high-sensitivity troponin is just over 4000 at the 2-hour interval. Patient's pain seems to be pain-free at this time. IV heparin drip was initiated. The case was discussed with the hospitalist service to evaluate the patient for admission and further management. Patient was made aware of the plan and agreed. MONITORING: An order for cardiac monitoring was placed and the patient is noted to be in a normal sinus rhythm with occasional PVCs at 74 beats per minute. RADIOLOGY: Chest x-ray to my interpretation reveals no evidence of focal lung consolidation or failure. Defer to radiology below. EKG: To my interpretation reveals sinus rhythm at 71 bpm with occasional PAC, normal ST segments T wave flattening noted diffusely. Q waves noted in the anterior leads. When compared to previous dated January 26, 2023, T wave flattening laterally is now noted. DISPOSITION: Admission I have personally spent greater than 30 minutes of critical care time in the direct management of this patient. This includes bedside care, interpretation of diagnostic studies, and testing, discussion with consultants, patient, and family members, and other required patient management activities. This 30 minutes is in excess of all separately billable procedures. Past Med/Surg History Medical History Diabetes mellitus treated with insulin and oral medication Closed fracture of radial styloid (07/03/22) Acute UTI Acute respiratory failure with hypoxia Rash Diabetes mellitus treated with oral medication Leukocytosis Abdominal wall abscess Hypocalcemia Hypomagnesemia Wound infection after surgery Abscess of vulva COVID-19 Open thigh wound Traumatic wound Chronic pain syndrome Acute hyperglycemia Methamphetamine abuse Acute ST elevation myocardial infarction (STEMI) of inferior wall Anastomotic ulcer S/P gastric bypass Restless leg syndrome Insomnia Anxiety and depression Leukocytosis DVT prophylaxis Incarcerated hernia Abdominal pain Ventral hernia Fibromyalgia HTN (hypertension) Gastric ulcer Bloody emesis Corneal abrasion Left corneal abrasion L1 vertebral fracture Migraine Acute cholecystitis UTI (lower urinary tract infection) Pneumonia Bronchitis Surgical History S/P coronary artery stent placement S/P anal fissurectomy History of ankle surgery S/P tonsillectomy S/P recurrent ventral herniorrhaphy S/P ventral herniorrhaphy repair [facility] 11/2021, then drainage of incisional abscess 12/2021 H/O gastric bypass S/P cholecystectomy H/O: hysterectomy H/O knee surgery Family History Father Myocardial infarction Leukemia Sister Ovarian cancer Myocardial infarction Other Family history of diabetes mellitus Hypertension Denies family history of Prostate cancer Breast cancer Colorectal cancer Social History Smoking Status: Current every day smoker Tobacco Type: Cigarettes packs per day: 1.5; Cigarettes Per Day: 20; Second Hand Exposure: Yes; Do You Dip or Chew Tobacco: No; Hx Alcohol Use: No Hx Substance Use: No Preferred Language: Burkinan Communication Ability: Effective Visual Impairment: No Limitations Extruder Required: No Beliefs That Will Affect Care: None marital status: Current Living Situation: Other Current Living Situation Comment: lives with daughter current occupational status: unemployed and disabled How many Children do You have: 2 Feels Safe at Home: Yes Childhood Exposure to Second-Hand Smoke: Yes Diet: regular during the past year weight has: remained stable Dental Care, Regularly: No Physical Activity Frequency: Does not Exercise Seatbelt Use: always Sunscreen Use: Yes Assistive Devices: Denture - Upper, Glasses and Nebulizer Allergies Allergies Allergy/AdvReac Type Severity Reaction Status Date / Time morphine Allergy Intermediate Hives Verified 01/26/23 02:09 adhesive Allergy Unknown Unknown Verified 01/26/23 02:09 amoxicillin [From Augmentin] AdvReac Intermediate Diarrhea Verified 01/26/23 02:09 clavulanic acid AdvReac Intermediate Diarrhea Verified 01/26/23 02:09 [From Augmentin] clonazepam AdvReac Intermediate short term Verified 01/26/23 02:09 memory loss NSAIDS (Non-Steroidal AdvReac Unknown CONTRAINDICATED Verified 01/26/23 02:09 Anti-Inflamma IS ON ANTICOAGULATION Home Meds Home Medications Medication Instructions Recorded Confirmed acetaminophen 650 mg 650 mg PO BID PRN Unknown 07/03/22 01/26/23 tablet,extended release docusate sodium 100 mg capsule 100 mg PO DAILY PRN constipation 07/26/22 01/26/23 fluticasone propionate 50 2 spray intranasal DAILY 07/26/22 01/26/23 mcg/actuation nasal spray,suspension (Flonase Allergy Relief) loratadine 10 mg tablet 10 mg PO DAILY PRN allergy symptoms 07/26/22 01/26/23 Previous Rx's Medication Instructions Recorded atorvastatin 80 mg tablet 80 mg PO QAM #90 tabs 05/02/22 blood sugar diagnostic (OneTouch #100 ea 05/02/22 Verio test strips) blood-glucose meter (OneTouch #1 ea 05/02/22 Verio Flex Meter) famotidine 20 mg tablet 20 mg PO DAILY #90 tabs 05/02/22 lancets 33 gauge (LisaTouch Delica #100 ea 05/02/22 Lancets) metformin 1,000 mg tablet 1,000 mg PO BID #60 tabs 10/31/22 ropinirole 1 mg tablet 1 mg PO TID #90 tabs 10/31/22 lisinopril 20 mg tablet 20 mg PO DAILY #90 tabs 11/14/22 albuterol sulfate 90 mcg/actuation 2 inh inhalation Q6H PRN shortness 12/01/22 aerosol inhaler of breath or wheezing #8.5 grams cholecalciferol (vitamin D3) 1,250 50,000 unit PO WK #12 caps 12/13/22 mcg (50,000 unit) capsule potassium chloride 20 mEq 20 meq PO DAILY #90 tabs 12/21/22 tablet,extended release(part/cryst) aspirin 81 mg tablet,delayed 81 mg PO QAM #90 tabs 12/25/22 release linagliptin 5 mg tablet (Tradjenta) 5 mg PO DAILY #30 tabs 12/25/22 fluticasone fur. 200 mcg-umeclid 1 inh inhalation DAILY #28 ea 12/28/22 62.5 mcg-vilant 25 mcg inhalat.powder (Trelegy Ellipta) insulin aspart U-100 100 unit/mL See Rx Instructions subcut UD #15 12/28/22 (3 mL) subcutaneous pen (Novolog mL FlexPen U-100 Insulin aspart) insulin glargine 100 unit/mL (3 20 unit (0.2 mL) subcut BID #15 mL 12/28/22 mL) subcutaneous pen (Lantus Solostar U-100 Insulin) pen needle, diabetic 32 gauge x #200 ea 12/28/22 1" (BD Ultra-Fine Micro Pen Needle) esomeprazole magnesium 40 mg 40 mg PO DAILY #30 caps 01/03/23 capsule,delayed release dapagliflozin propanediol 10 mg 10 mg PO DAILY #90 tabs 01/20/23 tablet (Farxiga) furosemide 40 mg tablet (Lasix) 40 mg PO BID #120 tabs 01/20/23 Results & Data (ED) Vital Signs Vital Signs - 24 hr 01/26/23 01:25 01/26/23 01:30 01/26/23 01:33 Temperature 37.2 C Temperature Source Oral Pulse Rate 93 H 81 90 Pulse Rate [Apical] Pulse Rhythm Regular Pulse Strength Normal Respiratory Rate 21 19 Respiratory Effort / Characteristics Non-Labored Spontaneous Respiratory Depth Normal Respiratory Pattern Regular Blood Pressure 133/80 Blood Pressure [Right Arm] Blood Pressure Mean 97 Blood Pressure Mean [Right Arm] Blood Pressure Position Sitting Pulse Oximetry 91 98 Oxygen Delivery Method Room Air Oxygen Flow Rate Sepsis Recent Fever Within 48 Hours No Sepsis New/Unexplained Change in Mental Status N/A Sepsis Action Taken by Nursing No Action Required 01/26/23 01:41 01/26/23 01:41 01/26/23 01:49 Temperature Temperature Source Pulse Rate 91 H Pulse Rate [Apical] 93 H Pulse Rhythm Irregular Pulse Strength Respiratory Rate 22 22 Respiratory Effort / Characteristics Non-Labored Respiratory Depth Normal Respiratory Pattern Blood Pressure Blood Pressure [Right Arm] 133/80 Blood Pressure Mean Blood Pressure Mean [Right Arm] 97 Blood Pressure Position Pulse Oximetry 94 92 92 Oxygen Delivery Method Room Air Room Air Room Air Oxygen Flow Rate 0 Sepsis Recent Fever Within 48 Hours Sepsis New/Unexplained Change in Mental Status Sepsis Action Taken by Nursing 01/26/23 02:00 01/26/23 02:08 01/26/23 02:30 Temperature Temperature Source Pulse Rate 89 86 87 Pulse Rate [Apical] Pulse Rhythm Pulse Strength Respiratory Rate 22 24 20 Respiratory Effort / Characteristics Respiratory Depth Respiratory Pattern Blood Pressure 179/120 H 146/97 H 157/101 H Blood Pressure [Right Arm] Blood Pressure Mean 139 113 119 Blood Pressure Mean [Right Arm] Blood Pressure Position Pulse Oximetry 95 95 95 Oxygen Delivery Method Oxygen Flow Rate Sepsis Recent Fever Within 48 Hours Sepsis New/Unexplained Change in Mental Status Sepsis Action Taken by Nursing 01/26/23 03:00 01/26/23 03:01 01/26/23 03:31 Temperature Temperature Source Pulse Rate 88 93 H 84 Pulse Rate [Apical] Pulse Rhythm Pulse Strength Respiratory Rate 21 25 H Respiratory Effort / Characteristics Respiratory Depth Respiratory Pattern Blood Pressure 135/83 135/83 128/86 Blood Pressure [Right Arm] Blood Pressure Mean 100 100 Blood Pressure Mean [Right Arm] Blood Pressure Position Pulse Oximetry 93 97 Oxygen Delivery Method Oxygen Flow Rate Sepsis Recent Fever Within 48 Hours Sepsis New/Unexplained Change in Mental Status Sepsis Action Taken by Nursing 01/26/23 04:00 01/26/23 04:30 Temperature Temperature Source Pulse Rate 81 79 Pulse Rate [Apical] Pulse Rhythm Pulse Strength Respiratory Rate 22 25 H Respiratory Effort / Characteristics Respiratory Depth Respiratory Pattern Blood Pressure 112/82 117/77 Blood Pressure [Right Arm] Blood Pressure Mean 92 90 Blood Pressure Mean [Right Arm] Blood Pressure Position Pulse Oximetry 96 95 Oxygen Delivery Method Oxygen Flow Rate Sepsis Recent Fever Within 48 Hours Sepsis New/Unexplained Change in Mental Status Sepsis Action Taken by [facility] Medications Current Medication List: was personally reviewed by me Laboratory Data Attestation: I reviewed the patient's lab results. 01/28/23 01:30 01/28/23 01:30 Lab Results 01/26/23 01/26/23 Range/Units 01:40 03:55 WBC 13.33 H (4.8-10.8) K/ul RBC 4.56 (4.20-5.40) M/uL Hgb 13.4 (12.0-16.0) g/dl Hct 41.1 (37.0-47.0) % MCV 90.1 (80.0-100.0) fL MCH 29.4 (25.0-34.0) pg MCHC 32.6 (32.0-36.0) g/dL RDW Std Deviation 47.4 H (36.4-46.3) fL RDW Coeff of Rubi 14.1 (11.5-14.5) % Plt Count 294 (130-400) K/uL MPV 9.6 (9.4-12.4) fL Immature Gran % (Auto) 0.7 % Neut % (Auto) 71.7 % Lymph % (Auto) 17.9 % [place] % (Auto) 7.4 % Eos % (Auto) 1.8 % Baso % (Auto) 0.5 % Neut # (Auto) 9.57 H (1.40-6.50) K/uL Lymph # (Auto) 2.38 (1.20-3.40) K/uL [place] # (Auto) 0.98 H (0.11-0.59) K/uL Eos # (Auto) 0.24 (0.00-0.50) K/uL Baso # (Auto) 0.07 (0.00-0.20) K/uL Immature Gran # (Auto) 0.09 (0.01-0.20) K/uL PT 10.2 (9.0-12.0) Seconds INR 0.9 (0.9-1.1) APTT 27.6 (21.0-31.0) Seconds PTT Ratio 1.0 Sodium 139 (136-145) mmol/L Potassium 4.0 (3.5-5.1) mmol/L Chloride 105 (98-107) mmol/L Carbon Dioxide 27 (21-32) mmol/L Anion Gap 7 (3-11) BUN 18 (6-23) mg/dl Creatinine 0.70 (0.6-1.2) mg/dl Est Cr Clr Drug Dosing 107.2 ml/min Est GFR ( Amer) 107.6 ml/min Est GFR (Non-Af Amer) 92.9 ml/min BUN/Creatinine Ratio 25.7 H (10-20) Glucose 197 H (70-99(Fasting)) mg/dl Calcium 9.3 (8.6-10.3) mg/dl Phosphorus Cancelled Magnesium Cancelled Total Bilirubin 0.4 (0.2-1.0) mg/dl AST 19 (13-39) U/L ALT 13 (7-52) U/L Alkaline Phosphatase 78 (34-104) U/L Troponin I High Sens 34.2 H 4005.7 H* D (0-14) pg/ml Total Protein 7.0 (6.0-8.3) gm/dl Albumin 4.0 (3.4-5.0) gm/dl Globulin 3.0 (2.5-4.0) gm/dl Albumin/Globulin Ratio 1.3 (0.9-2) Lipase 61 (11-82) U/L Administered Medications Discontinued Medications Acetaminophen (Acetaminophen 325 Mg Tab) 650 mg PO Q4H PRN PRN Reason: pain or fever Stop: 02/25/23 06:42 Last Admin: 01/27/23 21:31 Dose: 650 mg Documented By: Admin: 01/26/23 21:38 Dose: 650 mg Documented By: CLC Albuterol (Albuterol 0.5% Neb Soln 2.5 Mg/0.5 Ml Vial) 2.5 mg NEB Q2H PRN; Protocol PRN Reason: SOB/Wheeze Stop: 02/25/23 06:42 Last Admin: 01/26/23 21:07 Dose: 2.5 mg Documented By: HMR Aspirin (Aspirin 81 Mg Ectab) 81 mg PO QAM [facility] Stop: 02/25/23 08:59 Last Admin: 01/26/23 10:20 Dose: 81 mg Documented By: Aspirin (Aspirin 81 Mg Ectab) 81 mg PO QAM [facility] Stop: 02/25/23 13:29 Last Admin: 01/27/23 08:39 Dose: 81 mg Documented By: Admin: 01/26/23 17:14 Dose: Not Given Documented By: AMB Atorvastatin Calcium (Atorvastatin 40 Mg Tab) 80 mg PO QAM [facility] Stop: 02/25/23 08:59 Last Admin: 01/27/23 09:32 Dose: 80 mg Documented By: Admin: 01/26/23 10:20 Dose: 80 mg Documented By: Diphenhydramine HCl (Diphenhydramine 50 Mg/Ml Vial) Confirm Administered Dose 50 mg .ROUTE .STK-MED ONE Stop: 01/26/23 12:43 Last Admin: 01/26/23 12:59 Dose: 25 mg Documented By: HORTENCIA Famotidine (Famotidine 20 Mg Tab) 20 mg PO DAILY [facility] Stop: 02/25/23 08:59 Last Admin: 01/27/23 08:39 Dose: 20 mg Documented By: Admin: 01/26/23 09:42 Dose: 20 mg Documented By: Fentanyl Citrate (Fentanyl Citrate Pf 100 Mcg/2 Ml Vial) Confirm Administered Dose 100 mcg .ROUTE .STK-MED ONE Stop: 01/26/23 11:51 Last Admin: 01/26/23 12:58 Dose: 100 mcg Documented By: HORTENCIA Fentanyl Citrate (Fentanyl Citrate Pf 100 Mcg/2 Ml Vial) 50 mcg IV NOW STA Stop: 01/28/23 01:31 Last Admin: 01/28/23 01:35 Dose: 50 mcg Documented By: ALYCE Fentanyl Citrate (Fentanyl Citrate Pf 100 Mcg/2 Ml Vial) 50 mcg IV NOW STA Stop: 01/28/23 02:35 Last Admin: 01/28/23 02:38 Dose: 50 mcg Documented By: TAMMY Fluticasone Furoate (Fluticasone Furoate 200mcg 14 Puffs/Inhaler) 1 puffs INH DAILY [facility]UC Stop: 02/25/23 08:59 Last Admin: 01/27/23 08:38 Dose: 1 puffs Documented By: Admin: 01/26/23 10:19 Dose: 1 puffs Documented By: Fluticasone Propionate (Fluticasone Propionate Na Spr 16 Gm Btl) 2 sprays NA DAILY [facility] Stop: 02/25/23 08:59 Last Admin: 01/27/23 08:37 Dose: 2 sprays Documented By: Admin: 01/26/23 09:43 Dose: 2 sprays Documented By: Heparin Sodium (Porcine) (Heparin Sod (Porcine) 1000 Unit/Ml) 1 units IV NOW ONE Stop: 01/26/23 05:50 Last Admin: 01/26/23 06:29 Dose: 4,000 units Documented By: MIL Co-signed By: LISET Heparin Sodium (Porcine) (Heparin (Porcine) 1000 Unit/Ml 10 Ml ([place] Use Only)) Confirm Administered Dose 10,000 units .ROUTE .STK-MED ONE Stop: 01/26/23 11:50 Last Admin: 01/26/23 13:10 Dose: 7,500 units Documented By: HORTENCIA Heparin Sodium/Dextrose (Heparin Iv Adult Wt-Based Low-Dose With Bolus Protocol) 1 each IV NOW STA; Protocol Stop: 01/26/23 05:34 Last Admin: 01/26/23 06:34 Dose: Not Given Documented By: MIL Heparin Sodium/Sodium Chloride (Heparin In Nss Infusion 1000 Unit/500 Ml (2 U/Ml) Bag) Confirm Administered Dose 3,000 units IV .STK-MED ONE Stop: 01/26/23 11:51 Last Admin: 01/26/23 12:58 Dose: 3,000 units Documented By: FABIÁN Hydromorphone HCl (Hydromorphone Inj 1 Mg/Ml Syringe) Confirm Administered Dose 1 mg .ROUTE .STK-MED ONE Stop: 01/26/23 14:24 Last Admin: 01/26/23 14:25 Dose: 1 mg Documented By: CONSTANCE Hydromorphone HCl (Hydromorphone Inj 0.5 Mg/0.5 Ml Syr) 0.5 mg IV ONE ONE Stop: 01/26/23 16:30 Last Admin: 01/26/23 17:08 Dose: 0.5 mg Documented By: СЕРГЕЙ Hydromorphone HCl (Hydromorphone Hcl 2 Mg Tab) 4 mg PO Q4H PRN PRN Reason: Pain Last Admin: 01/27/23 04:16 Dose: 4 mg Documented By: Admin: 01/26/23 22:55 Dose: 4 mg Documented By: SABRINA Hydromorphone HCl (Hydromorphone Inj 0.5 Mg/0.5 Ml Syr) 0.5 mg IV NOW STA Stop: 01/27/23 11:26 Last Admin: 01/27/23 11:41 Dose: 0.5 mg Documented By: Hydromorphone HCl (Hydromorphone Hcl 2 Mg Tab) 2 mg PO Q3H PRN PRN Reason: Pain Stop: 02/10/23 16:39 Last Admin: 01/27/23 17:08 Dose: 2 mg Documented By: Heparin Sodium/Dextrose (Heparin Sodium/Dextrose) 25,000 units in 500 mls @ 19 mls/hr IV .Q24H LUC; Protocol Stop: 02/25/23 05:59 Last Titration: 01/26/23 19:42 Dose: Infused Documented By: SABRINA Co-signed By: KATHERIN Admin: 01/26/23 06:30 Dose: 950 units/hr, 19 mls/hr Documented By: MIL Co-signed By: LISET Magnesium Sulfate/Dextrose (Magnesium Sulfate / D5w) 1 gm in 100 mls @ 50 mls/hr IV ONE ONE Stop: 01/26/23 12:37 Last Infusion: 01/26/23 13:33 Dose: Infused Documented By: Admin: 01/26/23 10:57 Dose: 50 mls/hr Documented By: Sodium Chloride (Nss) 1,000 mls @ 999 mls/hr IV .Q1H1M ONE Stop: 01/27/23 07:36 Last Infusion: 01/27/23 07:52 Dose: Infused Documented By: Admin: 01/27/23 06:51 Dose: 999 mls/hr Documented By: SABRINA Magnesium Sulfate/Dextrose (Magnesium Sulfate / D5w) 1 gm in 100 mls @ 50 mls/hr IV ONE ONE Stop: 01/27/23 13:21 Last Infusion: 01/27/23 13:13 Dose: Infused Documented By: Admin: 01/27/23 11:37 Dose: 50 mls/hr Documented By: Sodium Chloride (Nss) 1,000 mls @ 999 mls/hr IV .Q1H1M ONE Stop: 01/27/23 12:28 Last Infusion: 01/27/23 12:50 Dose: Infused Documented By: Admin: 01/27/23 11:35 Dose: 999 mls/hr Documented By: Sodium Chloride (Nss) 500 mls @ 999 mls/hr IV .Q31M ONE Stop: 01/27/23 17:10 Last Infusion: 01/27/23 17:35 Dose: Infused Documented By: Admin: 01/27/23 16:48 Dose: 999 mls/hr Documented By: Insulin Aspart (Insulin Aspart Per Unit Charge) 0 units SC Q6 LUC Stop: 02/25/23 07:14 Last Admin: 01/26/23 17:16 Dose: Not Given Documented By: СЕРГЕЙ Admin: 01/26/23 13:37 Dose: Not Given Documented By: Admin: 01/26/23 09:11 Dose: Not Given Documented By: Insulin Aspart (Insulin Aspart Per Unit Charge) 0 units SC ACHS LUC Stop: 02/25/23 20:59 Last Admin: 01/27/23 20:36 Dose: 1 units Documented By: CLC Co-signed By: KATHERIN Admin: 01/27/23 17:22 Dose: 4 units Documented By: Co-signed By: MATEO Admin: 01/27/23 12:38 Dose: 2 units Documented By: Co-signed By: MATEO Admin: 01/27/23 08:33 Dose: 3 units Documented By: ENS Co-signed By: WICHO Admin: 01/26/23 21:01 Dose: 2 units Documented By: CLC Co-signed By: URSULA Insulin Glargine (Lantus Per Unit Charge) 15 units SQ BID LUC Stop: 02/25/23 08:59 Last Admin: 01/27/23 08:33 Dose: 15 units Documented By: ENS Co-signed By: WICHO Admin: 01/26/23 21:01 Dose: 15 units Documented By: CLC Co-signed By: URSULA Admin: 01/26/23 09:39 Dose: Not Given Documented By: Insulin Glargine (Lantus Per Unit Charge) 17 units SQ BID LUC Stop: 02/26/23 20:59 Last Admin: 01/27/23 20:36 Dose: 17 units Documented By: CLC Co-signed By: KATHERIN Ioversol (Optiray 350) Confirm Administered Dose 1 ml .ROUTE .STK-MED ONE Stop: 01/26/23 11:59 Last Admin: 01/26/23 13:13 Dose: 190 ml Documented By: FABIÁN Ioversol (Optiray 320 125ml) 118 ml IV ONCE ONE Stop: 01/27/23 12:08 Last Admin: 01/27/23 12:08 Dose: 118 ml Documented By: FRANCOIS Labetalol HCl (Labetalol Hcl Iv 5 Mg/Ml 20ml) 10 mg IV NOW STA Stop: 01/26/23 02:54 Last Admin: 01/26/23 03:01 Dose: 10 mg Documented By: LISET Co-signed By: GALILEO Metoprolol Tartrate (Metoprolol Tartrate 1 Mg/Ml Vial) 2.5 mg IV Q6 LUC Stop: 02/25/23 11:59 Last Admin: 01/27/23 19:12 Dose: Not Given Documented By: Admin: 01/26/23 23:11 Dose: 2.5 mg Documented By: Admin: 01/26/23 17:19 Dose: 2.5 mg Documented By: СЕРГЕЙ Admin: 01/26/23 13:38 Dose: Not Given Documented By: Midazolam HCl (Midazolam Hcl 1 Mg/Ml 2ml Vial) Confirm Administered Dose 2 mg .ROUTE .STK-MED ONE Stop: 01/26/23 11:50 Last Admin: 01/26/23 12:58 Dose: 2 mg Documented By: HORTENCIA Midazolam HCl (Midazolam Hcl 1 Mg/Ml 2ml Vial) Confirm Administered Dose 2 mg .ROUTE .STK-MED ONE Stop: 01/26/23 12:14 Last Admin: 01/26/23 12:59 Dose: 2 mg Documented By: HORTENCIA Nicardipine HCl (Nicardipine Hcl Inj 2.5 Mg/Ml 10 Ml Amp) Confirm Administered Dose 25 mg .ROUTE .STK-MED ONE Stop: 01/26/23 11:50 Last Admin: 01/26/23 12:58 Dose: 25 mg Documented By: FABIÁN Nitroglycerin/Dextrose (Nitroglycerin/D5w 100mcg/Ml 20ml Syr) Confirm Administered Dose 2,000 mcg .ROUTE .STK-MED ONE Stop: 01/26/23 11:51 Last Admin: 01/26/23 12:59 Dose: 2,000 mcg Documented By: FABIÁN Pantoprazole Sodium (Pantoprazole 40 Mg Tab) 40 mg PO DAILY LUC Stop: 02/25/23 08:59 Last Admin: 01/27/23 08:41 Dose: 40 mg Documented By: Admin: 01/26/23 10:21 Dose: 40 mg Documented By: Potassium Chloride (Potassium Chloride Crtab 20 Meq Tabcr) 20 meq PO DAILY LUC Stop: 02/25/23 08:59 Last Admin: 01/27/23 09:31 Dose: 20 meq Documented By: Admin: 01/26/23 09:43 Dose: 20 meq Documented By: ENS Ropinirole HCl (Ropinirole Hcl 1 Mg Tablet) 1 mg PO TID LUC Stop: 02/25/23 08:59 Last Admin: 01/27/23 20:37 Dose: 1 mg Documented By: Admin: 01/27/23 13:59 Dose: 1 mg Documented By: Admin: 01/27/23 08:40 Dose: 1 mg Documented By: Admin: 01/26/23 21:03 Dose: 1 mg Documented By: Admin: 01/26/23 17:14 Dose: Not Given Documented By: Admin: 01/26/23 09:43 Dose: 1 mg Documented By: Ticagrelor (Ticagrelor 90 Mg Tab) 180 mg PO ONE ONE Stop: 01/26/23 13:28 Last Admin: 01/26/23 13:55 Dose: 180 mg Documented By: AMT Ticagrelor (Ticagrelor 90 Mg Tab) 90 mg PO BID LUC Stop: 02/25/23 20:59 Last Admin: 01/27/23 20:37 Dose: 90 mg Documented By: Admin: 01/27/23 08:40 Dose: 90 mg Documented By: Admin: 01/26/23 21:02 Dose: 90 mg Documented By: CLC Ticagrelor (Ticagrelor 90 Mg Tab) Confirm Administered Dose 180 mg .ROUTE .STK- MED ONE Stop: 01/26/23 13:30 Last Admin: 01/26/23 13:55 Dose: Not Given Documented By: AMT Umeclidinium/Vilanterol (Umeclidinium/Vilanterol 62.5/25mcg 7 Puffs/Inhaler) 1 puffs INH DAILY LUC Stop: 02/25/23 08:59 Last Admin: 01/27/23 08:37 Dose: 1 puffs Documented By: Admin: 01/26/23 10:19 Dose: 1 puffs Documented By: ENS Imaging Data Radiologist's Impression: Chest X-Ray 01/26/23 01:41 XR chest 1V portable CLINICAL HISTORY: Chest pain, nonspecific TECHNIQUE: Single frontal radiograph of the chest was obtained. Comparison: Comparison is made to chest radiograph 01/24/2023 FINDINGS: No lines and tubes are seen. Cardiomegaly is noted. The lungs are clear. No evidence of pleural effusion or pneumothorax. IMPRESSION: No acute chest disease. Cardiomegaly is noted. ACT 112: Negative or not required by law. Electronically signed by: Donny Carbone M.D. 01/26/2023 7:49 AM Discharge Plan Visit Data Chief Complaint: Chest Pain Stated Complaint: CHEST PAIN ED Provider: Madelyn Griffith Discharge Problem: Non-ST elevated myocardial infarction (non-STEMI) Patient Disposition: Admitted As Inpatient Discharge Instructions Interventions: ED Discharge Assessment Last Done: 01/26/23 08:35
[2023-01-26] MEDS ORDERED: HEPARIN SOD (PORCINE) 1000 UNIT/ML IV ONE (05:49)
[2023-01-26] MEDS ORDERED: HEPARIN SODIUM/DEXTROSE 25,000 UNITS/500 ML BAG IV SCH (06:00)
[2023-01-26 06:07] LABS: INR 0.9 (0.9-1.1); Partial Thromboplastin Time 27.6 Seconds (21.0-31.0); Prothrombin Time 10.2 Seconds (9.0-12.0)
--- NOTE | 2023-01-26 06:07 | History & Physical Report ---
Date of Service January 26, 2023 Assessment & Plan (1) NSTEMI (non-ST elevated myocardial infarction): Plan: 62 F with PMH CAD (history of STEMI to the anterior inferior wall), HLD, HTN, T2DM, RLS, who presented with crushing chest pain radiating to the left arm and back. Now admitted for management of NSTEMI. NSTEMI/CAD * Aspirin 81 mg * Heparin drip * Atorvastatin 80 mg * S/p IV labetalol 10 mg in ED * Sublingual nitroglycerin * Lisinopril 20 mg * Lasix 40 mg twice daily * Echocardiogram pending * Cardiology consult placed Wheeze * Anoro Ellipta daily * Arnuity Ellipta daily * Flonase Hyperlipidemia * Continue atorvastatin T2DM -Home regimen: Metformin 1000 mg twice daily, linagliptin 5 mg daily, glargine 20 units twice daily, mealtime NovoLog. * Lantus 15 units twice daily * SSI NovoLog per protocol GERD * Continue home famotidine 20 mg, Protonix 40 mg Restless leg syndrome * Continue home ropinirole 3 times daily Code: Full code Dispo: PCU FEN/GI: NPO DVT Prophylaxis: Heparin drip PT/OT: Yes Consults: Cardiology Case Management: (2) CAD (coronary artery disease): (3) Hyperlipidemia: (4) Diabetes mellitus: (5) CHF (congestive heart failure): (6) HTN (hypertension): (7) RLS (restless legs syndrome): History of Present Illness Primary Care Provider: Lo Esposito MD Jia is a 62-year-old woman with past medical history of CAD, CHF, HTN, HLD, T2DM on insulin, chronic pain syndrome, anxiety/depression, and tobacco use who presented to the emergency room with a complaint of chest pain radiating down her left arm and to the back. According to the patient, symptoms started when she got up around 1 AM to go to the bathroom. Specifically, she experienced crushing left-sided chest pain radiating to her arm and back her back felt like it was "being torn apart." She asked her daughter for a nitroglycerin tablet, after which her symptoms subsided a bit. However, her symptoms returned with even greater severity and she asked her daughter to bring her to the emergency room. ROS + nausea, bilateral leg swelling, and toe cramping. She had come to the ED on Sunday and got an x-ray, but went home due to the long line and because her symptoms subsided. In the ED, vitals were stable, within normal limits. Labs revealed a WBC count of 13.33, serum glucose of 197, and a troponin of 34.2 (down from 46.1 on 01/19; peak of 68.2 on 01/18). Electrolytes, creatinine, calcium, LFTs, transaminases, and PT/INR were all negative/within normal limits. Initial EKG was negative for ST elevation (with some potential T wave flattening, per my read). Subsequent troponin was elevated significantly at 4005.7. She received a loading dose of heparin then started on heparin drip, as well as a single dose of IV labetalol 10 mg. Hospitalist service was then consulted for admission. On admission, she she denies any chest pain, left arm pain, or back pain. She further denies nausea. She still reports wheezing, and cramping toe pain but denies any focal motor weakness of the extremities. Allergies Allergy/AdvReac Type Severity Reaction Status Date / Time morphine Allergy Intermediate Hives Verified 01/26/23 02:09 adhesive Allergy Unknown Unknown Verified 01/26/23 02:09 amoxicillin [From Augmentin] AdvReac Intermediate Diarrhea Verified 01/26/23 02:09 clavulanic acid AdvReac Intermediate Diarrhea Verified 01/26/23 02:09 [From Augmentin] clonazepam AdvReac Intermediate short term Verified 01/26/23 02:09 memory loss NSAIDS (Non-Steroidal AdvReac Unknown CONTRAINDICATED Verified 01/26/23 02:09 Anti-Inflamma IS ON ANTICOAGULATION Home Medications Medication Instructions Recorded Confirmed Type atorvastatin 80 mg tablet 80 mg PO QAM #90 tabs 05/02/22 01/26/23 Rx blood sugar diagnostic (Realeyes 3Duch #100 ea 05/02/22 01/18/23 Rx Verio test strips) blood-glucose meter (Realeyes 3Duch #1 ea 05/02/22 01/18/23 Rx Verio Flex Meter) famotidine 20 mg tablet 20 mg PO DAILY #90 tabs 05/02/22 01/26/23 Rx lancets 33 gauge (Realeyes 3Duch Delica #100 ea 05/02/22 01/18/23 Rx Lancets) acetaminophen 650 mg 650 mg PO BID PRN Unknown 07/03/22 01/26/23 History tablet,extended release docusate sodium 100 mg capsule 100 mg PO DAILY PRN constipation 07/26/22 01/26/23 History fluticasone propionate 50 2 spray intranasal DAILY 07/26/22 01/26/23 History mcg/actuation nasal spray,suspension (Flonase Allergy Relief) loratadine 10 mg tablet 10 mg PO DAILY PRN allergy symptoms 07/26/22 01/26/23 History metformin 1,000 mg tablet 1,000 mg PO BID #60 tabs 10/31/22 01/26/23 Rx ropinirole 1 mg tablet 1 mg PO TID #90 tabs 10/31/22 01/26/23 Rx lisinopril 20 mg tablet 20 mg PO DAILY #90 tabs 11/14/22 01/26/23 Rx albuterol sulfate 90 mcg/actuation 2 inh inhalation Q6H PRN shortness 12/01/22 01/26/23 Rx aerosol inhaler of breath or wheezing #8.5 grams cholecalciferol (vitamin D3) 1,250 50,000 unit PO WK #12 caps 12/13/22 01/26/23 Rx mcg (50,000 unit) capsule potassium chloride 20 mEq 20 meq PO DAILY #90 tabs 12/21/22 01/26/23 Rx tablet,extended release(part/cryst) aspirin 81 mg tablet,delayed 81 mg PO QAM #90 tabs 12/25/22 01/26/23 Rx release linagliptin 5 mg tablet (Tradjenta) 5 mg PO DAILY #30 tabs 12/25/22 01/26/23 Rx fluticasone fur. 200 mcg-umeclid 1 inh inhalation DAILY #28 ea 12/28/22 01/26/23 Rx 62.5 mcg-vilant 25 mcg inhalat.powder (Trelegy Ellipta) insulin aspart U-100 100 unit/mL See Rx Instructions subcut UD #15 12/28/22 01/26/23 Rx (3 mL) subcutaneous pen (Novolog mL FlexPen U-100 Insulin aspart) insulin glargine 100 unit/mL (3 20 unit (0.2 mL) subcut BID #15 mL 12/28/22 01/26/23 Rx mL) subcutaneous pen (Lantus Solostar U-100 Insulin) pen needle, diabetic 32 gauge x #200 ea 12/28/22 01/18/23 Rx 1/4" (BD Ultra-Fine Micro Pen Needle) esomeprazole magnesium 40 mg 40 mg PO DAILY #30 caps 01/03/23 01/26/23 Rx capsule,delayed release dapagliflozin propanediol 10 mg 10 mg PO DAILY #90 tabs 01/20/23 01/26/23 Rx tablet (Farxiga) furosemide 40 mg tablet (Lasix) 40 mg PO BID #120 tabs 01/20/23 01/26/23 Rx Past Med/Surg History Medical History Diabetes mellitus treated with insulin and oral medication Closed fracture of radial styloid (07/03/22) Acute UTI Acute respiratory failure with hypoxia Rash Diabetes mellitus treated with oral medication Leukocytosis Abdominal wall abscess Hypocalcemia Hypomagnesemia Wound infection after surgery Abscess of vulva COVID-19 Open thigh wound Traumatic wound Chronic pain syndrome Acute hyperglycemia Methamphetamine abuse Acute ST elevation myocardial infarction (STEMI) of inferior wall Anastomotic ulcer S/P gastric bypass Restless leg syndrome Insomnia Anxiety and depression Leukocytosis DVT prophylaxis Incarcerated hernia Abdominal pain Ventral hernia Fibromyalgia HTN (hypertension) Gastric ulcer Bloody emesis Corneal abrasion Left corneal abrasion L1 vertebral fracture Migraine Acute cholecystitis UTI (lower urinary tract infection) Pneumonia Bronchitis Surgical History S/P anal fissurectomy History of ankle surgery S/P tonsillectomy S/P recurrent ventral herniorrhaphy S/P ventral herniorrhaphy repair [facility] [place], [place] 11/2021, then drainage of incisional abscess 12/2021 H/O gastric bypass S/P cholecystectomy H/O: hysterectomy H/O knee surgery Family History Father Myocardial infarction Leukemia Sister Ovarian cancer Myocardial infarction Other Family history of diabetes mellitus Hypertension Denies family history of Prostate cancer Breast cancer Colorectal cancer Social History Smoking Status: Current every day smoker Tobacco Type: Cigarettes packs per day: 1.5; Cigarettes Per Day: 10; Second Hand Exposure: No; Do You Dip or Chew Tobacco: No; Hx Alcohol Use: No Hx Substance Use: No Preferred Language: Finnish Communication Ability: Effective Visual Impairment: No Limitations Veterinary Toxicologist Required: No Beliefs That Will Affect Care: None marital status: Current Living Situation: Family Current Living Situation Comment: with daughter current occupational status: unemployed and disabled How many Children do You have: 2 Feels Safe at Home: Yes Childhood Exposure to Second-Hand Smoke: Yes Diet: regular during the past year weight has: remained stable Dental Care, Regularly: No Physical Activity Frequency: Does not Exercise Seatbelt Use: always Sunscreen Use: Yes Assistive Devices: None Review of Systems Review of Systems: All systems reviewed & are unremarkable except as noted in HPI & below Physical Exam Physical Exam: General: No acute distress HEENT: PERRLA. Normal conjunctiva, anicteric sclera. Oropharynx normal. Respiratory: Normal respiratory effort. Diffuse wheeze heard in basilar, mid lung field. No crackles, rhonchi or rubs heard. Cardiovascular: RRR. 2/6 systolic ejection murmur heard in auscultation. No gallops or rubs. Bilateral 1+ pitting pedal edema. GI: Soft abdomen with normal bowel sounds heard on auscultation. Nontender x4 quadrants. Neuro: Alert and oriented x3. Results & Data Results & Data Vital Signs (Past 12 Hours) Vital Signs Temp Pulse Pulse Resp BP BP Pulse Ox 01/26/23 05:30 75 25 H 96/54 L 95 01/26/23 05:01 80 15 140/107 H 97 01/26/23 04:30 79 25 H 117/77 95 01/26/23 04:00 81 22 112/82 96 01/26/23 03:31 84 25 H 128/86 97 01/26/23 03:01 93 H 135/83 01/26/23 03:00 88 21 135/83 93 01/26/23 02:30 87 20 157/101 H 95 01/26/23 02:08 86 24 146/97 H 95 01/26/23 02:00 89 22 179/120 H 95 01/26/23 01:49 91 H 22 92 01/26/23 01:41 93 H 22 133/80 92 01/26/23 01:41 94 01/26/23 01:33 90 01/26/23 01:30 81 19 98 01/26/23 01:25 37.2 C 93 H 21 133/80 91 O2 Del Method O2 Flow Rate 01/26/23 05:30 01/26/23 05:01 01/26/23 04:30 01/26/23 04:00 01/26/23 03:31 01/26/23 03:01 01/26/23 03:00 01/26/23 02:30 01/26/23 02:08 01/26/23 02:00 01/26/23 01:49 Room Air 01/26/23 01:41 Room Air 01/26/23 01:41 Room Air 0 01/26/23 01:33 01/26/23 01:30 01/26/23 01:25 Room Air Code Status & VTE Plan VTE Prophylaxis Plan VTE Prophylaxis will be ordered: Yes Resident Activity Tracking Resident Involvement: Resident Care Provided Care Provided: Adult Hospital Medicine (2) CAD (coronary artery disease) Associated angina: with unspecified form of angina Coronary Disease- Associated Artery/Lesion type: unspecified vessel or lesion type Mcgrath vs. transplanted heart: nikolski heart Qualified Code(s): I25.119 - Atherosclerotic heart disease of nikolski coronary artery with unspecified angina pectoris (3) Hyperlipidemia Hyperlipidemia type: unspecified Qualified Code(s): E78.5 - Hyperlipidemia, unspecified (4) Diabetes mellitus Diabetes mellitus usp insulin use: with usp use Diabetes mellitus macular edema: macular edema presence unspecified Diabetes mellitus type: type 2 Diabetic retinopathy severity: with unspecified retinopathy severity Laterality: unspecified laterality (5) CHF (congestive heart failure) Heart failure chronicity: unspecified Heart failure type: unspecified Qualified Code(s): I50.9 - Heart failure, unspecified (6) HTN (hypertension) Hypertension type: primary hypertension Qualified Code(s): I10 - Essential (primary) hypertension
[2023-01-26] MEDS ORDERED: GLUCOSE 10 TAB/TUBE PO PRN (06:43)
[2023-01-26] MEDS ORDERED: DOCUSATE SODIUM 100 MG CAP PO PRN (06:43)
[2023-01-26] MEDS ORDERED: NITROGLYCERIN SL 0.4 MG/TAB TAB SL PRN (06:43)
[2023-01-26] MEDS ORDERED: LORATADINE 10 MG TAB PO PRN (06:43)
[2023-01-26] MEDS ORDERED: ALBUTEROL 0.5% NEB SOLN 2.5 MG/0.5 ML VIAL NEB PRN (06:43)
[2023-01-26] MEDS ORDERED: GLUCOSE 40% GEL 15 GM TUBE PO PRN (06:43)
[2023-01-26] MEDS ORDERED: GLUCAGON FOR INJ 1 MG VIAL SQ PRN (06:43)
[2023-01-26] MEDS ORDERED: DEXTROSE 50% 50 ML SYRINGE IV PRN (06:43)
[2023-01-26] MEDS ORDERED: CARBOHYDRATES FOR HYPOGLYCEMIA PO PRN (06:43)
[2023-01-26] MEDS ORDERED: ONDANSETRON INJ 2 MG/ML 2 ML VIAL IV PRN (06:43)
--- NOTE | 2023-01-26 07:51 | XRay Report ---
XR chest 1V portable CLINICAL HISTORY: Chest pain, nonspecific TECHNIQUE: Single frontal radiograph of the chest was obtained. Comparison: Comparison is made to chest radiograph 01/24/2023 FINDINGS: No lines and tubes are seen. Cardiomegaly is noted. The lungs are clear. No evidence of pleural effus ion or pneumothorax. IMPRESSION: No acute chest disease. Cardiomegaly is noted. ACT 112: Negative or not required by law. Electronically signed by: Donny Carbone M.D. 01/26/2023 7:49 AM
[2023-01-26 07:58] LABS: Amphetamines+Metham, Urine Neg (Neg); Barbiturates, Urine Neg (Neg); Benzodiazepine, Urine Neg (Neg); Cocaine, Urine Neg (Neg); MDMA (Ecstacy), Urine Neg (Neg); Methadone, Urine Neg (Neg); Opiate, Urine Neg (Neg); Phencyclidine, Urine Neg (Neg)
--- NOTE | 2023-01-26 08:26 | Communication Note ---
Date of Service: January 26, 2023 NSTEMI, trop jennifer to 4000 overnight -continue heparin drip -continue ASA, statin -ordered metoprolol 2.5 mg IV q6h -BP marginal so hold lisinopril for now, npo hold furosemide for now (hx HFpEF) -TTE ordered, recent TTE with normal LVEF -cardiology consulted, on cath scheduled today 12:[address] Davalos
[2023-01-26] MEDS ORDERED: lisinopril 20 MG TAB PO SCH (09:00)
[2023-01-26] MEDS ORDERED: FUROSEMIDE 40 MG TAB PO SCH (09:00)
[2023-01-26] MEDS ORDERED: ASPIRIN 81 MG ECTAB PO SCH (09:00)
[2023-01-26] MEDS ORDERED: NON-FORMULARY MEDICATION (Fluticasone-Umeclidin-Vilanter [Trelegy Ellipta] 200-62.5-25 mcg INH SCH (09:00)
[2023-01-26] MEDS: INSULIN ASPART PER UNIT CHARGE SC SCH ×4 (09:11→21:01)
[2023-01-26] MEDS: LANTUS PER UNIT CHARGE SQ SCH ×2 (09:39→21:01)
[2023-01-26] MEDS: FAMOTIDINE 20 MG TAB PO SCH (09:42)
[2023-01-26] MEDS: FLUTICASONE PROPIONATE NA SPR 16 GM BTL SCH (09:43)
[2023-01-26] MEDS: POTASSIUM CHLORIDE CRTAB 20 MEQ TABCR PO SCH (09:43)
[2023-01-26] MEDS: rOPINIRole HCL 1 MG TABLET PO SCH ×3 (09:43→21:03)
[2023-01-26] MEDS: UMECLIDINIUM/VILANTEROL 62.5/25MCG 7 PUFFS/INHALER INH SCH (10:19)
[2023-01-26] MEDS: FLUTICASONE FUROATE 200MCG 14 PUFFS/INHALER INH SCH (10:19)
[2023-01-26] MEDS: ATORVASTATIN 40 MG TAB PO SCH (10:20)
[2023-01-26] MEDS: PANTOprazole 40 MG TAB PO SCH (10:21)
[2023-01-26 10:35] LABS: Magnesium 1.5 mg/dl (1.7-2.4); Phosphorus 3.6 mg/dl (2.5-4.9)
[2023-01-26] MEDS ORDERED: MAGNESIUM SULFATE / D5W 1 GM/100 ML BAG IV ONE (10:38)
[2023-01-26] MEDS ORDERED: HEPARIN (PORCINE) 1000 UNIT/ML 10 ML (CATH LAB USE ONLY) ONE (11:49)
[2023-01-26] MEDS ORDERED: MIDAZOLAM HCL 1 MG/ML 2ML VIAL ONE ×2 (11:49→12:13)
[2023-01-26] MEDS ORDERED: niCARdipine HCL INJ 2.5 MG/ML 10 ML AMP ONE (11:49)
[2023-01-26] MEDS ORDERED: NITROGLYCERIN/D5W 100MCG/ML 20ML SYR ONE (11:50)
[2023-01-26] MEDS ORDERED: fentaNYL citrate PF 100 MCG/2 ML VIAL ONE (11:50)
--- NOTE | 2023-01-26 11:50 | Pre Anesthesia Assessment ---
Date of Service January 26, 2023 Pre Sedation Assessment Vital Signs Temp Pulse Pulse Pulse Resp BP BP 01/26/23 11:33 67 18 113/0 L 01/26/23 11:04 36.7 C 74 20 118/78 01/26/23 10:29 70 01/26/23 08:25 36.5 C 68 18 112/76 01/26/23 06:00 78 16 112/58 L 01/26/23 05:34 76 01/26/23 05:30 75 25 H 96/54 L 01/26/23 05:01 80 15 140/107 H 01/26/23 04:30 79 25 H 117/77 01/26/23 04:00 81 22 112/82 01/26/23 03:31 84 25 H 128/86 01/26/23 03:01 93 H 135/83 01/26/23 03:00 88 21 135/83 01/26/23 02:30 87 20 157/101 H 01/26/23 02:08 86 24 146/97 H 01/26/23 02:00 89 22 179/120 H 01/26/23 01:49 91 H 22 01/26/23 01:41 93 H 22 133/80 01/26/23 01:41 01/26/23 01:33 90 01/26/23 01:30 81 19 01/26/23 01:25 37.2 C 93 H 21 133/80 Pulse Ox O2 Del Method O2 Flow Rate 01/26/23 11:33 93 Room Air 01/26/23 11:04 92 Room Air 01/26/23 10:29 01/26/23 08:25 95 Room Air 01/26/23 06:00 95 01/26/23 05:34 01/26/23 05:30 95 01/26/23 05:01 97 01/26/23 04:30 95 01/26/23 04:00 96 01/26/23 03:31 97 01/26/23 03:01 01/26/23 03:00 93 01/26/23 02:30 95 01/26/23 02:08 95 01/26/23 02:00 95 01/26/23 01:49 92 Room Air 01/26/23 01:41 92 Room Air 01/26/23 01:41 94 Room Air 0 01/26/23 01:33 01/26/23 01:30 98 01/26/23 01:25 91 Room Air Cardiovascular RRR, no murmur, no edema Respiratory normal respiratory effort, lungs clear to auscultation Pre-Sedation Airway Assessment Smoking Status: Current every day smoker Hx Sleep Apnea: No Hx Difficult Intubation: No Short, Thick Neck: No Thyromental Distance: > or= 3.5 Finger Breadths Oral Cavity: + Dentures Mallampati Class: II ASA: ASA4 NPO Status Date of Last Intake of Fluids: 01/26/23 Time of Last Intake of Fluids: 07:00 Last Oral Intake of Fluids Comment: sip with pills Date of Last Intake of Solid Food: 01/25/23 Notes The planned sedation has been discussed with the patient. Informed Consent was obtained. I have identified the patient, determined the appropriateness of sedation and have assessed the patient immediately prior to the procedure. All medicine(s) and interventions are by my order.
[2023-01-26] MEDS ORDERED: OPTIRAY 350 ONE (11:58)
[2023-01-26] MEDS ORDERED: diphenhydrAMINE 50 MG/ML VIAL ONE (12:42)
[2023-01-26] MEDS ORDERED: TICAGRELOR 90 MG TAB PO ONE (13:27)
[2023-01-26] MEDS ORDERED: TICAGRELOR 90 MG TAB ONE (13:29)
--- NOTE | 2023-01-26 13:31 | Post Anesthesia Assessment ---
Date of Service January 26, 2023 Post Sedation Assessment Vital Signs Temp Pulse Pulse Pulse Resp BP BP 01/26/23 11:33 67 18 113/0 L 01/26/23 11:04 36.7 C 74 20 118/78 01/26/23 10:29 70 01/26/23 08:45 01/26/23 08:25 36.5 C 68 18 112/76 01/26/23 06:00 78 16 112/58 L 01/26/23 05:34 76 01/26/23 05:30 75 25 H 96/54 L 01/26/23 05:01 80 15 140/107 H 01/26/23 04:30 79 25 H 117/77 01/26/23 04:00 81 22 112/82 01/26/23 03:31 84 25 H 128/86 01/26/23 03:01 93 H 135/83 01/26/23 03:00 88 21 135/83 01/26/23 02:30 87 20 157/101 H 01/26/23 02:08 86 24 146/97 H 01/26/23 02:00 89 22 179/120 H 01/26/23 01:49 91 H 22 01/26/23 01:41 93 H 22 133/80 01/26/23 01:41 01/26/23 01:33 90 01/26/23 01:30 81 19 01/26/23 01:25 37.2 C 93 H 21 133/80 Pulse Ox O2 Del Method O2 Flow Rate 01/26/23 11:33 93 Room Air 01/26/23 11:04 92 Room Air 01/26/23 10:29 01/26/23 08:45 Room Air 01/26/23 08:25 95 Room Air 01/26/23 06:00 95 01/26/23 05:34 01/26/23 05:30 95 01/26/23 05:01 97 01/26/23 04:30 95 01/26/23 04:00 96 01/26/23 03:31 97 01/26/23 03:01 01/26/23 03:00 93 01/26/23 02:30 95 01/26/23 02:08 95 01/26/23 02:00 95 01/26/23 01:49 92 Room Air 01/26/23 01:41 92 Room Air 01/26/23 01:41 94 Room Air 0 01/26/23 01:33 01/26/23 01:30 98 01/26/23 01:25 91 Room Air Recovery Score Activity: Moves 4 extremities Respiration: Deep Breath/Cough Circulation: +/-20% PreAnes Value Consciousness: Fully Awake Oxygen Saturation: > 92% On Room Air Discharge Sedation Level of Care: Fast Track Phase II Post Sedation Plan On clinical assessment, the patient appears to have tolerated the sedation without complications. Patient is recovering as anticipated. Patient will continue to be monitored by nursing and may be discharged when sedation discharge criteria are met per below protocol. Upon Completions of procedure up to 15 minutes continue every 5 minute vital signs and the P.A.R. score; then discharge to a Phase I or Fast Track to Phase II per the following guidelines: * Discharge Patient to appropriate Phase II area if PAR is 8 or greater or return to pre- procedure baseline. The post - procedure orders will be as directed. * If PAR score is less than 8 or not return to pre-procedure baseline then patient will follow Phase I monitoring till PAR is reached for Phase II. The Phase I may be done in procedure room or may call to secure a Phase I area. * If naloxone or flumazenil are used for reversal, hold in Phase I for continued monitoring from when last reversal dose was given for a minimum of 60 minutes or longer pending the nurse and/or physician discretion of patient condition before discharge to Phase II. Please call the Sedation Physician to re-evaluate and complete post-note for discharge to Phase II area. Do NOT discharge from procedure sedation or Phase 1 until post- sedation evaluation note is complete by procedure /sedation MD Sedation Discharge Instructions to be given to the patient at discharge to home. [facility] Procedure Codes (Charges) Indication for Procedure Indication for procedure: nstemi Sedation/Anesthesia Procedure 1: Sedation/Anesthesia: 65604 Mod Sedation by the same physician;Init15 Min Child Age 5 & Up (INITIAL 15 MIN, START 1206) Total Sedation Time (minutes): 71 Procedure 2: Sedation/Anesthesia: 78712 Mod Sedation by the same physician; Ea [id number] Minutes (ADDITIONAL 56 MIN END TIME 1315) Total Sedation Time (minutes): 71
[2023-01-26] MEDS: METOPROLOL TARTRATE 1 MG/ML VIAL IV SCH ×3 (13:38→23:11)
[2023-01-26] MEDS ORDERED: HYDROmorphone INJ 1 MG/ML SYRINGE ONE (14:23)
--- NOTE | 2023-01-26 15:22 | XCELERA ---
[id number] \\[id number]
--- NOTE | 2023-01-26 15:27 | Electrocardiogram Report ---
Test Reason : Blood Pressure : / mmHG Vent. Rate : 071 BPM Atrial Rate : 071 BPM P-R Int : 190 ms QRS Dur : 098 ms QT Int : 406 ms P-R-T Axes : 076 016 099 degrees QTc Int : 441 ms Sinus rhythm with Premature atrial complexes Old Anterior infarct (cited on or before 25-MAR-2021) Old Inferior infarct Nonspecific T wave abnormality Lateral leads Abnormal ECG When compared with ECG of 26-JAN-2023 01:25, Nonspecific T wave abnormality Lateral leads now present Confirmed by Kike Hernández ([id number]) on 01/26/2023 3:26:57 PM Referred By: REFERRED SELF Confirmed By:Kike Hernández
--- NOTE | 2023-01-26 15:45 | Electrocardiogram Report ---
Test Reason : Blood Pressure : / mmHG Vent. Rate : 081 BPM Atrial Rate : 081 BPM P-R Int : 196 ms QRS Dur : 094 ms QT Int : 422 ms P-R-T Axes : 074 064 086 degrees QTc Int : 490 ms Sinus rhythm with occasional Premature ventricular complexes Old Anterior infarct (cited on or before 25-MAR-2021) Abnormal ECG When compared with ECG of 26-JAN-2023 05:27, Premature ventricular complexes are now Present Premature atrial complexes are no longer Present Criteria for Inferior infarct no longer present Confirmed by Kike Hernández ([id number]) on 01/26/2023 3:45:03 PM Referred By: REFERRED SELF Confirmed By:Kike Hernández
[2023-01-26] MEDS ORDERED: HYDROmorphone INJ 0.5 MG/0.5 ML SYR IV ONE (16:29)
[2023-01-26] MEDS: ASPIRIN 81 MG ECTAB PO SCH (17:14)
[2023-01-26] MEDS ORDERED: Nursing to Pharmacy Communication SCH (20:30)
[2023-01-26] MEDS: TICAGRELOR 90 MG TAB PO SCH (21:02)
[2023-01-26] MEDS: ACETAMINOPHEN 325 MG TAB PO PRN (21:38)
[2023-01-26] MEDS: HYDROmorphone HCL 2 MG TAB PO PRN (22:55)
[2023-01-27] MEDS: HYDROmorphone HCL 2 MG TAB PO PRN (04:16)
[2023-01-27] MEDS ORDERED: SODIUM CHLORIDE 0.9% 1,000 ML IV ONE ×2 (06:36→11:28)
--- NOTE | 2023-01-27 07:36 | Hospitalist Progress Note ---
Date of Service January 27, 2023 Assessment & Plan (1) Hypotension after procedure: Plan: Concern is bleeding from R femoral access site - right thigh hematoma or retroperitoneal hematoma. Exam is difficult because thigh is very large at baseline. No discrete mass palpated but patient perceives swelling and there is dark ecchymosis in medial upper posterior thigh. Fem and pedal pulses intact, no bruit, and leg is warm. -discussed with Dr. Samuel and discussed with CT - ordered CTA R thigh to eval for thigh hematoma and fem artery access site for extravasation, CT abdomen/pelvis with venous phase contrast to eval for RP hematoma ADDENDUM: small R femoral artery pseudoaneurysm with thin neck of contrast, [id number] cm thigh hematoma -discussed with Dr. Samuel who spoke with radiologist and held pressure, no vascular surgery coverage this weekend, recommended bedrest continue for patient, will monitor serial Hct and BP likely will tamponade and stabilize however, would need transfer for tertiary care if she does not BP improved to 90/50 after 1L bolus, remains hypotensive second liter bolus ordered Preesumed acute blood loss anemia with 10-point drop in Hct to 30, type and cross and serial Hct ordered Mild hyperkalemia with normal renal function - could be hemolyzed or from hematoma - ordered repeat potassium check in 4h (2) NSTEMI (non-ST elevated myocardial infarction): Plan: Presented with NSTEMI. EKGs showing old anterior and inferior infarcts ASA and heparin drip started in ED Coronary angiogram by Dr. Davalos 01/26 with PCI - I believe she had MIGUEL x3 to LAD, no report yet Troponin peak 37157, downtrended. Given hypotension will check another trop with other labs in 4h Continue ASA and brilinta for now - see above Continue atorvastatin Metoprolol, lisinopril held for hypotension 01/27 (3) CHF (congestive heart failure): Plan: Ischemic cardiomyopathy, heart failure with mid-range EF? Echo this admission with mildly reduced LVEF 40-45% apical hypokinesis, small apical thrombus could not be excluded but definity images argue against presence of thrombus -hypotensive, furosemide and lisinopril held, getting fluid boluses, not hypoxic -monitor volume status, diuretics when able to tolerate (4) Diabetes mellitus: Plan: outpatient: Metformin 1000 mg twice daily, linagliptin 5 mg daily, glargine 20 units twice daily, mealtime NovoLog (dapaglifozin?) In hospital treated with glargine and aspart -BG reviewed 01/27 at goal (5) Nicotine dependence: (6) H/O gastric bypass: (7) Chronic pain syndrome: Plan: Has chronic back pain. Currently c/o severe back pain unclear if flare of chronic pain or acute issue related to #1 above -0.5 mg IV hydromorphone ordered after fluid bolus to help her tolerate phlebotomy, CT (8) CAD (coronary artery disease): Plan: as above (9) HTN (hypertension): Plan: as above (10) Acute blood loss anemia: Plan: as above Plan Hypomagnesemia 01/27 associated with one run of NSVT prior to PCI, replaced with IV magnesium -mag remains 1.5 today ordered 2g IV magnesium, check in AM Wheezing - presumed COPD based on medlist - flutic/umeclid/vilanterol daily, albuterol prn, stable not in exacerbation Admission and Anticipated Discharge Date Admission Date: January 26, 2023 Subjective BP 68/45 early this am, only complaint was back pain said to be chronic. 1L NS bolus ordered by resident, bp improved. Tried to see early but was on commode. Midmorning when I saw her c/o back pain, right thigh swelling, and c/o not being allowed to get up to commode. Denied lightheadedness SOB and chest pain. Bedside RN reports assistant casino shift manager was aware of R thigh ecchymosis, fem aa sheath had to be left in for awhile post procedure because of elevated ATC, she was moving around a lot instead of lying flat at that time, unclear if concerns about groin site communicated to providers overnight. Patient has been moving around a lot and insisting on getting up to commode, despite nursing staff attempts to keep her on bedrest over concerns with groin site Review of Systems 2 Review of Systems: PHYSICAL EXAMINATION Last 24h vital signs reviewed, see documentation in flowsheet General: sitting up in bed irritable HEENT: Normocephalic, atraumatic, pupils round and equal, sclerae anicteric, no conjunctival injection, moist mucus membranes Lungs: Normal respiratory effort. Clear to auscultation bilaterally. No RRW Heart: Regular rate and rhythm, no murmurs. No JVD Abdomen: Soft, nontender, nondistended. Bowel sounds present. Extremities: Warm, dry, well-perfused. R groin site without swelling anteriorly, fem and DP pulses intact, no bruit, Rt upper thigh with swelling medially? and dark purple ecchymosis medially/posteriorly, very difficult exam because of body habitus. Neuro: Alert and oriented x 4, face symmetric, moves 4 extremities well Psych: anxious affect and mood and agitated behavior Results & Data Results & Data Vital Signs (Past 12 Hours) Vital Signs Temp Pulse Pulse Resp BP BP Pulse Ox 01/27/23 07:08 69 01/27/23 06:09 73 64/46 L 68/45 L 01/27/23 03:23 36.9 C 68 19 109/74 96 01/26/23 23:39 75 01/26/23 23:26 66 01/26/23 23:11 75 01/26/23 23:04 36.8 C 74 18 118/75 93 01/26/23 21:07 77 17 98 01/26/23 21:00 O2 Del Method O2 Flow Rate 01/27/23 07:08 01/27/23 06:09 01/27/23 03:23 Room Air 01/26/23 23:39 01/26/23 23:26 01/26/23 23:11 01/26/23 23:04 Room Air 01/26/23 21:07 Nasal Cannula 2 01/26/23 21:00 Nasal Cannula 2 Laboratory Results 01/26/23 01/26/23 01/26/23 Range/Units 20:13 17:01 16:25 Activ Coag Time Kaolin (94-140) SECONDS POC Glucose 204 H 104 H (70-99) mg/dl Phosphorus Magnesium Troponin I High Sens 00192.1 H* (0-14) pg/ml Urine Opiates Screen (Neg) Ur Methadone, Qual (Neg) Urine Barbiturates (Neg) Ur Phencyclidine (PCP) (Neg) U Amphetamin/Meth Scrn (Neg) MDMA (Ecstasy) Screen (Neg) U Benzodiazepines Scrn (Neg) Ur Cocaine Metabolite (Neg) U Marijuana (THC) Screen (Neg) 01/26/23 01/26/23 01/26/23 Range/Units 13:15 12:50 12:22 Activ Coag Time Kaolin 201 H 190 H 217 H (94-140) SECONDS POC Glucose (70-99) mg/dl Phosphorus Magnesium Troponin I High Sens (0-14) pg/ml Urine Opiates Screen (Neg) Ur Methadone, Qual (Neg) Urine Barbiturates (Neg) Ur Phencyclidine (PCP) (Neg) U Amphetamin/Meth Scrn (Neg) MDMA (Ecstasy) Screen (Neg) U Benzodiazepines Scrn (Neg) Ur Cocaine Metabolite (Neg) U Marijuana (THC) Screen (Neg) 01/26/23 01/26/23 01/26/23 Range/Units 09:59 09:07 06:30 Activ Coag Time Kaolin (94-140) SECONDS POC Glucose 139 H (70-99) mg/dl Phosphorus 3.6 Magnesium 1.5 L Troponin I High Sens 35512.7 H* D (0-14) pg/ml Urine Opiates Screen Neg (Neg) Ur Methadone, Qual Neg (Neg) Urine Barbiturates Neg (Neg) Ur Phencyclidine (PCP) Neg (Neg) U Amphetamin/Meth Scrn Neg (Neg) MDMA (Ecstasy) Screen Neg (Neg) U Benzodiazepines Scrn Neg (Neg) Ur Cocaine Metabolite Neg (Neg) U Marijuana (THC) Screen Neg (Neg) 01/26/23 Range/Units 01:40 Activ Coag Time Kaolin (94-140) SECONDS POC Glucose (70-99) mg/dl Phosphorus Cancelled Magnesium Cancelled Troponin I High Sens (0-14) pg/ml Urine Opiates Screen (Neg) Ur Methadone, Qual (Neg) Urine Barbiturates (Neg) Ur Phencyclidine (PCP) (Neg) U Amphetamin/Meth Scrn (Neg) MDMA (Ecstasy) Screen (Neg) U Benzodiazepines Scrn (Neg) Ur Cocaine Metabolite (Neg) U Marijuana (THC) Screen (Neg) Diagnostic Findings 01/27/23 07:28 01/27/23 07:25 Chest X-Ray 01/26/23 01:41 XR chest 1V portable CLINICAL HISTORY: Chest pain, nonspecific TECHNIQUE: Single frontal radiograph of the chest was obtained. Comparison: Comparison is made to chest radiograph 01/24/2023 FINDINGS: No lines and tubes are seen. Cardiomegaly is noted. The lungs are clear. No evidence of pleural effusion or pneumothorax. IMPRESSION: No acute chest disease. Cardiomegaly is noted. ACT 112: Negative or not required by law. Electronically signed by: Donny Carbone M.D. 01/26/2023 7:49 AM Abdomen/Pelvis CT 01/27/23 11:15 CT SCAN OF THE ABDOMEN AND PELVIS WITH IV CONTRAST CLINICAL HISTORY: Back pain. Anemia. COMPARISON STUDY: Abdominal CT dated 03/24/2022. TECHNIQUE: Following the IV administration of 118 cc of Optiray 320, CT scan of the abdomen and pelvis is performed from the lung bases to the proximal femora. Images are reviewed in the axial, sagittal, and coronal planes. IV contrast was administered without complication. A dose lowering technique was utilized adhering to the principles of ALARA. FINDINGS: Lung bases: The heart is normal in size and without pericardial effusion. A right coronary artery stent is in place. The lung bases are clear nothing dependent atelectasis. Liver: The contrast-enhanced liver is normal in size, contour, and attenuation. There is minimal central intrahepatic biliary ductal dilatation. The hepatic veins and portal veins are patent. Gallbladder: Surgically absent and clips in the gallbladder fossa. Spleen: Normal in size and attenuation. Pancreas: The pancreas is not atrophic. Parenchymal calcifications suggest chronic pancreatitis. Adrenal glands: Unremarkable. Kidneys: The contrast enhanced kidneys are normal in size and without hydronephrosis. The kidneys enhance and excrete symmetrically. Excreted contrast is seen within the renal collecting systems and ureters. Abdominal vasculature: The abdominal aorta is normal in course and caliber noting moderate to advanced atherosclerotic calcification. Stomach and bowel: Postoperative changes again seen involving the stomach. No bowel obstruction is identified. Nonobstructed small bowel and colon is contained within a hernia hernia in the left anterior pelvis. The appendix is nonvisualized. Peritoneum/retroperitoneum: There is no intraperitoneal free air or abdominal ascites. A midline surgical scar is noted. A thin crescentic stroma within the ventral abdominal wall is similar to previous. This measures up to 12 mm in diameter as seen on image #81. No retroperitoneal hematoma is identified. Lymphadenopathy: Prominent right groin nodes are likely reactive. Pelvic viscera: The bladder is decompressed and contains excreted IV contrast. The uterus is surgically absent. No adnexal lesion is seen. A pseudoaneurysm in the right groin is seen on axial image #317. There is surrounding edema and hemorrhage. Skeletal structures: The skeletal structures are osteopenic. There is [id number] lumbosacral spondylosis. No lytic or blastic lesions are seen. Arthritic change is seen in the hips. IMPRESSION: 1. Pseudoaneurysm in the right groin with surrounding edema and hemorrhage. See report of CT angiogram of the right lower extremity performed concurrently for detailed vascular findings. 2. There is no intraperitoneal or retroperitoneal hematoma. 3. Segments of small bowel and colon are contained within a ventral hernia in the left anterior pelvis. 4. Additional findings as above. ACT 112: Negative or not required by law. Electronically signed by: Kirby Jackson M.D. 01/27/2023 12:57 PM Lower Extremity CTA 01/27/23 11:15 CT ANGIOGRAM OF THE RIGHT LOWER EXTREMITY CLINICAL HISTORY: Right groin hematoma. Hypotension. Anemia. COMPARISON STUDY: Pelvic CT dated 03/24/2022. TECHNIQUE: Following the IV administration of 118 cc of Optiray 320, CT angiogram of the right lower extremity is performed from the groin to the proximal tibia and fibula. Images are reviewed in the axial, sagittal, and coronal planes. 3-D MIPS images are created and assessed. IV contrast was administered without complication. A dose lowering technique was utilized adhering to the principles of ALARA. CT DOSE: 2733.98 mGy.cm FINDINGS: Imaged portions of the right external iliac artery are patent, as is the right common femoral artery. The right superficial femoral artery is patent noting atherosclerotic plaque and irregularity. There is no CT evidence of high-grade stenosis. The right popliteal artery is patent, as is the profunda femoris artery. There is evidence of a pseudoaneurysm in the right groin seen on axial image #82. The extraluminal pocket of contrast measures 10 x 12 x 10 mm, and there is a thin neck of contrast extending from the pseudoaneurysm to the common femoral artery bifurcation seen on image #76. There is significant surrounding edema/hemorrhage in the right groin/medial upper thigh. A large hematoma in the medial aspect of the proximal to mid thigh on image #246 measures approximately 15 x 13.5 x 5 cm. The skeletal structures are osteopenic. The visualized right hemipelvis and the right femur appear intact. Arthritic change is noted in the right hip and knee joints. No lytic or blastic lesion is seen. The bladder is decompressed and contains excreted IV contrast. The uterus is surgically absent. Prominent right groin nodes are likely reactive. There is generalized atrophy of the regional musculature. IMPRESSION: 1. Pseudoaneurysm in the right groin as detailed above with significant surrounding edema/hemorrhage. 2. Large hematoma in the soft tissues of the medial aspect of the proximal to mid thigh as above. 3. The visualized right lower extremity arteries are patent noting atherosclerotic plaque and irregularity. ACT 112: Negative or not required by law. Electronically signed by: Kirby Jackson M.D. 01/27/2023 12:37 PM PG Care Time/CCT Total # of Minutes Spent Total Time Spent with Patient: Total time spent is greater than 50% in coordination of care (as documented) at patient's floor/unit and/or counseling patient: Coding Level of Care Code 94564 SUB INP/OBS CARE 3/50MIN Diagnoses Hypotension after procedure I95.81 NSTEMI (non-ST elevated myocardial infarction) I21.4 Congestive heart failure, unspecified HF chronicity, unspecified heart failure type I50.9 Heart failure chronicity: unspecified Heart failure type: unspecified Diabetes mellitus E11.9 Diabetes mellitus halfway insulin use: with termite exterminator use Diabetes mellitus macular edema: macular edema presence unspecified Diabetes mellitus type: type 2 Diabetic retinopathy severity: with unspecified retinopathy severity Laterality: unspecified laterality Nicotine dependence F17.200 H/O gastric bypass Z98.84 Chronic pain syndrome G89.4 Coronary artery disease involving [place] heart with angina pectoris, unspecified vessel or lesion type I25.119 Associated angina: with unspecified form of angina Coronary Disease-Associated Artery/Lesion type: unspecified vessel or lesion type [place] vs. transplanted heart: [place] heart Primary hypertension I10 Hypertension type: primary hypertension Acute blood loss anemia D62 (3) CHF (congestive heart failure) Heart failure chronicity: unspecified Heart failure type: unspecified Qualified Code(s): I50.9 - Heart failure, unspecified (4) Diabetes mellitus Diabetes mellitus halfway insulin use: with halfway use Diabetes mellitus macular edema: macular edema presence unspecified Diabetes mellitus type: type 2 Diabetic retinopathy severity: with unspecified retinopathy severity L aterality: unspecified laterality (8) CAD (coronary artery disease) Associated angina: with unspecified form of angina Coronary Disease- Associated Artery/Lesion type: unspecified vessel or lesion type [place] vs. transplanted heart: [place] heart Qualified Code(s): I25.119 - Atherosclerotic heart disease of [place] coronary artery with unspecified angina pectoris (9) HTN (hypertension) Hypertension type: primary hypertension Qualified Code(s): I10 - Essential (primary) hypertension
[2023-01-27 08:09] LABS: Hematocrit (blood only) 29.1 % (37.0-47.0); Hemoglobin 9.6 g/dl (12.0-16.0); Mean Corpuscular Hemoglobin 29.4 pg (25.0-34.0); Mean Corpuscular Volume 89.3 fL (80.0-100.0); Mean Platelet Volume 9.7 fL (9.4-12.4); Platelet Count 237 K/uL (130-400); RDW Coefficient of Variation 14.1 % (11.5-14.5); RDW Standard Deviation 46.4 fL (36.4-46.3); Red Blood Count 3.26 M/uL (4.20-5.40); White Blood Count 18.04 K/ul (4.8-10.8)
[2023-01-27 08:32] LABS: BUN Creatinine Ratio 23.9 (10-20); Calcium 8.1 mg/dl (8.6-10.3); Creatinine Clr Calc Pharmacy 111.6 ml/min; Est GFR (African American) 109.2 ml/min; Est GFR (Non-African American) 94.2 ml/min; Magnesium 1.5 mg/dl (1.7-2.4)
[2023-01-27] MEDS: LANTUS PER UNIT CHARGE SQ SCH (08:33)
[2023-01-27] MEDS: INSULIN ASPART PER UNIT CHARGE SC SCH ×4 (08:33→20:36)
[2023-01-27] MEDS: UMECLIDINIUM/VILANTEROL 62.5/25MCG 7 PUFFS/INHALER INH SCH (08:37)
[2023-01-27] MEDS: FLUTICASONE PROPIONATE NA SPR 16 GM BTL SCH (08:37)
[2023-01-27] MEDS: FLUTICASONE FUROATE 200MCG 14 PUFFS/INHALER INH SCH (08:38)
[2023-01-27] MEDS: FAMOTIDINE 20 MG TAB PO SCH (08:39)
[2023-01-27] MEDS: ASPIRIN 81 MG ECTAB PO SCH (08:39)
[2023-01-27] MEDS: TICAGRELOR 90 MG TAB PO SCH ×2 (08:40→20:37)
[2023-01-27] MEDS: rOPINIRole HCL 1 MG TABLET PO SCH ×3 (08:40→20:37)
[2023-01-27] MEDS: PANTOprazole 40 MG TAB PO SCH (08:41)
[2023-01-27] MEDS: POTASSIUM CHLORIDE CRTAB 20 MEQ TABCR PO SCH (09:31)
[2023-01-27] MEDS: ATORVASTATIN 40 MG TAB PO SCH (09:32)
[2023-01-27] MEDS ORDERED: MAGNESIUM SULFATE / D5W 1 GM/100 ML BAG IV ONE (11:22)
[2023-01-27] MEDS ORDERED: HYDROmorphone INJ 0.5 MG/0.5 ML SYR IV STA (11:25)
[2023-01-27 11:41] LABS: Hematocrit (blood only) 28.1 % (37.0-47.0); Hemoglobin 9.2 g/dl (12.0-16.0)
[2023-01-27] MEDS ORDERED: OPTIRAY 320 125ml IV ONE (12:07)
--- NOTE | 2023-01-27 12:39 | CT Scan Report ---
CT ANGIOGRAM OF THE RIGHT LOWER EXTREMITY CLINICAL HISTORY: Right groin hematoma. Hypotension. Anemia. COMPARISON STUDY: Pelvic CT dated 03/24/2022. TECHNIQUE: Following the IV administration of 118 cc of Optiray 320, CT angiogram of the right lower extremity is performed from the groin to the proximal tibia and fibula. Images are reviewed in the ax ial, sagittal, and coronal planes. 3-D MIPS images are created and assessed. IV contrast was administ ered without complication. A dose lowering technique was utilized adhering to the principles of ALARA . CT DOSE: 2733.98 mGy.cm FINDINGS: Imaged portions of the right external iliac artery are patent, as is the right common femoral artery. The right superficial femoral artery is patent noting atherosclerotic plaque and irregularity. There is no CT evidence of high-grade stenosis. The right popliteal artery is patent, as is the profunda f emoris artery. There is evidence of a pseudoaneurysm in the right groin seen on axial image #82. The extraluminal pocket of contrast measures 10 x 12 x 10 mm, and there is a thin neck of contrast extend ing from the pseudoaneurysm to the common femoral artery bifurcation seen on image #76. There is sign ificant surrounding edema/hemorrhage in the right groin/medial upper thigh. A large hematoma in the m edial aspect of the proximal to mid thigh on image #246 measures approximately 15 x 13.5 x 5 cm. The skeletal structures are osteopenic. The visualized right hemipelvis and the right femur appear in tact. Arthritic change is noted in the right hip and knee joints. No lytic or blastic lesion is seen. The bladder is decompressed and contains excreted IV contrast. The uterus is surgically absent. Prom inent right groin nodes are likely reactive. There is generalized atrophy of the regional musculature . IMPRESSION: 1. Pseudoaneurysm in the right groin as detailed above with significant surrounding edema/hemorrhage. 2. Large hematoma in the soft tissues of the medial aspect of the proximal to mid thigh as above. 3. The visualized right lower extremity arteries are patent noting atherosclerotic plaque and irregul arity. ACT 112: Negative or not required by law. Electronically signed by: Kirby Jackson M.D. 01/27/2023 12:37 PM
--- NOTE | 2023-01-27 12:42 | Cardiology Consultation ---
Date of Consultation January 27, 2023 Assessment & Plan (1) NSTEMI (non-ST elevated myocardial infarction): (2) CAD (coronary artery disease): (3) S/P coronary artery stent placement: (4) Acute blood loss anemia: (5) Tobacco abuse: (6) HTN (hypertension): (7) Hyperlipidemia: (8) Hematoma: (9) Femoral artery pseudo-aneurysm, right: Plan ASSESSMENT/PLAN: 1. NSTEMI: No further angina following LAD PCI. Continue dual antiplatelet therapy. Aspirin 81 mg daily indefinitely. Brilinta for 1 year. SOPHIE inhibitor held due to hypotension. No beta-anshu due to hypotension in the setting of acute blood loss anemia. Continue high intensity statin therapy. Cardiac r ehab. 2. Acute blood loss anemia/right leg hematoma: Significant hematoma from right femoral cath access site. Follow hemoglobin periodically. Transfuse as necessary. Pressure was personally held for 15 minutes in case any further bleeding. No contrast noted other than within vasculature and small pseudoaneurysm per radiology. No retroperitoneal bleed noted. Recommended laying completely flat for the next 1 to 2 hours and then can elevate head but limit ambulation or getting out of bed today. Discussed with patient and nurse. If concern for ongoing bleeding, would recommend transfer to tertiary care center where vascular surgery is available. 3. CAD s/p RCA (prior) and LAD PCI (this admission): No further angina. Dual antiplatelet therapy as above. No beta-anshu currently due to hypotension. Holding SOPHIE inhibitor due to hypotension. High-intensity statin therapy. Cardiac rehab. 4. Tobacco abuse: Stop smoking. 5. Dyslipidemia: Continue high intensity statin therapy. 6. Hypertension: Antihypertensive agents are on hold due to hypotension in the setting of acute blood loss anemia. 7. Pseudoaneurysm: Can be evaluated by vascular (Dr. Dillon) when available ear ly next week. 8. Disposition: Cardiology will continue to follow. Patient's family member, Rozina, was updated. Patient discussed with primary hospitalist, Dr. Brady, and nursing staff. 86 minutes spent managing this patient, including [id number] time, counseling patient, coordinating care, discussing with other providers/nursing staff, reviewing records, reviewing images personally as noted, and completing documentation. Thank you for allowing me to participate in the care of your patient. Please call for any other questions or concerns. Sincerely, Anatoly Samuel M.D. History of Present Illness Reason for Consultation: NSTEMI Requesting Physician: Hollie Brady MD Attending Physician: Hollie Brady MD History of Present Illness Ms. Evans is a 62-year-old female with history significant for CAD (RCA and LAD PCI), type 2 diabetes, hypertension, dyslipidemia, gastric bypass, and prior substance abuse. Her primary delivery lead is Dr. Dillon. She was admitted on 01/26/2023 with NSTEMI. Angina consisted of left-sided chest pressure with radiation to the left arm and associated shortness of breath but no diaphoresis. She also had pain radiating between her shoulder blades. She had similar symptoms on 01/24/2023 and came to the emergency department but she left without being seen by a physician. She also was hospitalized on 01/18/2023 with a principal diagnosis of CHF and discharged on 01/20/2023. Her peak troponin at that time was 68. For this hospitalization, her initial troponin was 34 but then peaked at 24,635. She underwent cardiac catheterization on 01/26/[address] Davalos. She underwent PCI of mid LAD. Prior RCA stent was patent with mild in-stent restenosis. The procedure was initially performed via the right radial artery but for intervention, access was changed for right femoral arterial approach. Per conversation with Dr. Davalos, hemostasis was manual. Her chest pain resolved following PCI and she has not had any recurrence. Unfortunately, she reports that her right groin and upper thigh area has been painful since the procedure. This morning at 6:09 AM, blood pressure was recorded as 68/45 mmHg and repeated at 60/46 mmHg. She has remained mildly hypotensive since however more recently systolic pressure in the 90s. Hemoglobin dropped from 13.4 to 9.6 this morning compared to yesterday. She denies melena, hematochezia, hematuria, orthopnea, syncope, near syncope, palpitations. She has had lightheadedness intermittently, including if she stands up from a seated position. She has chronic low back pain, especially if laying flat, which has continued to occur through this hospital stay as well. Review of systems: As above. Review of systems otherwise negative/unremarkable. Family history: Father had CAD. Social history: Smokes 1 pack/day. No alcohol. History of substance abuse. Lives with her daughter and her daughter's boyfriend. She has 2 children (daughter and son). Her daughter, Rozina, presented to the bedside. Allergies Allergy/AdvReac Type Severity Reaction Status Date / Time morphine Allergy Intermediate Hives Verified 01/26/23 02:09 adhesive Allergy Unknown Unknown Verified 01/26/23 02:09 amoxicillin [From Augmentin] AdvReac Intermediate Diarrhea Verified 01/26/23 02:09 clavulanic acid AdvReac Intermediate Diarrhea Verified 01/26/23 02:09 [From Augmentin] clonazepam AdvReac Intermediate short term Verified 01/26/23 02:09 memory loss NSAIDS (Non-Steroidal AdvReac Unknown CONTRAINDICATED Verified 01/26/23 02:09 Anti-Inflamma IS ON ANTICOAGULATION Home Medications Medication Instructions Recorded Confirmed Type atorvastatin 80 mg tablet 80 mg PO QAM #90 tabs 05/02/22 01/26/23 Rx blood sugar diagnostic (archifyuch #100 ea 05/02/22 01/18/23 Rx Verio test strips) blood-glucose meter (FlareoTouch #1 ea 05/02/22 01/18/23 Rx Verio Flex Meter) famotidine 20 mg tablet 20 mg PO DAILY #90 tabs 05/02/22 01/26/23 Rx lancets 33 gauge (FlareoTouch Delica #100 ea 05/02/22 01/18/23 Rx Lancets) acetaminophen 650 mg 650 mg PO BID PRN Unknown 07/03/22 01/26/23 History tablet,extended release docusate sodium 100 mg capsule 100 mg PO DAILY PRN constipation 07/26/22 01/26/23 History fluticasone propionate 50 2 spray intranasal DAILY 07/26/22 01/26/23 History mcg/actuation nasal spray,suspension (Flonase Allergy Relief) loratadine 10 mg tablet 10 mg PO DAILY PRN allergy symptoms 07/26/22 01/26/23 History metformin 1,000 mg tablet 1,000 mg PO BID #60 tabs 10/31/22 01/26/23 Rx ropinirole 1 mg tablet 1 mg PO TID #90 tabs 10/31/22 01/26/23 Rx lisinopril 20 mg tablet 20 mg PO DAILY #90 tabs 11/14/22 01/26/23 Rx albuterol sulfate 90 mcg/actuation 2 inh inhalation Q6H PRN shortness 12/01/22 01/26/23 Rx aerosol inhaler of breath or wheezing #8.5 grams cholecalciferol (vitamin D3) 1,250 50,000 unit PO WK #12 caps 12/13/22 01/26/23 Rx mcg (50,000 unit) capsule potassium chloride 20 mEq 20 meq PO DAILY #90 tabs 12/21/22 01/26/23 Rx tablet,extended release(part/cryst) aspirin 81 mg tablet,delayed 81 mg PO QAM #90 tabs 12/25/22 01/26/23 Rx release linagliptin 5 mg tablet (Tradjenta) 5 mg PO DAILY #30 tabs 12/25/22 01/26/23 Rx fluticasone fur. 200 mcg-umeclid 1 inh inhalation DAILY #28 ea 12/28/22 01/26/23 Rx 62.5 mcg-vilant 25 mcg inhalat.powder (Trelegy Ellipta) insulin aspart U-100 100 unit/mL See Rx Instructions subcut UD #15 12/28/22 01/26/23 Rx (3 mL) subcutaneous pen (Novolog mL FlexPen U-100 Insulin aspart) insulin glargine 100 unit/mL (3 20 unit (0.2 mL) subcut BID #15 mL 12/28/22 01/26/23 Rx mL) subcutaneous pen (Lantus Solostar U-100 Insulin) pen needle, diabetic 32 gauge x #200 ea 12/28/22 01/18/23 Rx 1/4" (BD Ultra-Fine Micro Pen Needle) esomeprazole magnesium 40 mg 40 mg PO DAILY #30 caps 01/03/23 01/26/23 Rx capsule,delayed release dapagliflozin propanediol 10 mg 10 mg PO DAILY #90 tabs 01/20/23 01/26/23 Rx tablet (Farxiga) furosemide 40 mg tablet (Lasix) 40 mg PO BID #120 tabs 01/20/23 01/26/23 Rx Patient History Medical History Diabetes mellitus treated with insulin and oral medication Closed fracture of radial styloid (07/03/22) Acute UTI Acute respiratory failure with hypoxia Rash Diabetes mellitus treated with oral medication Leukocytosis Abdominal wall abscess Hypocalcemia Hypomagnesemia Wound infection after surgery Abscess of vulva COVID-19 Open thigh wound Traumatic wound Chronic pain syndrome Acute hyperglycemia Methamphetamine abuse Acute ST elevation myocardial infarction (STEMI) of inferior wall Anastomotic ulcer S/P gastric bypass Restless leg syndrome Insomnia Anxiety and depression Leukocytosis DVT prophylaxis Incarcerated hernia Abdominal pain Ventral hernia Fibromyalgia HTN (hypertension) Gastric ulcer Bloody emesis Corneal abrasion Left corneal abrasion L1 vertebral fracture Migraine Acute cholecystitis UTI (lower urinary tract infection) Pneumonia Bronchitis Surgical History (Updated 01/27/23 @ 12:38 by Wally Samuel MD) S/P coronary artery stent placement S/P anal fissurectomy History of ankle surgery S/P tonsillectomy S/P recurrent ventral herniorrhaphy S/P ventral herniorrhaphy [place] [facility] [place] then drainage of incisional abscess 12/2021 H/O gastric bypass S/P cholecystectomy H/O: hysterectomy H/O knee surgery Family History Father Myocardial infarction Leukemia Sister Ovarian cancer Myocardial infarction Other Family history of diabetes mellitus Hypertension Denies family history of Prostate cancer Breast cancer Colorectal cancer Social History Smoking Status: Current every day smoker Tobacco Type: Cigarettes packs per day: 1.5; Cigarettes Per Day: 20; Second Hand Exposure: Yes; Do You Dip or Chew Tobacco: No; Tobacco Cessation Education Requested by Patient: No Hx Alcohol Use: No Hx Substance Use: No Preferred Language: Arabic Communication Ability: Effective Visual Impairment: No Limitations Actuarial Analyst Required: No Beliefs That Will Affect Care: None marital status: Current Living Situation: Other Current Living Situation Comment: lives with daughter current occupational status: unemployed and disabled How many Children do You have: 2 Other Information That Helps Us Care for You: No Feels Safe at Home: Yes Safety Concerns: Feels Safe At This Time Childhood Exposure to Second-Hand Smoke: Yes Diet: regular during the past year weight has: remained stable Dental Care, Regularly: No Physical Activity Frequency: Does not Exercise Seatbelt Use: always Sunscreen Use: Yes Assistive Devices: Denture - Upper, Glasses and Nebulizer Physical Exam Physical Exam: Gen.: No acute distress. Alert and oriented. HEENT: Anicteric sclera. Neck: No JVD. No bruits. Normal carotid upstrokes bilaterally. Cardiac: No ventricular heave. Regular. Normal S1-S2. 1/6 stock murmur. Pulmonary: Clear to auscultation bilaterally without wheezes, rales, or rhonchi. Abdomen: Soft, nondistended, with normoactive bowel sounds. No bruits noted. Left lower quadrant soft bulge which is tender (chronic per patient). Extremities: 2+ radial pulses bilaterally. 2+ posterior tibialis pulses bilaterally. Trace left lower extremity edema. No cyanosis. Obese legs. Ecchymosis at the right femoral cath site but no obvious hematoma at the access site. No bruit. Large firm area inner thigh of the right upper extremity which is tender and suspicious for hematoma. Results & Data Vital Signs (Past 12 Hours) Vital Signs Temp Pulse Pulse Resp BP BP Pulse Ox 01/27/23 12:19 79 20 95/57 L 96 01/27/23 11:28 36.9 C 82 18 88/59 L 98 01/27/23 07:35 36.5 C 67 19 96/65 L 100 01/27/23 07:08 69 01/27/23 06:09 73 64/46 L 68/45 L 01/27/23 03:23 36.9 C 68 19 109/74 96 O2 Del Method 01/27/23 12:19 Room Air 01/27/23 11:28 Room Air 01/27/23 07:35 Room Air 01/27/23 07:08 01/27/23 06:09 01/27/23 03:23 Room Air Laboratory Results Laboratory Results - last 24 hr 01/26/23 01/26/23 01/26/23 12:22 12:50 13:15 WBC RBC Hgb Hct MCV MCH MCHC RDW Std Deviation RDW Coeff of Rubi Plt Count MPV Activ Coag Time Kaolin 217 H 190 H 201 H Sodium Potassium Chloride Carbon Dioxide Anion Gap BUN Creatinine Est Cr Clr Drug Dosing Est GFR ( Amer) Est GFR (Non-Af Amer) BUN/Creatinine Ratio Glucose POC Glucose Calcium Magnesium Troponin I High Sens Blood Type Antibody Screen 01/26/23 01/26/23 01/26/23 16:25 17:01 20:13 WBC RBC Hgb Hct MCV MCH MCHC RDW Std Deviation RDW Coeff of Rubi Plt Count MPV Activ Coag Time Kaolin Sodium Potassium Chloride Carbon Dioxide Anion Gap BUN Creatinine Est Cr Clr Drug Dosing Est GFR ( Amer) Est GFR (Non-Af Amer) BUN/Creatinine Ratio Glucose POC Glucose 104 H 204 H Calcium Magnesium Troponin I High Sens 90439.1 H* Blood Type Antibody Screen 01/27/23 01/27/23 01/27/23 07:25 07:28 07:37 WBC 18.04 H RBC 3.26 L Hgb 9.6 L D Hct 29.1 L MCV 89.3 MCH 29.4 MCHC 33.0 RDW Std Deviation 46.4 H RDW Coeff of Rubi 14.1 Plt Count 237 MPV 9.7 Activ Coag Time Kaolin Sodium 137 Potassium 5.0 D Chloride 108 H Carbon Dioxide 24 Anion Gap 5 BUN 16 Creatinine 0.67 Est Cr Clr Drug Dosing 111.6 Est GFR ( Amer) 109.2 Est GFR (Non-Af Amer) 94.2 BUN/Creatinine Ratio 23.9 H Glucose 211 H POC Glucose 218 H Calcium 8.1 L Magnesium 1.5 L Troponin I High Sens 9656.8 H* D Blood Type Antibody Screen 01/27/23 01/27/23 11:30 11:37 WBC RBC Hgb 9.2 L Hct 28.1 L MCV MCH MCHC RDW Std Deviation RDW Coeff of Rubi Plt Count MPV Activ Coag Time Kaolin Sodium Potassium Chloride Carbon Dioxide Anion Gap BUN Creatinine Est Cr Clr Drug Dosing Est GFR ( Amer) Est GFR (Non-Af Amer) BUN/Creatinine Ratio Glucose POC Glucose 210 H Calcium Magnesium Troponin I High Sens Blood Type Pending Antibody Screen Pending Diagnostic Findings Telemetry personall reviewed: Sinus rhythm with 6 bt AIVR overnight. Labs reviewed at notable for elevated trop, drop in hemoglobin, stable renal function. CT pelvis/right leg images reviewed: right proximal lower extremity hematoma. Concern for small pseudoaneurysm. Awaiting formal interpretation by radiology (call placed). Radiology interpretation: No intraperitoneal or retroperitoneal hematoma. Right groin pseudoaneurysm with significant surrounding edema/hemorrhage. Large hematoma right thigh 15 x 13.5 x 5 cm. Cath images personally reviewed: Full report by interventional cardiology is pending. On my review: mid LAD approx 90%. Mid to distal RCA stents patent with mild disease. Ostial PL and mid PL approx 40%. Cath initially via radial approach but then via femoral approach for PCI. Sheath seemed at bifurcation of profunda and SFA. History and physical reviewed. ECGs reviewed. ECG 01/26/2023 at 1403: Sinus rhythm with PVCs and PACs. Nonspecific ST/T wave abnormality. Possible anterior infarct. ECG 01/26/2023 at 5:27 AM: Sinus rhythm with PACs. Nonspecific T wave abnormality. Poor R wave progression. Echo 01/26/2023: Reports LVEF 40 to 45% and apical akinesis. Mild LV dilation. Limited study. Medications Administered Current Inpatient Medications Acetaminophen (Acetaminophen 325 Mg Tab) 650 mg PO Q4H PRN PRN Reason: pain or fever Stop: 02/25/23 06:42 Last Admin: 01/26/23 21:38 Dose: 650 mg Albuterol (Albuterol 0.5% Neb Soln 2.5 Mg/0.5 Ml Vial) 2.5 mg NEB Q2H PRN; Protocol PRN Reason: SOB/Wheeze Stop: 02/25/23 06:42 Last Admin: 01/26/23 21:07 Dose: 2.5 mg Aspirin (Aspirin 81 Mg Ectab) 81 mg PO QAM LUC Stop: 02/25/23 13:29 Last Admin: 01/27/23 08:39 Dose: 81 mg Atorvastatin Calcium (Atorvastatin 40 Mg Tab) 80 mg PO QAM LUC Stop: 02/25/23 08:59 Last Admin: 01/27/23 09:32 Dose: 80 mg Dextrose (Dextrose 50% 50 Ml Syringe) 25 - 50 ml IV UD PRN; Protocol PRN Reason: Hypoglycemia Protocol Stop: 02/25/23 06:42 Docusate Sodium (Docusate Sodium 100 Mg Cap) 100 mg PO DAILY PRN PRN Reason: constipation Stop: 02/25/23 06:42 Famotidine (Famotidine 20 Mg Tab) 20 mg PO DAILY LUC Stop: 02/25/23 08:59 Last Admin: 01/27/23 08:39 Dose: 20 mg Fluticasone Furoate (Fluticasone Furoate 200mcg 14 Puffs/Inhaler) 1 puffs INH DAILY LUC Stop: 02/25/23 08:59 Last Admin: 01/27/23 08:38 Dose: 1 puffs Fluticasone Propionate (Fluticasone Propionate Na Spr 16 Gm Btl) 2 sprays NA DAILY LUC Stop: 02/25/23 08:59 Last Admin: 01/27/23 08:37 Dose: 2 sprays Glucagon (Glucagon For Inj 1 Mg Vial) 1 mg SQ UD PRN; Protocol PRN Reason: Hypoglycemia Protocol Stop: 02/25/23 06:42 Glucose (Glucose 10 Tab/Tube) 4 - 8 tab PO UD PRN; Protocol PRN Reason: Hypoglycemia Treatment Stop: 02/25/23 06:42 Glucose (Glucose 40% Gel 15 Gm Tube) 15 - 30 gm PO UD PRN; Protocol PRN Reason: Hypoglycemia Protocol Stop: 02/25/23 06:42 Magnesium Sulfate/Dextrose (Magnesium Sulfate / D5w) 1 gm in 100 mls @ 50 mls/hr IV ONE ONE Stop: 01/27/23 13:21 Last Admin: 01/27/23 11:37 Dose: 50 mls/hr Insulin Aspart (Insulin Aspart Per Unit Charge) 0 units SC ACHS LUC Stop: 02/25/23 20:59 Last Admin: 01/27/23 08:33 Dose: 3 units Insulin Glargine (Lantus Per Unit Charge) 15 units SQ BID LUC Stop: 02/25/23 08:59 Last Admin: 01/27/23 08:33 Dose: 15 units Loratadine (Loratadine 10 Mg Tab) 10 mg PO DAILY PRN PRN Reason: allergy symptoms Stop: 02/25/23 06:42 Miscellaneous (Carbohydrates For Hypoglycemia ) 15 - 30 gm PO UD PRN PRN Reason: Hypoglycemia Protocol Stop: 02/25/23 06:42 Nitroglycerin (Nitroglycerin Sl 0.4 Mg/Tab Tab) 0.4 mg SL Q5M PRN PRN Reason: Chest Pain Stop: 02/25/23 06:42 Ondansetron HCl (Ondansetron Inj 2 Mg/Ml 2 Ml Vial) 4 mg IV Q6H PRN PRN Reason: Nausea Stop: 02/25/23 06:42 Pantoprazole Sodium (Pantoprazole 40 Mg Tab) 40 mg PO DAILY [facility] Stop: 02/25/23 08:59 Last Admin: 01/27/23 08:41 Dose: 40 mg Potassium Chloride (Potassium Chloride Crtab 20 Meq Tabcr) 20 meq PO DAILY [facility] Stop: 02/25/23 08:59 Last Admin: 01/27/23 09:31 Dose: 20 meq Ropinirole HCl (Ropinirole Hcl 1 Mg Tablet) 1 mg PO TID LUC Stop: 02/25/23 08:59 Last Admin: 01/27/23 08:40 Dose: 1 mg Ticagrelor (Ticagrelor 90 Mg Tab) 90 mg PO BID LUC Stop: 02/25/23 20:59 Last Admin: 01/27/23 08:40 Dose: 90 mg Umeclidinium/Vilanterol (Umeclidinium/Vilanterol 62.5/25mcg 7 Puffs/Inhaler) 1 puffs INH DAILY LUC Stop: 02/25/23 08:59 Last Admin: 01/27/23 08:37 Dose: 1 puffs PG Care Time/CCT Total # of Minutes Spent Total Time Spent with Patient: Total time spent is greater than 50% in coordination of care (as documented) at patient's floor/unit and/or counseling patient: Prolonged Care Time Prolonged Care Time: Yes 86 Coding Level of Care Code 92268 INT INP/OBS CARE 3/75MIN Diagnoses NSTEMI (non-ST elevated myocardial infarction) I21.4 Coronary artery disease involving [place] heart with angina pectoris, unspecified vessel or lesion type I25.119 Associated angina: with unspecified form of angina Coronary Disease-Associated Artery/Lesion type: unspecified vessel or lesion type [place] vs. transplanted heart: pechanga heart S/P coronary artery stent placement Z95.5 Acute blood loss anemia D62 Tobacco abuse Z72.0 Primary hypertension I10 Hypertension type: primary hypertension Hyperlipidemia, unspecified hyperlipidemia type E78.5 Hyperlipidemia type: unspecified Hematoma T14.8XXA Femoral artery pseudo-aneurysm, right I72.4 Additional Codes Prolonged Care Time - Prolonged Care Time: Yes ([id number]) Time Spent (min) 86 (2) CAD (coronary artery disease) Associated angina: with unspecified form of angina Coronary Disease- Associated Artery/Lesion type: unspecified vessel or lesion type [place] vs. transplanted heart: [place] heart Qualified Code(s): I25.119 - Atherosclerotic heart disease of [place] coronary artery with unspecified angina pectoris (6) HTN (hypertension) Hypertension type: primary hypertension Qualified Code(s): I10 - Essential (primary) hypertension (7) Hyperlipidemia Hyperlipidemia type: unspecified Qualified Code(s): E78.5 - Hyperlipidemia, unspecified
--- NOTE | 2023-01-27 12:59 | CT Scan Report ---
CT SCAN OF THE ABDOMEN AND PELVIS WITH IV CONTRAST CLINICAL HISTORY: Back pain. Anemia. COMPARISON STUDY: Abdominal CT dated 03/24/2022. TECHNIQUE: Following the IV administration of 118 cc of Optiray 320, CT scan of the abdomen and pelv is is performed from the lung bases to the proximal femora. Images are reviewed in the axial, sagitta l, and coronal planes. IV contrast was administered without complication. A dose lowering technique w as utilized adhering to the principles of ALARA. FINDINGS: Lung bases: The heart is normal in size and without pericardial effusion. A right coronary artery raul nt is in place. The lung bases are clear nothing dependent atelectasis. Liver: The contrast-enhanced liver is normal in size, contour, and attenuation. There is minimal cent ral intrahepatic biliary ductal dilatation. The hepatic veins and portal veins are patent. Gallbladder: Surgically absent and clips in the gallbladder fossa. Spleen: Normal in size and attenuation. Pancreas: The pancreas is not atrophic. Parenchymal calcifications suggest chronic pancreatitis. Adrenal glands: Unremarkable. Kidneys: The contrast enhanced kidneys are normal in size and without hydronephrosis. The kidneys enh ance and excrete symmetrically. Excreted contrast is seen within the renal collecting systems and ure ters. Abdominal vasculature: The abdominal aorta is normal in course and caliber noting moderate to advance d atherosclerotic calcification. Stomach and bowel: Postoperative changes again seen involving the stomach. No bowel obstruction is id entified. Nonobstructed small bowel and colon is contained within a hernia hernia in the left anterio r pelvis. The appendix is nonvisualized. Peritoneum/retroperitoneum: There is no intraperitoneal free air or abdominal ascites. A midline surg ical scar is noted. A thin crescentic stroma within the ventral abdominal wall is similar to previous . This measures up to 12 mm in diameter as seen on image #81. No retroperitoneal hematoma is identifi ed. Lymphadenopathy: Prominent right groin nodes are likely reactive. Pelvic viscera: The bladder is decompressed and contains excreted IV contrast. The uterus is surgical ly absent. No adnexal lesion is seen. A pseudoaneurysm in the right groin is seen on axial image #317 . There is surrounding edema and hemorrhage. Skeletal structures: The skeletal structures are osteopenic. There is [id number] lumbosacral sp ondylosis. No lytic or blastic lesions are seen. Arthritic change is seen in the hips. IMPRESSION: 1. Pseudoaneurysm in the right groin with surrounding edema and hemorrhage. See report of CT angiogra m of the right lower extremity performed concurrently for detailed vascular findings. 2. There is no intraperitoneal or retroperitoneal hematoma. 3. Segments of small bowel and colon are contained within a ventral hernia in the left anterior pelvi s. 4. Additional findings as above. ACT 112: Negative or not required by law. Electronically signed by: Kirby Jackson M.D. 01/27/2023 12:57 PM
[2023-01-27 14:53] LABS: Hematocrit (blood only) 26.5 % (37.0-47.0); Hemoglobin 8.5 g/dl (12.0-16.0)
[2023-01-27 15:08] LABS: Potassium 4.1 mmol/L (3.5-5.1)
[2023-01-27] MEDS ORDERED: SODIUM CHLORIDE 0.9% 500 ML IV ONE (16:40)
[2023-01-27] MEDS ORDERED: HYDROmorphone HCL 2 MG TAB PO PRN (16:40)
--- NOTE | 2023-01-27 17:39 | Communication Note ---
Date of Service: January 27, 2023 Checking in this evening. Was sleeping but aroused easily to voice. States no change in right thigh swelling or pain, has back pain which is chronic. R thigh hematoma and small R fem artery pseudoaneurysm following PCI with MIGUEL to LAD on brilinta and aspirin Unchanged on exam, R groin normal appearing anteriorly but mediolateral thigh swelling and ecchymosis, leg is warm wp and DP pulse intact Causing mild-moderate hypotension and acute blood loss anemia Hct down a little 28 --> 26.5 last check. K normalized from 5.0 to 4.1. Getting IV NS 500 mL bolus I consented her for blood transfusion if necessary. Would keep Hct >=24% with NSTEMI this admission and also transfuse STAT if severe hypotension Type and screen done today Continue serial Hct checks
[2023-01-27] MEDS ORDERED: SODIUM CHLORIDE 0.9% 250 ML IV PRN ×2 (18:58→19:35)
[2023-01-27] MEDS: METOPROLOL TARTRATE 1 MG/ML VIAL IV SCH (19:12)
--- NOTE | 2023-01-27 19:32 | Communication Note ---
Date of Service: January 27, 2023 R groin especially labial swelling worsening, SBP 114 and HR 96 (following 500 mL NS bolus this afternoon), discussed with bedside RN. Appearing worse on exam but hemodynamics improved. Discussed with Dr. Samuel and Dr. Gamez, notified ICU team. Will transfer to ICU because will benefit from close monitoring overnight, ordered stat Hct, continue serial Hct, transfuse 1 unit RBC, sandbag 10-15 min hourly x 3 if available. Hematoma and small pseudoaneurysm likely to tamponade/stabilize but would require transfer for urgent vascular consultation if she does not.
[2023-01-27] MEDS ORDERED: ALBUTEROL HFA 8 GM INHALER INH PRN (19:53)
[2023-01-27] MEDS ORDERED: LANTUS PER UNIT CHARGE SQ SCH (21:00)
[2023-01-27] MEDS: ACETAMINOPHEN 325 MG TAB PO PRN (21:31)
--- NOTE | 2023-01-27 23:01 | Communication Note ---
Date of Service: January 27, 2023 I was notified this evening by nurse, Odessa Lance that she thought the swelling in her thigh was worsening when she turned the patient to use a bedpan. Systolic blood pressure was reported as greater than 100 (114/74 mmHg), which is the best blood pressure of the day thus far. Patient's pain was no worse and she seemed more comfortable. Communicated with Dr. Brady. Repeat H&H was ordered by her and she was transferring patient to ICU for closer monitoring. She planned on transfusing PRBC. Recommended that if it appears as though she continues to bleed despite sandbags over the groin, that patient be transferred to facility with vascular surgery availability as there is no vascular provider available in house. Communicated with armature varnisher, Dr. Gamez at 0012. He states that she is stable and he plans on repeating CT imaging to evaluate for stability of the hematoma. Once again reiterated that if it appears as though she is bleeding, would hold pressure and transfer to facility with vascular availability.
--- NOTE | 2023-01-28 00:53 | Critical Care Consultation ---
Date of Consultation January 28, 2023 Assessment & Plan (1) Femoral artery pseudo-aneurysm, right: Impression: 62-year-old female admitted with NSTEMI and underwent cardiac catheterization with PCI to the LAD, developed extravasation of the right femoral artery at the site of sheath with development of hematoma. Requiring blood transfusion and manual pressure held to tamponade, now admitted to ICU for close monitoring and further management. Neuro - [facility] ICU: Negative Cardiac - NSTEMIstatus post PCI to LAD. Heparin drip now on hold due to development of hematoma. -Lisinopril on hold due to hypotension. Aspirin and Brilinta on hold -Cardiology consulted, appreciate recommendation -Daily EKG. Continuous monitoring on telemetry Right femoral artery pseudoaneurysmpatient developed extravasation with large hematoma around the site of the sheath. Appears to be successfully tamponaded with manual pressure held via cardiology. -Unfortunately no vascular surgery available at this facility. In the event of continued bleeding, would need transfer. -We will repeat CT right for him to evaluate for further bleeding/increase in hematoma? -Trend H&H -Hold anticoagulation -Transferred to ICU for closer monitoring HLDcontinue statin Diastolic heart failurerepeat echo with EF 40 to 45% with mildly reduced LV function. Appears to be euvolemic on exam. Hold on diuresis for now. Daily weights/strict I's and O's Respiratory - No history of pulmonary disease. Currently maintaining oxygen saturation on room air. Continuous monitoring on pulse ox GI - Heart healthy diet Famotidine RENAL/LYTES - Creatinine within normal limits, monitor routine BMPs and replete electrolytes as indicated - Strict I's and O ENDO - DM type IIcontinue basal bolus/sliding scale. ICU hyperglycemic protocol HEME - Acute blood loss anemiareceived 1 unit RBCs thus far. Hemoglobin trending to 8. Anticoagulation on hold. -Trend H&H and transfuse as indicated. As discussed above would need transfer to hospital with vascular surgery capability if continued bleeding. ID - No indication for infectious process at this time LINES/IV ACCESS - Peripheral IVs DVT PROPHYLAXIS - SCDs, hold anticoagulation due to acute bleed Thank you for allowing us to participate in the care of this patient. Please refer to my attending physician's documentation for any further recommendations. (2) Hematoma: (3) Acute blood loss anemia: (4) S/P coronary artery stent placement: (5) CHF (congestive heart failure): (6) NSTEMI (non-ST elevated myocardial infarction): (7) Diabetes mellitus: (8) CAD (coronary artery disease): (9) Hyperlipidemia: (10) HTN (hypertension): Antihypertensives on hold due to, soft pressures/hypotension. History of Present Illness Attending Physician: Hollie Brady MD History of Present Illness 62-year-old female with past medical history of diastolic heart failure, CAD, HTN, HLD, DM type II, anxiety and depression, who presents to the emergency department on 01/26 with complaints of chest pain and radiation to the left arm and back. Troponin was elevated at [address] elevation on EKG, and patient was started on heparin drip. She underwent cardiac catheterization and received PCI to LAD. Yesterday patient developed bleeding around the's right femoral access site from previous sheath. CTA right thigh revealed right femoral artery pseudoaneurysm. There is currently no vascular surgeon on-call at this time. Patient did receive 1 unit RBCs, and hydraulic rockbreaker operator held pressure at the site for 2 hours. Patient has transferred to the ICU for close monitoring, as she would need transfer to tertiary center if continuing bleeding. There does not appear to be additional swelling at this time and trending hemoglobin. On arrival to the ICU the patient is alert and oriented without acute distress. On evaluation the right groin/thigh shows an area of ecchymosis with mild swelling and is tender to palpation. Patient denies any dizziness, syncope, changes in vision. She denies shortness of breath, chest pain or palpitations, abdominal pain, nausea vomiting or diarrhea. She denies recent illness or fevers or sore throat. She does report some swelling in her feet. Allergies Allergy/AdvReac Type Severity Reaction Status Date / Time morphine Allergy Intermediate Hives Verified 01/26/23 02:09 adhesive Allergy Unknown Unknown Verified 01/26/23 02:09 amoxicillin [From Augmentin] AdvReac Intermediate Diarrhea Verified 01/26/23 02:09 clavulanic acid AdvReac Intermediate Diarrhea Verified 01/26/23 02:09 [From Augmentin] clonazepam AdvReac Intermediate short term Verified 01/26/23 02:09 memory loss NSAIDS (Non-Steroidal AdvReac Unknown CONTRAINDICATED Verified 01/26/23 02:09 Anti-Inflamma IS ON ANTICOAGULATION Home Medications Medication Instructions Recorded Confirmed Type atorvastatin 80 mg tablet 80 mg PO QAM #90 tabs 05/02/22 01/26/23 [facility]02/[facility] 01/18/23 Rx Verio test strips) blood-glucose meter ([facility] #1 ea 05/02/22 01/18/23 Rx Verio Flex Meter) famotidine 20 mg tablet 20 mg PO DAILY #90 tabs 05/02/22 01/26/23 Rx lancets 33 gauge ([facility] 05/02/22 01/18/23 Rx Lancets) acetaminophen 650 mg 650 mg PO BID PRN Unknown 07/03/22 01/26/23 History tablet,extended release docusate sodium 100 mg capsule 100 mg PO DAILY PRN constipation 07/26/22 01/26/23 History fluticasone propionate 50 2 spray intranasal DAILY 07/26/22 01/26/23 History mcg/actuation nasal spray,suspension (Flonase Allergy Relief) loratadine 10 mg tablet 10 mg PO DAILY PRN allergy symptoms 07/26/22 01/26/23 History metformin 1,000 mg tablet 1,000 mg PO BID #60 tabs 10/31/22 01/26/23 Rx ropinirole 1 mg tablet 1 mg PO TID #90 tabs 10/31/22 01/26/23 Rx lisinopril 20 mg tablet 20 mg PO DAILY #90 tabs 11/14/22 01/26/23 Rx albuterol sulfate 90 mcg/actuation 2 inh inhalation Q6H PRN shortness 12/01/22 01/26/23 Rx aerosol inhaler of breath or wheezing #8.5 grams cholecalciferol (vitamin D3) 1,250 50,000 unit PO WK #12 caps 12/13/22 01/26/23 Rx mcg (50,000 unit) capsule potassium chloride 20 mEq 20 meq PO DAILY #90 tabs 12/21/22 01/26/23 Rx tablet,extended release(part/cryst) aspirin 81 mg tablet,delayed 81 mg PO QAM #90 tabs 12/25/22 01/26/23 Rx release linagliptin 5 mg tablet (Tradjenta) 5 mg PO DAILY #30 tabs 12/25/22 01/26/23 Rx fluticasone fur. 200 mcg-umeclid 1 inh inhalation DAILY #28 ea 10/19/23 11/17/23 Rx 62.5 mcg-vilant 25 mcg inhalat.powder (Trelegy Ellipta) insulin aspart U-100 100 unit/mL See Rx Instructions subcut UD #15 12/28/22 01/26/23 Rx (3 mL) subcutaneous pen (Novolog mL FlexPen U-100 Insulin aspart) insulin glargine 100 unit/mL (3 20 unit (0.2 mL) subcut BID #15 mL 12/28/22 01/26/23 Rx mL) subcutaneous pen (Lantus Solostar U-100 Insulin) pen needle, diabetic 32 gauge x #200 ea 12/28/22 01/18/23 Rx 1/4" (BD Ultra-Fine Micro Pen Needle) esomeprazole magnesium 40 mg 40 mg PO DAILY #30 caps 01/03/23 01/26/23 Rx capsule,delayed release dapagliflozin propanediol 10 mg 10 mg PO DAILY #90 tabs 01/20/23 01/26/23 Rx tablet (Farxiga) furosemide 40 mg tablet (Lasix) 40 mg PO BID #120 tabs 01/20/23 01/26/23 Rx Patient History Medical History Diabetes mellitus treated with insulin and oral medication Closed fracture of radial styloid (07/03/22) Acute UTI Acute respiratory failure with hypoxia Rash Diabetes mellitus treated with oral medication Leukocytosis Abdominal wall abscess Hypocalcemia Hypomagnesemia Wound infection after surgery Abscess of vulva COVID-19 Open thigh wound Traumatic wound Chronic pain syndrome Acute hyperglycemia Methamphetamine abuse Acute ST elevation myocardial infarction (STEMI) of inferior wall Anastomotic ulcer S/P gastric bypass Restless leg syndrome Insomnia Anxiety and depression Leukocytosis DVT prophylaxis Incarcerated hernia Abdominal pain Ventral hernia Fibromyalgia HTN (hypertension) Gastric ulcer Bloody emesis Corneal abrasion Left corneal abrasion L1 vertebral fracture Migraine Acute cholecystitis UTI (lower urinary tract infection) Pneumonia Bronchitis Surgical History (Updated 01/27/23 @ 12:38 by Wally Samuel MD) S/P coronary artery stent placement S/P anal fissurectomy History of ankle surgery S/P tonsillectomy S/P recurrent ventral herniorrhaphy S/P ventral herniorrhaphy repair [facility] 11/2021, then drainage of incisional abscess 12/2021 H/O gastric bypass S/P cholecystectomy H/O: hysterectomy H/O knee surgery Family History Father Myocardial infarction Leukemia Sister Ovarian cancer Myocardial infarction Other Family history of diabetes mellitus Hypertension Denies family history of Prostate cancer Breast cancer Colorectal cancer Social History Smoking Status: Current every day smoker Tobacco Type: Cigarettes packs per day: 1.5; Cigarettes Per Day: 20; Second Hand Exposure: Yes; Do You Dip or Chew Tobacco: No; Tobacco Cessation Education Requested by Patient: No Hx Alcohol Use: No Hx Substance Use: No Preferred Language: Sami Communication Ability: Effective Visual Impairment: No Limitations Bottle Feeder Required: No Beliefs That Will Affect Care: None marital status: Current Living Situation: Other Current Living Situation Comment: lives with daughter current occupational status: unemployed and disabled How many Children do You have: 2 Other Information That Helps Us Care for You: No Feels Safe at Home: Yes Safety Concerns: Feels Safe At This Time Childhood Exposure to Second-Hand Smoke: Yes Diet: regular during the past year weight has: remained stable Dental Care, Regularly: No Physical Activity Frequency: Does not Exercise Seatbelt Use: always Sunscreen Use: Yes Assistive Devices: Denture - Upper, Glasses and Nebulizer Review of Systems Review of Systems: All systems reviewed & are unremarkable except as noted in HPI & below Physical Exam Constitutional: cooperative and comfortable; no acute distress Eyes: PERRL, conjunctivae normal, anicteric sclerae ENMT: external ear and nose normal, oropharynx normal Neck: trachea midline, no thyromegaly Respiratory: normal respiratory effort, lungs clear to auscultation Cardiovascular: RRR, no murmur, no edema Heart Sounds: normal S1 and normal S2; no murmur Vessels: no JVD Extremities: normal capillary refill; no edema Gastrointestinal (Abdomen): normal bowel sounds, soft, nontender, no hepatosplenomegaly Musculoskeletal: no cyanosis or clubbing, extremities motor strength 5/5 Skin: Ecchymosis and swelling to the right groin and inner thigh Neurologic: PERRL, EOMI, accommodation nl, no face palsy, no dysarthria Psychiatric: A+Ox3, euthymic affect Results & Data Results & Data Vital Signs (Past 12 Hours) Vital Signs Temp Pulse Pulse Resp BP BP BP 01/27/23 22:43 36.6 C 88 12 86/48 L 01/27/23 22:13 36.6 C 82 22 83/53 L 01/27/23 21:58 36.8 C 84 17 89/52 L 01/27/23 21:41 36.6 C 90 19 89/69 L 01/27/23 20:19 74 86/52 L 01/27/23 19:45 36.8 C 55 L 20 92/57 L 01/27/23 17:39 99/63 L 01/27/23 15:46 37.2 C 54 L 19 84/47 L 01/27/23 15:42 93 H 01/27/23 13:17 91/58 L 01/27/23 12:19 79 20 95/57 L Pulse Ox O2 Del Method 01/27/23 22:43 90 01/27/23 22:13 91 01/27/23 21:58 92 01/27/23 21:41 88 L 01/27/23 20:19 01/27/23 19:45 96 Room Air 01/27/23 17:39 01/27/23 15:46 96 Room Air 01/27/23 15:42 01/27/23 13:17 01/27/23 12:19 96 Room Air Coding Level of Care Code 70239 IN/OBS CONSULT LVL 3,45M Diagnoses Femoral artery pseudo-aneurysm, right I72.4 Hematoma T14.8XXA Acute blood loss anemia D62 S/P coronary artery stent placement Z95.5 Congestive heart failure, unspecified HF chronicity, unspecified heart failure type I50.9 Heart failure type: unspecified Heart failure chronicity: unspecified NSTEMI (non-ST elevated myocardial infarction) I21.4 Diabetes mellitus E11.9 Diabetes mellitus type: type 2 Diabetes mellitus regional intermodal truck driver insulin use: with regional intermodal truck driver use Diabetic retinopathy severity: with unspecified retinopathy severity Diabetes mellitus macular edema: macular edema presence unspecified Laterality: unspecified laterality Coronary artery disease involving [place] heart with angina pectoris, unspecified vessel or lesion type I25.119 Coronary Disease-Associated Artery/Lesion type: unspecified vessel or lesion type [place] vs. transplanted heart: [place] heart Associated angina: with unspecified form of angina Hyperlipidemia, unspecified hyperlipidemia type E78.5 Hyperlipidemia type: unspecified Primary hypertension I10 Hypertension type: primary hypertension (5) CHF (congestive heart failure) Heart failure type: unspecified Heart failure chronicity: unspecified Qualified Code(s): I50.9 - Heart failure, unspecified (7) Diabetes mellitus Diabetes mellitus type: type 2 Diabetes mellitus fci insulin use: with regional intermodal truck driver use Diabetic retinopathy severity: with unspecified retinopathy severity Diabetes mellitus macular edema: macular edema presence unspecified Laterality: unspecified laterality (8) CAD (coronary artery disease) Coronary Disease-Associated Artery/Lesion type: unspecified vessel or lesion type [place] vs. transplanted heart: [place] heart Associated angina: with unspecified form of angina Qualified Code(s): I25.119 - Atherosclerotic heart disease of [place] coronary artery with unspecified angina pectoris (9) Hyperlipidemia Hyperlipidemia type: unspecified Qualified Code(s): E78.5 - Hyperlipidemia, unspecified (10) HTN (hypertension) Hypertension type: primary hypertension Qualified Code(s): I10 - Essential (primary) hypertension
[2023-01-28] MEDS ORDERED: SODIUM CHLORIDE 0.9% 250 ML IV PRN (01:19)
[2023-01-28] MEDS ORDERED: fentaNYL citrate PF 100 MCG/2 ML VIAL IV STA ×2 (01:30→02:34)
[2023-01-28 01:48] LABS: Hematocrit (blood only) 25.1 % (37.0-47.0); Hemoglobin 8.3 g/dl (12.0-16.0); Mean Corpuscular Hemoglobin 29.5 pg (25.0-34.0); Mean Corpuscular Hgb Conc 33.1 g/dL (32.0-36.0); Mean Corpuscular Volume 89.3 fL (80.0-100.0); Mean Platelet Volume 9.7 fL (9.4-12.4); Platelet Count 210 K/uL (130-400); RDW Coefficient of Variation 14.3 % (11.5-14.5); RDW Standard Deviation 46.5 fL (36.4-46.3); Red Blood Count 2.81 M/uL (4.20-5.40)
[2023-01-28 02:02] LABS: BUN Creatinine Ratio 28.6 (10-20); Calcium 8.2 mg/dl (8.6-10.3); Creatinine Clr Calc Pharmacy 133.5 ml/min; Est GFR (African American) 115.8 ml/min; Est GFR (Non-African American) 99.9 ml/min; Magnesium 1.7 mg/dl (1.7-2.4); Potassium 4.1 mmol/L (3.5-5.1)
--- NOTE | 2023-01-28 02:38 | Communication Note ---
Date of Service: January 28, 2023 Unfortunately, it appears that the patient has continued to bleed with increased swelling and ecchymosis at the right groin/inner thigh. Site of ecchymosis significantly more tender on exam. Patient has been sent for repeat CT. Repeat hemoglobin following transfusion of 1 unit RBC, without significant improvement in hemoglobin. Transfusion additional unit of blood at this time. I did speak with vascular surgeon Dr. Figueroa at [facility] and she has accepted the patient for vascular intervention. Patient transferring via [facility]. We will continue to hold manual pressure at the site of extravasation and continue with management in the ICU pending transfer. Coding Level of Care Code 56926 CRITICAL CARE 1ST 30-74M
--- NOTE | 2023-01-28 03:25 | Discharge Summary ---
Date of Service January 28, 2023 Admission HPI Per Admitting Provider Jia is a 62-year-old woman with past medical history of CAD, CHF, HTN, HLD, T2DM on insulin, chronic pain syndrome, anxiety/depression, and tobacco use who presented to the emergency room with a complaint of chest pain radiating down her left arm and to the back. According to the patient, symptoms started when she got up around 1 AM to go to the bathroom. Specifically, she experienced crushing left-sided chest pain radiating to her arm and back her back felt like it was "being torn apart." She asked her daughter for a nitroglycerin tablet, after which her symptoms subsided a bit. However, her symptoms returned with even greater severity and she asked her daughter to bring her to the emergency room. ROS + nausea, bilateral leg swelling, and toe cramping. She had come to the ED on Sunday and got an x-ray, but went home due to the long line and because her symptoms subsided. In the ED, vitals were stable, within normal limits. Labs revealed a WBC count of 13.33, serum glucose of 197, and a troponin of 34.2 (down from 46.1 on 01/19; peak of 68.2 on 01/18). Electrolytes, creatinine, calcium, LFTs, transaminases, and PT/INR were all negative/within normal limits. Initial EKG was negative for ST elevation (with some potential T wave flattening, per my read). Subsequent troponin was elevated significantly at 4005.7. She received a loading dose of heparin then started on heparin drip, as well as a single dose of IV labetalol 10 mg. Hospitalist service was then consulted for admission. On admission, she she denies any chest pain, left arm pain, or back pain. She further denies nausea. She still reports wheezing, and cramping toe pain but denies any focal motor weakness of the extremities. Admission Exam Per Admitting Provider General: No acute distress HEENT: PERRLA. Normal conjunctiva, anicteric sclera. Oropharynx normal. Respiratory: Normal respiratory effort. Diffuse wheeze heard in basilar, mid lung field. No crackles, rhonchi or rubs heard. Cardiovascular: RRR. 2/6 systolic ejection murmur heard in auscultation. No gallops or rubs. Bilateral 1+ pitting pedal edema. GI: Soft abdomen with normal bowel sounds heard on auscultation. Nontender x4 quadrants. Neuro: Alert and oriented x3. Principal Diagnosis R thigh hematoma, pseudoaneurysm; NSTEMI Discharge Exam Constitutional Patient not in any acute distress. Verbalizes pain in the bed Eyes PERRL, conjunctivae normal, anicteric sclerae Respiratory Normal respiratory effort, equal chest rise bilaterally. Musculoskeletal Enlarged R thigh without acute bleeding. Psychiatric A+Ox3, euthymic affect Discharge Data Allergies Allergy/AdvReac Type Severity Reaction Status Date / Time morphine Allergy Intermediate Hives Verified 01/26/23 02:09 adhesive Allergy Unknown Unknown Verified 01/26/23 02:09 amoxicillin [From Augmentin] AdvReac Intermediate Diarrhea Verified 01/26/23 02:09 clavulanic acid AdvReac Intermediate Diarrhea Verified 01/26/23 02:09 [From Augmentin] clonazepam AdvReac Intermediate short term Verified 01/26/23 02:09 memory loss NSAIDS (Non-Steroidal AdvReac Unknown CONTRAINDICATED Verified 01/26/23 02:09 Anti-Inflamma IS ON ANTICOAGULATION Consultations 01/26/23 05:24 ED Decision to Admit Stat 01/26/23 06:43 Consult Cardiology Routine 01/27/23 23:50 Consult Cna Per Diem Routine 01/28/23 02:26 Burn CD for patient Stat Procedures Performed Operation Date: 01/26/23 12:30 Actual Procedures p Cineradiography w/Routine Exam - Conner Davalos MD, PhD p Cath, Coronaries ONLY (no LV) - Conner Davalos MD, PhD s Drug Eluting Stent SGl Vessel - Conner Davalos MD, PhD s Ultrasound Vascular Access - Conner Davalos MD, PhD s Lithotripsy Shock Wave - Conner Davalos MD, PhD Ordered Studies 01/26/23 11:37 CL Cath Imgs for PACS use only Routine 01/27/23 11:15 CT abd pelvis IV con only Stat CT angio LE RT w inc wo if don Stat 01/27/23 22:58 CT femur RT wo con Urgent Imaged portions of the right external iliac artery are patent, as is the right common femoral artery. The right superficial femoral artery is patent noting atherosclerotic plaque and irregularity. There is no CT evidence of high-grade stenosis. The right popliteal artery is patent, as is the profunda femoris artery. There is evidence of a pseudoaneurysm in the right groin seen on axial image #82. The extraluminal pocket of contrast measures 10 x 12 x 10 mm, and the re is a thin neck of contrast extending from the pseudoaneurysm to the common femoral artery bifurcation seen on image #76. There is significant surrounding edema/hemorrhage in the right groin/medial upper thigh. A large hematoma in the medial aspect of the proximal to mid thigh on image #246 measures approximately 15 x 13.5 x 5 cm. The skeletal structures are osteopenic. The visualized right hemipelvis and the right femur appear intact. Arthritic change is noted in the right hip and knee joints. No lytic or blastic lesion is seen. The bladder is decompressed and contains excreted IV contrast. The uterus is surgically absent. Prominent right groin nodes are likely reactive. There is generalized atrophy of the regional musculature. Hospital Course (1) NSTEMI (non-ST elevated myocardial infarction): 62 F with PMH CAD (history of STEMI to the anterior inferior wall), HLD, HTN, T2DM, RLS, who presented with crushing chest pain radiating to the left arm and back. Was admitted to [facility] for NSTEMI s/p cath with PCI to LAD. Over the course of the hospital stay post cath she had developed worsening swelling and pain in the R thigh near the site of prior insertion of femoral access. She was found to have a pseudoaneurysm and hematoma 15 x 13.5 x 5 cm. Over the course of the day her swelling and pain worsened as well as having soft pressures. She was given 1U PRBC during the day. Concern for active bleed lead to transfer for vascular surgery per recommendations of cardiology. She was accepted to [facility]. Plan per day team as below. Hypotension post procedure: Concern is bleeding from R femoral access site - right thigh hematoma or retroperitoneal hematoma. Exam is difficult because thigh is very large at baseline. No discrete mass palpated but patient perceives swelling and there is dark ecchymosis in medial upper posterior thigh. Fem and pedal pulses intact, no bruit, and leg is warm. -discussed with Dr. Samuel and discussed with CT - ordered CTA R thigh to eval for thigh hematoma and fem artery access site for extravasation, CT abdomen/pelvis with venous phase contrast to eval for RP hematoma ADDENDUM: small R femoral artery pseudoaneurysm with thin neck of contrast, [id number] cm thigh hematoma -discussed with Dr. Samuel who spoke with radiologist and held pressure, no vascular surgery coverage this weekend, recommended bedrest continue for patient, will monitor serial Hct and BP likely will tamponade and stabilize however, would need transfer for tertiary care if she does not -Given 1U PRBC for hemoglobin of 8.0 and possible active bleed. -Patient was transferred to [facility] vascular surgery evaluation. NSTEMI: Presented with NSTEMI. EKGs showing old anterior and inferior infarcts ASA and heparin drip started in ED Coronary angiogram by Dr. Davalos 01/26 with PCI - I believe she had MIGUEL x3 to LAD, no report yet Troponin peak 02365, downtrended. Given hypotension will check another trop with other labs in 4h Continue ASA and brilinta for now - see above Continue atorvastatin Metoprolol, lisinopril held for hypotension 01/27 CHF: Ischemic cardiomyopathy, heart failure with mid-range EF? Echo this admission with mildly reduced LVEF 40-45% apical hypokinesis, small apical thrombus could not be excluded but definity images argue against presence of thrombus -hypotensive, furosemide and lisinopril held, getting fluid boluses, not hypoxic -monitor volume status, diuretics when able to tolerate DM: outpatient: Metformin 1000 mg twice daily, linagliptin 5 mg daily, glargine 20 units twice daily, mealtime NovoLog (dapaglifozin?) In hospital treated with glargine and aspart -BG reviewed 01/27 at goal Chronic pain: Has chronic back pain. Currently c/o severe back pain unclear if flare of chronic pain or acute issue related to #1 above -0.5 mg IV hydromorphone ordered after fluid bolus to help her tolerate phlebotomy, CT (2) CAD (coronary artery disease): (3) Hyperlipidemia: (4) Diabetes mellitus: (5) CHF (congestive heart failure): (6) HTN (hypertension): (7) RLS (restless legs syndrome): Total Time Total Time Spent Total Time Spent (In Minutes): Please see attending attestation. Discharge Plan Discharge Items Patient Disposition: Transfer Acute Care Hospital Reason For Visit: CHEST PAIN, NSTEMI Discharge Diagnosis: expanding pseudoaneurysm Activity: Resume your previous activity Non-emergency contact: Primary Care Provider and Call Center Consultant Call non-emergency contact if: you have any medication questions Follow-up/Referrals: Lo Esposito MD [Primary Care Provider] - Diet: Regular Addtl Attending Provider Instructions: please follow up with your regular doctors 62 F with PMH CAD (history of STEMI to the anterior inferior wall), HLD, HTN, T2DM, RLS, who presented with crushing chest pain radiating to the left arm and back. Was admitted to [facility] for NSTEMI s/p cath with PCI to LAD. Over the course of the hospital stay post cath she had developed worsening swelling and pain in the R thigh near the site of prior insertion of femoral access. She was found to have a pseudoaneurysm and hematoma 15 x 13.5 x 5 cm. Over the course of the day her swelling and pain worsened as well as having soft pressures. She was given 1U PRBC during the day. Concern for active bleed lead to transfer for vascular surgery per recommendations of cardiology. She was accepted to [facility] [place]. Plan per day team as below. (1) Hypotension after procedure: Plan: Concern is bleeding from R femoral access site - right thigh hematoma or retroperitoneal hematoma. Exam is difficult because thigh is very large at baseline. No discrete mass palpated but patient perceives swelling and there is dark ecchymosis in medial upper posterior thigh. Fem and pedal pulses intact, no bruit, and leg is warm. -discussed with Dr. Samuel and discussed with CT - ordered CTA R thigh to eval for thigh hematoma and fem artery access site for extravasation, CT abdomen/pelvis with venous phase contrast to eval for RP hematoma ADDENDUM: small R femoral artery pseudoaneurysm with thin neck of contrast, [id number] cm thigh hematoma -discussed with Dr. Samuel who spoke with radiologist and held pressure, no vascular surgery coverage this weekend, recommended bedrest continue for patient, will monitor serial Hct and BP likely will tamponade and stabilize however, would need transfer for tertiary care if she does not BP improved to 90/50 after 1L bolus, remains hypotensive second liter bolus ordered Preesumed acute blood loss anemia with 10-point drop in Hct to 30, type and cross and serial Hct ordered Mild hyperkalemia with normal renal function - could be hemolyzed or from hematoma - ordered repeat potassium check in 4h (2) NSTEMI (non-ST elevated myocardial infarction): Plan: Presented with NSTEMI. EKGs showing old anterior and inferior infarcts ASA and heparin drip started in ED Coronary angiogram by Dr. Davalos 01/26 with PCI - I believe she had MIGUEL x3 to LAD, no report yet Troponin peak [id number], downtrended. Given hypotension will check another trop with other labs in 4h Continue ASA and brilinta for now - see above Continue atorvastatin Metoprolol, lisinopril held for hypotension 01/27 (3) CHF (congestive heart failure): Plan: Ischemic cardiomyopathy, heart failure with mid-range EF? Echo this admission with mildly reduced LVEF 40-45% apical hypokinesis, small apical thrombus could not be excluded but definity images argue against presence of thrombus -hypotensive, furosemide and lisinopril held, getting fluid boluses, not hypoxic -monitor volume status, diuretics when able to tolerate (4) Diabetes mellitus: Plan: outpatient: Metformin 1000 mg twice daily, linagliptin 5 mg daily, glargine 20 units twice daily, mealtime NovoLog (dapaglifozin?) In hospital treated with glargine and aspart -BG reviewed 01/27 at goal (5) Nicotine dependence: (6) H/O gastric bypass: (7) Chronic pain syndrome: Plan: Has chronic back pain. Currently c/o severe back pain unclear if flare of chronic pain or acute issue related to #1 above -0.5 mg IV hydromorphone ordered after fluid bolus to help her tolerate phlebotomy, CT (8) CAD (coronary artery disease): Plan: as above (9) HTN (hypertension): Plan: as above (10) Acute blood loss anemia: Plan: as above Hypomagnesemia 01/27 associated with one run of NSVT prior to PCI, replaced with IV magnesium -mag remains 1.5 today ordered 2g IV magnesium, check in AM Wheezing - presumed COPD based on medlist - flutic/umeclid/vilanterol daily, albuterol prn, stable not in exacerbation Pending Studies at Discharge: No Stand-Alone Forms: [facility] Skilled Items Patient informed of condition?: Yes DNR: No Discharge Level of Care: Other Communicable Disease: No Discharge Prognosis: Deteriorating Lines: Peripheral IV Urinary Catheter: No Medications and DC Order Prescriptions: Continued metformin 1,000 mg tablet 1,000 mg PO BID Qty: 60 0RF ropinirole 1 mg tablet 1 mg PO TID Qty: 90 0RF albuterol sulfate 90 mcg/actuation HFA aerosol inhaler 2 inh inhalation Q6H PRN (Reason: shortness of breath or wheezing) Qty: 8.5 1RF potassium chloride 20 mEq tablet,ER particles/crystals 20 meq PO DAILY Qty: 90 1RF Tradjenta 5 mg tablet 5 mg PO DAILY Qty: 30 0RF aspirin 81 mg tablet,delayed release (DR/EC) 81 mg PO QAM Qty: 90 3RF insulin aspart U-100 [Novolog FlexPen U-100 Insulin] 100 unit/mL (3 mL) insulin pen See Rx Instructions subcut UD Qty: 15 2RF Rx Instructions: Take as directed per scale before meals; max of 50 units/day subcutaneously use as directed; (DME) pen needle, diabetic [BD Ultra-Fine Micro Pen Needle] 32 gauge x 1/4" needle See Rx Instructions .Route Qty: 200 5RF Rx Instructions: As directed to inject insulin up to 5 times a day insulin glargine [Lantus Solostar U-100 Insulin] 100 unit/mL (3 mL) insulin pen 20 unit subcut BID Qty: 15 5RF Rx Instructions: or as directed esomeprazole magnesium 40 mg capsule,delayed release(DR/EC) 40 mg PO DAILY Qty: 30 2RF lisinopril 20 mg tablet 20 mg PO DAILY Qty: 90 3RF Trelegy Ellipta 200-62.5-25 mcg blister with device 1 inh inhalation DAILY Qty: 28 0RF cholecalciferol (vitamin D3) 1,250 mcg (50,000 unit) capsule 50,000 unit PO WK Qty: 12 1RF atorvastatin 80 mg tablet 80 mg PO QAM Qty: 90 3RF famotidine 20 mg tablet 20 mg PO DAILY Qty: 90 3RF (DME) blood-glucose meter [OneTouch Verio Flex meter] Misc See Rx Instructions .Route Qty: 1 0RF Rx Instructions: As directed to check blood sugars two times a day (DME) OneTouch Verio test strips Strip See Rx Instructions .Route Qty: 100 5RF Rx Instructions: As directed to test blood sugars two times a day (DME) lancets [OneTouch Delica Lancets] 33 gauge misc See Rx Instructions .Route Qty: 100 5RF Rx Instructions: As directed to test blood sugars two times a day loratadine 10 mg tablet 10 mg PO DAILY PRN (Reason: allergy symptoms) docusate sodium 100 mg capsule 100 mg PO DAILY PRN (Reason: constipation) fluticasone propionate [Flonase Allergy Relief] 50 mcg/actuation spray,suspension 2 spray intranasal DAILY Rx Instructions: administer into each nostril acetaminophen 650 mg Tablet Extended Release 650 mg PO BID PRN (Reason: Unknown) Farxiga 10 mg tablet 10 mg PO DAILY Qty: 90 0RF furosemide [Lasix] 40 mg tablet 40 mg PO BID Qty: 120 0RF Discharge Orders: Discharge Order (Routine); Ordered 01/28/23 Ordered By: Cecilia Cazares/Other Patient Handouts: Diabetes and Heart Disease, Eating Heart-Healthy Foods Admission Data Admit Date/Time: 01/26/23 06:00 Attending Provider: Hollie Brady Admit Provider: Avril Lentz Primary Care Provider: Lo Esposito V. Other Providers: Avril Lentz; Wally Samuel; Melina Smith Resident Activity Tracking Resident Involvement: Resident Care Provided Care Provided: Adult Hospital Medicine
--- NOTE | 2023-01-28 05:37 | CT Scan Report ---
Exam(s): CT EXTREMITY RIGHT LOWER Without Contrast EXAM: CT Right Lower Extremity Without Intravenous Contrast CLINICAL HISTORY: Reason for exam: follow up pseudoanuerysm. TECHNIQUE: Axial computed tomography images of the right lower extremity without intravenous contrast. Automated exposure control was utilized for the study. A dose lowering technique was utilized adhering to the principles of ALARA. COMPARISON: No relevant prior studies available. FINDINGS: Bones/joints: Degenerative change to the osseous structures. No acute fracture. No dislocation. Soft tissues: There is a large anterior medial fluid collection with intermediate density approximately 10.4 x 5.1 cm in maximal transverse dimension approximated to the femoral vessels. Additional fluid collection more inferior medially somewhat dense 13.6 x 3.9 cm in maximal transverse dimension. Moderate approximated subcutaneous intermediate density nonformed fluid. Some global muscle atrophy. Vasculature: Vascular calcifications are demonstrated. IMPRESSION: Presumed large hematomas/possible pseudoaneurysms anterior medial and more inferior medial aspect of the thigh with associated moderate degree of nonformed fluid anterior medially as delineated above. Electronically signed by: Bienvenido Bernstein MD 01/28/23 05:35 AM
--- NOTE | 2023-01-28 10:17 | Cardiac Catheterization ---
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 Cardiac Status Clinical evaluation leading to the procedure CAD Presenation: Non STEMI Anginal Classification: CCS IV Heart Failure: No Cardiogenic Shock within 24 Hours: No Cardiac Arrest within 24 Hours: No Imaging Studies Past 6 Months: No Stress Studies Past 6 Months: No Coronary Anatomy Dominant: Right Left Main (% Stenosis): Normal LAD (% Stenosis): Proximal (30% calcified) and Mid (80 to 90% calcified) D1 (% Stenosis): Normal D2 (% Stenosis): Normal Circumflex (% Stenosis): Normal OM1 (% Stenosis): Normal OM2 (% Stenosis): Normal L PL1 (% Stenosis): Normal RCA (% Stenosis): Proximal (Calcified mild), Mid (Stent patent) and Distal (Calcified 40 to 50%) R PDA (% Stenosis): Normal (Mild) R PL1 (% Stenosis): Normal (Mild) Diagnostic Physicians Name: Conner Davalos MD, PhD Closure Device Percutaneous Entry Location: Radial and femoral Closure Device: None-Manual Hold and Radial Band Recommendations: Medical Therapy and/or Counseling and PCI without planned CABG PCI Indication: PCI for high risk Non-THEODORA Lesion Segment Name: Proximal to mid LAD Culprit Artery: Yes Stenosis Prior to Rx (%): 80 to 90% Chronic Total Occlusion: No Previously Treated Lesion: No Lesion Complexity: High/C Lesion Length (mm): 15 Thrombus Present: No Bifurcation Lesion: Yes Guidewire Across Lesion: Yes Intraprocedure Events Significant Disection: No Perforation: No Cardiac Cath Procedure Full Procedure Date January 26, 2023 Pre-Procedure Diagnosis Pre-Procedure Diagnosis: Non STEMI AUC Score AUC Score: 07 Post-Procedure Diagnosis Post-Procedure Diagnosis: Severe CAD Procedure(s) Performed Procedure(s) Performed: Coronary Angiography, Drug Eluting Stent, Ultrasound Guided Vascular Access and Procedure (INTRACORONARY LITHOTRIPSY) 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 Sedated using IV Versed, fentanyl, and Benadryl. Soft tissues of the right wrist were anesthetized using 2 mL of 1% Xylocaine. The right radial artery was accessed with modified Seldinger technique and a 6 Slovenian radial artery glide sheath was placed. All catheters were advanced and exchanged over a 0.035 J-tip wire. Patient was provided anticoagulation with IV heparin and antispasmodics including nicardipine and nitroglycerin. Left coronary angiography was performed in orthogonal views with a 5 [place]ian [place] 4 diagnostic catheter. Right coronary angiography was performed in orthogonal views with a 5 Slovenian JR4 diagnostic catheter. Diagnostic catheters were removed. Decision was made to proceed with PCI of the LAD. A 6 Slovenian EBU 3.0 guide catheter was advanced over the J-wire and used to engage the left main coronary. A BMW universal guidewire was then advanced through the guide catheter and positioned distally in the LAD. We initially attempted to deliver PTCA balloon but were unsuccessful. Decision was made to attempt shockwave intracoronary lithotripsy. Shockwave balloon could not be delivered. Patient had significant right arm vasospasm. Her pain could not be adequately controlled from a symptom standpoint and the vasospasm inhibited adequate engagement of the left main coronary to deliver intracoronary equipment. It became clear that we would not be able to perform the procedure from the radial access. I discussed with the patient returning at another time to perform attempted PCI from the groin access versus proceeding at this time. She wished to proceed at this time. All equipment except the radial artery sheath was therefore removed. The ACT was checked. Soft tissue of the right groin was anesthetized using 10 mL of 1% Xylocaine. Ultrasound identification of the right femoral artery was performed. Noted that she had a high bifurcation. Using the ultrasound for guidance, the right femoral artery was accessed and a 6 Slovenian femoral artery sheath was placed. ACT was checked and additional heparin was provided as needed to maintain therapeutic anticoagulation. A 6 Slovenian EBU 3.5 guide catheter was advanced over the J-wire and used to engage the left main coronary. Through this, the BMW number so guidewire was advanced and positioned distally in the LAD. A 2.5 x 12 mm trek balloon was advanced and positioned across the lesion where it was inflated to 12 jina. It was then removed and a 2.5 x 15 mm shockwave lithotripsy balloon catheter was advanced and positioned across the lesion. This was inflated to 4 jina and lithotripsy was performed. The balloon was deflated and then reinflated to 6 jina where a second lithotripsy was performed. The shockwave balloon was then removed. A 2.5 x 15 mm NC trek was then advanced and positioned across the lesion and predilatation was performed up to 22 jina. The balloon was removed and angiography performed. Implantation of a drug-eluting stent was then performed using a 3.0 x 18 mm Charli MIGUEL to 15 jina. The stent delivery system was removed. A 3.0 x 12 mm NC sprinter balloon was then advanced and positioned in the stent where 2 inflations were performed up to 18 jina from the proximal edge through the mid stent. Noncompliant balloon was then removed. Final angiographic evaluation was performed. Guide catheter was removed. Limited right femoral artery angiography was performed to evaluate for closure device. Unfortunately, the sheath appeared to enter the artery at the bifurcation crux. Therefore, closure device was not utilized. Instead, sheath was sutured in place with plans for removal and manual compression for hemostasis once ACT < 160s. Patient had radial sheath removed and hemostasis obtained via TR band. Patient was stable and transported to recovery. This ended case. Coronary angiography findings: [id number] with diffuse luminal irregularities. Bifurcates into LAD and circumflex. LAD-large caliber with proximal moderate calcification and mild diffuse disease up to 30% narrowing. Provides a large branching first diagonal which has mild luminal irregularities. Just after this the mid segment has a moderately calcified 80 to 90% stenosis with some tortuosity in the vessel. LAD provides a large caliber branching second diagonal and distally there is mild scattered disease. [id number] and nondominant. Travels in the AV groove where the first obtuse marginal is small to medium in caliber without significant disease. There is an atrial branch followed by a large branching OM 2. The circumflex then terminates as a small caliber posterolateral branch. There is no angiographically significant disease in the circumflex or its branches. RCA-this very large caliber/ectatic vessel. Proximally there is mild diffuse disease. The proximal mid and early distal RCA are at least moderately calcified. The mid RCA has a previously placed stent which is widely patent. Distally after the stent the RCA has 40 to 50% stenosis. It bifurcates into a very large PDA and large branching posterolateral. These vessels have mild diffuse disease. PCI of LAD- Less than 10% residual stenosis after implantation of a drug-eluting stent which spans the proximal through the mid diseased portion. Mild jailing of the septal but the diagonal 1 without any significant jailing. IRIS-3 flow post PCI No evidence of dissection or perforation post PCI Summary: 1. Patent prior RCA stent. Severe LAD disease is culprit for non-ST elevation CA. 2. Successful complex PCI of the LAD requiring shockwave intracoronary lithotripsy preparation followed by a drug-eluting stent implantation. 3. Patient will be placed on dual antiplatelet therapy with aspirin 81 mg daily and Brilinta 90 mg p.o. twice daily to complete 1 to 2 years. 4. Guideline directed medical therapy for secondary prevention of coronary disease to include; high intensity statin therapy, beta-anshu, plus or minus SOPHIE inhibitor/ARB. Strongly recommend tobacco cessation. Strongly recommend CARDIAC REHAB. Hemodynamics Rest Ao:: 118/80 mmHg Final Ao: 135/76 mmHg LV: Not performed Recommendations Recommendations: Medical Therapy and/or Counseling and PCI without planned CABG Radiation Exposure (mGy) 3389 mGy, fluoroscopy time 17.3 minutes Contrast (mls) 190 mL Anesthesia IV; 4 mg Versed, 100 mcg fentanyl, 25 mg Benadryl. Start 1206, end 1315 Procedural Complication(s) None Disposition Recovery Room\PACU I attest to the content of the Intraoperative Record and any orders documented therein. Any exceptions are noted below. [facility] [place] Card Cath Procedure Codes Cardiac Catheterization Procedure 1: Cardiovascular Cath Procedures: 76701 Coronaries Therapeutic Services & Ancillary Procedure 1: Cardiovascular Tx and Anc Procedures: 72872 Ultrasonic Guidance Vascular Access Moderate Sedation Procedure 1: Sedation/Anesthesia: 23115 Mod Sedation by the same physician;Init15 Min Child Age 5 & Up (Initial 15 min, start 1206) Procedure 2: Sedation/Anesthesia: 58914 Mod Sedation by the same physician; Ea [id number] Minutes (Additional 56 min, end time 1315) Stenting Procedure 1: Cardiovascular Stent Procedures: 84839 Perc transluminal revascularization of acute sub/total occl, aMI (LAD) PG Care Time/CCT Total # of Minutes Spent Total Time Spent with Patient: Total time spent is greater than 50% in coordination of care (as documented) at patient's floor/unit and/or counseling patient:
== END 2023-01-28 03:20 | disposition short-term general hospital (02) | DRG 322 ==
LOC: ED 01:20 → SUATTDRO 06:00 → EDINP 06:00 → 2S 08:29 → 1E 01-27 20:39
PROC: CLB.CCO (2023-01-26 12:30)

== ENCOUNTER 2023-02-08 17:06 | Inpatient (IN) ==
[2023-02-08 18:10] LABS: Basophils # (auto) 0.04 K/uL (0.00-0.20); Basophils % (auto) 0.3 %; Eosinophils # (auto) 0.03 K/uL (0.00-0.50); Eosinophils % (auto) 0.2 %; Hematocrit (blood only) 32.4 % (37.0-47.0); Hemoglobin 10.9 g/dl (12.0-16.0); Immature Granulocytes # (auto) 0.15 K/uL (0.01-0.20); Immature Granulocytes % (auto) 1.1 %; Lymphocytes # (auto) 0.98 K/uL (1.20-3.40); Lymphocytes % (auto) 7.4 %; Mean Corpuscular Hemoglobin 30.4 pg (25.0-34.0); Mean Corpuscular Hgb Conc 33.6 g/dL (32.0-36.0); Mean Corpuscular Volume 90.3 fL (80.0-100.0); Mean Platelet Volume 9.8 fL (9.4-12.4); Monocytes # (auto) 0.67 K/uL (0.11-0.59); Monocytes % (auto) 5.1 %; Neutrophils # (auto) 11.38 K/uL (1.40-6.50); Neutrophils % (auto) 85.9 %; Platelet Count 545 K/uL (130-400); RDW Coefficient of Variation 16.6 % (11.5-14.5); RDW Standard Deviation 53.6 fL (36.4-46.3); Red Blood Count 3.59 M/uL (4.20-5.40); White Blood Count 13.25 K/ul (4.8-10.8)
[2023-02-08] MEDS ORDERED: HYDROmorphone INJ 0.5 MG/0.5 ML SYR IV STA (18:11)
--- NOTE | 2023-02-08 18:23 | XRay Report ---
XR chest 1V portable CLINICAL HISTORY: Chest pain, nonspecific TECHNIQUE: Single frontal radiograph of the chest was obtained. Comparison: Comparison is made to chest radiograph 01/26/2023 FINDINGS: No lines and tubes are seen. Cardiomegaly is noted. The lungs are clear. No evidence of pleural effus ion or pneumothorax. IMPRESSION: No acute chest disease. ACT 112: Negative or not required by law. Electronically signed by: Donny Carbone M.D. 02/08/2023 6:22 PM
[2023-02-08 18:25] LABS: Albumin Globulin Ratio 1.2 (0.9-2); Albumin Level 3.9 gm/dl (3.4-5.0); Bilirubin,Total 1.2 mg/dl (0.2-1.0); Calcium 9.2 mg/dl (8.6-10.3); Creatinine Clr Calc Pharmacy 134.4 ml/min; Est GFR (African American) 116.5 ml/min; Est GFR (Non-African American) 100.5 ml/min; Globulin 3.2 gm/dl (2.5-4.0); Potassium 3.3 mmol/L (3.5-5.1); Total Protein 7.1 gm/dl (6.0-8.3)
[2023-02-08 18:35] LABS: Troponin I High Sensitivity 347.4 pg/ml (0-14)
[2023-02-08] MEDS ORDERED: OPTIRAY 320 125ml IV ONE (19:35)
--- NOTE | 2023-02-08 19:54 | Emergency Department Note ---
Impression & Plan Acute non-ST elevation myocardial infarction (NSTEMI) ED Provider Note NAME: DOUGLAS DURAN AGE: 62 SEX: F : 1960 ARRIVES VIA: Ambulance INFORMANT: Patient, ED PROVIDER(S): Oriana Rosenbaum MD CHIEF COMPLAINT: Chest pain HPI: This is a 62-year-old female with history of CAD, NSTEMI presenting for chest pain. Patient notes she was here last week, 01/26, had an NSTEMI at that time. She required stenting here. She had a complication with the arterial access in her right groin and required transfer to outside hospital for stenting of the femoral artery. Since then she has been improving however today she notes exact same pain as when she had her initial NSTEMI. She states it is a severe left-sided chest pain rating into her left arm. She states that it feels like "tearing her back apart "between her shoulder blades. She notes no difference in her pain from today to last visit. ROS: See above HPI for pertinent positives & negatives. A total of 10 systems reviewed and were otherwise negative. PAST MEDICAL HISTORY: See Below PAST SURGICAL HISTORY: See Below FAMILY HISTORY: See Below SOCIAL HISTORY: See Below HOME MEDICATIONS: See Below ALLERGIES: See Below VITALS: See Below PHYSICAL EXAMINATION: General: resting comfortably in no acute distress, writhing in stretcher Head: Normocephalic and atraumatic Eyes: Normal inspection, extraocular muscles intact Ear, nose, throat: Normal external exam Neck: Normal range of motion Respiratory: lungs clear to auscultation bilaterally Cardiovascular: Regular rate/rhythm, no murmur GI: soft, nontender, no guarding or rebound Extremities: nontender, moves all extremities Neuro: The patient awake and alert, appropriately conversive, no focal deficits, symmetric faces Skin: Warm, dry, and intact MEDICAL DECISION MAKING: This is a 62-year-old female history of CAD, NSTEMI presenting for chest pain. External records reviewed including cath report from last admission in January. ECG independently interpreted by me with normal sinus rhythm, rate of 83, normal RI, normal QRS, normal QTc, no ST segment elevations consistent with STEMI criteria, With patient's recent NSTEMI and stenting, consider ACS, PE, dissection, ventricular aneurysm, pericarditis, myocarditis Patient's troponin is elevated at 347. Patient had improvement with Dilaudid. Patient's EKG does not show signs of STEMI at this time. Patient patient CTA dissection protocol does not reveal signs of dissection. Patient does have chest pain, second 1 is significant elevated at over 1300. At this time stat calls made to cardiology, Dr. Strong, who recommends call to compound workerAnoop based on symptoms Repeat EKG appears similar to initial. No significant change or now new ST segment elevation reciprocal changes. Discussed with Dr. Davalos he will come in to evaluate the patient for catheterization at this time. He requested Ativan to [facility] at this time. Heart alert called on this patient. Triage Nursing notes reviewed. Prior medical records reviewed Vital Signs: reviewed and remarkable for no significant abnormalities Differential diagnosis: ACS, PE, dissection ER treatment provided: See below Diagnostics interpreted by me: ECG: See above Cardiac Monitoring: An order was placed for continuous cardiac monitoring. The monitor shows a rate of 87 with sinus rhythm Laboratory studies: As stated above and show below. Imaging studies: See below. Radiographic imaging was reviewed by myself Consultation(s): None Critical Care Note: I have personally spent 120 minutes of critical care time in the direct management of this patient. This includes bedside care, interpretation of diagnostic studies, and testing, discussion with consultants, patient, and family members, and other required patient management activities. This 120 minutes is in excess of all separately billable procedures. Past Med/Surg History Medical History Acute blood loss anemia NSTEMI (non-ST elevated myocardial infarction) CHF exacerbation Leg edema Radial fracture Cough Hypotension after procedure Diabetes mellitus treated with insulin and oral medication Closed fracture of radial styloid (07/03/22) Acute UTI Acute respiratory failure with hypoxia Rash Diabetes mellitus treated with oral medication Leukocytosis Abdominal wall abscess Hypocalcemia Hypomagnesemia Wound infection after surgery Abscess of vulva COVID-19 Open thigh wound Traumatic wound Chronic pain syndrome Acute hyperglycemia Methamphetamine abuse Acute ST elevation myocardial infarction (STEMI) of inferior wall Anastomotic ulcer S/P gastric bypass Restless leg syndrome Insomnia Anxiety and depression Leukocytosis DVT prophylaxis Incarcerated hernia Abdominal pain Ventral hernia Fibromyalgia HTN (hypertension) Gastric ulcer Bloody emesis Corneal abrasion Left corneal abrasion L1 vertebral fracture Migraine Acute cholecystitis UTI (lower urinary tract infection) Pneumonia Bronchitis Surgical History S/P coronary artery stent placement S/P anal fissurectomy History of ankle surgery S/P tonsillectomy S/P recurrent ventral herniorrhaphy S/P ventral herniorrhap[place] [facility] [place] then drainage of incisional abscess 12/2021 H/O gastric bypass S/P cholecystectomy H/O: hysterectomy H/O knee surgery Family History Father Myocardial infarction Leukemia Sister Ovarian cancer Myocardial infarction Other Family history of diabetes mellitus Hypertension Denies family history of Prostate cancer Breast cancer Colorectal cancer Social History Smoking Status: Current every day smoker Tobacco Type: Cigarettes packs per day: 1.5; Cigarettes Per Day: 20; Second Hand Exposure: Yes; Do You Dip or Chew Tobacco: No; Hx Alcohol Use: No Hx Substance Use: No Preferred Language: Thai Communication Ability: Effective Visual Impairment: No Limitations Greenhouse Superintendent Required: No Beliefs That Will Affect Care: None marital status: Current Living Situation: Other Current Living Situation Comment: lives with daughter current occupational status: unemployed and disabled How many Children do You have: 2 Feels Safe at Home: Yes Childhood Exposure to Second-Hand Smoke: Yes Diet: regular during the past year weight has: remained stable Dental Care, Regularly: No Physical Activity Frequency: Does not Exercise Seatbelt Use: always Sunscreen Use: Yes Assistive Devices: Denture - Upper, Glasses and Nebulizer Allergies Allergies Allergy/AdvReac Type Severity Reaction Status Date / Time morphine Allergy Intermediate Hives Verified 02/08/23 20:43 adhesive Allergy Unknown Unknown Verified 02/08/23 20:43 amoxicillin [From Augmentin] AdvReac Intermediate Diarrhea Verified 02/08/23 20:43 clavulanic acid AdvReac Intermediate Diarrhea Verified 02/08/23 20:43 [From Augmentin] clonazepam AdvReac Intermediate short term Verified 02/08/23 20:43 memory loss NSAIDS (Non-Steroidal AdvReac Unknown CONTRAINDICATED Verified 02/08/23 20:43 Anti-Inflamma IS ON ANTICOAGULATION Home Meds Home Medications Medication Instructions Recorded Confirmed docusate sodium 100 mg capsule 100 mg PO DAILY PRN constipation 07/26/22 02/08/23 fluticasone propionate 50 2 spray intranasal DAILY 07/26/22 02/08/23 mcg/actuation nasal spray,suspension (Flonase Allergy Relief) loratadine 10 mg tablet 10 mg PO DAILY PRN allergy symptoms 07/26/22 02/08/23 acetaminophen 500 mg tablet 1,000 mg PO Q8H PRN pain 02/05/23 02/08/23 ticagrelor 90 mg tablet 90 mg PO BID 02/05/23 02/08/23 magnesium oxide 0 mg PO DAILY 02/08/23 02/08/23 pantoprazole 40 mg tablet,delayed 40 mg PO BID 02/08/23 02/08/23 release zinc acetate 50 mg (zinc) capsule 50 mg PO DAILY 02/08/23 02/08/23 Previous Rx's Medication Instructions Recorded atorvastatin 80 mg tablet 80 mg PO QAM #90 tabs 05/02/22 blood sugar diagnostic (ConnectSoftTouch #100 ea 05/02/22 Verio test strips) blood-glucose meter (ConnectSoftTouch #1 ea 05/02/22 Verio Flex Meter) famotidine 20 mg tablet 20 mg PO DAILY #90 tabs 05/02/22 lancets 33 gauge (OneTouch Delica #100 ea 05/02/22 Lancets) metformin 1,000 mg tablet 1,000 mg PO BID #60 tabs 10/31/22 lisinopril 20 mg tablet 20 mg PO DAILY #90 tabs 11/14/22 albuterol sulfate 90 mcg/actuation 2 inh inhalation Q6H PRN shortness 12/01/22 aerosol inhaler of breath or wheezing #8.5 grams cholecalciferol (vitamin D3) 1,250 50,000 unit PO WK #12 caps 12/13/22 mcg (50,000 unit) capsule potassium chloride 20 mEq 20 meq PO DAILY #90 tabs 12/21/22 tablet,extended release(part/cryst) aspirin 81 mg tablet,delayed 81 mg PO QAM #90 tabs 12/25/22 release insulin aspart U-100 100 unit/mL See Rx Instructions subcut UD #15 12/28/22 (3 mL) subcutaneous pen (Novolog mL FlexPen U-100 Insulin aspart) insulin glargine 100 unit/mL (3 20 unit (0.2 mL) subcut BID #15 mL 12/28/22 mL) subcutaneous pen (Lantus Solostar U-100 Insulin) pen needle, diabetic 32 gauge x #200 ea 12/28/22 1" (BD Ultra-Fine Micro Pen Needle) dapagliflozin propanediol 10 mg 10 mg PO DAILY #90 tabs 01/20/23 tablet (Farxiga) furosemide 40 mg tablet (Lasix) 40 mg PO BID #120 tabs 01/20/23 oxycodone 5 mg tablet 5 mg PO Q6H PRN pain #28 tabs 02/06/23 ropinirole 1 mg tablet 1 mg PO TID #90 tabs 02/07/23 Results & Data (ED) Vital Signs Vital Signs - 24 hr 02/08/23 17:08 02/08/23 17:14 02/08/23 18:00 Temperature 36.9 C Temperature Source Oral Pulse Rate 88 85 94 H Pulse Rate [Apical] Pulse Rate from SpO2 Sensor 80 Respiratory Rate 20 28 H Respiratory Effort / Characteristics Respiratory Depth Normal Respiratory Pattern Regular Blood Pressure 120/71 Blood Pressure [Right Arm] Blood Pressure Mean 87 Blood Pressure Mean [Right Arm] Blood Pressure Position [Right Arm] Pulse Oximetry 100 Oxygen Delivery Method Sepsis Recent Fever Within 48 Hours No Sepsis New/Unexplained Change in Mental Status No Sepsis Action Taken by Nursing No Action Required 02/08/23 18:26 02/08/23 18:26 02/08/23 18:59 Temperature Temperature Source Pulse Rate Pulse Rate [Apical] 87 Pulse Rate from SpO2 Sensor Respiratory Rate 18 Respiratory Effort / Characteristics Non-Labored Spontaneous Respiratory Depth Normal Respiratory Pattern Regular Blood Pressure Blood Pressure [Right Arm] 113/74 Blood Pressure Mean Blood Pressure Mean [Right Arm] 87 Blood Pressure Position [Right Arm] Semi-fowlers Pulse Oximetry 98 95 Oxygen Delivery Method Room Air Room Air Room Air Sepsis Recent Fever Within 48 Hours Sepsis New/Unexplained Change in Mental Status Sepsis Action Taken by Nursing 02/08/23 19:00 02/08/23 20:00 02/08/23 21:10 Temperature Temperature Source Pulse Rate 85 90 88 Pulse Rate [Apical] Pulse Rate from SpO2 Sensor 85 90 Respiratory Rate 22 17 Respiratory Effort / Characteristics Respiratory Depth Respiratory Pattern Blood Pressure 113/74 120/78 Blood Pressure [Right Arm] Blood Pressure Mean 87 92 Blood Pressure Mean [Right Arm] Blood Pressure Position [Right Arm] Pulse Oximetry 97 96 Oxygen Delivery Method Sepsis Recent Fever Within 48 Hours Sepsis New/Unexplained Change in Mental Status Sepsis Action Taken by Nursing 02/08/23 22:00 Temperature Temperature Source Pulse Rate Pulse Rate [Apical] 91 H Pulse Rate from SpO2 Sensor Respiratory Rate 25 H Respiratory Effort / Characteristics Respiratory Depth Respiratory Pattern Blood Pressure Blood Pressure [Right Arm] 109/84 Blood Pressure Mean Blood Pressure Mean [Right Arm] 92 Blood Pressure Position [Right Arm] Semi-fowlers Pulse Oximetry 96 Oxygen Delivery Method Room Air Sepsis Recent Fever Within 48 Hours Sepsis New/Unexplained Change in Mental Status Sepsis Action Taken by Nursing Laboratory Data 02/08/23 17:20 02/08/23 17:20 Lab Results 02/08/23 02/08/23 Range/Units 17:20 19:41 WBC 13.25 H (4.8-10.8) K/ul RBC 3.59 L (4.20-5.40) M/uL Hgb 10.9 L (12.0-16.0) g/dl Hct 32.4 L (37.0-47.0) % MCV 90.3 (80.0-100.0) fL MCH 30.4 (25.0-34.0) pg MCHC 33.6 (32.0-36.0) g/dL RDW Std Deviation 53.6 H (36.4-46.3) fL RDW Coeff of Rubi 16.6 H (11.5-14.5) % Plt Count 545 H (130-400) K/uL MPV 9.8 (9.4-12.4) fL Immature Gran % (Auto) 1.1 % Neut % (Auto) 85.9 % Lymph % (Auto) 7.4 % [place] % (Auto) 5.1 % Eos % (Auto) 0.2 % Baso % (Auto) 0.3 % Neut # (Auto) 11.38 H (1.40-6.50) K/uL Lymph # (Auto) 0.98 L (1.20-3.40) K/uL [place] # (Auto) 0.67 H (0.11-0.59) K/uL Eos # (Auto) 0.03 (0.00-0.50) K/uL Baso # (Auto) 0.04 (0.00-0.20) K/uL Immature Gran # (Auto) 0.15 (0.01-0.20) K/uL PT 10.3 (9.0-12.0) Seconds INR 0.9 (0.9-1.1) APTT 27.1 (21.0-31.0) Seconds PTT Ratio 1.0 Sodium 137 (136-145) mmol/L Potassium 3.3 L (3.5-5.1) mmol/L Chloride 101 (98-107) mmol/L Carbon Dioxide 25 (21-32) mmol/L Anion Gap 11 (3-11) BUN 22 (6-23) mg/dl Creatinine 0.55 L (0.6-1.2) mg/dl Est Cr Clr Drug Dosing 134.4 ml/min Est GFR ( Amer) 116.5 ml/min Est GFR (Non-Af Amer) 100.5 ml/min BUN/Creatinine Ratio 40.0 H (10-20) Glucose 214 H (70-99(Fasting)) mg/dl Calcium 9.2 (8.6-10.3) mg/dl Magnesium 1.5 L (1.7-2.4) mg/dl Total Bilirubin 1.2 H (0.2-1.0) mg/dl AST 24 (13-39) U/L ALT 12 (7-52) U/L Alkaline Phosphatase 81 (34-104) U/L Troponin I High Sens 347.4 H* 1369.9 H* D (0-14) pg/ml Total Protein 7.1 (6.0-8.3) gm/dl Albumin 3.9 (3.4-5.0) gm/dl Globulin 3.2 (2.5-4.0) gm/dl Albumin/Globulin Ratio 1.2 (0.9-2) Lipase 48 (11-82) U/L Administered Medications Discontinued Medications Fentanyl Citrate (Fentanyl Citrate Pf 100 Mcg/2 Ml Vial) Confirm Administered Dose 100 mcg .ROUTE .STK-MED ONE Stop: 02/08/23 21:58 Last Admin: 02/08/23 22:58 Dose: Not Given Documented By: TP Heparin Sodium (Porcine) (Heparin Sod (Porcine) 1000 Unit/Ml) 6,000 units IV NOW ONE Stop: 02/08/23 22:01 Last Admin: 11/30/23 22:59 Dose: Not Given Documented By: TP Heparin Sodium (Porcine) (Heparin (Porcine) 1000 Unit/Ml 10 Ml ([facility] Use Only)) Confirm Administered Dose 10,000 units .ROUTE .STK-MED ONE Stop: 02/08/23 21:58 Last Admin: 02/08/23 22:58 Dose: Not Given Documented By: TP Heparin Sodium/Sodium Chloride (Heparin In Nss Infusion 1000 Unit/500 Ml (2 U/Ml) Bag) Confirm Administered Dose 3,000 units IV .STK-MED ONE Stop: 02/08/23 21:59 Last Admin: 02/08/23 22:58 Dose: Not Given Documented By: TP Hydromorphone HCl (Hydromorphone Inj 0.5 Mg/0.5 Ml Syr) 0.5 mg IV NOW STA Stop: 02/08/23 18:12 Last Admin: 02/08/23 18:24 Dose: 0.5 mg Documented By: JAZMINE Potassium Chloride (K Lior / Wtr) 10 meq in 100 mls @ 100 mls/hr IV Q1H LUC Stop: 02/08/23 23:14 Last Infusion: 02/08/23 22:02 Dose: 80 mls/hr Documented By: Infusion: 02/08/23 21:42 Dose: 0 mls/hr Documented By: Admin: 02/08/23 21:22 Dose: 100 mls/hr Documented By: JAZMINE Ioversol (Optiray 320 125ml) 119 ml IV ONCE ONE Stop: 02/08/23 19:36 Last Admin: 02/08/23 19:36 Dose: 119 ml Documented By: PLW Midazolam HCl (Midazolam Hcl 1 Mg/Ml 2ml Vial) Confirm Administered Dose 2 mg .ROUTE .STK-MED ONE Stop: 02/08/23 21:58 Last Admin: 02/08/23 22:58 Dose: Not Given Documented By: TP Nicardipine HCl (Nicardipine Hcl Inj 2.5 Mg/Ml 10 Ml Amp) Confirm Administered Dose 25 mg .ROUTE .STK-MED ONE Stop: 02/08/23 21:58 Last Admin: 02/08/23 22:58 Dose: Not Given Documented By: TP Nitroglycerin (Nitroglycerin Sl 0.4 Mg/Tab Tab) 0.4 mg SL NOW STA Stop: 02/08/23 21:15 Last Admin: 02/08/23 21:22 Dose: 0.4 mg Documented By: LCD Nitroglycerin/Dextrose (Nitroglycerin/D5w 100mcg/Ml 20ml Syr) Confirm Administered Dose 2,000 mcg .ROUTE .STK-MED ONE Stop: 02/08/23 21:59 Last Admin: 02/08/23 22:59 Dose: Not Given Documented By: TP Imaging Data Radiologist's Impression: Chest X-Ray 02/08/23 17:46 XR chest 1V portable CLINICAL HISTORY: Chest pain, nonspecific TECHNIQUE: Single frontal radiograph of the chest was obtained. Comparison: Comparison is made to chest radiograph 01/26/2023 FINDINGS: No lines and tubes are seen. Cardiomegaly is noted. The lungs are clear. No evidence of pleural effusion or pneumothorax. IMPRESSION: No acute chest disease. ACT 112: Negative or not required by law. Electronically signed by: Donny Carbone M.D. 02/08/2023 6:22 PM Chest CTA 02/08/23 18:07 Exam(s): CTA CHEST W/WO Contrast IV Amt: 119 ML OPTIRAY 320 EXAM: CT Angiography Chest Without and With Intravenous Contrast CLINICAL HISTORY: Reason for exam: Dissection r/o, recent CT, ventricular aneurysm. TECHNIQUE: Axial computed tomographic angiography images of the chest without and with intravenous contrast. CTDI is 26.82 mGy and DLP is 919.6 mGy-cm. Automated exposure control was utilized for the study. A dose lowering technique was utilized adhering to the principles of ALARA. MIP reconstructed images were created and reviewed. CONTRAST: Patient received 119 ML OPTIRAY 320 of IV contrast COMPARISON: No relevant prior studies available. FINDINGS: LUNGS: No focal consolidation, pleural effusion, or pneumothorax. HEART: Cardiomegaly. VASCULATURE: No aortic dissection or aneurysm formation. No intramural hematoma. Mildly dilated main pulmonary artery trunk, measures 5 cm. THYROID: Within normal limits. MEDIASTINUM + LYMPH NODES: There are no pathologically enlarged mediastinal, hilar, or axillary lymph nodes. SUPERIOR ABDOMEN: Junior-en-Y gastric bypass. MUSCULOSKELETAL: Degenerative changes of the spine. IMPRESSION: No aortic dissection or aneurysm formation. No intramural hematoma. No acute pulmonary embolism. Electronically signed by: Jered Guadarrama MD 02/08/23 20:16 PM Abdomen/Pelvis CTA 02/08/23 18:11 Exam(s): CTA ABDOMEN + PELVIS With Contrast IV Amt: 119 ML OPTIRAY 320 EXAM: CT Angiography Abdomen and Pelvis With Intravenous Contrast CLINICAL HISTORY: Reason for exam: dissection. TECHNIQUE: Axial computed tomographic angiography images of the abdomen and pelvis with intravenous contrast. CTDI is 27.58 mGy and DLP is 1883.27 mGy-cm. Automated exposure control was utilized for the study. A dose lowering technique was utilized adhering to the principles of ALARA. MIP reconstructed images were created and reviewed. CONTRAST: Patient received 119 ML OPTIRAY 320 of IV contrast COMPARISON: No relevant prior studies available. FINDINGS: VASCULATURE: Aorta: Atherosclerotic changes of the aorta. No abdominal aortic aneurysm. No dissection. Celiac trunk and mesenteric arteries: No acute findings. No occlusion or significant stenosis. Renal arteries: No acute findings. No occlusion or significant stenosis. Iliac arteries: No acute findings. No occlusion or significant stenosis. Lung bases: Unremarkable. No mass. No consolidation. Heart: Cardiomegaly. ABDOMEN: Liver: Unremarkable. No mass. Gallbladder and bile ducts: Cholecystectomy. No ductal dilation. Pancreas: Unremarkable. No ductal dilation. No mass. Spleen: Unremarkable. No splenomegaly. Adrenals: Unremarkable. No mass. Kidneys and ureters: Unremarkable. No hydronephrosis. No solid mass. Stomach and bowel: LEFT-sided ventral abdominal wall hernia which contains loops of large and small bowel. The hernia neck is wide measuring 6.8 cm. No obstruction. Junior-en-Y gastric bypass. No obstruction of the jejunojejunostomy. No mucosal thickening. PELVIS: Appendix: No findings to suggest acute appendicitis. Bladder: Unremarkable. No mass. Reproductive: Unremarkable as visualized. ABDOMEN and PELVIS: Intraperitoneal space: Unremarkable. No significant fluid collection. No free air. Bones/joints: Degenerative changes of the spine. No acute fracture. No dislocation. Soft tissues: Suspected RIGHT inguinal lesion/hematoma, consider pelvic CT scan for further evaluation. Lymph nodes: Unremarkable. No enlarged lymph nodes. IMPRESSION: 1. LEFT-sided ventral abdominal wall hernia which contains loops of large and small bowel. The hernia neck is wide measuring 6.8 cm. No obstruction. 2. Suspected RIGHT inguinal lesion/hematoma, consider pelvic CT scan for further evaluation. 3. Junior-en-Y gastric bypass. No obstruction of the jejunojejunostomy. Electronically signed by: Jered Guadarrama MD 02/08/23 20:17 PM Discharge Plan Visit Data Chief Complaint: Chest Pain Stated Complaint: CT WITH STENTS LAST WEEK, WORSENING CHEST PAIN ED Provider: Oriana Rosenbaum Discharge Problem: Acute non-ST elevation myocardial infarction (NSTEMI)
--- NOTE | 2023-02-08 20:17 | CT Scan Report ---
Exam(s): CTA CHEST W/WO Contrast IV Amt: 119 ML OPTIRAY 320 EXAM: CT Angiography Chest Without and With Intravenous Contrast CLINICAL HISTORY: Reason for exam: Dissection r/o, recent [place], ventricular aneurysm. TECHNIQUE: Axial computed tomographic angiography images of the chest without and with intravenous contrast. CTDI is 26.82 mGy and DLP is 919.6 mGy-cm. Automated exposure control was utilized for the study. A dose lowering technique was utilized adhering to the principles of ALARA. MIP reconstructed images were created and reviewed. CONTRAST: Patient received 119 ML OPTIRAY 320 of IV contrast COMPARISON: No relevant prior studies available. FINDINGS: LUNGS: No focal consolidation, pleural effusion, or pneumothorax. HEART: Cardiomegaly. VASCULATURE: No aortic dissection or aneurysm formation. No intramural hematoma. Mildly dilated main pulmonary artery trunk, measures 5 cm. THYROID: Within normal limits. MEDIASTINUM + LYMPH NODES: There are no pathologically enlarged mediastinal, hilar, or axillary lymph nodes. SUPERIOR ABDOMEN: Junior-en-Y gastric bypass. MUSCULOSKELETAL: Degenerative changes of the spine. IMPRESSION: No aortic dissection or aneurysm formation. No intramural hematoma. No acute pulmonary embolism. Electronically signed by: Jered Guadarrama MD 02/08/23 20:16 PM
--- NOTE | 2023-02-08 20:18 | CT Scan Report ---
Exam(s): CTA ABDOMEN + PELVIS With Contrast IV Amt: 119 ML OPTIRAY 320 EXAM: CT Angiography Abdomen and Pelvis With Intravenous Contrast CLINICAL HISTORY: Reason for exam: dissection. TECHNIQUE: Axial computed tomographic angiography images of the abdomen and pelvis with intravenous contrast. CTDI is 27.58 mGy and DLP is 1883.27 mGy-cm. Automated exposure control was utilized for the study. A dose lowering technique was utilized adhering to the principles of ALARA. MIP reconstructed images were created and reviewed. CONTRAST: Patient received 119 ML OPTIRAY 320 of IV contrast COMPARISON: No relevant prior studies available. FINDINGS: VASCULATURE: Aorta: Atherosclerotic changes of the aorta. No abdominal aortic aneurysm. No dissection. Celiac trunk and mesenteric arteries: No acute findings. No occlusion or significant stenosis. Renal arteries: No acute findings. No occlusion or significant stenosis. Iliac arteries: No acute findings. No occlusion or significant stenosis. Lung bases: Unremarkable. No mass. No consolidation. Heart: Cardiomegaly. ABDOMEN: Liver: Unremarkable. No mass. Gallbladder and bile ducts: Cholecystectomy. No ductal dilation. Pancreas: Unremarkable. No ductal dilation. No mass. Spleen: Unremarkable. No splenomegaly. Adrenals: Unremarkable. No mass. Kidneys and ureters: Unremarkable. No hydronephrosis. No solid mass. Stomach and bowel: LEFT-sided ventral abdominal wall hernia which contains loops of large and small bowel. The hernia neck is wide measuring 6.8 cm. No obstruction. Junior-en-Y gastric bypass. No obstruction of the jejunojejunostomy. No mucosal thickening. PELVIS: Appendix: No findings to suggest acute appendicitis. Bladder: Unremarkable. No mass. Reproductive: Unremarkable as visualized. ABDOMEN and PELVIS: Intraperitoneal space: Unremarkable. No significant fluid collection. No free air. Bones/joints: Degenerative changes of the spine. No acute fracture. No dislocation. Soft tissues: Suspected RIGHT inguinal lesion/hematoma, consider pelvic CT scan for further evaluation. Lymph nodes: Unremarkable. No enlarged lymph nodes. IMPRESSION: 1. LEFT-sided ventral abdominal wall hernia which contains loops of large and small bowel. The hernia neck is wide measuring 6.8 cm. No obstruction. 2. Suspected RIGHT inguinal lesion/hematoma, consider pelvic CT scan for further evaluation. 3. Junior-en-Y gastric bypass. No obstruction of the jejunojejunostomy. Electronically signed by: Jered Guadarrama MD 02/08/23 20:17 PM
[2023-02-08] MEDS ORDERED: Heparin IV Adult Wt-Based Standard w/ INITIAL Bolus Protocol IV STA (20:45)
[2023-02-08] MEDS ORDERED: HEPARIN SOD (PORCINE) 1000 UNIT/ML IV ONE ×2 (21:01→22:00)
[2023-02-08] MEDS ORDERED: NITROGLYCERIN SL 0.4 MG/TAB TAB SL STA (21:14)
[2023-02-08 21:21] LABS: INR 0.9 (0.9-1.1); Partial Thromboplastin Time 27.1 Seconds (21.0-31.0); Prothrombin Time 10.3 Seconds (9.0-12.0)
[2023-02-08] MEDS: POTASSIUM CHLORIDE / WTR 10 MEQ/100 ML PLCT IV SCH ×2 (21:22→23:36)
[2023-02-08 21:27] LABS: Magnesium 1.5 mg/dl (1.7-2.4)
[2023-02-08] MEDS ORDERED: MIDAZOLAM HCL 1 MG/ML 2ML VIAL ONE (21:57)
[2023-02-08] MEDS ORDERED: HEPARIN (PORCINE) 1000 UNIT/ML 10 ML (CATH LAB USE ONLY) ONE (21:57)
[2023-02-08] MEDS ORDERED: fentaNYL citrate PF 100 MCG/2 ML VIAL ONE (21:57)
[2023-02-08] MEDS ORDERED: niCARdipine HCL INJ 2.5 MG/ML 10 ML AMP ONE (21:57)
[2023-02-08] MEDS ORDERED: NITROGLYCERIN/D5W 100MCG/ML 20ML SYR ONE (21:58)
--- NOTE | 2023-02-08 22:32 | History & Physical Report ---
Date of Service February 08, 2023 Assessment & Plan (1) Acute non-ST elevation myocardial infarction (NSTEMI): Plan: 62yo female presenting with acute substernal chest pain, elevation in troponin, no ST elevations on EKG. Findings consistent with acute NSTEMI. Patient's chest pain responsive to Nitro. -Admit to MICU -Trend troponin -Heparin gtt -Nitro gtt -Continue home medications - ASA, Atorvastatin, Brillinta -Continue Lisinopril -Continue Isosorbide mononitrate Check 2D echo Appreciate Cardiology assistance Close monitoring of thigh hematoma with heparin anticoagulation (2) CHF (congestive heart failure): Plan: Patient appears euvolemic -Continue isosorbide -Continue Lasix 40mg po BID (3) Diabetes mellitus: Plan: Chronic. Last DroW0R=0.7 on 01/19/23 -Lantus 20u BID -ISS -Goal blood sugar 110 - 140 (4) HTN (hypertension): Plan: Chronic -Continue home medications -Monitor (5) Hyperlipidemia: Plan: Chronic -Continue Atorvastatin History of Present Illness Chief Complaint: chest pain Primary Care Provider: Lo Esposito MD Jia Evans is a 62-year-old woman with past medical history of CAD with recent admission for NSTEMI. Attempt to access patient's radial artery was unsuccessful therefore she had access at the right femoral artery. MIGUEL was placed to the LAD on 01/28/23. Case complicated by right groin hematoma and pseudoaneurysm. She was [place] [facility] [place] for endovascular repair. She reports she has been complaint with her medications. No chest pain until tonight. This afternoon 02/08/23 around 1300 the patient woke up and walked to the refrigerator for some cheese. She reports she got two pieces of cheese and went back to bed after which she developed substernal chest pain with radiation to the left arm and back. She had some dyspnea and diaphoresis as well. In the ER patient had increased in troponin. Code Heart was called and she was evaluated by Interventional Cardiology. No ST elevations on EKG Allergies Allergy/AdvReac Type Severity Reaction Status Date / Time morphine Allergy Intermediate Hives Verified 02/08/23 20:43 adhesive Allergy Unknown Unknown Verified 02/08/23 20:43 amoxicillin [From Augmentin] AdvReac Intermediate Diarrhea Verified 02/08/23 20:43 clavulanic acid AdvReac Intermediate Diarrhea Verified 02/08/23 20:43 [From Augmentin] clonazepam AdvReac Intermediate short term Verified 02/08/23 20:43 memory loss NSAIDS (Non-Steroidal AdvReac Unknown CONTRAINDICATED Verified 02/08/23 20:43 Anti-Inflamma IS ON ANTICOAGULATION Home Medications Medication Instructions Recorded Confirmed Type atorvastatin 80 mg tablet 80 mg PO QAM #90 tabs 05/02/22 02/08/23 Rx blood sugar diagnostic (Trips n SalsaTouch #100 ea 05/02/22 02/06/23 Rx Verio test strips) blood-glucose meter (Trips n SalsaTouch #1 ea 05/02/22 02/06/23 Rx Verio Flex Meter) famotidine 20 mg tablet 20 mg PO DAILY #90 tabs 05/02/22 02/08/23 Rx lancets 33 gauge (Trips n SalsaTouch Delica #100 ea 05/02/22 02/06/23 Rx Lancets) docusate sodium 100 mg capsule 100 mg PO DAILY PRN constipation 07/26/22 02/08/23 History fluticasone propionate 50 2 spray intranasal DAILY 07/26/22 02/08/23 History mcg/actuation nasal spray,suspension (Flonase Allergy Relief) loratadine 10 mg tablet 10 mg PO DAILY PRN allergy symptoms 07/26/22 02/08/23 History metformin 1,000 mg tablet 1,000 mg PO BID #60 tabs 10/31/22 02/08/23 Rx lisinopril 20 mg tablet 20 mg PO DAILY #90 tabs 11/14/22 02/08/23 Rx albuterol sulfate 90 mcg/actuation 2 inh inhalation Q6H PRN shortness 12/01/22 02/08/23 Rx aerosol inhaler of breath or wheezing #8.5 grams cholecalciferol (vitamin D3) 1,250 50,000 unit PO WK #12 caps 12/13/22 02/08/23 Rx mcg (50,000 unit) capsule potassium chloride 20 mEq 20 meq PO DAILY #90 tabs 12/21/22 02/08/23 Rx tablet,extended release(part/cryst) aspirin 81 mg tablet,delayed 81 mg PO QAM #90 tabs 12/25/22 02/08/23 Rx release insulin aspart U-100 100 unit/mL See Rx Instructions subcut UD #15 12/28/22 02/08/23 Rx (3 mL) subcutaneous pen (Novolog mL FlexPen U-100 Insulin aspart) insulin glargine 100 unit/mL (3 20 unit (0.2 mL) subcut BID #15 mL 12/28/22 02/08/23 Rx mL) subcutaneous pen (Lantus Solostar U-100 Insulin) pen needle, diabetic 32 gauge x #200 ea 12/28/22 02/06/23 Rx 1/4" (BD Ultra-Fine Micro Pen Needle) dapagliflozin propanediol 10 mg 10 mg PO DAILY #90 tabs 01/20/23 02/08/23 Rx tablet (Farxiga) furosemide 40 mg tablet (Lasix) 40 mg PO BID #120 tabs 01/20/23 02/08/23 Rx acetaminophen 500 mg tablet 1,000 mg PO Q8H PRN pain 02/05/23 02/08/23 History ticagrelor 90 mg tablet 90 mg PO BID 02/05/23 02/08/23 History oxycodone 5 mg tablet 5 mg PO Q6H PRN pain #28 tabs 02/06/23 02/08/23 Rx ropinirole 1 mg tablet 1 mg PO TID #90 tabs 02/07/23 02/08/23 Rx magnesium oxide 0 mg PO DAILY 02/08/23 02/08/23 History pantoprazole 40 mg tablet,delayed 40 mg PO BID 02/08/23 02/08/23 History release zinc acetate 50 mg (zinc) capsule 50 mg PO DAILY 02/08/23 02/08/23 History Past Med/Surg History Medical History Acute blood loss anemia NSTEMI (non-ST elevated myocardial infarction) CHF exacerbation Leg edema Radial fracture Cough Hypotension after procedure Diabetes mellitus treated with insulin and oral medication Closed fracture of radial styloid (07/03/22) Acute UTI Acute respiratory failure with hypoxia Rash Diabetes mellitus treated with oral medication Leukocytosis Abdominal wall abscess Hypocalcemia Hypomagnesemia Wound infection after surgery Abscess of vulva COVID-19 Open thigh wound Traumatic wound Chronic pain syndrome Acute hyperglycemia Methamphetamine abuse Acute ST elevation myocardial infarction (STEMI) of inferior wall Anastomotic ulcer S/P gastric bypass Restless leg syndrome Insomnia Anxiety and depression Leukocytosis DVT prophylaxis Incarcerated hernia Abdominal pain Ventral hernia Fibromyalgia HTN (hypertension) Gastric ulcer Bloody emesis Corneal abrasion Left corneal abrasion L1 vertebral fracture Migraine Acute cholecystitis UTI (lower urinary tract infection) Pneumonia Bronchitis Surgical History S/P coronary artery stent placement S/P anal fissurectomy History of ankle surgery S/P tonsillectomy S/P recurrent ventral herniorrhaphy S/P ventral herniorrhaphy repair [facility] 11/2021, then drainage of incisional abscess 12/2021 H/O gastric bypass S/P cholecystectomy H/O: hysterectomy H/O knee surgery Family History Father Myocardial infarction Leukemia Sister Ovarian cancer Myocardial infarction Other Family history of diabetes mellitus Hypertension Denies family history of Prostate cancer Breast cancer Colorectal cancer Social History Smoking Status: Current every day smoker Tobacco Type: Cigarettes packs per day: 1.5; Cigarettes Per Day: 20; Second Hand Exposure: Yes; Do You Dip or Chew Tobacco: No; Hx Alcohol Use: No Hx Substance Use: Yes Prescribed Medications: Marijuana and Other Non- Prescribed Medications: Crack / Cocaine and Methamphetamines Last Used Substance: Unknown Last Used Substance Other:: meth 4 months ago ? long time may Preferred Language: Malay Communication Ability: Effective Visual Impairment: No Limitations Lunchroom Supervisor Required: No Beliefs That Will Affect Care: None marital status: Current Living Situation: Family Current Living Situation Comment: lives with daughter current occupational status: unemployed and disabled How many Children do You have: 2 Feels Safe at Home: Yes Safety Concerns: Feels Safe At This Time Childhood Exposure to Second-Hand Smoke: Yes Diet: regular during the past year weight has: remained stable Dental Care, Regularly: No Physical Activity Frequency: Does not Exercise Seatbelt Use: always Sunscreen Use: Yes Assistive Devices: Denture - Upper, Glasses and Nebulizer Review of Systems Review of Systems: All systems reviewed & are unremarkable except as noted in HPI & below Physical Exam Physical Exam: General: patient resting comfortably, NAD, chronically ill in appearance and unkempt Skin: right thigh bruising and hematoma HEENT: NC/AT, PERRL, EOMI, anicteric sclera, conjunctiva without injection, external ear normal to inspection and nontender, nares patent, moist mucus me mbranes, dentition intact, no oropharyngeal lesions, neck supple, trachea midline, no LAD, no thyromegaly, no JVD Heart: +S1/S2, regular, no m/r/g Lungs: equal air entry bilaterally, no rales/rhonchi/wheezes Abd: +BS, soft, NT/ND, no masses/organomegaly/ascites Ext: warm, 2+ pulses in UE/LE bilaterally, no clubbing/cyanosis or edema Neuro: nonfocal, patient AA&O x 4, speech intact, no facial droop, moving all extremities on command with equal strength 5/5 Results & Data Results & Data Vital Signs (Past 12 Hours) Vital Signs Temp Pulse Pulse Resp BP BP Pulse Ox 02/08/23 22:00 91 H 25 H 109/84 96 02/08/23 21:10 88 02/08/23 20:00 90 17 120/78 96 02/08/23 19:00 85 22 113/74 97 02/08/23 18:59 87 18 113/74 95 02/08/23 18:26 02/08/23 18:26 98 02/08/23 18:00 94 H 28 H 120/71 100 02/08/23 17:14 85 02/08/23 17:08 36.9 C 88 20 O2 Del Method 02/08/23 22:00 Room Air 02/08/23 21:10 02/08/23 20:00 02/08/23 19:00 02/08/23 18:59 Room Air 02/08/23 18:26 Room Air 02/08/23 18:26 Room Air 02/08/23 18:00 02/08/23 17:14 02/08/23 17:08 Laboratory Results Laboratory Results WBC 11.71 K/ul (4.8-10.8) H 02/09/23 04:36 RBC 3.20 M/uL (4.20-5.40) L 02/09/23 04:36 Hgb 9.8 g/dl (12.0-16.0) L 02/09/23 04:36 Hct 29.2 % (37.0-47.0) L 02/09/23 04:36 MCV 91.3 fL (80.0-100.0) 02/09/23 04:36 MCH 30.6 pg (25.0-34.0) 02/09/23 04:36 MCHC 33.6 g/dL (32.0-36.0) 02/09/23 04:36 RDW Std Deviation 54.5 fL (36.4-46.3) H 02/09/23 04:36 RDW Coeff of Rubi 16.8 % (11.5-14.5) H 02/09/23 04:36 Plt Count 464 K/uL (130-400) H 02/09/23 04:36 MPV 9.2 fL (9.4-12.4) L 02/09/23 04:36 Immature Gran % (Auto) 1.1 % 02/08/23 17:20 Neut % (Auto) 85.9 % 02/08/23 17:20 Lymph % (Auto) 7.4 % 02/08/23 17:20 [place] % (Auto) 5.1 % 02/08/23 17:20 Eos % (Auto) 0.2 % 02/08/23 17:20 Baso % (Auto) 0.3 % 02/08/23 17:20 Neut # (Auto) 11.38 K/uL (1.40-6.50) H 02/08/23 17:20 Lymph # (Auto) 0.98 K/uL (1.20-3.40) L 02/08/23 17:20 [place] # (Auto) 0.67 K/uL (0.11-0.59) H 02/08/23 17:20 Eos # (Auto) 0.03 K/uL (0.00-0.50) 02/08/23 17:20 Baso # (Auto) 0.04 K/uL (0.00-0.20) 02/08/23 17:20 Immature Gran # (Auto) 0.15 K/uL (0.01-0.20) 02/08/23 17:20 PT 10.3 Seconds (9.0-12.0) 02/08/23 17:20 INR 0.9 (0.9-1.1) 02/08/23 17:20 APTT 27.1 Seconds (21.0-31.0) 02/08/23 17:20 PTT Ratio 1.0 02/08/23 17:20 Sodium 137 mmol/L (136-145) 02/08/23 17:20 Potassium 3.3 mmol/L (3.5-5.1) L 02/08/23 17:20 Chloride 101 mmol/L (98-107) 02/08/23 17:20 Carbon Dioxide 25 mmol/L (21-32) 02/08/23 17:20 Anion Gap 11 (3-11) 02/08/23 17:20 BUN 22 mg/dl (6-23) 02/08/23 17:20 Creatinine 0.55 mg/dl (0.6-1.2) L 02/08/23 17:20 Est Cr Clr Drug Dosing 134.4 ml/min 02/08/23 17:20 Est GFR ( Amer) 116.5 ml/min 02/08/23 17:20 Est GFR (Non-Af Amer) 100.5 ml/min 02/08/23 17:20 BUN/Creatinine Ratio 40.0 (10-20) H 02/08/23 17:20 Glucose 214 mg/dl (70-99(Fasting)) H 02/08/23 17:20 POC Glucose 150 mg/dl (70-99) H 02/08/23 23:31 Calcium 9.2 mg/dl (8.6-10.3) 02/08/23 17:20 Magnesium 1.5 mg/dl (1.7-2.4) L 02/08/23 17:20 Total Bilirubin 1.2 mg/dl (0.2-1.0) H 02/08/23 17:20 AST 24 U/L (13-39) 02/08/23 17:20 ALT 12 U/L (7-52) 02/08/23 17:20 Alkaline Phosphatase 81 U/L (34-104) 02/08/23 17:20 Troponin I High Sens 3968.6 pg/ml (0-14) H* D 02/08/23 23:21 Total Protein 7.1 gm/dl (6.0-8.3) 02/08/23 17:20 Albumin 3.9 gm/dl (3.4-5.0) 02/08/23 17:20 Globulin 3.2 gm/dl (2.5-4.0) 02/08/23 17:20 Albumin/Globulin Ratio 1.2 (0.9-2) 02/08/23 17:20 Lipase 48 U/L (11-82) 02/08/23 17:20 Nasal Screen MRSA (PCR) Negative (Negative) 02/08/23 Unknown Impressions Chest X-Ray 02/08/23 17:46 XR chest 1V portable CLINICAL HISTORY: Chest pain, nonspecific TECHNIQUE: Single frontal radiograph of the chest was obtained. Comparison: Comparison is made to chest radiograph 01/26/2023 FINDINGS: No lines and tubes are seen. Cardiomegaly is noted. The lungs are clear. No evidence of pleural effusion or pneumothorax. IMPRESSION: No acute chest disease. ACT 112: Negative or not required by law. Electronically signed by: Donny Carbone M.D. 02/08/2023 6:22 PM Chest CTA 02/08/23 18:07 Exam(s): CTA CHEST W/WO Contrast IV Amt: 119 ML OPTIRAY 320 EXAM: CT Angiography Chest Without and With Intravenous Contrast CLINICAL HISTORY: Reason for exam: Dissection r/o, recent DE, ventricular aneurysm. TECHNIQUE: Axial computed tomographic angiography images of the chest without and with intravenous contrast. CTDI is 26.82 mGy and DLP is 919.6 mGy-cm. Automated exposure control was utilized for the study. A dose lowering technique was utilized adhering to the principles of ALARA. MIP reconstructed images were created and reviewed. CONTRAST: Patient received 119 ML OPTIRAY 320 of IV contrast COMPARISON: No relevant prior studies available. FINDINGS: LUNGS: No focal consolidation, pleural effusion, or pneumothorax. HEART: Cardiomegaly. VASCULATURE: No aortic dissection or aneurysm formation. No intramural hematoma. Mildly dilated main pulmonary artery trunk, measures 5 cm. THYROID: Within normal limits. MEDIASTINUM + LYMPH NODES: There are no pathologically enlarged mediastinal, hilar, or axillary lymph nodes. SUPERIOR ABDOMEN: Junior-en-Y gastric bypass. MUSCULOSKELETAL: Degenerative changes of the spine. IMPRESSION: No aortic dissection or aneurysm formation. No intramural hematoma. No acute pulmonary embolism. Electronically signed by: Jered Guadarrama MD 02/08/23 20:16 PM Abdomen/Pelvis CTA 02/08/23 18:11 Exam(s): CTA ABDOMEN + PELVIS With Contrast IV Amt: 119 ML OPTIRAY 320 EXAM: CT Angiography Abdomen and Pelvis With Intravenous Contrast CLINICAL HISTORY: Reason for exam: dissection. TECHNIQUE: Axial computed tomographic angiography images of the abdomen and pelvis with intravenous contrast. CTDI is 27.58 mGy and DLP is 1883.27 mGy-cm. Automated exposure control was utilized for the study. A dose lowering technique was utilized adhering to the principles of ALARA. MIP reconstructed images were created and reviewed. CONTRAST: Patient received 119 ML OPTIRAY 320 of IV contrast COMPARISON: No relevant prior studies available. FINDINGS: VASCULATURE: Aorta: Atherosclerotic changes of the aorta. No abdominal aortic aneurysm. No dissection. Celiac trunk and mesenteric arteries: No acute findings. No occlusion or significant stenosis. Renal arteries: No acute findings. No occlusion or significant stenosis. Iliac arteries: No acute findings. No occlusion or significant stenosis. Lung bases: Unremarkable. No mass. No consolidation. Heart: Cardiomegaly. ABDOMEN: Liver: Unremarkable. No mass. Gallbladder and bile ducts: Cholecystectomy. No ductal dilation. Pancreas: Unremarkable. No ductal dilation. No mass. Spleen: Unremarkable. No splenomegaly. Adrenals: Unremarkable. No mass. Kidneys and ureters: Unremarkable. No hydronephrosis. No solid mass. Stomach and bowel: LEFT-sided ventral abdominal wall hernia which contains loops of large and small bowel. The hernia neck is wide measuring 6.8 cm. No obstruction. Junior-en-Y gastric bypass. No obstruction of the jejunojejunostomy. No mucosal thickening. PELVIS: Appendix: No findings to suggest acute appendicitis. Bladder: Unremarkable. No mass. Reproductive: Unremarkable as visualized. ABDOMEN and PELVIS: Intraperitoneal space: Unremarkable. No significant fluid collection. No free air. Bones/joints: Degenerative changes of the spine. No acute fracture. No dislocation. Soft tissues: Suspected RIGHT inguinal lesion/hematoma, consider pelvic CT scan for further evaluation. Lymph nodes: Unremarkable. No enlarged lymph nodes. IMPRESSION: 1. LEFT-sided ventral abdominal wall hernia which contains loops of large and small bowel. The hernia neck is wide measuring 6.8 cm. No obstruction. 2. Suspected RIGHT inguinal lesion/hematoma, consider pelvic CT scan for further evaluation. 3. Junior-en-Y gastric bypass. No obstruction of the jejunojejunostomy. Electronically signed by: Jered Guadarrama MD 11/30/23 20:17 PM ECG Additional Comments: no acute ST elevations Code Status & VTE Plan VTE Prophylaxis Plan VTE Prophylaxis will be ordered: Yes PG Care Time/CCT Total # of Minutes Spent Total Time Spent with Patient: Total time spent is greater than 50% in coordination of care (as documented) at patient's floor/unit and/or counseling patient: Coding Level of Care Code 16671 INT INP/OBS CARE 3/75MIN Diagnoses Acute non-ST elevation myocardial infarction (NSTEMI) I21.4 Congestive heart failure, unspecified HF chronicity, unspecified heart failure type I50.9 Heart failure type: unspecified Heart failure chronicity: unspecified Diabetes mellitus E11.9 Diabetes mellitus type: type 2 Diabetes mellitus halfway insulin use: with long term care administrator use Diabetic retinopathy severity: with unspecified retinopathy severity Diabetes mellitus macular edema: macular edema presence unspecified Laterality: unspecified laterality Primary hypertension I10 Hypertension type: primary hypertension Hyperlipidemia, unspecified hyperlipidemia type E78.5 Hyperlipidemia type: unspecified (2) CHF (congestive heart failure) Heart failure type: unspecified Heart failure chronicity: unspecified Qual ified Code(s): I50.9 - Heart failure, unspecified (3) Diabetes mellitus Diabetes mellitus type: type 2 Diabetes mellitus halfway insulin use: with halfway use Diabetic retinopathy severity: with unspecified retinopathy severity Diabetes mellitus macular edema: macular edema presence unspecified Laterality: unspecified laterality (4) HTN (hypertension) Hypertension type: primary hypertension Qualified Code(s): I10 - Essential (primary) hypertension (5) Hyperlipidemia Hyperlipidemia type: unspecified Qualified Code(s): E78.5 - Hyperlipidemia, unspecified
--- NOTE | 2023-02-08 22:49 | Cardiology Consultation ---
Date of Consultation February 08, 2023 Assessment & Plan (1) Non-ST elevated myocardial infarction (non-STEMI): Will continue to monitor her troponin. I do recommend we obtain an echocardiogram to look for new wall motion abnormalities or worsening of her EF. Also need to evaluate for pericardial effusion as her chest pain may be indicative of a Jerardo type syndrome. For chest pain I recommended nitroglycerin drip. Will also keep her on heparin. She did not have significant occlusive coronary disease in the other vessels. However her EKG also does not suggest acute stent thrombosis as there are no ST elevations or other reciprocal ischemic changes. Between heparin, nitroglycerin, and her dual antiplatelet therapy the stent should remain patent and we should be able to control her chest discomfort. Further recommendations pending results of her echocardiogram and her response to her medical regimen. (2) S/P coronary artery stent placement: Continue aspirin and Brilinta at 81 mg daily and 90 mg p.o. twice daily respectively. Heparin drip shall continue for at least 24 to 48 hours. Guideline directed medical therapy for secondary prevention of coronary disease include low-dose aspirin, high intensity statin therapy (atorvastatin 80 mg daily), lisinopril 20 mg daily. We will likely transition her to a long-acting oral nitrate. (3) CHF (congestive heart failure): No evidence of volume overload at this time. The echocardiogram we did post ND showed EF of 40 to 45% with apical wall akinesis. A subsequent echo performed at [facility] suggested EF had returned to normal 55 to 60% and there was distal LAD territory hypokinesis. She does take Lasix 40 mg p.o. twice daily. Her renal function has remained stable but her potassium and magnesium are low. Potassium has been ordered IV and oral potassium should be supplemented as well. She was also placed on Farxiga 10 mg daily which should continue. (4) Hypomagnesemia: Patient should receive IV magnesium and then oral magnesium. (5) Hyperlipidemia: High risk. High intensity statin therapy ongoing with a atorvastatin 80 mg daily. (6) HTN (hypertension): She has been on lisinopril but not a beta-anshu. If her blood pressure and heart rate allow we should consider adding beta-anshu prior to discharge. If I recall correctly her beta-anshu had been held at discharge on last admission because of hypotension associated with her groin bleed. Plan I spent 60 minutes of time in examination, review of recent admission, all inpatient and outside facility records, review of her coronary angiography and stenting, review of her echoes, discussion with the patient, formulation and implementation of a plan of care, discussion with the care team, and documentation of all of the above. History of Present Illness Reason for Consultation: Chest pain, elevated troponin History of Present Illness This 62-year-old female known to me from recent admission for non-ST elevation ND. She has a history of substance abuse, prior coronary disease with PCI, and recently had typical anginal symptoms presenting with non-ST elevation ND. Attempted radial artery access for the cath was unsuccessful. She therefore had ultrasound-guided vascular asks as at the right femoral artery. Noted to have a high bifurcation of the SFA and profunda. She underwent coronary angiography of the left and right coronaries. She then had shockwave intracoronary lithotripsy for severe complex calcified disease in the LAD felt to be the culprit of her non-ST elevation ND. Drug-eluting stent was implanted and we had good angiographic results. She was very difficult to sedate and was unfortunately noncompliant with activity restrictions. She evidently sat up in the room in the ICU prematurely despite instructions not to do so and subsequently developed right groin hematoma and pseudoaneurysm. She was transferred to [facility] vascular surgery service where she underwent stenting of the right SFA and profunda. She was subsequently discharged and followed up by her primary care provider. She has not been seen in follow-up in the cardiology office. Today, she has sudden onset of chest discomfort similar to her recent non-ST elevation ND. She came to the emergency department where the EKG was unrevealing with regard to ischemia. Her troponin was elevated and she continued with chest pain. Second troponin was elevated further and I was therefore called to see her. She received nitroglycerin prior to my arrival and at that point she had no further chest discomfort. She is also been started on heparin. Review of her vascular surgery record indicates that she had stenting in the right groin with access via the left groin. Her prior radial access was unsuccessful. Since the patient has been compliant with anticoagulation and is currently without chest pain we discussed proceeding to [facility] versus a more conservative approach. Given her lack of ongoing symptoms and recent difficulties with catheterization in addition to her significant anxiety she prefers to abstain from catheterization at this time unless it is absolutely needed. I think that is fairly reasonable but told her that should she have recurrence of chest pain despite medications then I would recommend we return to the [facility]. She denies any syncope, near syncope, orthopnea, PND, racing hea rtbeat, palpitations, or edema. Allergies Allergy/AdvReac Type Severity Reaction Status Date / Time morphine Allergy Intermediate Hives Verified 02/08/23 20:43 adhesive Allergy Unknown Unknown Verified 02/08/23 20:43 amoxicillin [From Augmentin] AdvReac Intermediate Diarrhea Verified 02/08/23 20:43 clavulanic acid AdvReac Intermediate Diarrhea Verified 02/08/23 20:43 [From Augmentin] clonazepam AdvReac Intermediate short term Verified 02/08/23 20:43 memory loss NSAIDS (Non-Steroidal AdvReac Unknown CONTRAINDICATED Verified 02/08/23 20:43 Anti-Inflamma IS ON ANTICOAGULATION Home Medications Medication Instructions Recorded Confirmed Type atorvastatin 80 mg tablet 80 mg PO QAM #90 tabs 05/02/22 02/08/23 Rx blood sugar diagnostic ([employer] #100 ea 05/02/22 02/06/23 Rx Verio test strips) blood-glucose meter ([employer] #1 ea 05/02/22 02/06/23 Rx Verio Flex Meter) famotidine 20 mg tablet 20 mg PO DAILY #90 tabs 05/02/22 02/08/23 Rx lancets 33 gauge (OneTouch Delica #100 ea 05/02/22 02/06/23 Rx Lancets) docusate sodium 100 mg capsule 100 mg PO DAILY PRN constipation 07/26/22 02/08/23 History fluticasone propionate 50 2 spray intranasal DAILY 07/26/22 02/08/23 History mcg/actuation nasal spray,suspension (Flonase Allergy Relief) loratadine 10 mg tablet 10 mg PO DAILY PRN allergy symptoms 07/26/22 02/08/23 History metformin 1,000 mg tablet 1,000 mg PO BID #60 tabs 10/31/22 02/08/23 Rx lisinopril 20 mg tablet 20 mg PO DAILY #90 tabs 11/14/22 02/08/23 Rx albuterol sulfate 90 mcg/actuation 2 inh inhalation Q6H PRN shortness 12/01/22 02/08/23 Rx aerosol inhaler of breath or wheezing #8.5 grams cholecalciferol (vitamin D3) 1,250 50,000 unit PO WK #12 caps 12/13/22 02/08/23 Rx mcg (50,000 unit) capsule potassium chloride 20 mEq 20 meq PO DAILY #90 tabs 12/21/22 02/08/23 Rx tablet,extended release(part/cryst) aspirin 81 mg tablet,delayed 81 mg PO QAM #90 tabs 12/25/22 02/08/23 Rx release insulin aspart U-100 100 unit/mL See Rx Instructions subcut UD #15 12/28/22 02/08/23 Rx (3 mL) subcutaneous pen (Novolog mL FlexPen U-100 Insulin aspart) insulin glargine 100 unit/mL (3 20 unit (0.2 mL) subcut BID #15 mL 12/28/22 02/08/23 Rx mL) subcutaneous pen (Lantus Solostar U-100 Insulin) pen needle, diabetic 32 gauge x #200 ea 12/28/22 02/06/23 Rx 1/4" (BD Ultra-Fine Micro Pen Needle) dapagliflozin propanediol 10 mg 10 mg PO DAILY #90 tabs 01/20/23 02/08/23 Rx tablet (Farxiga) furosemide 40 mg tablet (Lasix) 40 mg PO BID #120 tabs 01/20/23 02/08/23 Rx acetaminophen 500 mg tablet 1,000 mg PO Q8H PRN pain 02/05/23 02/08/23 History ticagrelor 90 mg tablet 90 mg PO BID 02/05/23 02/08/23 History oxycodone 5 mg tablet 5 mg PO Q6H PRN pain #28 tabs 02/06/23 02/08/23 Rx ropinirole 1 mg tablet 1 mg PO TID #90 tabs 02/07/23 02/08/23 Rx magnesium oxide 0 mg PO DAILY 02/08/23 02/08/23 History pantoprazole 40 mg tablet,delayed 40 mg PO BID 02/08/23 02/08/23 History release zinc acetate 50 mg (zinc) capsule 50 mg PO DAILY 02/08/23 02/08/23 History Patient History Medical History Acute blood loss anemia NSTEMI (non-ST elevated myocardial infarction) CHF exacerbation Leg edema Radial fracture Cough Hypotension after procedure Diabetes mellitus treated with insulin and oral medication Closed fracture of radial styloid (07/03/22) Acute UTI Acute respiratory failure with hypoxia Rash Diabetes mellitus treated with oral medication Leukocytosis Abdominal wall abscess Hypocalcemia Hypomagnesemia Wound infection after surgery Abscess of vulva COVID-19 Open thigh wound Traumatic wound Chronic pain syndrome Acute hyperglycemia Methamphetamine abuse Acute ST elevation myocardial infarction (STEMI) of inferior wall Anastomotic ulcer S/P gastric bypass Restless leg syndrome Insomnia Anxiety and depression Leukocytosis DVT prophylaxis Incarcerated hernia Abdominal pain Ventral hernia Fibromyalgia HTN (hypertension) Gastric ulcer Bloody emesis Corneal abrasion Left corneal abrasion L1 vertebral fracture Migraine Acute cholecystitis UTI (lower urinary tract infection) Pneumonia Bronchitis Surgical History S/P coronary artery stent placement S/P anal fissurectomy History of ankle surgery S/P tonsillectomy S/P recurrent ventral herniorrhaphy S/P ventral herniorrhaphy repair [facility] 11/2021, then drainage of incisional abscess 12/2021 H/O gastric bypass S/P cholecystectomy H/O: hysterectomy H/O knee surgery Family History Father Myocardial infarction Leukemia Sister Ovarian cancer Myocardial infarction Other Family history of diabetes mellitus Hypertension Denies family history of Prostate cancer Breast cancer Colorectal cancer Social History Smoking Status: Current every day smoker Tobacco Type: Cigarettes packs per day: 1.5; Cigarettes Per Day: 20; Second Hand Exposure: Yes; Do You Dip or Chew Tobacco: No; Hx Alcohol Use: No Hx Substance Use: No Preferred Language: Austrian Communication Ability: Effective Visual Impairment: No Limitations Student Dean Required: No Beliefs That Will Affect Care: None marital status: Current Living Situation: Other Current Living Situation Comment: lives with daughter current occupational status: unemployed and disabled How many Children do You have: 2 Feels Safe at Home: Yes Childhood Exposure to Second-Hand Smoke: Yes Diet: regular during the past year weight has: remained stable Dental Care, Regularly: No Physical Activity Frequency: Does not Exercise Seatbelt Use: always Sunscreen Use: Yes Assistive Devices: Denture - Upper, Glasses and Nebulizer Review of Systems Review of Systems: Negative except as per HPI Physical Exam Constitutional: WD/WN, vitals as above (Morbidly obese, no acute distress) Eyes: Extraocular muscles intact. Sclera are anicteric. ENMT: Oral mucosa is pink moist and intact Neck: Thick without JVD Respiratory: Clear to auscultation bilaterally. No wheezing, rhonchi, or rales. Good air movement. Cardiovascular: Regular rate and rhythm. S4 gallop. Do not appreciate any rubs or murmurs. No edema. Musculoskeletal: no cyanosis or clubbing, extremities motor strength 5/5 (Right thigh ecchymosis) Neurologic: Extremely anxious. Difficulty sitting still. Cognition is intact. Speech is fluent. No focal deficits. Psychiatric: A+Ox3, euthymic affect (Anxious) Results & Data Vital Signs (Past 12 Hours) Vital Signs Temp Pulse Pulse Resp BP BP Pulse Ox 02/08/23 22:00 91 H 25 H 109/84 96 02/08/23 21:10 88 02/08/23 20:00 90 17 120/78 96 02/08/23 19:00 85 22 113/74 97 02/08/23 18:59 87 18 113/74 95 02/08/23 18:26 02/08/23 18:26 98 02/08/23 18:00 94 H 28 H 120/71 100 02/08/23 17:14 85 02/08/23 17:08 36.9 C 88 20 O2 Del Method 02/08/23 22:00 Room Air 02/08/23 21:10 02/08/23 20:00 02/08/23 19:00 02/08/23 18:59 Room Air 02/08/23 18:26 Room Air 02/08/23 18:26 Room Air 02/08/23 18:00 02/08/23 17:14 02/08/23 17:08 PG Care Time/CCT Total # of Minutes Spent Total Time Spent with Patient: Total time spent is greater than 50% in coordination of care (as documented) at patient's floor/unit and/or counseling patient: Coding Level of Care Code 22811 ER DEPT VISIT HIGH LVL 5 Diagnoses Non-ST elevated myocardial infarction (non-STEMI) I21.4 S/P coronary artery stent placement Z95.5 Congestive heart failure, unspecified HF chronicity, unspecified heart failure type I50.9 Heart failure type: unspecified Heart failure chronicity: unspecified Hypomagnesemia E83.42 Hyperlipidemia, unspecified hyperlipidemia type E78.5 Hyperlipidemia type: unspecified Primary hypertension I10 Hypertension type: primary hypertension Time Spent (min) 60 Comment (3) CHF (congestive heart failure) Heart failure type: unspecified Heart failure chronicity: unspecified Qualified Code(s): I50.9 - Heart failure, unspecified (5) Hyperlipidemia Hyperlipidemia type: unspecified Qualified Code(s): E78.5 - Hyperlipidemia, unspecified (6) HTN (hypertension) Hypertension type: primary hypertension Qualified Code(s): I10 - Essential (primary) hypertension
[2023-02-08] MEDS ORDERED: GLUCOSE 10 TAB/TUBE PO PRN (22:55)
[2023-02-08] MEDS ORDERED: CARBOHYDRATES FOR HYPOGLYCEMIA PO PRN (22:55)
[2023-02-08] MEDS ORDERED: GLUCOSE 40% GEL 15 GM TUBE PO PRN (22:55)
[2023-02-08] MEDS ORDERED: STAT IV Infusion **Titration per Protocol STA (22:55)
[2023-02-08] MEDS ORDERED: GLUCAGON FOR INJ 1 MG VIAL SQ PRN (22:55)
[2023-02-08] MEDS ORDERED: DEXTROSE 50% 50 ML SYRINGE IV PRN (22:55)
[2023-02-08] MEDS ORDERED: POTASSIUM CHLORIDE CRTAB 20 MEQ TABCR PO STA (23:14)
[2023-02-08] MEDS: MAGNESIUM SULFATE / D5W 1 GM/100 ML BAG IV SCH (23:42)
[2023-02-08] MEDS: TICAGRELOR 90 MG TAB PO SCH (23:43)
[2023-02-08] MEDS: HEPARIN SODIUM/DEXTROSE 25,000 UNITS/500 ML BAG IV SCH (23:45)
[2023-02-08] MEDS: NITROGLYCERIN/D5W 100MCG/ML 250 ML IV SCH (23:47)
[2023-02-08] MEDS: LANTUS PER UNIT CHARGE SQ SCH (23:50)
[2023-02-08] MEDS: INSULIN ASPART PER UNIT CHARGE SC SCH (23:51)
--- NOTE | 2023-02-09 01:55 | Critical Care Consultation ---
Date of Consultation February 08, 2023 Assessment & Plan (1) Acute non-ST elevation myocardial infarction (NSTEMI): Impression: 62-year-old female with recent admission for NSTEMI with PCI x2 complicated by right groin hematoma and pseudoaneurysm requiring transfer to [facility] and vascular stent placement, now presents to the ICU with ongoing chest pain following NSTEMI, requiring nitro drip for chest pain control. Currently on heparin drip as well. Neuro - [facility] ICU: Negative Cardiac - NSTEMIhistory of CAD and recent admission for NSTEMI where she received PCI to the LAD. Now represents with chest pain and elevated troponin. -No significant ST elevation on EKG. Cardiology evaluated and no indication for emergent catheterization. -Started on heparin drip and nitro drip -Trend troponins for peak -Repeat echo -Continue ASA, statin, lisinopril, Brilinta -Continuous monitor on telemetry Diastolic heart failuremost recent echo 01/29/2023 with mildly dilated LV normal systolic function, EF 59% with distal LAD territory hypokinesis. RV dilation with normal function. No valvular abnormalities -Appears euvolemic on exam without edema. -Continue Lasix twice daily Right femoral artery pseudoaneurysmrecent transfer to [facility] where she received stenting. Appears stable on exam Respiratory - No history of pulmonary disease. Currently maintaining oxygen saturation on room air. Continuous monitoring on pulse ox GI - Heart healthy diet Continue PPI RENAL/LYTES - Creatinine within normal limits, monitor routine BMPs and replete electrolytes as indicated - Strict I's and O's ENDO - DM type IIcontinue basal bolus/sliding scale. ICU hyperglycemic protocol HEME - H&H stable, monitor routine CBC ID - No indication for infectious process at this time LINES/IV ACCESS - Peripheral IVs DVT PROPHYLAXIS - SCDs, heparin drip Thank you for allowing us to participate in the care of this patient. Please refer to my attending physician's documentation for any further recommendations. (2) Femoral artery pseudo-aneurysm, right: (3) CHF (congestive heart failure): (4) CAD (coronary artery disease): (5) Mood disorder: (6) Hyperlipidemia: (7) Fibromyalgia: (8) HTN (hypertension): History of Present Illness Attending Physician: Avril Lentz DO History of Present Illness Patient is a 62-year-old female with past medical history of diastolic heart failure, CAD, HTN, HLD, DM type II, anxiety and depression, fibromyalgia, substance abuse, and recent admission with NSTEMI 2 weeks ago where she underwent PCI x2 which was complicated by right groin hematoma and pseudoaneurysm development requiring transfer to tertiary center at [facility] for vascular stent. Patient presented to the emergency department earlier today with chest discomfort similar to previous NSTEMI. Patient was evaluated by cardiology, and no ST elevation on EKG. Troponin was elevated and she was started on heparin and nitro drip, which appears to have improved her chest pain. patient now admitted to ICU for further management at this time. On arrival to the ICU the patient is alert and oriented. She is somewhat anxious and restless on exam. Patient reports earlier today that she began to have continuous chest pain with radiation into the left arm, which now seems to have resolved following administration of IV nitro drip. She denies headache, d izziness, syncopal events, changes in vision or gait, fevers, cough, sore throat, congestion, shortness of breath, palpitations, abdominal pain, nausea vomiting or diarrhea, swelling in hands or feet. Patient does report swelling and tenderness at the site of hematoma in her right groin. Allergies Allergy/AdvReac Type Severity Reaction Status Date / Time morphine Allergy Intermediate Hives Verified 02/08/23 20:43 adhesive Allergy Unknown Unknown Verified 02/08/23 20:43 amoxicillin [From Augmentin] AdvReac Intermediate Diarrhea Verified 02/08/23 20:43 clavulanic acid AdvReac Intermediate Diarrhea Verified 02/08/23 20:43 [From Augmentin] clonazepam AdvReac Intermediate short term Verified 02/08/23 20:43 memory loss NSAIDS (Non-Steroidal AdvReac Unknown CONTRAINDICATED Verified 02/08/23 20:43 Anti-Inflamma IS ON ANTICOAGULATION Home Medications Medication Instructions Recorded Confirmed Type atorvastatin 80 mg tablet 80 mg PO QAM #90 tabs 05/02/22 02/08/23 Rx blood sugar diagnostic (NSH Holdcouch #100 ea 05/02/22 02/06/23 Rx Verio test strips) blood-glucose meter (Telecardia #1 ea 05/02/22 02/06/23 Rx Verio Flex Meter) famotidine 20 mg tablet 20 mg PO DAILY #90 tabs 05/02/22 02/08/23 Rx lancets 33 gauge (OneTouch Delica #100 ea 05/02/22 02/06/23 Rx Lancets) docusate sodium 100 mg capsule 100 mg PO DAILY PRN constipation 07/26/22 02/08/23 History fluticasone propionate 50 2 spray intranasal DAILY 07/26/22 02/08/23 History mcg/actuation nasal spray,suspension (Flonase Allergy Relief) loratadine 10 mg tablet 10 mg PO DAILY PRN allergy symptoms 07/26/22 02/08/23 History metformin 1,000 mg tablet 1,000 mg PO BID #60 tabs 10/31/22 02/08/23 Rx lisinopril 20 mg tablet 20 mg PO DAILY #90 tabs 11/14/22 02/08/23 Rx albuterol sulfate 90 mcg/actuation 2 inh inhalation Q6H PRN shortness 12/01/22 02/08/23 Rx aerosol inhaler of breath or wheezing #8.5 grams cholecalciferol (vitamin D3) 1,250 50,000 unit PO WK #12 caps 12/13/22 02/08/23 Rx mcg (50,000 unit) capsule potassium chloride 20 mEq 20 meq PO DAILY #90 tabs 12/21/22 02/08/23 Rx tablet,extended release(part/cryst) aspirin 81 mg tablet,delayed 81 mg PO QAM #90 tabs 12/25/22 02/08/23 Rx release insulin aspart U-100 100 unit/mL See Rx Instructions subcut UD #15 12/28/22 02/08/23 Rx (3 mL) subcutaneous pen (Novolog mL FlexPen U-100 Insulin aspart) insulin glargine 100 unit/mL (3 20 unit (0.2 mL) subcut BID #15 mL 12/28/22 02/08/23 Rx mL) subcutaneous pen (Lantus Solostar U-100 Insulin) pen needle, diabetic 32 gauge x #200 ea 12/28/22 02/06/23 Rx 1/4" (BD Ultra-Fine Micro Pen Needle) dapagliflozin propanediol 10 mg 10 mg PO DAILY #90 tabs 01/20/23 02/08/23 Rx tablet (Farxiga) furosemide 40 mg tablet (Lasix) 40 mg PO BID #120 tabs 01/20/23 02/08/23 Rx acetaminophen 500 mg tablet 1,000 mg PO Q8H PRN pain 02/05/23 02/08/23 History ticagrelor 90 mg tablet 90 mg PO BID 02/05/23 02/08/23 History oxycodone 5 mg tablet 5 mg PO Q6H PRN pain #28 tabs 02/06/23 02/08/23 Rx ropinirole 1 mg tablet 1 mg PO TID #90 tabs 02/07/23 02/08/23 Rx magnesium oxide 0 mg PO DAILY 02/08/23 02/08/23 History pantoprazole 40 mg tablet,delayed 40 mg PO BID 02/08/23 02/08/23 History release zinc acetate 50 mg (zinc) capsule 50 mg PO DAILY 02/08/23 02/08/23 History Patient History Medical History Acute blood loss anemia NSTEMI (non-ST elevated myocardial infarction) CHF exacerbation Leg edema Radial fracture Cough Hypotension after procedure Diabetes mellitus treated with insulin and oral medication Closed fracture of radial styloid (07/03/22) Acute UTI Acute respiratory failure with hypoxia Rash Diabetes mellitus treated with oral medication Leukocytosis Abdominal wall abscess Hypocalcemia Hypomagnesemia Wound infection after surgery Abscess of vulva COVID-19 Open thigh wound Traumatic wound Chronic pain syndrome Acute hyperglycemia Methamphetamine abuse Acute ST elevation myocardial infarction (STEMI) of inferior wall Anastomotic ulcer S/P gastric bypass Restless leg syndrome Insomnia Anxiety and depression Leukocytosis DVT prophylaxis Incarcerated hernia Abdominal pain Ventral hernia Fibromyalgia HTN (hypertension) Gastric ulcer Bloody emesis Corneal abrasion Left corneal abrasion L1 vertebral fracture Migraine Acute cholecystitis UTI (lower urinary tract infection) Pneumonia Bronchitis Surgical History S/P coronary artery stent placement S/P anal fissurectomy History of ankle surgery S/P tonsillectomy S/P recurrent ventral herniorrhaphy S/P ventral herniorrhaphy repair [facility] 11/2021, then drainage of incisional abscess 12/2021 H/O gastric bypass S/P cholecystectomy H/O: hysterectomy H/O knee surgery Family History Father Myocardial infarction Leukemia Sister Ovarian cancer Myocardial infarction Other Family history of diabetes mellitus Hypertension Denies family history of Prostate cancer Breast cancer Colorectal cancer Social History Smoking Status: Current every day smoker Tobacco Type: Cigarettes packs per day: 1.5; Cigarettes Per Day: 20; Second Hand Exposure: Yes; Do You Dip or Chew Tobacco: No; Hx Alcohol Use: No Hx Substance Use: Yes Prescribed Medications: Marijuana and Other Non- Prescribed Medications: Crack / Cocaine and Methamphetamines Last Used Substance: Unknown Last Used Substance Other:: meth 4 months ago ? long time marijuana Preferred Language: [place] Communication Ability: Effective Visual Impairment: No Limitations Micro Paleontologist Required: No Beliefs That Will Affect Care: None marital status: Current Living Situation: Family Current Living Situation Comment: lives with daughter current occupational status: unemployed and disabled How many Children do You have: 2 Feels Safe at Home: Yes Safety Concerns: Feels Safe At This Time Childhood Exposure to Second-Hand Smoke: Yes Diet: regular during the past year weight has: remained stable Dental Care, Regularly: No Physical Activity Frequency: Does not Exercise Seatbelt Use: always Sunscreen Use: Yes Assistive Devices: Denture - Upper, Glasses and Nebulizer Review of Systems Review of Systems: All systems reviewed & are unremarkable except as noted in HPI & below Physical Exam Constitutional: + obese and cooperative Eyes: PERRL, conjunctivae normal, anicteric sclerae ENMT: external ear and nose normal, oropharynx normal Neck: trachea midline, no thyromegaly Respiratory: normal respiratory effort, lungs clear to auscultation Cardiovascular: RRR, no murmur, no edema Heart Sounds: normal S1 and normal S2 Extremities: normal capillary refill; no edema Gastrointestinal (Abdomen): normal bowel sounds, soft, nontender, no hepatosplenomegaly Musculoskeletal: no cyanosis or clubbing, extremities motor strength 5/5 Swelling and erythema at the right groin/inner thigh Skin: no rashes, warm and dry Neurologic: PERRL, EOMI, accommodation nl, no face palsy, no dysarthria Psychiatric: Orientation: oriented x 3 and cooperative Results & Data Results & Data Vital Signs (Past 12 Hours) Vital Signs Temp Pulse Pulse Resp BP BP BP 02/09/23 00:15 87 31 H 02/09/23 00:00 130/94 02/09/23 00:00 83 23 02/09/23 00:00 02/08/23 23:45 86 15 02/08/23 23:30 85 26 H 02/08/23 23:15 89 24 02/08/23 23:15 121/73 02/08/23 23:14 84 24 02/08/23 23:10 89 20 121/73 02/08/23 23:00 02/08/23 22:00 91 H 25 H 109/84 02/08/23 21:10 88 02/08/23 20:00 90 17 120/78 02/08/23 19:00 85 22 113/74 02/08/23 18:59 87 18 113/74 02/08/23 18:26 02/08/23 18:26 02/08/23 18:00 94 H 28 H 120/71 02/08/23 17:14 85 02/08/23 17:08 36.9 C 88 20 Pulse Ox O2 Del Method 02/09/23 00:15 02/09/23 00:00 02/09/23 00:00 02/09/23 00:00 Room Air 02/08/23 23:45 02/08/23 23:30 98 02/08/23 23:15 02/08/23 23:15 02/08/23 23:14 02/08/23 23:10 97 Room Air 02/08/23 23:00 Room Air 02/08/23 22:00 96 Room Air 02/08/23 21:10 02/08/23 20:00 96 02/08/23 19:00 97 02/08/23 18:59 95 Room Air 02/08/23 18:26 Room Air 02/08/23 18:26 98 Room Air 02/08/23 18:00 100 02/08/23 17:14 02/08/23 17:08 Coding Level of Care Code 06235 IN/OBS CONSULT LVL 3,45M Diagnoses Acute non-ST elevation myocardial infarction (NSTEMI) I21.4 Femoral artery pseudo-aneurysm, right I72.4 Congestive heart failure, unspecified HF chronicity, unspecified heart failure type I50.9 Heart failure chronicity: unspecified Heart failure type: unspecified Coronary artery disease involving [place] heart with angina pectoris, unspecified vessel or lesion type I25.119 Associated angina: with unspecified form of angina Coronary Disease-Associated Artery/Lesion type: unspecified vessel or lesion type [place] vs. transplanted heart: [place] heart Mood disorder F39 Hyperlipidemia, unspecified hyperlipidemia type E78.5 Hyperlipidemia type: unspecified Fibromyalgia M79.7 Primary hypertension I10 Hypertension type: primary hypertension Time Spent (min) 50 (3) CHF (congestive heart failure) Heart failure chronicity: unspecified Heart failure type: unspecified Qualified Code(s): I50.9 - Heart failure, unspecified (4) CAD (coronary artery disease) Associated angina: with unspecified form of angina Coronary Disease- Associated Artery/Lesion type: unspecified vessel or lesion type [place] vs. transplanted heart: [place] heart Qualified Code(s): I25.119 - Atherosclerotic heart disease of [place] coronary artery with unspecified angina pectoris (6) Hyperlipidemia Hyperlipidemia type: unspecified Qualified Code(s): E78.5 - Hyperlipidemia, unspecified (8) HTN (hypertension) Hypertension type: primary hypertension Qualified Code(s): I10 - Essential (primary) hypertension
[2023-02-09] MEDS: MAGNESIUM SULFATE / D5W 1 GM/100 ML BAG IV SCH ×5 (02:52→12:51)
[2023-02-09] MEDS: POTASSIUM CHLORIDE / WTR 10 MEQ/100 ML PLCT IV SCH ×6 (02:52→11:14)
[2023-02-09] MEDS: ACETAMINOPHEN 500 MG TAB PO PRN ×2 (03:54→20:35)
[2023-02-09 04:50] LABS: Hematocrit (blood only) 29.2 % (37.0-47.0); Hemoglobin 9.8 g/dl (12.0-16.0); Mean Corpuscular Hemoglobin 30.6 pg (25.0-34.0); Mean Corpuscular Hgb Conc 33.6 g/dL (32.0-36.0); Mean Corpuscular Volume 91.3 fL (80.0-100.0); Mean Platelet Volume 9.2 fL (9.4-12.4); Platelet Count 464 K/uL (130-400); RDW Coefficient of Variation 16.8 % (11.5-14.5); RDW Standard Deviation 54.5 fL (36.4-46.3); White Blood Count 11.71 K/ul (4.8-10.8)
[2023-02-09] MEDS ORDERED: MAGNESIUM SULFATE / D5W 1 GM/100 ML BAG IV SCH (05:00)
[2023-02-09 05:09] LABS: Albumin Level 3.3 gm/dl (3.4-5.0); BUN Creatinine Ratio 33.3 (10-20); Bilirubin Direct 0.2 mg/dl (0-0.2); Calcium 8.7 mg/dl (8.6-10.3); Est GFR (African American) 127.3 ml/min; Est GFR (Non-African American) 109.9 ml/min; Magnesium 1.5 mg/dl (1.7-2.4); Potassium 3.2 mmol/L (3.5-5.1)
--- NOTE | 2023-02-09 07:22 | Critical Care Progress Note ---
Date of Service February 09, 2023 Assessment & Plan (1) Acute non-ST elevation myocardial infarction (NSTEMI): Plan: Impression: 62-year-old female with recent admission for NSTEMI with PCI x2 complicated by right groin hematoma and pseudoaneurysm requiring [place] [facility] [place], now presents to the ICU with ongoing chest pain following NSTEMI, requiring nitro drip for chest pain control. Currently on heparin drip as well. Neuro - [facility] ICU: Negative Cardiac - -- NSTEMI history of CAD and recent admission for NSTEMI where she received PCI to the LAD. -No significant ST elevation on EKG, troponin trending up 10,964 latest 1 -On heparin drip and nitro drip -Trend troponins -Continue ASA, statin, lisinopril, Brilinta -Continuous monitor on telemetry 2D echo 01/29/2023: Mildly dilated LV normal systolic function, EF 59% with distal LAD territory hypokinesis. -- Diastolic heart failure -Continue with diuretics to keep the patient euvolemic to negative balance -- Right femoral artery pseudoaneurysm recent [place] [facility] [place]p [place] Respiratory - -- COPD with emphysema Not on any inhalers at home Recommend PFT as an outpatient -- Current smoker Positive quitting explained GI - Continue PPI RENAL/LYTES - Monitor BUNs/creatinine Replace electrolytes as needed - Strict I's and O's ENDO - DM type II Continue with ICU hyperglycemia protocol HEME - H&H stable, monitor routine CBC ID - No indication for infectious process at this time --History of drug abuse Last use was 5 months ago Usually smokes meth --Prophylaxis VTE: Heparin drip GI: Pantoprazole and Pepcid Lines: Peripheral Diet: N.p.o. Plan: In/out: -490, urine output 1700 mL Potassium and magnesium are being replaced Patient is a hard stick. We will try to get an ultrasound-guided line. Continue with nitro drip, pain medications for chest pain Cardiology on board, plan is likely to have cardiac cath I have personally spent 38 minutes of critical care time in the direct management of this patient. This is a life/limb threatening event. This includes time spent evaluating patient, direct bedside care, chart review, placing orders, interpretation of diagnostic studies, discussion with consultants, patient, and family members, as well as other required patient management activities. This time is exclusive of all separately billable procedures, and teaching time and separate from and in addition to any other critical care service time. Please note the above document was generated using voice recognition software. It may contain grammatical, syntax or spelling errors. (2) Femoral artery pseudo-aneurysm, right: (3) CHF (congestive heart failure): (4) CAD (coronary artery disease): (5) Mood disorder: (6) Hyperlipidemia: (7) Fibromyalgia: (8) HTN (hypertension): Admission and Anticipated Discharge Date Admission Date: February 08, 2023 Subjective Patient seen and examined at bedside. Patient was on nitro drip as well as heparin drip at the time of examination Her MAP was in the low 80s. She was still complaining of chest pain nonradiating. Denies any nausea vomiting No headache, no blurry vision. No abdominal pain. Review of Systems 2 Review of Systems: All systems reviewed & are unremarkable except as noted in Subjective Physical Exam 2 Physical Exam: Constitutional: No acute distress HEENT: EOMI, PERRLA Respiratory system: Good air entry bilaterally, no wheeze, no rhonchi, mild crackles bilateral lower lobes CVS: S1-S2 positive, no murmurs or gallops Abdomen: Soft, nontender, nondistended, positive bowel sounds x4, positive midline scar, left lower quadrant reducible hernia appreciated Extremities: +2 pulses bilaterally radialis/ dorsalis pedis, no cyanosis, no edema Neuro: Awake alert oriented x3 Psych: Normal mood and affect G/U: No Herrera Musculoskeletal: Right groin swelling with surrounding resolving hematoma appreciated Skin: no rashes, warm and dry Lymphatic: no cervical or axillary lymphadenopathy Results & Data Results & Data Vital Signs (Past 12 Hours) Vital Signs Pulse Pulse Resp BP BP BP Pulse Ox 02/09/23 05:00 98 H 21 91 02/09/23 05:00 107/56 L 02/09/23 04:00 107/61 02/09/23 04:00 91 H 23 88 L 02/09/23 03:00 106/63 02/09/23 03:00 87 18 02/09/23 02:00 124/66 02/09/23 02:00 88 28 H 02/09/23 01:00 127/63 02/09/23 01:00 85 18 98 02/09/23 00:15 87 31 H 12/01/23 00:00 130/94 02/09/23 00:00 83 23 02/09/23 00:00 02/08/23 23:45 86 15 02/08/23 23:30 85 26 H 98 02/08/23 23:15 89 24 02/08/23 23:15 121/73 02/08/23 23:14 84 24 02/08/23 23:10 89 20 121/73 97 02/08/23 23:00 02/08/23 22:00 91 H 25 H 109/84 96 02/08/23 21:10 88 02/08/23 20:00 90 17 120/78 96 O2 Del Method 02/09/23 05:00 02/09/23 05:00 02/09/23 04:00 02/09/23 04:00 02/09/23 03:00 02/09/23 03:00 02/09/23 02:00 02/09/23 02:00 02/09/23 01:00 02/09/23 01:00 02/09/23 00:15 02/09/23 00:00 02/09/23 00:00 02/09/23 00:00 Room Air 02/08/23 23:45 02/08/23 23:30 02/08/23 23:15 02/08/23 23:15 02/08/23 23:14 02/08/23 23:10 Room Air 02/08/23 23:00 Room Air 02/08/23 22:00 Room Air 02/08/23 21:10 02/08/23 20:00 Laboratory Results 02/09/23 04:36 02/09/23 04:36 Coding Level of Care Code 00665 CRITICAL CARE 1ST 30-74M Diagnoses Acute non-ST elevation myocardial infarction (NSTEMI) I21.4 Femoral artery pseudo-aneurysm, right I72.4 Congestive heart failure, unspecified HF chronicity, unspecified heart failure type I50.9 Heart failure chronicity: unspecified Heart failure type: unspecified Coronary artery disease involving [place] heart with angina pectoris, unspecified vessel or lesion type I25.119 Associated angina: with unspecified form of angina Coronary Disease-Associated Artery/Lesion type: unspecified vessel or lesion type [place] vs. transplanted heart: [place] heart Mood disorder F39 Hyperlipidemia, unspecified hyperlipidemia type E78.5 Hyperlipidemia type: unspecified Fibromyalgia M79.7 Primary hypertension I10 Hypertension type: primary hypertension Time Spent (min) 38 (3) CHF (congestive heart failure) Heart failure chronicity: unspecified Heart failure type: unspecified Qualified Code(s): I50.9 - Heart failure, unspecified (4) CAD (coronary artery disease) Associated angina: with unspecified form of angina Coronary Disease- Associated Artery/Lesion type: unspecified vessel or lesion type [place] vs. transplanted heart: [place] heart Qualified Code(s): I25.119 - Atherosclerotic heart disease of [place] coronary artery with unspecified angina pectoris (6) Hyperlipidemia Hyperlipidemia type: unspecified Qualified Code(s): E78.5 - Hyperlipidemia, unspecified (8) HTN (hypertension) Hypertension type: primary hypertension Qualified Code(s): I10 - Essential (primary) hypertension
[2023-02-09] MEDS ORDERED: ICU Protocol for HYPERglycemia SCH (07:30)
[2023-02-09] MEDS ORDERED: POTASSIUM CHLORIDE CRTAB 20 MEQ TABCR PO STA (07:42)
[2023-02-09 07:59] LABS: Partial Thromboplastin Ratio 1.4
[2023-02-09] MEDS ORDERED: PLASMA-LYTE A 500 ML IV SCH (08:00)
[2023-02-09 08:06] LABS: Partial Thromboplastin Time 40.4 Seconds (21.0-31.0)
[2023-02-09 08:07] LABS: Phosphorus 2.8 mg/dl (2.5-4.9)
[2023-02-09] MEDS: FUROSEMIDE 40 MG TAB PO SCH ×2 (08:08→17:59)
[2023-02-09] MEDS: INSULIN ASPART PER UNIT CHARGE SC SCH ×4 (08:20→21:04)
[2023-02-09] MEDS: LANTUS PER UNIT CHARGE SQ SCH ×2 (08:20→21:05)
[2023-02-09] MEDS: ASPIRIN 81 MG ECTAB PO SCH (08:30)
[2023-02-09] MEDS: TICAGRELOR 90 MG TAB PO SCH ×2 (08:33→20:34)
[2023-02-09] MEDS ORDERED: diphenhydrAMINE 50 MG/ML VIAL ONE (08:50)
[2023-02-09] MEDS ORDERED: ASPIRIN 81 MG ECTAB PO SCH (09:00)
[2023-02-09] MEDS ORDERED: lisinopril 20 MG TAB PO SCH ×2 (09:00)
[2023-02-09] MEDS ORDERED: ATORVASTATIN 40 MG TAB PO SCH (09:00)
[2023-02-09] MEDS ORDERED: TICAGRELOR 90 MG TAB PO SCH (09:00)
[2023-02-09] MEDS ORDERED: niCARdipine HCL INJ 2.5 MG/ML 10 ML AMP ONE (09:08)
[2023-02-09] MEDS ORDERED: MIDAZOLAM HCL 1 MG/ML 2ML VIAL ONE ×2 (09:08→09:32)
[2023-02-09] MEDS ORDERED: HEPARIN (PORCINE) 1000 UNIT/ML 10 ML (CATH LAB USE ONLY) ONE (09:08)
[2023-02-09] MEDS ORDERED: NITROGLYCERIN/D5W 100MCG/ML 20ML SYR ONE (09:09)
[2023-02-09] MEDS ORDERED: fentaNYL citrate PF 100 MCG/2 ML VIAL ONE (09:09)
[2023-02-09] MEDS ORDERED: LIDOCAINE 1% LOCAL 20 ML VIAL ONE (09:30)
[2023-02-09] MEDS ORDERED: PHENYLEPHRINE HCL INJ 10 MG/ML VIAL (CATH LAB USE ONLY) ONE (09:39)
--- NOTE | 2023-02-09 11:15 | Post Anesthesia Assessment ---
Date of Service February 09, 2023 Post Sedation Assessment Vital Signs Temp Pulse Pulse Resp BP BP BP 02/09/23 10:39 60 18 122/69 02/09/23 08:00 02/09/23 08:00 02/09/23 08:00 88 02/09/23 07:38 114/57 L 02/09/23 07:38 88 17 02/09/23 07:00 83 20 02/09/23 07:00 101/57 L 02/09/23 06:00 98/58 L 02/09/23 06:00 88 12 02/09/23 05:00 98 H 21 02/09/23 05:00 107/56 L 02/09/23 04:00 107/61 02/09/23 04:00 91 H 23 02/09/23 03:00 106/63 02/09/23 03:00 87 18 02/09/23 02:00 124/66 02/09/23 02:00 88 28 H 02/09/23 01:00 127/63 02/09/23 01:00 85 18 02/09/23 00:15 87 31 H 02/09/23 00:00 130/94 02/09/23 00:00 83 23 02/09/23 00:00 02/08/23 23:45 86 15 02/08/23 23:30 85 26 H 02/08/23 23:15 89 24 02/08/23 23:15 121/73 02/08/23 23:14 84 24 02/08/23 23:10 89 20 121/73 02/08/23 23:00 02/08/23 22:00 91 H 25 H 109/84 02/08/23 21:10 88 02/08/23 20:00 90 17 120/78 02/08/23 19:00 85 22 113/74 02/08/23 18:59 87 18 113/74 02/08/23 18:26 02/08/23 18:26 02/08/23 18:00 94 H 28 H 120/71 02/08/23 17:14 85 02/08/23 17:08 36.9 C 88 20 Pulse Ox O2 Del Method 02/09/23 10:39 97 Room Air 02/09/23 08:00 Room Air 02/09/23 08:00 Room Air 02/09/23 08:00 02/09/23 07:38 02/09/23 07:38 95 Room Air 02/09/23 07:00 96 02/09/23 07:00 02/09/23 06:00 02/09/23 06:00 93 02/09/23 05:00 91 02/09/23 05:00 02/09/23 04:00 02/09/23 04:00 88 L 02/09/23 03:00 02/09/23 03:00 02/09/23 02:00 02/09/23 02:00 02/09/23 01:00 02/09/23 01:00 98 02/09/23 00:15 02/09/23 00:00 02/09/23 00:00 02/09/23 00:00 Room Air 02/08/23 23:45 02/08/23 23:30 98 02/08/23 23:15 02/08/23 23:15 02/08/23 23:14 02/08/23 23:10 97 Room Air 02/08/23 23:00 Room Air 02/08/23 22:00 96 Room Air 02/08/23 21:10 02/08/23 20:00 96 02/08/23 19:00 97 02/08/23 18:59 95 Room Air 02/08/23 18:26 Room Air 02/08/23 18:26 98 Room Air 02/08/23 18:00 100 02/08/23 17:14 02/08/23 17:08 Recovery Score Activity: Moves 4 extremities Respiration: Deep Breath/Cough Circulation: +/-20% PreAnes Value Consciousness: Arouseable (by name) Oxygen Saturation: > 92% On Room Air Post Anesthesia Score: 9 Discharge Sedation Level of Care: Fast Track Phase II Post Sedation Plan On clinical assessment, the patient appears to have tolerated the sedation without complications. Patient is recovering as anticipated. Patient will continue to be monitored by nursing and may be discharged when sedation discharge criteria are met per below protocol. Upon Completions of procedure up to 15 minutes continue every 5 minute vital signs and the P.A.R. score; then discharge to a Phase I or Fast Track to Phase II per the following guidelines: * Discharge Patient to appropriate Phase II area if PAR is 8 or greater or return to pre- procedure baseline. The post - procedure orders will be as directed. * If PAR score is less than 8 or not return to pre-procedure baseline then patie nt will follow Phase I monitoring till PAR is reached for Phase II. The Phase I may be done in procedure room or may call to secure a Phase I area. * If naloxone or flumazenil are used for reversal, hold in Phase I for continued monitoring from when last reversal dose was given for a minimum of 60 minutes or longer pending the nurse and/or physician discretion of patient condition before discharge to Phase II. Please call the Sedation Physician to re-evaluate and complete post-note for discharge to Phase II area. Do NOT discharge from procedure sedation or Phase 1 until post- sedation ev aluation note is complete by procedure /sedation MD Sedation Discharge Instructions to be given to the patient at discharge to home. [facility] Procedure Codes (Charges) Indication for Procedure Indication for procedure: NSTEMI CARDIOMYOPATHY RECENT STENT Sedation/Anesthesia Procedure 1: Sedation/Anesthesia: 76991 Mod Sedation by the same physician;Init15 Min Child Age 5 & Up (INITIAL 15 MIN, START 0920) Total Sedation Time (minutes): 60 Procedure 2: Sedation/Anesthesia: 77425 Mod Sedation by the same physician; Ea [id number] Minutes (ADDITIONAL 45 MIN, END TIME 1020) Total Sedation Time (minutes): 60
--- NOTE | 2023-02-09 11:25 | Cardiac Catheterization ---
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 Cardiac Status Clinical evaluation leading to the procedure CAD Presenation: Non STEMI Anginal Classification: CCS IV Heart Failure: NYHA Class: CCS III Cardiogenic Shock within 24 Hours: No Cardiac Arrest within 24 Hours: No Imaging Studies Past 6 Months: Yes Coronary Anatomy Dominant: Right Left Main (% Stenosis): Normal (Mild diffuse) LAD (% Stenosis): Proximal (Diffuse up to 30%, moderate calcification, stent patent), Mid (Stent 100% occluded) and Distal (Fills late distally via right to left collaterals) D1 (% Stenosis): Normal (Mild diffuse) D2 (% Stenosis): Ostial (Occluded) Circumflex (% Stenosis): Normal (Mild diffuse) OM1 (% Stenosis): Normal OM2 (% Stenosis): Normal (Mild) L PL1 (% Stenosis): Normal RCA (% Stenosis): Proximal (Diffuse, calcified up to 30%), Mid (Stent patent, moderate calcification) and Distal (Focal calcified 40 to 50% after stent) R PDA (% Stenosis): Normal (Scattered mild) R PL1 (% Stenosis): Normal (Scattered mild) Diagnostic Physicians Name: Conner Davalos MD, PhD Closure Device Percutaneous Entry Location: Radial Closure Device: Radial Band Recommendations: Medical Therapy and/or Counseling Lesion Segment Name: Mid LAD Culprit Artery: Yes Stenosis Prior to Rx (%): 100 Pre-Procedure IRIS Flow: 0 Previously Treated Lesion: Yes Lesion Complexity: Non-High/Non-C Lesion Length (mm): 10 Thrombus Present: No Guidewire Across Lesion: No Cardiac Cath Procedure Full Procedure Date February 09, 2023 Pre-Procedure Diagnosis Pre-Procedure Diagnosis: Non STEMI AUC Score AUC Score: 07 Post-Procedure Diagnosis Post-Procedure Diagnosis: Severe CAD (Subacute stent thrombosis) and Unsuccessful PCI Procedure(s) Performed Procedure(s) Performed: Coronary Angiography and Ultrasound Guided Vascular Access Email Campaign Specialist Conner Davalos MD, PhD Estimated Blood Loss Estimated Blood Loss: Less than 10 mL Medication(s) Medication(s): Diphenhydramine, Fentanyl, Heparin, Lidocaine 1%, Nicardipine, Nitroglycerin and Versed Summary of Findings Brief description: Patient was brought to the cardiac catheterization suite where she was shaved and prepped in a sterile fashion. Sedated using IV Versed and fentanyl. Soft tissues of the left wrist were anesthetized using 10 mL of 1% Xylocaine. Attempts to cannulate the right radial artery were unsuccessful. Ultrasound evaluation did not demonstrate significant blood flow through the radial. However, she had a very large ulnar artery which did have good blood flow. Therefore, the right ulnar artery was accessed under ultrasound guidance (image saved), and a 6 [place] arterial glide sheath was placed. Patient was provided anticoagulation with IV heparin and antispasmodics including nicardipine and nitroglycerin. Left coronary angiography was performed in orthogonal views with a 5 [place] JL 3.5 diagnostic catheter. Right coronary angiography was performed in orthogonal views with a 5 [place] JR4 diagnostic catheter. Diagnostic catheters were removed. We moved to attempted PCI of the LAD. A 6 [place] EBU 3.0 guide catheter was used to engage the left main coronary. A BMW reversal guidewire was advanced through the guide catheter but we could not traverse the occlusion in the LAD. We attempted to use more backup support including a balloon catheter. Further attempts were abandoned using this guide catheter. Therefore a 6 [place] EBU 3.5 guide catheter was exchanged over the J- wire and used to engage the left main. This did give better coronary engagement. A BMW number so guidewire was again advanced but we could not go beyond the occluded portion of the vessel. The guidewire was removed. A run- through guidewire was then inserted to the level of the occlusion. A guide liner guide catheter was advanced as far as the mid portion of the proximal LAD. The balloon catheter was again advanced to the level of the diagonal vessel. Despite this, we were unable to advance the guidewire beyond the occlusion. It became apparent that we would not be successful despite more aggressive measures as the occlusion appeared to be subacute. There was no staining and no progress to advance the guidewire. Decision was made to abandon further attempts to avoid potential serious complications. Therefore, the guidewire, guide liner, balloon catheter were all removed and then after coronary angiography the guide catheter was removed. Patient remained hemodynamically stable and asymptomatic. The ulnar artery sheath was removed and hemostasis was obtained using the TR band. Patient remained stable and was returned to the recovery area. This end ed the case. Coronary angiography findings: GKD-swdji-pnkbxwn vessel bifurcating into LAD and circumflex. Diffuse mild disease. SCF-ltlvx-aonnigl vessel. Proximal segment with moderate calcification and mild disease less than 30%. Then there is a stent beginning in the late portion of the proximal segment extending across the ostium of the diagonal and into the mid segment. The first diagonal is large and branching with mild diffuse disease. After the ostium the mid LAD within the stent is 100% occluded. There is no staining and there is IRIS 0 flow. The distal LAD fills late via right to left collateralization. A known second diagonal also fills late via right to left collateralization. Of note, on prior catheterization/PCI these distal vessels had slightly reduced flow and poor myocardial blush. WGt-csuia-xdymjmg and nondominant vessel. There is a high arising first OM1 branch which is small to medium in caliber and has mild scattered disease. S econd major branch is a large branching OM 2. The distal circumflex terminates as a small posterolateral branch. The circumflex and its branches have no more than mild scattered plaques. RCA-this is a very large caliber and dominant vessel. It is ectatic proximally where there is mild diffuse disease. There is a mid vessel stent which is widely patent. There is moderate calcification extending beyond the stent into the early distal vessel. At this level there is a 40 to 50% focal stenosis. The vessel then bifurcates into a very large PDA and large branching posterolateral. These vessels have no more than mild scattered disease. They provide left to right collateralization. Summary: 1. There is subacute stent thrombosis in the distal portion of the previously placed LAD stent with complete occlusion. Unsuccessful attempts to cross the lesion despite nearly an hour spent on the case. This is the culprit for elevated troponin. The patient does have some modest collateralization to this territory which was not noted previously. 2. Good flow in the proximal LAD and a large diagonal branch with patent stent within that portion. 3. Widely patent old stent in the RCA. Angiographically there is been no change to the circumflex or the RCA compared to prior catheterization. 4. Patient shall remain on dual antiplatelet therapy with aspirin 81 mg daily and Brilinta 90 mg p.o. twice daily. We will optimize medical therapy for secondary prevention of coronary disease including beta-anshu, statin, plus or minus SOPHIE inhibitor/ARB. In the short-term, patient will remain on nitroglycerin and heparin. However we will transition the patient from IV nitroglycerin to long-acting nitrate. Hemodynamics Rest Ao:: 95/63 mmHg Final Ao: 122/86 mmHg LV: Not performed Recommendations Recommendations: Medical Therapy and/or Counseling Radiation Exposure (mGy) 3181 mGy Contrast (mls) 110 mL Anesthesia IV med:3 mg Versed, 100 mcg fentanyl, 25 mg Benadryl. Start 0920, end 1020 Procedural Complication(s) None Disposition Recovery Room\PACU I attest to the content of the Intraoperative Record and any orders documented therein. Any exceptions are noted below. [facility] Card Cath Procedure Codes Cardiac Catheterization Procedure 1: Cardiovascular Cath Procedures: 43888 Coronaries Therapeutic Services & Ancillary Procedure 2: Cardiovascular Tx and Anc Procedures: 13580 Ultrasonic Guidance Vascular Access Moderate Sedation Procedure 1: Sedation/Anesthesia: 00722 Mod Sedation by the same physician;Init15 Min Child Age 5 & Up (Initial 15-minute, start 919) Procedure 2: Sedation/Anesthesia: 23555 Mod Sedation by the same physician; Ea [id number] Minutes (Additional 45 min, end time 1020) PG Care Time/CCT Total # of Minutes Spent Total Time Spent with Patient: Total time spent is greater than 50% in coordination of care (as documented) at patient's floor/unit and/or counseling patient:
[2023-02-09] MEDS: FAMOTIDINE 20 MG TAB PO SCH (12:01)
[2023-02-09] MEDS: PANTOprazole 40 MG TAB PO SCH ×2 (12:01→20:34)
[2023-02-09] MEDS: FLUTICASONE PROPIONATE NA SPR 16 GM BTL SCH (12:01)
[2023-02-09] MEDS: rOPINIRole HCL 1 MG TABLET PO SCH ×3 (12:02→20:34)
[2023-02-09] MEDS: ATORVASTATIN 40 MG TAB PO SCH (12:02)
--- NOTE | 2023-02-09 12:04 | Cardiology Progress Note ---
Date of Service February 09, 2023 Assessment & Plan (1) Coronary stent thrombosis: Plan: Angiographically and by its behavior when trying to attempt PCI suggests that this is subacute occlusion. Review of the old angiography from 2 weeks ago also suggested poor myocardial blush after stent implantation to that area which would be consistent with significant microvascular occlusion and or infarction of older duration. The etiology of this event is unlikely to be clarified. Her history suggest possible occlusion of the stent while at [facility] where they likely held her blood thinners because of her bleed for at least a short duration. Alternatively, it may be that she was noncompliant with her medications at home as she does have a history of this but it is also true that the post PCI angiography suggests suboptimal distal outflow. Any of these or all of these may have led to her stent occlusion in the midportion. Unfortunately, despite my numerous efforts to pass a guidewire I was unsuccessful and more aggressive measures significantly increase the risk of coronary perforation which could have devastating outcomes. If there is significant myocardial function the benefit of opening the lesion at this time would be significantly diminished. Therefore, as a whole the risk-benefit ratio favors conservative medical management at this time. I will recommend that she remain on heparin to complete 48 hours and that we utilize nitro either as a drip or as sublingual while we transition to long-acting nitrate to control her symptoms. Patient will also remain on the dual antiplatelet therapy with aspirin and Brilinta to maintain patency of the proximal portion of the stent and its flow into the large D1 branch. (2) Non-ST elevated myocardial infarction (non-STEMI): Plan: Guideline directed medical therapy for secondary prevention of coronary disease shall include beta-anshu, high intensity statin therapy, and SOPHIE inhibitor/ARB as tolerated. (3) CHF (congestive heart failure): Plan: Patient's EF is again diminished based on her current echocardiogram. Reportedly better at [place] although I do not have those images to review myself. Her echo imaging quality is somewhat limited by her body habitus. We will be cautious to avoid excessive IV fluid resuscitation. We will also be cautious to avoid overdiuresis. She has demonstrated that she needs potassium supplementation as well as magnesium supplementation. We will choose a heart failure indicated beta-anshu such as carvedilol or metoprolol succinate. We will likely reduce her lisinopril dose to allow long-acting nitrate. She will remain on Lasix for volume management and potassium supplementation. She will also remain on Farxiga for heart failure and diabetes. (4) Hyperlipidemia: Plan: High risk. High intensity statin therapy with a atorvastatin 80 mg daily. (5) HTN (hypertension): Plan: Initiating beta-anshu, reducing lisinopril, adding isosorbide mononitrate for anginal relief and blood pressure control. Plan Patient should remain in the ICU to complete 24 hours observation/treatment given that she has significant risk of post ND complication. If she does okay then we can transfer her to the PCU tomorrow. I anticipate that she will be hospitalized for 48 to 72 hours. Admission and Anticipated Discharge Date Admission Date: February 08, 2023 Subjective Patient is currently post catheterization. No ongoing chest pain although she did have intermittent chest pain earlier this morning for which we took her to the cardiac catheterization suite to further evaluate. Echocardiogram was also performed which demonstrated reduced EF and similar wall motion abnormalities to prior echo. Her catheterization demonstrated the midportion of the previously placed stent was 100% occluded. We attempted to cross the lesion with a wire but it was behaving as if this was a subacute occlusion. We could not pass a guide wire and therefore PCI was not feasible despite nearly an hour of attempting to cross the lesion. The catheterization did demonstrate some right to left collateralization to the distal LAD and the second diagonal. After further discussion with the patient she informed me that while at [facility] she had chest discomfort. This was during the time that she was having femoral artery bleed. She assures me that once she returned home from [facility] she took her medications including aspirin and Brilinta as recommended. Currently without any ongoing chest discomfort or shortness of breath. She tolerated the access of the ulnar artery well at this point. She voices no other complaints or concerns at this time. Review of Systems Review of Systems: Negative except as per HPI Physical Exam Constitutional: WD/WN, vitals as above (Morbidly obese, no acute distress) Eyes: Extraocular muscles intact. Sclera are anicteric. ENMT: Oral mucosa is pink moist and intact Neck: Thick without JVD Respiratory: Clear to auscultation bilaterally. No wheezing, rhonchi, or rales. Good air movement. Cardiovascular: Regular rate and rhythm. S4 gallop. Do not appreciate any rubs or murmurs. No edema. Musculoskeletal: no cyanosis or clubbing, extremities motor strength 5/5 (Right thigh ecchymosis) Neurologic: Extremely anxious. Difficulty sitting still. Cognition is intact. Speech is fluent. No focal deficits. Psychiatric: A+Ox3, euthymic affect (Anxious) Results & Data Vital Signs (Past 12 Hours) Vital Signs Pulse Resp BP Pulse Ox O2 Del Method 02/09/23 11:05 80 19 96 Room Air 02/09/23 11:05 113/73 02/09/23 11:03 112/71 02/09/23 11:03 82 20 94 02/09/23 11:02 23 97 02/09/23 10:39 60 18 122/69 97 Room Air 02/09/23 08:30 106/58 L 02/09/23 08:30 79 18 95 02/09/23 08:15 102/64 02/09/23 08:15 91 H 18 100 02/09/23 08:00 102/56 L 02/09/23 08:00 81 21 90 02/09/23 08:00 Room Air 02/09/23 08:00 Room Air 02/09/23 08:00 88 02/09/23 07:38 114/57 L 02/09/23 07:38 88 17 95 Room Air 02/09/23 07:00 83 20 96 02/09/23 07:00 101/57 L 02/09/23 06:00 98/58 L 02/09/23 06:00 88 12 93 02/09/23 05:00 98 H 21 91 02/09/23 05:00 107/56 L 02/09/23 04:00 107/61 02/09/23 04:00 91 H 23 88 L 02/09/23 03:00 106/63 02/09/23 03:00 87 18 02/09/23 02:00 124/66 02/09/23 02:00 88 28 H 02/09/23 01:00 127/63 02/09/23 01:00 85 18 98 02/09/23 00:15 87 31 H 02/09/23 00:00 130/94 02/09/23 00:00 83 23 02/09/23 00:00 Room Air PG Care Time/CCT Total # of Minutes Spent Total Time Spent with Patient: Total time spent is greater than 50% in coordination of care (as documented) at patient's floor/unit and/or counseling patient: Coding Level of Care Code 44092 SUB INP/OBS CARE Diagnoses Coronary stent thrombosis T82.867A Non-ST elevated myocardial infarction (non-STEMI) I21.4 Congestive heart failure, unspecified HF chronicity, unspecified heart failure type I50.9 Heart failure type: unspecified Heart failure chronicity: unspecified Hyperlipidemia, unspecified hyperlipidemia type E78.5 Hyperlipidemia type: unspecified Primary hypertension I10 Hypertension type: primary hypertension (3) CHF (congestive heart failure) Heart failure type: unspecified Heart failure chronicity: unspecified Qualified Code(s): I50.9 - Heart failure, unspecified (4) Hyperlipidemia Hyperlipidemia type: unspecified Qualified Code(s): E78.5 - Hyperlipidemia, unspecified (5) HTN (hypertension) Hypertension type: primary hypertension Qualified Code(s): I10 - Essential (primary) hypertension
[2023-02-09] MEDS: METOPROLOL SUCC 25MG EXT REL TAB PO SCH (12:49)
[2023-02-09] MEDS: NITROGLYCERIN/D5W 100MCG/ML 250 ML IV SCH ×4 (12:50→18:21)
--- NOTE | 2023-02-09 13:06 | XCELERA ---
[id number] \\[email or web address]\[id number]
[2023-02-09] MEDS: ISOSORBIDE MONO EXTENDED REL 30 MG TABCR PO SCH (15:04)
[2023-02-09] MEDS: DOCUSATE SODIUM 100 MG CAP PO PRN (15:51)
[2023-02-09] MEDS: HEPARIN SODIUM/DEXTROSE 25,000 UNITS/500 ML BAG IV SCH (16:36)
--- NOTE | 2023-02-09 17:29 | Electrocardiogram Report ---
Test Reason : Blood Pressure : / mmHG Vent. Rate : 083 BPM Atrial Rate : 083 BPM P-R Int : 200 ms QRS Dur : 102 ms QT Int : 382 ms P-R-T Axes : 067 -05 047 degrees QTc Int : 448 ms Sinus rhythm with Premature atrial complexes Poor R wave progression, consider anterior [place] vs. lead placement vs. LVH Abnormal ECG Confirmed by Robinson Strong ([id number]) on 02/09/2023 5:29:00 PM Referred By: REFERRED SELF Confirmed By:Bandar Strong
--- NOTE | 2023-02-09 17:32 | Electrocardiogram Report ---
Test Reason : Blood Pressure : / mmHG Vent. Rate : 084 BPM Atrial Rate : 084 BPM P-R Int : 212 ms QRS Dur : 102 ms QT Int : 376 ms P-R-T Axes : 066 -03 055 degrees QTc Int : 444 ms Sinus rhythm with 1st degree A-V block with occasional Premature ventricular complexes and Premature atrial complexes Anterior infarct (cited on or before 25-MAR-2021) Abnormal ECG When compared with ECG of 08-FEB-2023 17:12, (unconfirmed) Premature ventricular complexes are now Present ST no longer elevated in Anterior leads Confirmed by Robinson Strong ([id number]) on 02/09/2023 5:31:48 PM Referred By: REFERRED SELF Confirmed By:Bandar Strong
--- NOTE | 2023-02-09 17:34 | Electrocardiogram Report ---
Test Reason : Blood Pressure : / mmHG Vent. Rate : 087 BPM Atrial Rate : 087 BPM P-R Int : 204 ms QRS Dur : 102 ms QT Int : 376 ms P-R-T Axes : 070 002 037 degrees QTc Int : 452 ms Sinus rhythm with Premature atrial complexes Low voltage QRS Poor R wave progression, consider anterior [place] vs. lead placement vs. LVH Possible Inferior infarct , age undetermined Abnormal ECG When compared with ECG of 08-FEB-2023 21:09, (unconfirmed) Premature ventricular complexes are no longer Present Confirmed by Robinson Strong ([id number]) on 02/09/2023 5:33:49 PM Referred By: REFERRED SELF Confirmed By:Bandar Strong
--- NOTE | 2023-02-09 17:35 | Electrocardiogram Report ---
Test Reason : Blood Pressure : / mmHG Vent. Rate : 087 BPM Atrial Rate : 087 BPM P-R Int : 198 ms QRS Dur : 100 ms QT Int : 384 ms P-R-T Axes : 056 027 092 degrees QTc Int : 462 ms Sinus rhythm with Premature atrial complexes Low voltage QRS Poor R wave progression, consider anterior CT vs. lead placement vs. LVH Abnormal ECG When compared with ECG of 08-FEB-2023 21:40, (unconfirmed) Nonspecific T wave abnormality, worse in Lateral leads Confirmed by Robinson Strong ([id number]) on 02/09/2023 5:35:14 PM Referred By: REFERRED SELF Confirmed By:Bandar Strong
--- NOTE | 2023-02-09 22:31 | Hospitalist Progress Note ---
Date of Service February 09, 2023 Assessment & Plan (1) Acute non-ST elevation myocardial infarction (NSTEMI): Plan: 62yo female presenting with acute substernal chest pain, elevation in troponin, no ST elevations on EKG. Findings consistent with acute NSTEMI. Patient's chest pain responsive to Nitro. -Admit to MICU -Heparin gtt -Nitro gtt -Continue home medications - ASA, Atorvastatin, Brillinta -Continue Lisinopril -Continue Isosorbide mononitrate Cath findings: 1. There is subacute stent thrombosis in the distal portion of the previously placed LAD stent with complete occlusion. Unsuccessful attempts to cross the lesion despite nearly an hour spent on the case. This is the culprit for elevated troponin. The patient does have some modest collateralization to this territory which was not noted previously. 2. Good flow in the proximal LAD and a large diagonal branch with patent stent within that portion. 3. Widely patent old stent in the RCA. Angiographically there is been no change to the circumflex or the RCA compared to prior catheterization. 4. Patient shall remain on dual antiplatelet therapy with aspirin 81 mg daily and Brilinta 90 mg p.o. twice daily. We will optimize medical therapy for secondary prevention of coronary disease including beta-anshu, statin, plus or minus SOPHIE inhibitor/ARB. In the short-term, patient will remain on nitroglycerin and heparin. However we will transition the patient from IV nitroglycerin to long-acting nitrate. Appreciate Cardiology assistance Close monitoring of thigh hematoma with heparin anticoagulation (2) CHF (congestive heart failure): Plan: Patient appears euvolemic -Continue isosorbide -Continue Lasix 40mg po BID (3) Diabetes mellitus: Plan: Chronic. Last CrkV2B=3.7 on 01/19/23 -Lantus 20u BID -ISS -Goal blood sugar 110 - 140 (4) HTN (hypertension): Plan: Chronic -Continue home medications -Monitor (5) Hyperlipidemia: Plan: Chronic -Continue Atorvastatin Admission and Anticipated Discharge Date Admission Date: February 08, 2023 Subjective Patient reports no new symptoms. Review of Systems Review of Systems: All systems reviewed & are unremarkable except as noted in HPI & below Physical Exam Physical Exam: General: patient resting comfortably, NAD, chronically ill in appearance and unkempt Skin: right thigh bruising and hematoma HEENT: NC/AT, PERRL, EOMI Heart: +S1/S2, regular, no m/r/g Lungs: equal air entry bilaterally, no rales/rhonchi/wheezes Results & Data Results & Data Vital Signs (Past 12 Hours) Vital Signs Temp Pulse Resp BP Pulse Ox O2 Del Method 02/09/23 20:00 114/66 02/09/23 20:00 79 25 H 95 02/09/23 19:16 75 17 98 02/09/23 19:16 114/66 02/09/23 19:01 74/44 L 02/09/23 19:01 85 21 90 02/09/23 19:00 88 20 95 02/09/23 18:00 113/61 02/09/23 17:59 82 24 93 02/09/23 17:45 105/62 02/09/23 17:45 78 19 95 02/09/23 17:01 127/75 02/09/23 17:01 76 17 96 Room Air 02/09/23 17:00 74 17 96 02/09/23 16:44 37.1 C 02/09/23 16:39 144/75 H 02/09/23 16:39 85 22 97 Room Air 02/09/23 16:00 79 19 96 02/09/23 16:00 85 02/09/23 15:00 79 19 96 02/09/23 14:37 121/69 02/09/23 14:37 78 18 95 02/09/23 14:01 80 25 H 94 02/09/23 14:01 131/59 L 02/09/23 14:00 80 13 94 02/09/23 13:00 125/70 02/09/23 13:00 75 19 95 02/09/23 12:30 80 20 92 Room Air 02/09/23 12:30 109/59 L 02/09/23 12:16 80 14 92 02/09/23 12:16 110/65 02/09/23 12:00 124/71 02/09/23 12:00 77 18 95 02/09/23 11:52 79 14 94 02/09/23 11:52 117/68 02/09/23 11:47 98 02/09/23 11:37 107/67 02/09/23 11:37 85 99 02/09/23 11:05 80 19 96 Room Air 02/09/23 11:05 113/73 02/09/23 11:03 112/71 02/09/23 11:03 82 20 94 02/09/23 11:02 23 97 02/09/23 10:39 60 18 122/69 97 Room Air PG Care Time/CCT Total # of Minutes Spent Total Time Spent with Patient: Total time spent is greater than 50% in coordination of care (as documented) at patient's floor/unit and/or counseling patient: Coding Level of Care Code 27798 SUB INP/OBS CARE 3/50MIN Diagnoses Acute non-ST elevation myocardial infarction (NSTEMI) I21.4 Congestive heart failure, unspecified HF chronicity, unspecified heart failure type I50.9 Heart failure chronicity: unspecified Heart failure type: unspecified Diabetes mellitus E11.9 Diabetes mellitus intermediate manager insulin use: with longterm use Diabetes mellitus macular edema: macular edema presence unspecified Diabetes mellitus type: type 2 Diabetic retinopathy severity: with unspecified retinopathy severity Laterality: unspecified laterality Primary hypertension I10 Hypertension type: primary hypertension Hyperlipidemia, unspecified hyperlipidemia type E78.5 Hyperlipidemia type: unspecified (2) CHF (congestive heart failure) Heart failure chronicity: unspecified Heart failure type: unspecified Qualified Code(s): I50.9 - Heart failure, unspecified (3) Diabetes mellitus Diabetes mellitus intermediate manager insulin use: with intermediate manager use Diabetes mellitus macular edema: macular edema presence unspecified Diabetes mellitus type: type 2 Diabetic retinopathy severity: with unspecified retinopathy severity Laterality: unspecified laterality (4) HTN (hypertension) Hypertension type: primary hypertension Qualified Code(s): I10 - Essential (primary) hypertension (5) Hyperlipidemia Hyperlipidemia type: unspecified Qualified Code(s): E78.5 - Hyperlipidemia, unspecified
[2023-02-10 04:52] LABS: Basophils # (auto) 0.07 K/uL (0.00-0.20); Basophils % (auto) 0.5 %; Eosinophils # (auto) 0.17 K/uL (0.00-0.50); Eosinophils % (auto) 1.3 %; Hematocrit (blood only) 31.5 % (37.0-47.0); Immature Granulocytes # (auto) 0.14 K/uL (0.01-0.20); Immature Granulocytes % (auto) 1.1 %; Lymphocytes # (auto) 2.05 K/uL (1.20-3.40); Lymphocytes % (auto) 15.6 %; Mean Corpuscular Hemoglobin 30.1 pg (25.0-34.0); Mean Corpuscular Hgb Conc 31.7 g/dL (32.0-36.0); Mean Corpuscular Volume 94.9 fL (80.0-100.0); Mean Platelet Volume 9.4 fL (9.4-12.4); Monocytes # (auto) 1.56 K/uL (0.11-0.59); Monocytes % (auto) 11.9 %; Neutrophils # (auto) 9.12 K/uL (1.40-6.50); Neutrophils % (auto) 69.6 %; Platelet Count 448 K/uL (130-400); RDW Standard Deviation 58.9 fL (36.4-46.3); Red Blood Count 3.32 M/uL (4.20-5.40); White Blood Count 13.11 K/ul (4.8-10.8)
[2023-02-10 05:05] LABS: BUN Creatinine Ratio 23.4 (10-20); Calcium 8.7 mg/dl (8.6-10.3); Creatinine Clr Calc Pharmacy 157.8 ml/min; Est GFR (African American) 122.7 ml/min; Est GFR (Non-African American) 105.9 ml/min; Magnesium 1.5 mg/dl (1.7-2.4); Phosphorus 3.5 mg/dl (2.5-4.9); Potassium 3.7 mmol/L (3.5-5.1)
[2023-02-10 05:32] LABS: Partial Thromboplastin Ratio 1.7
[2023-02-10] MEDS: NITROGLYCERIN/D5W 100MCG/ML 250 ML IV SCH (06:28)
[2023-02-10 06:29] LABS: Partial Thromboplastin Time 46.8 Seconds (21.0-31.0)
[2023-02-10] MEDS ORDERED: POTASSIUM CHLORIDE CRTAB 20 MEQ TABCR PO STA ×2 (06:29→07:41)
[2023-02-10] MEDS ORDERED: POTASSIUM CHLORIDE / WTR 10 MEQ/100 ML PLCT IV SCH (06:30)
[2023-02-10] MEDS: MAGNESIUM SULFATE / D5W 1 GM/100 ML BAG IV SCH ×3 (06:36→10:13)
--- NOTE | 2023-02-10 07:45 | Critical Care Progress Note ---
Date of Service February 10, 2023 Assessment & Plan (1) Acute non-ST elevation myocardial infarction (NSTEMI): (2) Femoral artery pseudo-aneurysm, right: (3) CHF (congestive heart failure): (4) CAD (coronary artery disease): (5) Mood disorder: (6) Hyperlipidemia: (7) Fibromyalgia: (8) HTN (hypertension): Plan Impression: 62-year-old female with recent admission for NSTEMI with PCI x2 complicated by right groin hematoma and pseudoaneurysm [place] [facility] [place], now presents to the ICU with ongoing chest pain following NSTEMI, requiring nitro drip for chest pain control. Currently on heparin drip as well. Neuro - [facility] ICU: Negative Cardiac - -- NSTEMI history of CAD and recent admission for NSTEMI where she received PCI to the LAD. Repeat cath 02/09/2023 showed 100% in-stent stenosis, unfortunately no intervention would be taken --> medical management going forward -No significant ST elevation [place] [id number] -On heparin drip and nitro drip -Trend troponins -Continue ASA, statin, lisinopril, Brilinta -Continuous monitor on telemetry 2D echo 01/29/2023: Mildly dilated LV normal systolic function, EF 59% with distal LAD territory hypokinesis. -- Diastolic heart failure -Continue with diuretics to keep the patient euvolemic to negative balance -- Right femoral artery pseudoaneurysm recent [place] [facility] [place]ing Respiratory - -- COPD with emphysema Not on any inhalers at home Recommend PFT as an outpatient -- Current smoker Positive quitting explained GI - Continue PPI RENAL/LYTES - Monitor BUNs/creatinine Replace electrolytes as needed - Strict I's and O's ENDO - DM type II Continue with ICU hyperglycemia protocol HEME - H&H stable, monitor routine CBC ID - No indication for infectious process at this time --History of drug abuse Last use was 5 months ago Usually smokes meth --Prophylaxis VTE: Heparin drip GI: Pantoprazole and Pepcid Lines: Peripheral Diet: Cardiac diet Plan: In/out: +1255, 2100 mL Potassium and magnesium are being replaced Patient blood pressure is on the softer side. Likely from patient being on nitro drip. Goal would be to titrate off the nitro drip if possible. Can consider Imdur We will decrease succinate to 12.5 mg on a daily basis and decrease lisinopril to 5 mg on a daily basis. If the blood pressure continues to be on the better side then can go back to the normal dose Disposition as per cardiology Case discussed with Dr. Rojas Please note the above document was generated using voice recognition software. It may contain grammatical, syntax or spelling errors.Any formal questions or concerns about the content, text or information contained within the body of this dictation should be directly addressed to the provider for clarification. Admission and Anticipated Discharge Date Admission Date: February 08, 2023 Subjective Patient seen and examined at bedside. No acute distress, no events overnight Denies any shortness of breath today. No chest pain. Had a good night sleep No abdominal pain. Denies any right groin/leg pain Fair appetite Review of Systems 2 Review of Systems: All systems reviewed & are unremarkable except as noted in Subjective Physical Exam 2 Physical Exam: Constitutional: No acute distress HEENT: EOMI, PERRLA Respiratory system: Good air entry bilaterally, no wheeze, no rhonchi, mild crackles bilateral lower lobes CVS: S1-S2 positive, no murmurs or gallops Abdomen: Soft, nontender, nondistended, positive bowel sounds x4, positive midline scar, left lower quadrant reducible hernia appreciated Extremities: +2 pulses bilaterally radialis/ dorsalis pedis, no cyanosis, no edema Neuro: Awake alert oriented x3 Psych: Normal mood and affect G/U: No Herrera Musculoskeletal: Right groin swelling with surrounding resolving hematoma appreciated Skin: no rashes, warm and dry Lymphatic: no cervical or axillary lymphadenopathy Results & Data Results & Data Vital Signs (Past 12 Hours) Vital Signs Pulse Resp BP Pulse Ox 02/10/23 06:00 79 11 L 99 02/10/23 05:00 93/56 L 02/10/23 05:00 72 15 99 02/10/23 04:00 97/59 L 02/10/23 04:00 76 13 98 02/10/23 03:00 85/45 L 02/10/23 03:00 66 13 97 02/10/23 02:00 100/54 L 02/10/23 02:00 66 21 88 L 02/10/23 01:00 78/36 L 02/10/23 01:00 64 18 99 02/10/23 00:01 67 18 97 02/10/23 00:01 103/62 02/10/23 00:00 69 16 100 02/09/23 23:01 79 17 81 L 02/09/23 23:01 114/67 02/09/23 23:00 75 18 90 02/09/23 22:00 94/56 L 02/09/23 22:00 73 12 98 02/09/23 21:00 88/47 L 02/09/23 21:00 78 15 97 02/09/23 20:00 114/66 02/09/23 20:00 79 25 H 95 Laboratory Results 02/10/23 03:54 02/10/23 03:54 Coding Level of Care Code 28246 SUB INP/OBS CARE 350MIN Diagnoses Acute non-ST elevation myocardial infarction (NSTEMI) I21.4 Femoral artery pseudo-aneurysm, right I72.4 Congestive heart failure, unspecified HF chronicity, unspecified heart failure type I50.9 Heart failure chronicity: unspecified Heart failure type: unspecified Coronary artery disease involving jackson heart with angina pectoris, unspecified vessel or lesion type I25.119 Associated angina: with unspecified form of angina Coronary Disease-Associated Artery/Lesion type: unspecified vessel or lesion type [place] vs. transplanted heart: jackson heart Mood disorder F39 Hyperlipidemia, unspecified hyperlipidemia type E78.5 Hyperlipidemia type: unspecified Fibromyalgia M79.7 Primary hypertension I10 Hypertension type: primary hypertension (3) CHF (congestive heart failure) Heart failure chronicity: unspecified Heart failure type: unspecified Qualified Code(s): I50.9 - Heart failure, unspecified (4) CAD (coronary artery disease) Associated angina: with unspecified form of angina Coronary Disease- Associated Artery/Lesion type: unspecified vessel or lesion type [place] vs. transplanted heart: jackson heart Qualified Code(s): I25.119 - Atherosclerotic heart disease of jackson coronary artery with unspecified angina pectoris (6) Hyperlipidemia Hyperlipidemia type: unspecified Qualified Code(s): E78.5 - Hyperlipidemia, unspecified (8) HTN (hypertension) Hypertension type: primary hypertension Qualified Code(s): I10 - Essential (primary) hypertension
[2023-02-10] MEDS: LANTUS PER UNIT CHARGE SQ SCH ×2 (07:50→21:29)
[2023-02-10] MEDS: INSULIN ASPART PER UNIT CHARGE SC SCH ×4 (07:51→21:28)
[2023-02-10] MEDS: ISOSORBIDE MONO EXTENDED REL 30 MG TABCR PO SCH (08:00)
[2023-02-10] MEDS: FLUTICASONE PROPIONATE NA SPR 16 GM BTL SCH (08:00)
[2023-02-10] MEDS: ASPIRIN 81 MG ECTAB PO SCH (08:00)
[2023-02-10] MEDS: METOPROLOL SUCC 25MG EXT REL TAB PO SCH (08:01)
[2023-02-10] MEDS: FUROSEMIDE 40 MG TAB PO SCH ×2 (08:01→17:30)
[2023-02-10] MEDS: FAMOTIDINE 20 MG TAB PO SCH (08:01)
[2023-02-10] MEDS: PANTOprazole 40 MG TAB PO SCH ×2 (08:01→21:30)
[2023-02-10] MEDS: ATORVASTATIN 40 MG TAB PO SCH (08:01)
[2023-02-10] MEDS: rOPINIRole HCL 1 MG TABLET PO SCH ×3 (08:01→21:30)
[2023-02-10] MEDS: TICAGRELOR 90 MG TAB PO SCH ×2 (08:02→21:30)
[2023-02-10] MEDS: HEPARIN SODIUM/DEXTROSE 25,000 UNITS/500 ML BAG IV SCH (08:36)
[2023-02-10] MEDS ORDERED: lisinopril 10 MG TAB PO SCH (09:00)
[2023-02-10] MEDS: ONDANSETRON INJ 2 MG/ML 2 ML VIAL IV PRN (13:03)
--- NOTE | 2023-02-10 14:30 | Hospitalist Progress Note ---
Date of Service February 10, 2023 Assessment & Plan (1) Acute non-ST elevation myocardial infarction (NSTEMI): Plan: 62yo female presenting with acute substernal chest pain, elevation in troponin, no ST elevations on EKG. Findings consistent with acute NSTEMI. Patient's chest pain responsive to Nitro. -Admit to MICU -Heparin gtt -Nitro gtt -Continue home medications - ASA, Atorvastatin, Brillinta -Continue Lisinopril -Continue Isosorbide mononitrate Cath findings: 1. There is subacute stent thrombosis in the distal portion of the previously placed LAD stent with complete occlusion. Unsuccessful attempts to cross the lesion despite nearly an hour spent on the case. This is the culprit for elevated troponin. The patient does have some modest collateralization to this territory which was not noted previously. 2. Good flow in the proximal LAD and a large diagonal branch with patent stent within that portion. 3. Widely patent old stent in the RCA. Angiographically there is been no change to the circumflex or the RCA compared to prior catheterization. 4. Patient shall remain on dual antiplatelet therapy with aspirin 81 mg daily and Brilinta 90 mg p.o. twice daily. We will optimize medical therapy for secondary prevention of coronary disease including beta-anshu, statin, plus or minus SOPHIE inhibitor/ARB. In the short-term, patient will remain on nitroglycerin and heparin. However we will transition the patient from IV nitroglycerin to long-acting nitrate. Appreciate Cardiology assistance Close monitoring of thigh hematoma with heparin anticoagulation Remain in ICU due to hypotension (2) CHF (congestive heart failure): Plan: Patient appears euvolemic -Continue isosorbide -Continue Lasix 40mg po BID hold PM dose of lasix (3) Diabetes mellitus: Plan: Chronic. Last [id number] on 01/19/23 -Lantus 20u BID -ISS -Goal blood sugar 110 - 140 (4) HTN (hypertension): Plan: Chronic -Continue home medications -Monitor (5) Hyperlipidemia: Plan: Chronic -Continue Atorvastatin Admission and Anticipated Discharge Date Admission Date: February 08, 2023 Subjective Patient reports no new symptoms. Review of Systems Review of Systems: All systems reviewed & are unremarkable except as noted in HPI & below Physical Exam Physical Exam: General: patient resting comfortably, NAD, chronically ill in appearance and unkempt Skin: right thigh bruising and hematoma HEENT: NC/AT, PERRL, EOMI Heart: +S1/S2, regular, no m/r/g Lungs: equal air entry bilaterally, no rales/rhonchi/wheezes Results & Data Results & Data Vital Signs (Past 12 Hours) Vital Signs Temp Pulse Pulse Resp BP BP Pulse Ox 02/10/23 13:00 69 18 99 02/10/23 13:00 93/56 L 02/10/23 12:00 116/59 L 02/10/23 12:00 72 25 H 98 02/10/23 11:30 78 19 98 02/10/23 11:00 68 18 100 02/10/23 11:00 99/57 L 02/10/23 10:30 69 15 96 02/10/23 10:00 94/58 L 02/10/23 10:00 67 17 97 02/10/23 09:30 68 14 97 02/10/23 09:15 64 18 02/10/23 09:15 98/63 L 02/10/23 09:00 90/45 L 02/10/23 09:00 68 16 02/10/23 08:46 02/10/23 08:44 71 18 02/10/23 08:44 91/57 L 02/10/23 08:30 65 18 91 02/10/23 08:01 69 18 98 02/10/23 08:01 115/65 02/10/23 08:00 67 20 98 02/10/23 08:00 02/10/23 08:00 61 02/10/23 08:00 36.9 C 63 18 115/65 96 02/10/23 07:30 66 14 94 02/10/23 07:00 66 16 99 02/10/23 07:00 82/53 L 02/10/23 06:00 79 11 L 99 02/10/23 05:00 93/56 L 02/10/23 05:00 72 15 99 02/10/23 04:00 97/59 L 02/10/23 04:00 76 13 98 02/10/23 03:00 85/45 L 02/10/23 03:00 66 13 97 O2 Del Method 02/10/23 13:00 Room Air 02/10/23 13:00 02/10/23 12:00 02/10/23 12:00 Room Air 02/10/23 11:30 02/10/23 11:00 02/10/23 11:00 02/10/23 10:30 02/10/23 10:00 02/10/23 10:00 02/10/23 09:30 Room Air 02/10/23 09:15 02/10/23 09:15 02/10/23 09:00 02/10/23 09:00 02/10/23 08:46 Room Air 02/10/23 08:44 02/10/23 08:44 02/10/23 08:30 Room Air 02/10/23 08:01 02/10/23 08:01 02/10/23 08:00 02/10/23 08:00 Room Air 02/10/23 08:00 02/10/23 08:00 Room Air 02/10/23 07:30 02/10/23 07:00 Room Air 02/10/23 07:00 02/10/23 06:00 02/10/23 05:00 02/10/23 05:00 02/10/23 04:00 02/10/23 04:00 02/10/23 03:00 02/10/23 03:00 PG Care Time/CCT Total # of Minutes Spent Total Time Spent with Patient: Total time spent is greater than 50% in coordination of care (as documented) at patient's floor/unit and/or counseling patient: Coding Level of Care Code 56754 SUB INP/OBS CARE 3/50MIN Diagnoses Acute non-ST elevation myocardial infarction (NSTEMI) I21.4 Congestive heart failure, unspecified HF chronicity, unspecified heart failure type I50.9 Heart failure chronicity: unspecified Heart failure type: unspecified Diabetes mellitus E11.9 Diabetes mellitus terminal manager insulin use: with terminal manager use Diabetes mellitus macular edema: macular edema presence unspecified Diabetes mellitus type: type 2 Diabetic retinopathy severity: with unspecified retinopathy severity Laterality: unspecified laterality Primary hypertension I10 Hypertension type: primary hypertension Hyperlipidemia, unspecified hyperlipidemia type E78.5 Hyperlipidemia type: unspecified (2) CHF (congestive heart failure) Heart failure chronicity: unspecified Heart failure type: unspecified Qualified Code(s): I50.9 - Heart failure, unspecified (3) Diabetes mellitus Diabetes mellitus terminal manager insulin use: with alf use Diabetes mellitus macular edema: macular edema presence unspecified Diabetes mellitus type: type 2 Diabetic retinopathy severity: with unspecified retinopathy severity Laterality: unspecified laterality (4) HTN (hypertension) Hypertension type: primary hypertension Qualified Code(s): I10 - Essential (primary) hypertension (5) Hyperlipidemia Hyperlipidemia type: unspecified Qualified Code(s): E78.5 - Hyperlipidemia, unspecified
[2023-02-10] MEDS: SODIUM CHLORIDE 0.9% 500 ML IV SCH ×3 (17:51→18:42)
[2023-02-10] MEDS ORDERED: SODIUM CHLORIDE 0.9% 250 ML IV ONE (18:16)
[2023-02-10] MEDS: FORMOTEROL 20 MCG/2 ML VIAL INH SCH (19:14)
[2023-02-10] MEDS: BUDESONIDE 0.25 MG/2 ML VIAL (PULMICORT) NEB SCH (19:14)
[2023-02-10] MEDS: ACETAMINOPHEN 500 MG TAB PO PRN (21:30)
[2023-02-11] MEDS: HEPARIN SODIUM/DEXTROSE 25,000 UNITS/500 ML BAG IV SCH ×2 (03:20→21:10)
[2023-02-11 04:33] LABS: Basophils # (auto) 0.06 K/uL (0.00-0.20); Basophils % (auto) 0.5 %; Eosinophils # (auto) 0.26 K/uL (0.00-0.50); Eosinophils % (auto) 2.1 %; Hematocrit (blood only) 31.1 % (37.0-47.0); Hemoglobin 9.9 g/dl (12.0-16.0); Immature Granulocytes # (auto) 0.26 K/uL (0.01-0.20); Immature Granulocytes % (auto) 2.1 %; Lymphocytes # (auto) 1.97 K/uL (1.20-3.40); Mean Corpuscular Hemoglobin 30.2 pg (25.0-34.0); Mean Corpuscular Hgb Conc 31.8 g/dL (32.0-36.0); Mean Corpuscular Volume 94.8 fL (80.0-100.0); Mean Platelet Volume 9.6 fL (9.4-12.4); Monocytes # (auto) 1.24 K/uL (0.11-0.59); Monocytes % (auto) 10.1 %; Neutrophils # (auto) 8.51 K/uL (1.40-6.50); Neutrophils % (auto) 69.2 %; Platelet Count 440 K/uL (130-400); RDW Coefficient of Variation 17.1 % (11.5-14.5); RDW Standard Deviation 58.9 fL (36.4-46.3); Red Blood Count 3.28 M/uL (4.20-5.40)
[2023-02-11 04:52] LABS: Calcium 8.4 mg/dl (8.6-10.3); Creatinine Clr Calc Pharmacy 124.5 ml/min; Est GFR (African American) 113.2 ml/min; Est GFR (Non-African American) 97.7 ml/min; Magnesium 1.6 mg/dl (1.7-2.4); Phosphorus 3.2 mg/dl (2.5-4.9); Potassium 4.2 mmol/L (3.5-5.1)
[2023-02-11 05:16] LABS: Partial Thromboplastin Ratio 1.6
[2023-02-11 05:18] LABS: Partial Thromboplastin Time 44.8 Seconds (21.0-31.0)
[2023-02-11] MEDS: BUDESONIDE 0.25 MG/2 ML VIAL (PULMICORT) NEB SCH ×2 (07:08→19:29)
[2023-02-11] MEDS: FORMOTEROL 20 MCG/2 ML VIAL INH SCH ×2 (07:08→19:29)
--- NOTE | 2023-02-11 07:35 | Critical Care Progress Note ---
Date of Service February 11, 2023 Assessment & Plan (1) Acute non-ST elevation myocardial infarction (NSTEMI): (2) Femoral artery pseudo-aneurysm, right: (3) CHF (congestive heart failure): (4) CAD (coronary artery disease): (5) Mood disorder: (6) Hyperlipidemia: (7) Fibromyalgia: (8) HTN (hypertension): Plan Impression: 62-year-old female with recent admission for NSTEMI with PCI x2 complicated by right groin hematoma and pseudoaneurysm [place] [facility] [place], now presents to the ICU with ongoing chest pain following NSTEMI, requiring nitro drip for chest pain control. Currently on heparin drip as well. Neuro - [facility] ICU: Negative Cardiac - -- NSTEMI history of CAD and recent admission for NSTEMI where she received PCI to the LAD. Repeat cath 02/09/2023 showed 100% in-stent stenosis, unfortunately no intervention would be taken --> medical management going forward -No significant ST elevation [place], [place] [id number] -On heparin drip and nitro drip -Trend troponins -Continue ASA, statin, lisinopril, Brilinta -Continuous monitor on telemetry 2D echo 01/29/2023: Mildly dilated LV normal systolic function, EF 59% with distal LAD territory hypokinesis. -- Diastolic heart failure -Continue with diuretics to keep the patient euvolemic to negative balance -- Right femoral artery pseudoaneurysm recent [place] [facility] [place]ing Respiratory - -- COPD with emphysema Not on any inhalers at home Recommend PFT as an outpatient -- Current smoker Positive quitting explained GI - Continue PPI RENAL/LYTES - Monitor BUNs/creatinine Replace electrolytes as needed - Strict I's and O's ENDO - DM type II Continue with ICU hyperglycemia protocol HEME - H&H stable, monitor routine CBC ID - No indication for infectious process at this time --History of drug abuse Last use was 5 months ago Usually smokes meth --Prophylaxis VTE: Heparin drip GI: Pantoprazole and Pepcid Lines: Peripheral Diet: Cardiac diet Plan: In/out: + 962 mL, urine output 725 Magnesium being replaced Blood pressure still on the softer side although patient is not symptomatic Hold all blood pressure medications for the time being. Resume them 1 at the time once the blood pressure starts to go up Case discussed with Dr. Rojas Please note the above document was generated using voice recognition software. It may contain grammatical, syntax or spelling errors.Any formal questions or concerns about the content, text or information contained within the body of this dictation should be directly addressed to the provider for clarification. Admission and Anticipated Discharge Date Admission Date: February 08, 2023 Subjective Patient seen and examined at bedside. No acute distress. Early in the morning her left IV got infiltrated and she was in pain but that is since resolved Denies any chest pain, no shortness of breath No headache, no blurry vision, no dizziness Right groin is tender but that is also decreased in intensity Denies any cough, no hemoptysis Review of Systems 2 Review of Systems: All systems reviewed & are unremarkable except as noted in Subjective Physical Exam 2 Physical Exam: Constitutional: No acute distress HEENT: EOMI, PERRLA Respiratory system: Good air entry bilaterally, no wheeze, no rhonchi, mild crackles bilateral lower lobes CVS: S1-S2 positive, no murmurs or gallops Abdomen: Soft, nontender, nondistended, positive bowel sounds x4, positive midline scar, left lower quadrant reducible hernia appreciated Extremities: +2 pulses bilaterally radialis/ dorsalis pedis, no cyanosis, no edema Neuro: Awake alert oriented x3 Psych: Normal mood and affect G/U: No Herrera Musculoskeletal: Right groin swelling with surrounding resolving hematoma appreciated Skin: no rashes, warm and dry Lymphatic: no cervical or axillary lymphadenopathy Results & Data Results & Data Vital Signs (Past 12 Hours) Vital Signs Pulse Pulse Resp BP Pulse Ox O2 Del Method O2 Flow Rate 02/11/23 07:08 73 18 100 Nasal Cannula 3 02/11/23 06:00 75 15 96 02/11/23 05:01 79 20 100 02/11/23 05:01 82/54 L 02/11/23 05:00 73 18 100 02/11/23 04:01 103/53 L 02/11/23 04:01 72 15 100 02/11/23 04:00 67 17 96 02/11/23 03:00 62 13 98 02/11/23 03:00 102/63 02/11/23 02:00 65 19 98 02/11/23 02:00 93/49 L 02/11/23 01:02 80 21 02/11/23 01:02 103/45 L 02/11/23 01:00 80 16 02/11/23 00:00 60 11 L 02/11/23 00:00 91/47 L 02/10/23 23:00 63 23 02/10/23 23:00 76/45 L 02/10/23 22:01 74/45 L 02/10/23 22:01 69 26 H 02/10/23 22:00 69 16 02/10/23 21:00 71 19 02/10/23 20:30 67 20 02/10/23 20:00 68 18 02/10/23 20:00 88/58 L Laboratory Results 02/11/23 03:40 02/11/23 03:40 Coding Level of Care Code 76882 SUB INP/OBS CARE MIN Diagnoses Acute non-ST elevation myocardial infarction (NSTEMI) I21.4 Femoral artery pseudo-aneurysm, right I72.4 Congestive heart failure, unspecified HF chronicity, unspecified heart failure type I50.9 Heart failure chronicity: unspecified Heart failure type: unspecified Coronary artery disease involving elem heart with angina pectoris, unspecified vessel or lesion type I25.119 Associated angina: with unspecified form of angina Coronary Disease-Associated Artery/Lesion type: unspecified vessel or lesion type [place] vs. transplanted heart: elem heart Mood disorder F39 Hyperlipidemia, unspecified hyperlipidemia type E78.5 Hyperlipidemia type: unspecified Fibromyalgia M79.7 Primary hypertension I10 Hypertension type: primary hypertension (3) CHF (congestive heart failure) Heart failure chronicity: unspecified Heart failure type: unspecified Qualified Code(s): I50.9 - Heart failure, unspecified (4) CAD (coronary artery disease) Associated angina: with unspecified form of angina Coronary Disease- Associated Artery/Lesion type: unspecified vessel or lesion type [place] vs. transplanted heart: elem heart Qualified Code(s): I25.119 - Atherosclerotic heart disease of elem coronary artery with unspecified angina pectoris (6) Hyperlipidemia Hyperlipidemia type: unspecified Qualified Code(s): E78.5 - Hyperlipidemia, unspecified (8) HTN (hypertension) Hypertension type: primary hypertension Qualified Code(s): I10 - Essential (primary) hypertension
[2023-02-11] MEDS: TICAGRELOR 90 MG TAB PO SCH ×2 (08:28→21:11)
[2023-02-11] MEDS: rOPINIRole HCL 1 MG TABLET PO SCH ×3 (08:28→21:10)
[2023-02-11] MEDS: ASPIRIN 81 MG ECTAB PO SCH (08:29)
[2023-02-11] MEDS: PANTOprazole 40 MG TAB PO SCH ×2 (08:29→21:10)
[2023-02-11] MEDS: FAMOTIDINE 20 MG TAB PO SCH (08:29)
[2023-02-11] MEDS: ATORVASTATIN 40 MG TAB PO SCH (08:30)
[2023-02-11] MEDS: INSULIN ASPART PER UNIT CHARGE SC SCH ×4 (08:38→21:10)
[2023-02-11] MEDS: LANTUS PER UNIT CHARGE SQ SCH ×2 (08:38→21:09)
[2023-02-11] MEDS: MAGNESIUM SULFATE / D5W 1 GM/100 ML BAG IV SCH ×4 (08:39→14:44)
[2023-02-11] MEDS ORDERED: lisinopril 10 MG TAB PO SCH (09:00)
[2023-02-11] MEDS ORDERED: METOPROLOL SUCC 25MG EXT REL TAB PO SCH (09:00)
[2023-02-11] MEDS: FLUTICASONE PROPIONATE NA SPR 16 GM BTL SCH (10:55)
[2023-02-11] MEDS: ISOSORBIDE MONO EXTENDED REL 30 MG TABCR PO SCH (11:17)
[2023-02-12] MEDS: BUDESONIDE 0.25 MG/2 ML VIAL (PULMICORT) NEB SCH ×2 (07:27→19:31)
[2023-02-12] MEDS: FORMOTEROL 20 MCG/2 ML VIAL INH SCH ×2 (07:28→19:30)
--- NOTE | 2023-02-12 07:55 | Hospitalist Progress Note ---
Date of Service February 11, 2023 Assessment & Plan (1) Acute non-ST elevation myocardial infarction (NSTEMI): Plan: 62yo female presenting with acute substernal chest pain, elevation in troponin, no ST elevations on EKG. Findings consistent with acute NSTEMI. Patient's chest pain responsive to Nitro. -Admit to MICU -Heparin gtt -Nitro gtt -Continue home medications - ASA, Atorvastatin, Brillinta -Continue Lisinopril -Continue Isosorbide mononitrate Cath findings: 1. There is subacute stent thrombosis in the distal portion of the previously placed LAD stent with complete occlusion. Unsuccessful attempts to cross the lesion despite nearly an hour spent on the case. This is the culprit for elevated troponin. The patient does have some modest collateralization to this territory which was not noted previously. 2. Good flow in the proximal LAD and a large diagonal branch with patent stent within that portion. 3. Widely patent old stent in the RCA. Angiographically there is been no change to the circumflex or the RCA compared to prior catheterization. 4. Patient shall remain on dual antiplatelet therapy with aspirin 81 mg daily and Brilinta 90 mg p.o. twice daily. We will optimize medical therapy for secondary prevention of coronary disease including beta-asnhu, statin, plus or minus SOPHIE inhibitor/ARB. In the short-term, patient will remain on nitroglycerin and heparin. However we will transition the patient from IV nitroglycerin to long-acting nitrate. Appreciate Cardiology assistance Close monitoring of thigh hematoma with heparin anticoagulation Will downgrade as blood pressure has been soft, but patient has been aysmptmatic . BP meds have been on hold. will discuss with cardiology. (2) CHF (congestive heart failure): Plan: Patient appears euvolemic -Continue isosorbide -Continue Lasix 40mg po BID hold PM dose of lasix (3) Diabetes mellitus: Plan: Chronic. Last [id number]=7.7 on 01/19/23 -Lantus 20u BID -ISS -Goal blood sugar 110 - 140 (4) HTN (hypertension): Plan: Chronic -Continue home medications -Monitor (5) Hyperlipidemia: Plan: Chronic -Continue Atorvastatin Admission and Anticipated Discharge Date Admission Date: February 08, 2023 Subjective Patient reports no new symptoms. Review of Systems Review of Systems: All systems reviewed & are unremarkable except as noted in HPI & below Physical Exam Physical Exam: General: patient resting comfortably, NAD Skin: right thigh bruising and hematoma HEENT: NC/AT, PERRL, EOMI Heart: +S1/S2, regular, no m/r/g Lungs: equal air entry bilaterally, no rales/rhonchi/wheezes Results & Data Results & Data Vital Signs (Past 12 Hours) Vital Signs Pulse Pulse Resp BP Pulse Ox O2 Del Method O2 Flow Rate 02/12/23 07:28 79 16 95 Room Air 02/12/23 05:00 72 20 101/62 96 02/12/23 04:00 63 18 97 02/12/23 03:28 68 17 98 02/12/23 03:28 98/62 L 02/12/23 03:00 67 17 98 02/12/23 02:00 77 21 109/62 96 02/12/23 01:00 80 23 93 02/12/23 00:00 76 18 98 02/11/23 23:00 83 26 H 100 02/11/23 22:00 93 H 19 88 L 02/11/23 21:30 77 17 100 02/11/23 21:00 72 16 98 02/11/23 20:30 80 21 93 02/11/23 20:04 109/62 02/11/23 20:04 75 19 96 02/11/23 20:00 75 16 94 02/11/23 20:00 Oxymask 2 PG Care Time/CCT Total # of Minutes Spent Total Time Spent with Patient: Total time spent is greater than 50% in coordination of care (as documented) at patient's floor/unit and/or counseling patient: Coding Level of Care Code 01375 SUB INP/OBS CARE 3/50MIN Diagnoses Acute non-ST elevation myocardial infarction (NSTEMI) I21.4 Congestive heart failure, unspecified HF chronicity, unspecified heart failure type I50.9 Heart failure type: unspecified Heart failure chronicity: unspecified Diabetes mellitus E11.9 Diabetes mellitus type: type 2 Diabetes mellitus termite control representative insulin use: with termite control representative use Diabetic retinopathy severity: with unspecified retinopathy severity Diabetes mellitus macular edema: macular edema presence unspecified Laterality: unspecified laterality Primary hypertension I10 Hypertension type: primary hypertension Hyperlipidemia, unspecified hyperlipidemia type E78.5 Hyperlipidemia type: unspecified (2) CHF (congestive heart failure) Heart failure type: unspecified Heart failure chronicity: unspecified Qualified Code(s): I50.9 - Heart failure, unspecified (3) Diabetes mellitus Diabetes mellitus type: type 2 Diabetes mellitus termite control representative insulin use: with alf use Diabetic retinopathy severity: with unspecified retinopathy severity Diabetes mellitus macular edema: macular edema presence unspecified Laterality: unspecified laterality (4) HTN (hypertension) Hypertension type: primary hypertension Qualified Code(s): I10 - Essential (primary) hypertension (5) Hyperlipidemia Hyperlipidemia type: unspecified Qualified Code(s): E78.5 - Hyperlipidemia, unspecified
[2023-02-12 08:14] LABS: Partial Thromboplastin Ratio 1.6
[2023-02-12 08:15] LABS: Partial Thromboplastin Time 44.5 Seconds (21.0-31.0)
[2023-02-12] MEDS: FLUTICASONE PROPIONATE NA SPR 16 GM BTL SCH (08:50)
[2023-02-12] MEDS: rOPINIRole HCL 1 MG TABLET PO SCH ×3 (08:50→22:15)
[2023-02-12] MEDS: PANTOprazole 40 MG TAB PO SCH ×2 (08:51→22:15)
[2023-02-12] MEDS: ASPIRIN 81 MG ECTAB PO SCH (08:51)
[2023-02-12] MEDS: TICAGRELOR 90 MG TAB PO SCH ×2 (08:51→22:25)
[2023-02-12] MEDS: ATORVASTATIN 40 MG TAB PO SCH (08:51)
[2023-02-12] MEDS: FAMOTIDINE 20 MG TAB PO SCH (08:51)
[2023-02-12] MEDS: INSULIN ASPART PER UNIT CHARGE SC SCH ×4 (08:54→22:25)
[2023-02-12] MEDS: LANTUS PER UNIT CHARGE SQ SCH ×2 (08:55→22:25)
[2023-02-12] MEDS: DOCUSATE SODIUM 100 MG CAP PO PRN (09:02)
[2023-02-12] MEDS ORDERED: traMADol HCL 50 MG TABLET PO STA (12:58)
[2023-02-12] MEDS ORDERED: METOPROLOL SUCC 25MG EXT REL TAB PO SCH (13:00)
[2023-02-12] MEDS: ACETAMINOPHEN 325 MG TAB PO SCH ×3 (13:16→22:25)
--- NOTE | 2023-02-12 15:14 | Ultrasound Report ---
ULTRASOUND RIGHT GROIN NONVASCULAR CLINICAL HISTORY: Right groin hematoma. COMPARISON STUDY: Pelvic CT dated 02/08/2023. FINDINGS: Portable real-time, grayscale and color flow sonography of the soft tissues of the right gr oin was performed to assess for hematoma. There is a large complex multiloculated nonvascular fluid c ollection seen in the anterior aspect of the right groin/proximal thigh. This measures approximately 23 x 6 x 17 cm in aggregate dimension. IMPRESSION: Large complex nonvascular fluid collection in the right groin/upper thigh as above. This is typical for a hematoma. Clinical correlation will be required and clinical follow-up to resolution is recommended. Dictated: 02/12/2023 3:00 PM Transcribed: 02/12/2023 3:06 PM Ismael [id number] Mark [id number] Electronically signed by: Kirby Jackson M.D. 02/12/2023 3:12 PM
[2023-02-12] MEDS: HEPARIN SODIUM/DEXTROSE 25,000 UNITS/500 ML BAG IV SCH (15:24)
--- NOTE | 2023-02-12 22:46 | Hospitalist Progress Note ---
Date of Service February 12, 2023 Assessment & Plan (1) Acute non-ST elevation myocardial infarction (NSTEMI): Plan: 62yo female presenting with acute substernal chest pain, elevation in troponin, no ST elevations on EKG. Findings consistent with acute NSTEMI. Patient's chest pain responsive to Nitro. -Admit to MICU -Heparin gtt -Nitro gtt -Continue home medications - ASA, Atorvastatin, Brillinta -Continue Lisinopril -Continue Isosorbide mononitrate Cath findings: 1. There is subacute stent thrombosis in the distal portion of the previously placed LAD stent with complete occlusion. Unsuccessful attempts to cross the lesion despite nearly an hour spent on the case. This is the culprit for elevated troponin. The patient does have some modest collateralization to this territory which was not noted previously. 2. Good flow in the proximal LAD and a large diagonal branch with patent stent within that portion. 3. Widely patent old stent in the RCA. Angiographically there is been no change to the circumflex or the RCA compared to prior catheterization. 4. Patient shall remain on dual antiplatelet therapy with aspirin 81 mg daily and Brilinta 90 mg p.o. twice daily. We will optimize medical therapy for secondary prevention of coronary disease including beta-anshu, statin, plus or minus SOPHIE inhibitor/ARB. In the short-term, patient will remain on nitroglycerin and heparin. However we will transition the patient from IV nitroglycerin to long-acting nitrate. Appreciate Cardiology assistance Close monitoring of thigh hematoma. Heparin is now stopped. imaging confirms hematoma, no intervention required. D/W cardiology: will start metoprolol at 25 mg PO daily. (2) CHF (congestive heart failure): Plan: Patient appears euvolemic hold lasix and isosorbide (3) Diabetes mellitus: Plan: Chronic. Last KldB4C=1.7 on 01/19/23 -Lantus 20u BID -ISS -Goal blood sugar 110 - 140 (4) HTN (hypertension): Plan: Chronic -Continue home medications -Monitor (5) Hyperlipidemia: Plan: Chronic -Continue Atorvastatin Admission and Anticipated Discharge Date Admission Date: February 08, 2023 Subjective 62 yo female reports no new symptoms. Main complaint is her right grown is hurting. Review of Systems Review of Systems: All systems reviewed & are unremarkable except as noted in HPI & below Physical Exam Physical Exam: General: patient resting comfortably, NAD Skin: right thigh bruising and hematoma noted HEENT: NC/AT, PERRL, EOMI Heart: +S1/S2, regular, no m/r/g Lungs: equal air entry bilaterally, no rales/rhonchi/wheezes Results & Data Results & Data Vital Signs (Past 12 Hours) Vital Signs Temp Pulse Pulse Resp BP BP BP 02/12/23 20:20 36.8 C 72 18 98/64 L 02/12/23 19:31 99 H 18 02/12/23 18:47 74 02/12/23 16:32 36.6 C 73 17 92/59 L 02/12/23 16:00 73 29 H 02/12/23 15:00 73 20 02/12/23 14:00 80 20 02/12/23 13:00 71 25 H 02/12/23 12:01 73 22 02/12/23 12:01 123/66 02/12/23 12:00 37 C 02/12/23 12:00 77 19 02/12/23 11:34 126/73 02/12/23 11:34 83 23 02/12/23 11:00 69 17 Pulse Ox O2 Del Method 02/12/23 20:20 95 Room Air 02/12/23 19:31 96 Room Air 02/12/23 18:47 02/12/23 16:32 92 Room Air 02/12/23 16:00 95 02/12/23 15:00 97 02/12/23 14:00 95 02/12/23 13:00 95 02/12/23 12:01 90 Room Air 02/12/23 12:01 02/12/23 12:00 02/12/23 12:00 97 02/12/23 11:34 02/12/23 11:34 95 02/12/23 11:00 90 PG Care Time/CCT Total # of Minutes Spent Total Time Spent with Patient: Total time spent is greater than 50% in coordination of care (as documented) at patient's floor/unit and/or counseling patient: Coding Level of Care Code 13428 SUB INP/OBS CARE 3/50MIN Diagnoses Acute non-ST elevation myocardial infarction (NSTEMI) I21.4 Congestive heart failure, unspecified HF chronicity, unspecified heart failure type I50.9 Heart failure chronicity: unspecified Heart failure type: unspecified Diabetes mellitus E11.9 Diabetes mellitus chcf insulin use: with predatory animal exterminator use Diabetes mellitus macular edema: macular edema presence unspecified Diabetes mellitus type: type 2 Diabetic retinopathy severity: with unspecified retinopathy severity Laterality: unspecified laterality Primary hypertension I10 Hypertension type: primary hypertension Hyperlipidemia, unspecified hyperlipidemia type E78.5 Hyperlipidemia type: unspecified (2) CHF (congestive heart failure) Heart failure chronicity: unspecified Heart failure type: unspecified Qualified Code(s): I50.9 - Heart failure, unspecified (3) Diabetes mellitus Diabetes mellitus predatory animal exterminator insulin use: with chcf use Diabetes mellitus macular edema: macular edema presence unspecified Diabetes mellitus type: type 2 Diabetic retinopathy severity: with unspecified retinopathy severity Laterality: unspecified laterality (4) HTN (hypertension) Hypertension type: primary hypertension Qualified Code(s): I10 - Essential (primary) hypertension (5) Hyperlipidemia Hyperlipidemia type: unspecified Qualified Code(s): E78.5 - Hyperlipidemia, unspecified
[2023-02-13] MEDS ORDERED: traMADol HCL 50 MG TABLET PO STA (03:40)
[2023-02-13 06:38] LABS: Hematocrit (blood only) 33.1 % (37.0-47.0); Hemoglobin 10.4 g/dl (12.0-16.0); Mean Corpuscular Hemoglobin 30.1 pg (25.0-34.0); Mean Corpuscular Hgb Conc 31.4 g/dL (32.0-36.0); Mean Corpuscular Volume 95.9 fL (80.0-100.0); Mean Platelet Volume 9.6 fL (9.4-12.4); Platelet Count 439 K/uL (130-400); RDW Coefficient of Variation 17.1 % (11.5-14.5); RDW Standard Deviation 58.8 fL (36.4-46.3); Red Blood Count 3.45 M/uL (4.20-5.40); White Blood Count 8.17 K/ul (4.8-10.8)
[2023-02-13 06:50] LABS: BUN Creatinine Ratio 25.5 (10-20); Calcium 9.1 mg/dl (8.6-10.3); Creatinine Clr Calc Pharmacy 131.2 ml/min; Est GFR (African American) 116.5 ml/min; Est GFR (Non-African American) 100.5 ml/min
[2023-02-13 06:57] LABS: Partial Thromboplastin Time 29.6 Seconds (21.0-31.0)
[2023-02-13] MEDS: BUDESONIDE 0.25 MG/2 ML VIAL (PULMICORT) NEB SCH ×2 (06:58→19:11)
[2023-02-13] MEDS: FORMOTEROL 20 MCG/2 ML VIAL INH SCH ×2 (06:58→19:11)
[2023-02-13] MEDS: INSULIN ASPART PER UNIT CHARGE SC SCH ×4 (09:02→20:49)
[2023-02-13] MEDS: ONDANSETRON INJ 2 MG/ML 2 ML VIAL IV PRN (09:02)
[2023-02-13] MEDS: PANTOprazole 40 MG TAB PO SCH ×2 (09:03→20:01)
[2023-02-13] MEDS: FLUTICASONE PROPIONATE NA SPR 16 GM BTL SCH (09:03)
[2023-02-13] MEDS: rOPINIRole HCL 1 MG TABLET PO SCH ×3 (09:04→20:01)
[2023-02-13] MEDS: ACETAMINOPHEN 325 MG TAB PO SCH ×4 (09:10→20:00)
[2023-02-13] MEDS: TICAGRELOR 90 MG TAB PO SCH ×2 (09:10→20:01)
[2023-02-13] MEDS: LANTUS PER UNIT CHARGE SQ SCH ×2 (09:12→20:49)
[2023-02-13] MEDS: ASPIRIN 81 MG ECTAB PO SCH (11:53)
[2023-02-13] MEDS: ATORVASTATIN 40 MG TAB PO SCH (11:53)
[2023-02-13] MEDS: FAMOTIDINE 20 MG TAB PO SCH (11:54)
[2023-02-13] MEDS: traMADol HCL 50 MG TABLET PO PRN (20:01)
[2023-02-13] MEDS: DOCUSATE SODIUM 100 MG CAP PO PRN (20:03)
--- NOTE | 2023-02-13 22:30 | Hospitalist Progress Note ---
Date of Service February 13, 2023 Assessment & Plan (1) Acute non-ST elevation myocardial infarction (NSTEMI): Plan: 62yo female presenting with acute substernal chest pain, elevation in troponin, no ST elevations on EKG. Findings consistent with acute NSTEMI. Patient's chest pain responsive to Nitro. -Admit to MICU -Heparin gtt -Nitro gtt -Continue home medications - ASA, Atorvastatin, Brillinta -Continue Lisinopril -Continue Isosorbide mononitrate Cath findings: 1. There is subacute stent thrombosis in the distal portion of the previously placed LAD stent with complete occlusion. Unsuccessful attempts to cross the lesion despite nearly an hour spent on the case. This is the culprit for elevated troponin. The patient does have some modest collateralization to this territory which was not noted previously. 2. Good flow in the proximal LAD and a large diagonal branch with patent stent within that portion. 3. Widely patent old stent in the RCA. Angiographically there is been no change to the circumflex or the RCA compared to prior catheterization. 4. Patient shall remain on dual antiplatelet therapy with aspirin 81 mg daily and Brilinta 90 mg p.o. twice daily. We will optimize medical therapy for secondary prevention of coronary disease including beta-anshu, statin, plus or minus SOPHIE inhibitor/ARB. In the short-term, patient will remain on nitroglycerin and heparin. However we will transition the patient from IV nitroglycerin to long-acting nitrate. Appreciate Cardiology assistance Close monitoring of thigh hematoma. Heparin is now stopped. imaging confirms hematoma, no intervention required. D/W cardiology: tolerating metoprolol at 25 mg PO daily. Awaiting placement. (2) CHF (congestive heart failure): Plan: Patient appears euvolemic hold lasix and isosorbide (3) Diabetes mellitus: Plan: Chronic. Last BtmF4G=7.7 on 01/19/23 -Lantus 20u BID -ISS -Goal blood sugar 110 - 140 (4) HTN (hypertension): Plan: Chronic -Continue home medications -Monitor (5) Hyperlipidemia: Plan: Chronic -Continue Atorvastatin Admission and Anticipated Discharge Date Admission Date: February 08, 2023 Subjective Patient reports no new symptoms. Review of Systems Review of Systems: All systems reviewed & are unremarkable except as noted in HPI & below Physical Exam Physical Exam: General: patient resting comfortably, NAD Skin: right thigh bruising and hematoma noted HEENT: NC/AT, PERRL, EOMI Heart: +S1/S2, regular, no m/r/g Lungs: equal air entry bilaterally, no rales/rhonchi/wheezes Results & Data Results & Data Vital Signs (Past 12 Hours) Vital Signs Temp Pulse Pulse Resp BP BP Pulse Ox 02/13/23 19:11 80 18 97 02/13/23 19:00 36.8 C 85 20 113/80 96 02/13/23 16:00 72 02/13/23 15:40 36.8 C 93 H 19 107/68 97 02/13/23 11:23 36.6 C 74 19 107/61 93 O2 Del Method O2 Flow Rate 02/13/23 19:11 Room Air 02/13/23 19:00 Room Air 02/13/23 16:00 02/13/23 15:40 Room Air 02/13/23 11:23 Nasal Cannula 4 PG Care Time/CCT Total # of Minutes Spent Total Time Spent with Patient: Total time spent is greater than 50% in coordination of care (as documented) at patient's floor/unit and/or counseling patient: Coding Level of Care Code 26492 SUB INP/OBS CARE 2/35MIN Diagnoses Acute non-ST elevation myocardial infarction (NSTEMI) I21.4 Congestive heart failure, unspecified HF chronicity, unspecified heart failure type I50.9 Heart failure chronicity: unspecified Heart failure type: unspecified Diabetes mellitus E11.9 Diabetes mellitus alf insulin use: with alf use Diabetes mellitus macular edema: macular edema presence unspecified Diabetes mellitus type: type 2 Diabetic retinopathy severity: with unspecified retinopathy severity Laterality: unspecified laterality Primary hypertension I10 Hypertension type: primary hypertension Hyperlipidemia, unspecified hyperlipidemia type E78.5 Hyperlipidemia type: unspecified (2) CHF (congestive heart failure) Heart failure chronicity: unspecified Heart failure type: unspecified Qualified Code(s): I50.9 - Heart failure, unspecified (3) Diabetes mellitus Diabetes mellitus alf insulin use: with alf use Diabetes mellitus macular edema: macular edema presence unspecified Diabetes mellitus type: type 2 Diabetic retinopathy severity: with unspecified retinopathy severity Laterality: unspecified laterality (4) HTN (hypertension) Hypertension type: primary hypertension Qualified Code(s): I10 - Essential (primary) hypertension (5) Hyperlipidemia Hyperlipidemia type: unspecified Qualified Code(s): E78.5 - Hyperlipidemia, unspecified
[2023-02-14 06:16] LABS: Hematocrit (blood only) 32.6 % (37.0-47.0); Hemoglobin 10.6 g/dl (12.0-16.0); Mean Corpuscular Hemoglobin 30.5 pg (25.0-34.0); Mean Corpuscular Hgb Conc 32.5 g/dL (32.0-36.0); Mean Corpuscular Volume 93.7 fL (80.0-100.0); Mean Platelet Volume 9.4 fL (9.4-12.4); Platelet Count 424 K/uL (130-400); RDW Standard Deviation 57.6 fL (36.4-46.3); Red Blood Count 3.48 M/uL (4.20-5.40); White Blood Count 8.72 K/ul (4.8-10.8)
[2023-02-14 06:32] LABS: BUN Creatinine Ratio 24.1 (10-20); Calcium 8.9 mg/dl (8.6-10.3); Creatinine Clr Calc Pharmacy 133.9 ml/min; Est GFR (African American) 117.2 ml/min; Est GFR (Non-African American) 101.1 ml/min; Potassium 4.4 mmol/L (3.5-5.1)
[2023-02-14] MEDS: BUDESONIDE 0.25 MG/2 ML VIAL (PULMICORT) NEB SCH (07:11)
[2023-02-14] MEDS: FORMOTEROL 20 MCG/2 ML VIAL INH SCH (07:12)
[2023-02-14] MEDS: ACETAMINOPHEN 325 MG TAB PO SCH ×3 (08:48→16:34)
[2023-02-14] MEDS: INSULIN ASPART PER UNIT CHARGE SC SCH ×3 (08:48→16:34)
[2023-02-14] MEDS: FLUTICASONE PROPIONATE NA SPR 16 GM BTL SCH (08:48)
[2023-02-14] MEDS: traMADol HCL 50 MG TABLET PO PRN (08:49)
[2023-02-14] MEDS: FAMOTIDINE 20 MG TAB PO SCH (08:49)
[2023-02-14] MEDS: PANTOprazole 40 MG TAB PO SCH (08:49)
[2023-02-14] MEDS: TICAGRELOR 90 MG TAB PO SCH (08:50)
[2023-02-14] MEDS: ATORVASTATIN 40 MG TAB PO SCH (08:50)
[2023-02-14] MEDS: rOPINIRole HCL 1 MG TABLET PO SCH ×2 (08:50→13:10)
[2023-02-14] MEDS: ASPIRIN 81 MG ECTAB PO SCH (08:50)
[2023-02-14] MEDS: LANTUS PER UNIT CHARGE SQ SCH (08:53)
[2023-02-14 11:41] VITALS: TEMP 97.5
[2023-02-14 15:08] VITALS: BP 132/87; RESP 19; O2SAT 93
--- NOTE | 2023-02-14 16:37 | Discharge Summary ---
Date of Service February 14, 2023 Admission HPI Per Admitting Provider Jia Evans is a 62-year-old woman with past medical history of CAD with recent admission for NSTEMI. Attempt to access patient's radial artery was unsuccessful therefore she had access at the right femoral artery. MIGUEL was placed to the LAD on 01/28/23. Case complicated by right groin hematoma and pseudoaneurysm. She was transferred to [facility] on 02/07/23 for endovascular repair. She reports she has been complaint with her medications. No chest pain until tonight. This afternoon 02/08/23 around 1300 the patient woke up and walked to the refrigerator for some cheese. She reports she got two pieces of cheese and went back to bed after which she developed substernal chest pain with radiation to the left arm and back. She had some dyspnea and diaphoresis as well. In the ER patient had increased in troponin. Code Heart was called and she was evaluated by Interventional Cardiology. No ST elevations on EKG Discharge Data Allergies Allergy/AdvReac Type Severity Reaction Status Date / Time morphine Allergy Intermediate Hives Verified 02/08/23 20:43 adhesive Allergy Unknown Unknown Verified 02/08/23 20:43 amoxicillin [From Augmentin] AdvReac Intermediate Diarrhea Verified 02/08/23 20:43 clavulanic acid AdvReac Intermediate Diarrhea Verified 02/08/23 20:43 [From Augmentin] clonazepam AdvReac Intermediate short term Verified 02/08/23 20:43 memory loss NSAIDS (Non-Steroidal AdvReac Unknown CONTRAINDICATED Verified 02/08/23 20:43 Anti-Inflamma IS ON ANTICOAGULATION Consultations 02/08/23 22:21 ED Decision to Admit Stat 02/08/23 22:55 Consult Cardiology Routine Consult Traveling Electrician Routine Procedures Performed Operation Date: 02/09/23 08:30 Actual Procedures s Cineradiography w/Routine Exam - Conner Davalos MD, PhD p Cath, Coronaries ONLY (no LV) - Conner Davalos MD, PhD s Ultrasound Vascular Access - Conner Davalos MD, PhD Ordered Studies 02/08/23 18:07 CTA chest dissec wo/w con [CT angio chest dissec wo/w con] Stat 02/08/23 18:11 CTA abdomen pelvis w con [CT angio abdomen pelvis w con] Stat 02/09/23 08:25 CL Cath Imgs for PACS use only Routine 02/12/23 12:58 US extremity non-vascular ltd Routine Hospital Course (1) Acute non-ST elevation myocardial infarction (NSTEMI): 62yo female presenting with acute substernal chest pain, elevation in troponin, no ST elevations on EKG. Findings consistent with acute NSTEMI. Patient's chest pain responsive to Nitro. -Admit to MICU -Heparin gtt -Nitro gtt -Continue home medications - ASA, Atorvastatin, Brillinta -Continue Lisinopril -Continue Isosorbide mononitrate Cath findings: 1. There is subacute stent thrombosis in the distal portion of the previously placed LAD stent with complete occlusion. Unsuccessful attempts to cross the lesion despite nearly an hour spent on the case. This is the culprit for aleksandr vated troponin. The patient does have some modest collateralization to this territory which was not noted previously. 2. Good flow in the proximal LAD and a large diagonal branch with patent stent within that portion. 3. Widely patent old stent in the RCA. Angiographically there is been no change to the circumflex or the RCA compared to prior catheterization. 4. Patient shall remain on dual antiplatelet therapy with aspirin 81 mg daily and Brilinta 90 mg p.o. twice daily. We will optimize medical therapy for secondary prevention of coronary disease including beta-anshu, statin, plus or minus SOPHIE inhibitor/ARB. In the short-term, patient will remain on nitroglycerin and heparin. However we will transition the patient from IV nitroglycerin to long-acting nitrate. Appreciate Cardiology assistance Close monitoring of thigh hematoma. Heparin is now stopped. imaging confirms hematoma, no intervention required. D/W cardiology: tolerating metoprolol at 25 mg PO daily. Awaiting placement. (2) CHF (congestive heart failure): Patient appears euvolemic hold lasix and isosorbide (3) Diabetes mellitus: Chronic. Last LknG9W=2.7 on 01/19/23 -Lantus 20u BID -ISS -Goal blood sugar 110 - 140 (4) HTN (hypertension): Chronic -Continue home medications -Monitor (5) Hyperlipidemia: Chronic -Continue Atorvastatin Discharge Plan Discharge Items Patient Disposition: Home - Home Health Services Reason For Visit: CHEST PAIN, ELEVATED TROP Discharge Diagnosis: chest pain, elevated trop Activity: Resume your previous activity Non-emergency contact: Primary Care Provider Call non-emergency contact if: you have any medication questions Follow-up/Referrals: Lo Esposito MD [Primary Care Provider] - 03/02/23 11:30 am Robinson Dillon MD [Physician] - 02/22/23 11:30 am Diet: Heart Healthy Add Attending Provider Instructions: Call your Primary Care doctor if any of the following symptoms or problems start or get worse: * Shortness of breath or difficulty breathing * Wake up at night short of breath * Chest pain * Cough * Swelling of your hands, feet, or legs * More fatigued or tired with your normal activity * Palpitations - sudden fast heart beats WEIGHT * Weigh yourself every morning after using the bathroom. * Use the same scale. * Wear the same amount of clothing. * Write your weight down on a chart. * Call your Primary Care doctor if you gain more than 2-3 pounds in 1-2 days. MEDICATIONS * Use this discharge instruction sheet for medication instructions. * Take your medications at the time your doctor ordered. * Do not skip a dose of your medicines. * If you miss a dose of medicine, take it as soon as possible, but DO NOT DOUBLE A DOSE. * Read your medicine information when you get home. * Know all of the side effects of your medicine. If in doubt, ask your pharmacist * Call your Primary Care doctor's office if you have any side effects. * Be sure all of your doctors know what medicine and herbs you take (including cold, flu, and herbal medicine). Take the following with you to your follow-up doctor appointments: * Weight Chart * Medication List * List of questions Do not drink excessive alcohol, beer or wine. Home Care: * Take your medications exactly as directed. Don't skip doses. * Remember that recovery after a heart attack takes time. Plan to rest for at lease 4-8 weeks while you recover. Then return to normal activity when your doctor says it's okay. * Ask your doctor about joining a heart rehabilitation program. * Tell your doctor if you are feeling depressed. Feelings of sadness are common after a heart attack, but it is important that you speak to someone if you are feeling overwhelmed by these feelings. * If you are having chest pain, call 911 for an ambulance. Do NOT drive yourself to the hospital. * Ask your family members to learn CPR. * Learn to take your own blood pressure and pulse. Keep a record of your r esults. Ask your doctor when you should seek emergency medical attention. He or she will tell you which blood pressure reading is dangerous. Lifestyle Changes: * Maintain a healthy weight. Get help to lose any extra pounds. * Cut back on salt. * Limit canned, dried, packaged, and fast foods. * Don't add salt to your food. * Season foods with herbs instead of salt when you cook. * Break the smoking habit. Enroll in a stop-smoking program to improve your chances of success. * Limit fatty foods. * Ask your doctor about having your lipid levels checked regularly. * Build up your activity according to your doctor's recommendation. * Ask your doctor when it's okay to resume sexual activity. * Tell your doctor about any erectile dysfunction (ED) medication you are taking. Some ED medications are not safe if you take certain heart medications. * Try to manage stress. Follow Up: It is important for you to keep your follow up appointments with your medical provider. Pending Studies at Discharge: No Stand-Alone Forms: [facility], Work/School Release, Smoking Cessation Medications and DC Order Prescriptions: New tramadol 50 mg Tablet 50 mg PO PM PRN (Reason: moderate pain (scale score 5-6)) Qty: 10 0RF metoprolol succinate 25 mg Tablet Extended Release 24 Hr 25 mg PO QAM Qty: 30 0RF isosorbide mononitrate 30 mg Tablet Extended Release 24 Hr 30 mg PO QAM Qty: 30 0RF lisinopril 2.5 mg tablet 2.5 mg PO DAILY Qty: 30 0RF Continued metformin 1,000 mg tablet 1,000 mg PO BID Qty: 60 0RF albuterol sulfate 90 mcg/actuation HFA aerosol inhaler 2 inh inhalation Q6H PRN (Reason: shortness of breath or wheezing) Qty: 8.5 1RF aspirin 81 mg tablet,delayed release (DR/EC) 81 mg PO QAM Qty: 90 3RF insulin aspart U-100 [Novolog FlexPen U-100 Insulin] 100 unit/mL (3 mL) insulin pen See Rx Instructions subcut UD Qty: 15 2RF Rx Instructions: Take as directed per scale before meals; max of 50 units/day subcutaneously use as directed; (DME) pen needle, diabetic [BD Ultra-Fine Micro Pen Needle] 32 gauge x 1/4" needle See Rx Instructions .Route Qty: 200 5RF Rx Instructions: As directed to inject insulin up to 5 times a day insulin glargine [Lantus Solostar U-100 Insulin] 100 unit/mL (3 mL) insulin pen 20 unit subcut BID Qty: 15 5RF Rx Instructions: or as directed acetaminophen 500 mg tablet 1,000 mg PO Q8H PRN (Reason: pain) Patient Comments: CONFIRMED W/ PT AND ON C DC SUMMARY 02/05 ropinirole 1 mg tablet 1 mg PO TID Qty: 90 0RF cholecalciferol (vitamin D3) 1,250 mcg (50,000 unit) capsule 50,000 unit PO WK Qty: 12 1RF atorvastatin 80 mg tablet 80 mg PO QAM Qty: 90 3RF famotidine 20 mg tablet 20 mg PO DAILY Qty: 90 3RF (DME) blood-glucose meter [OneTouch Verio Flex meter] [facility] [place] See Rx Instructions .Route Qty: 1 0RF Rx Instructions: As directed to check blood sugars two times a day (DME) OneTouch Verio test strips Strip See Rx Instructions .Route Qty: 100 5RF Rx Instructions: As directed to test blood sugars two times a day (DME) lancets [OneTouch Delica Lancets] 33 gauge [facility] See Rx Instructions .Route Qty: 100 5RF Rx Instructions: As directed to test blood sugars two times a day loratadine 10 mg tablet 10 mg PO DAILY PRN (Reason: allergy symptoms) docusate sodium 100 mg capsule 100 mg PO DAILY PRN (Reason: constipation) fluticasone propionate [Flonase Allergy Relief] 50 mcg/actuation spray,suspension 2 spray intranasal DAILY Rx Instructions: administer into each nostril pantoprazole 40 mg tablet,delayed release (DR/EC) 40 mg PO BID zinc acetate 50 mg (zinc) Capsule 50 mg PO DAILY magnesium oxide 200 mg magnesium Tablet 0 mg PO DAILY ticagrelor 90 mg tablet 90 mg PO BID Qty: 60 0RF Farxiga 10 mg tablet 10 mg PO DAILY Qty: 90 0RF Changed furosemide [Lasix] 40 mg tablet 40 mg PO DAILY PRN (Reason: weight gain >2 lnbs) Qty: 120 0RF potassium chloride 20 mEq tablet,ER particles/crystals 20 meq PO Q2D PRN (Reason: on days you take lasix) Qty: 90 1RF Held oxycodone 5 mg tablet 5 mg PO Q6H PRN (Reason: pain) Qty: 28 0RF Hold Instructions: Resume on 02/28/23. until seen by PCP Discontinued lisinopril 20 mg tablet 20 mg PO DAILY Qty: 90 3RF Discharge Orders: Discharge Order- CHF (Routine); Ordered 02/14/23 Ordered By: Sadneep Rojas Admission Data Admit Date/Time: 02/08/23 22:30 Attending Provider: Sandeep Rojas Admit Provider: Avril Lentz Primary Care Provider: Lo Esposito V. Other Providers: Avril Lentz; Conner Davalos; Riley Shen; [place] Coding Diagnoses Acute non-ST elevation myocardial infarction (NSTEMI) I21.4 Congestive heart failure, unspecified HF chronicity, unspecified heart failure type I50.9 Heart failure type: unspecified Heart failure chronicity: unspecified Diabetes mellitus E11.9 Diabetes mellitus type: type 2 Diabetes mellitus prison insulin use: with prison use Diabetic retinopathy severity: with unspecified retinopathy severity Diabetes mellitus macular edema: macular edema presence unspecified Laterality: unspecified laterality Primary hypertension I10 Hypertension type: primary hypertension Hyperlipidemia, unspecified hyperlipidemia type E78.5 Hyperlipidemia type: unspecified
[2023-02-14 16:39] VITALS: PULSE 68
== END 2023-02-14 17:46 | disposition home health service (06) | DRG 281 ==
LOC: ED 17:06 → 1E 22:30 → SUATTDRO 22:30 → 1E 22:50 → 2E 02-12 16:38
PROC: CLB.CCO (2023-02-09 08:30)